=== PATIENT | female | born 1995 | race African-American/Black ===

== ENCOUNTER 2024-04-02 06:36 | Outpatient (OUT) | payer OTHER, SELFPAY | END 2024-04-02 06:37 | disposition home or self-care (01) | LOC: FBCO 06:36 | PROVIDERS: Visit Provider Obstetrics & Gynecology | DX: O24.414 Gestational diabetes mellitus in pregnancy, insulin controlled (principal) ==

== ENCOUNTER 2024-04-09 06:06 | Outpatient (OUT) | payer OTHER, SELFPAY ==
--- NOTE | 2024-04-09 10:03 | US_ITS ---
[address] [address] Patient Name: MONICA FERGUSON MRN: [id number] date: 1995 Sex: F [place] [facility] [place] [facility] [place]/Order Number: [id number] Exam Date: 04/09/2024 10:10 Report Date: 04/10/2024 05:34 At the request of: TOYA SMITH Procedure: US OB growth EXAMINATION: US OB growth HISTORY: INSULIN CONTROLLED GESTATIONAL DIABETES MELLITUS O24.414 COMPARISON: No relevant comparison available. FINDINGS: Heart Rate: 132.74 bpm Amniotic Fluid Volume: 11.7 cm; normal range. Number: 1 Position: CEPHALIC Placenta: Posterior BIOMETRY: BPD: 8.22 cm; 33 weeks 0 days; 37.40 % HC: 29.81 cm; 33 weeks 0 days; 10.90 % AC: 29.24 cm; 33 weeks 2 days; 50.10 % FL: 6.70 cm; 34 weeks 3 days; 70.50 % EFW: 2219.13 g; 49.40 % FL/AC: 22.91 FL/BPD: 81.47 HC/AC: 1.02 GESTATIONAL AGE: Age by EDC: 33 weeks 2 days ANNA by EDC: 2024-05-26 Age by US: 33 weeks 3 days ANNA by US: 2024-05-25 US/US OB growth IMPRESSION: 1. Single live intrauterine with growth detailed above. Electronically authenticated by: HA SOUTH Date: 04/10/2024 05:34
--- NOTE | 2024-04-09 10:03 | US_ITS ---
[address] [address] Patient Name: MONICA FERGUSON MRN: [facility]:[id number] date: 1995 Sex: F Assigned Patient Location: [facility] Current Patient Location: Accession/Order Number: [id number] Exam Date: 04/09/2024 10:10 Report Date: 04/10/2024 05:24 At the request of: TOYA SMITH Procedure: US OB BPP w non-stress EXAMINATION: US OB BPP w non-stress HISTORY:INSULIN CONTROLLED GESTATIONAL DIABETES MELLITUS O24.414 COMPARISON: No relevant comparison available. TECHNIQUE: Ultrasound biophysical profile was performed in the radiology department. BREATHING MOVEMENTS: 2 GROSS BODY MOVEMENTS: 2 TONE: 2 QUALITATIVE AMNIOTIC FLUID VOLUME: 2 PRESENTATION: CEPHALIC HEART RATE: 132.74 bpm AMNIOTIC FLUID VOLUME: 11.67 cm GESTATIONAL AGE: 33 weeks 2 days US/US OB BPP w non-stress IMPRESSION: Total biophysical profile score: 8 Electronically authenticated by: HA SOUTH Date: 04/10/2024 05:24
[2024-04-09 11:09] VITALS: BP 131/73; PULSE 85
== END 2024-04-09 11:31 | disposition home or self-care (01) ==
LOC: FBCO 06:06 → FBC 10:10
PROVIDERS: Visit Provider Physician Assistant
DX: O24.414 Gestational diabetes mellitus in pregnancy, insulin controlled (principal); Z3A.33 33 weeks gestation of pregnancy
CPT/HCPCS: 76816; 76818

== ENCOUNTER 2024-04-12 06:21 | Outpatient (OUT) | payer OTHER, SELFPAY ==
--- OUTSIDE RECORDS SUMMARY | 2024-04-12 06:23 | XMS_ITS | CCD ---
Author Organization [facility] Care Team Providers Care Museum Preparator Name Role Phone LAURA, DR TRAE Delaney Primary Care Unavailable NADERER, DR TRAE Delaney Admitting Unavailable NADERER, DR TRAE Delaney Attending Unavailable NADERER, DR TRAE Delaney Consulting Unavailable NADERER, DR TRAE Delaney Primary Care Unavailable KARASIK, DR OLMOS Attending Unavailable KARASIK, DR OLMOS Consulting Unavailable KARASIK, DR OLMOS Admitting Unavailable NADERER, DR TRAE Delaney Primary Care Unavailable DAVENPORT, DR JOSE Torres Consulting Unavailable JASMINE, DR FELIX Attending Unavailable JASMINE, DR FELIX Admitting Unavailable JASMINE, DR FELIX Consulting Unavailable CHANTAL, YASMINE Quinteros Attending Unavailable NADERER, TRAE Referring Unavailable NADERER, TRAE Primary Care Unavailable CHANTAL, YASMINE Quinteros Attending Unavailable NADERER, TRAE Referring Unavailable NADERER, TRAE Primary Care Unavailable NADERER, TRAE Primary Care Unavailable CHANTAL, YASMINE Quinteros Attending Unavailable CHANTAL, YASMINE M Referring Unavailable NADERER, TRAE Primary Care Unavailable NADERER, TRAE Primary Care Unavailable CHANTAL, YASMINE M Referring Unavailable NADERER, TRAE Primary Care Unavailable CHANTAL, YASMINE M Referring Unavailable NADERER, TRAE Primary Care Unavailable Naderer , Trae Primary Care Provider Joanna Allan MD Primary Care Provider [phone] YASMINE ZAVALA Referring Unavailable NADERER, TRAE Primary Care Unavailable ADELA VALENTINE Attending Unavailable ISIDRO FERRARO Referring Unavailable NADERER, TRAE Primary Care Unavailable JASMINE, ISIDRO R Referring Unavailable NADERER, TRAE Primary Care Unavailable KATHIE SELLERS Attending Unavailable YASMINE ZAVALA Referring Unavailable NADERER, TRAE Primary Care Unavailable ISIDRO FERRARO Referring Unavailable NADERER, TRAE Primary Care Unavailable ISIDRO FERRARO R Referring Unavailable TRAE SANCHEZ Primary Care Unavailable ISIDRO FERRARO Attending Unavailable MARYANN SMITH Attending Unavailable ISIDRO FERRARO Attending Unavailable ISIDRO FERRARO Attending Unavailable MARYANN SMITH Attending Unavailable ISIDRO FERRARO Attending Unavailable Allergies Allergy Classification Reported Allergen(s) Allergy Type Date of Onset Reaction(s) Facility (18 sources) Amoxicillin; Translations: [AMOXICILLIN] Drug Allergy 07-15-2021 Rash [facility] Medications Current Medications Medication Drug Class(es) Dates Sig (Normalized) Sig (Original) Blood Glucose Monitoring Suppl (True Metrix Meter) w/Device kit (5 sources) Start: 10-21-2023 Blood Glucose Monitoring Suppl (True Metrix Meter) w/Device kit USE TO CHECK FASTING BLOOD SUGAR IN THE MORNING AND ONE HOUR AFTER FIRST BITE OF EACH MEAL 10/21/2023 Active blood-glucose meter misc (4 sources) Start: 10-21-2023 blood-glucose meter misc Indications: Diet controlled gestational diabetes mellitus (GDM) in first trimester Use to check fasting blood sugar in the morning and one hour after first bite of each meal. Order supplies per insurance preference. 1 each 10/21/2023 Active diphenhydrAMINE hydrochloride 25 mg oral capsule (4 sources) Histamine-1 Receptor Antagonist Start: 10-06-2023 take 1 capsule by mouth every six hours as needed diphenhydrAMINE (BENADRYL) 25 mg capsule Take 1 capsule (25 mg total) by mouth every 6 (six) hours as needed for itching for up to 10 doses. 10 capsule 10/06/2023 Active doxylamine succinate 25 mg oral tablet (9 sources) Start: 10-04-2023 doxylamine (Unisom) 25 MG tablet Take 25 mg by mouth as needed at bedtime 10/04/2023 Active famotidine 20 mg oral tablet (9 sources) Histamine-2 Receptor Antagonist Start: 10-06-2023 take 1 tablet by mouth in the morning famotidine (Pepcid) 20 MG tablet Take 20 mg by mouth in the morning and 20 mg in the evening. 10/06/2023 Active 3 ml insulin glargine 100 unt/ml pen injector (15 sources) Insulin Analog Start: 01-17-2024 inject 10 [IU] by subcutaneous injection at bedtime Lantus SoloStar 100 UNIT/ML pen Inject 10 Units under the skin at bedtime 01/17/2024 Active Start: 01-17-2024 insulin glargi ne (LANTUS SOLOSTAR U-100 INSULIN) 100 unit/mL (3 mL) insulin pen Indications: Insulin controlled gestational diabetes mellitus (GDM) in third trimester , Severe obesity due to excess calories affecting , [place] ([facility] , 21 weeks gestation of Inject 10U every evening subcutaneously, prime 2U 15 mL 11 01/17/2024 Active metroNIDAZOLE 0.0075 mg/mg vaginal gel (2 sources) Nitroimidazole Antimicrobial Start: 03-21-2024 End: 03-26-2024 metroNIDAZOLE (Metrogel) 0.75 % vaginal gel Indications: BV (bacterial vaginosis) Insert into the vagina Daily for 5 days 70 g 03/21/2024 03/26/2024 Active pyridoxine hydrochloride 25 mg oral tablet (4 sources) Start: 10-04-2023 pyridoxine, vi tamin B6, (B-6) 25 mg tablet Indications: Nausea/vomiting in Take 1 tablet (25 mg total) by mouth in the morning and 1 tablet (25 mg total) at noon and 1 tablet (25 mg total) in the evening and 1 tablet (25 mg total) before bedtime. 120 tablet 1 10/04/2023 Active Completed/Discontinued Medications Medication Drug Class(es) Dates Sig (Normalized) Sig (Original) azithromycin 250 mg oral tablet (2 sources) Macrolide Antimicrobial Start: 01-06-2024 End: 02-23-2024 azithromycin (Zithromax Z-Jasen) 250 MG tablet Indications: Upper respiratory tract infection, unspecified type As directed 6 tablet 01/06/2024 02/23/2024 Discontinued Problems Active Problems Problem Classification Problem Date Documented Da te Episodic/Chronic Cardiac dysrhythmias (4 sources) Palpitations; Translations: [Palpitations] 04-03-2024 Episodic Conditions associated with dizziness or vertigo (4 sources) Lightheadedness; Translations: [Dizziness and giddiness] 04-03-2024 Episodic Deficiency and other anemia (1 source) Carrier of alpha thalassemia; Translations: [Thalassemia minor] 02-16-2024 Chronic Deficiency and other anemia (1 source) Thalassemia minor; Translations: [Thalassemia minor] Onset: 01-17-2024 Chronic Inflammatory diseases of female pelvic organs (2 sources) Bacterial vaginosis; Translations: [Acute vaginitis] 03-21-2024 Episodic Menstrual disorders (2 sources) Irregular menstruation, unspecified; Translations: [Excessive and frequent menstruation with irregular cycle] Onset: 06-25-2020 Chronic Nutritional deficiencies (1 source) Vitamin D deficiency, unspecified; Translations: [VITAMIN D DEFICIENCY UNSPECIFIED] Onset: 06-25-2020 Chronic Other complications of (8 sources) Maternal obesity complicating , childbirth and the puerperium, antepartum; Translations: [Obesity complicating , unspecified trimester] Onset: 10-04-2023 10-04-2023 Chronic Other complications of (1 source) Obesity complicating , unspecified trimester; Translations: [Obesity complicating , unspecified trimester] Onset: 10-04-2023 Chronic Other complications of (1 source) Supervision of high risk , unspecified, unspecified trimester; Translations: [Supervision of high risk , unspecified, unspecified trimester] Onset: 01-17-2024 Episodic Other complications of (1 source) Supervision of with other poor reproductive or obstetric history, unspecified trimester; Translations: [Supervision of with other poor reproductive or obstetric history, unspecified trimester] Onset: 01-17-2024 Episodic Other nutritional; endocrine; and metabolic disorders (1 source) Morbid (severe) obesity due to excess calories; Translations: [Morbid (severe) obesity due to excess calories] Onset: 10-04-2023 Chronic Other nutritional; endocrine; and metabolic disorders (4 sources) Abnormal weight gain; Translations: [ABNORMAL WEIGHT GAIN] Onset: 11-20-2020 Episodic Other and delivery including normal (11 sources) Encounter for test, result positive; Translations: [Encounter for supervision of normal , unspecified, first trimester] Onset: 10-04-2023 03-07-2024 Episodic Other screening for suspected conditions (not mental disorders or infectious disease) (7 sources) Encounter for screening for malignant neoplasm of cervix; Translations: [Encounter for other specified screening] Onset: 11-05-2020 Episodic Other skin disorders (1 source) Hirsutism; Translations: [HIRSUTISM] Onset: 12-01-2020 Episodic Other skin disorders (1 source) Rash and other nonspecific skin eruption; Translations: [Rash and other nonspecific skin eruption] Onset: 10-06-2023 Episodic Residual codes; unclassified (1 source) Carrier of alpha thalassemia 02-16-2024 Episodic Residual codes; unclassified (2 sources) Gestation period, 28 weeks; Translations: [28 weeks gestation of ] 03-07-2024 Episodic Residual codes; unclassified (1 source) 21 weeks gestation of ; Translations: [21 weeks gestation of ] Onset: 01-17-2024 Episodic Residual codes; unclassified (2 sources) Gestation period, 30 weeks; Translations: [30 weeks gestation of ] 03-21-2024 Episodic Residual codes; unclassified (2 sources) Gestation period, 26 weeks; Translations: [26 weeks gestation of ] 02-23-2024 Episodic Residual codes; unclassified (2 sources) Gestation period, 32 weeks; Translations: [32 weeks gestation of ] 04-03-2024 Episodic Unclassified (1 source) Initial Visit Onset: 10-28-2023 Unclassified (2 sources) Rash Onset: 10-06-2023 Unclassified (11 sources) OB Reminders Onset: 12-22-2023 12-22-2023 Unclassified (1 source) ELEVATED SUGARS Onset: 01-17-2024 Viral infection (1 source) Enteroviral vesicular stomatitis with exanthem; Translations: [Enteroviral vesicular stomatitis with exanthem] Onset: 10-06-2023 Episodic Past or Other Problems Problem Classification Problem Date Documented Date Episodic/Chronic Diabetes or abnormal glucose tolerance complicating ; childbirth; or the puerperium (20 sources) Gestational diabetes mellitus; Translations: [Gestational diabetes mellitus in , unspecified control] Onset: 10-04-2023 10-27-2023 Episodic Disorders of teeth and jaw (2 sources) Other specified disorders of teeth and supporting structures; Translations: [Toothache] Onset: 06-26-2023 Episodic Immunizations and screening for infectious disease (3 sources) Encounter for screening for infections with a predominantly sexual mode of transmission; Translations: [Encounter for screening for infections with a predominantly sexual mode of transmission] Onset: 10-28-2023 Episodic Mood disorders (4 sources) Mood disorders Onset: 10-27-2023 10-27-2023 Other complications of (4 sources) H/O: blood transfusion; Translations: [Supervision of with other poor reproductive or obstetric history, unspecified trimester] Onset: 10-04-2023 10-04-2023 Episodic Other complications of (4 sources) History of delivery of macrosomal ; Translations: [Supervision of with other poor reproductive or obstetric history, unspecified trimester] Onset: 10-04-2023 10-04-2023 Episodic Other complications of (4 sources) Vomiting of , unspecified; Translations: [Unspecified vomiting of , unspecified as to episode of care or not applicable] Onset: 10-04-2023 10-04-2023 Episodic Other complications of (4 sources) Bacterial vaginosis in ; Translations: [Infection of other part of genital tract in , unspecified trimester] Onset: 11-01-2023 11-01-2023 Episodic Other female genital disorders (1 source) Other specified noninflammatory disorders of vagina; Translations: [Other specified noninflammatory disorders of vagina] Onset: 10-28-2023 Episodic Results Test Name Value Interpretation Reference Range Facility Urinalysis macro (dipstick) panel (U)on 04-03-2024 Bilirubin, UA Negative Negative - 4(70) +++ mg/dL [facility] Blood, UA Negative Negative - 50 Janes/mcL [facility] Clarity, UA Clear [facility] Color, UA Yellow [facility] Glucose, UA Negative Negative - 2000(110) ++++ mg/dL [facility] Interpretation and review of laboratory results Abnormal [facility] Ketones, UA Positive Negative - 160(16) ++++ mg/dL [facility] Comment on above: 40 Leukocytes, UA Positive Negative - 500+++ Too/mcL [facility] Comment on above: small Nitrite, UA Negative Negative - Positive [facility] pH, UA 7 5 - 9 [facility] Protein, UA Trace Negative - 1999(20) ++++ mg/dL [facility] Spec Grav, UA 1.025 1 - 1.03 [facility] Urobilinogen, UA 0.2 0.2 - 12 mg/dL [facility] Urinalysis macro (dipstick) panel (U)on 03-21-2024 Bilirubin, UA Negative Negative - 4(70) +++ mg/dL [facility] Blood, UA Negative Negative - 50 Janes/mcL [facility] Clarity, UA Clear [facility] Color, UA Yellow [facility] Glucose, UA Negative Negative - 1999(110) ++++ mg/dL [facility] Interpretation and review of laboratory results Abnormal [facility] Ketones, UA Negative Negative - 160(16) ++++ mg/dL [facility] Leukocytes, UA Trace Negative - 500+++ Too/mcL [facility] Nitrite, UA Negative Negative - Positive [facility] pH, UA 6 5 - 9 [facility] Protein, UA Negative Negative - 1999(20) ++++ mg/dL [facility] Spec Grav, UA 1.03 1 - 1.03 [facility] Urobilinogen, UA 0.2 0.2 - 12 mg/dL [facility] Urinalysis macro (dipstick) panel (U)on 03-07-2024 Bilirubin, UA Positive Negative - 4(70) +++ mg/dL [facility] Comment on above: small Blood, UA Positive Negative - 50 Janes/mcL [facility] Comment on above: trace-intact Clarity, UA Clear [facility] Color, UA Yellow [facility] Glucose, UA Negative Negative - 1999(110) ++++ mg/dL [facility] Interpretation and review of laboratory results Abnormal [facility] Ketones, UA Positive Negative - 160(16) ++++ mg/dL [facility] Comment on above: trace Leukocytes, UA Positive Negative - 500+++ Too/mcL [facility] Comment on above: small Nitrite, UA Negative Negative - Positive [facility] pH, UA 5.5 5 - 9 [facility] Protein, UA Negative Negative - 1999(20) ++++ mg/dL [facility] Spec Grav, UA 1.03 1 - 1.03 [facility] Urobilinogen, UA 0.2 0.2 - 12 mg/dL [facility] Urinalysis macro (dipstick) panel (U)on 02-23-2024 Bilirubin, UA Negative Negative - 4(70) +++ mg/dL [facility] Blood, UA Positive Negative - 50 Janes/mcL [facility] Comment on above: trace-intact Clarity, UA Clear [facility] Color, UA Yellow [facility] Glucose, UA Negative Negative - 1999(110) ++++ mg/dL [facility] Interpretation and review of laboratory results Abnormal [facility] Ketones, UA Negative Negative - 160(16) ++++ mg/dL [facility] Leukocytes, UA Positive Negative - 500+++ Too/mcL [facility] Comment on above: small Nitrite, UA Negative Negative - Positive [facility] pH, UA 6 5 - 9 [facility] Protein, UA Negative Negative - 1999(20) ++++ mg/dL [facility] Spec Grav, UA 1.03 1 - 1.03 [facility] Urobilinogen, UA 0.2 0.2 - 12 mg/dL [facility] CHLAMYDIA/GC PCR, FLon 10-27 CHLAMYDIA/GC PCR, FL SPECIMEN SOURCE ThinPrep CHLAMYDIA DNA(PCR) Negative (qualifier value) Chlamydia trachomatis not detected by nucleic acid amplification. This does not exclude the possibility of infection because results are dependent on adequate specimen collection. GONORRHOEAE DNA(PCR) Negative (qualifier value) Neisseria gonorrhoeae not detected by nucleic acid amplification. This does not exclude the possibility of infection because results are dependent on adequate specimen collection. Normal [facility] Comment on above: Performed By: #### D MCCLOUD #### [facility] ([id number]) [address] [place] [address] [address] [place] [address] Cytology Cervical or vaginal smear or scraping studyon 10-28-2023 [facility] VAGINITIS PANEL PCRon 2023 VAGINITIS PANEL PCR BACT. VAGINOSIS DNA Detected (qualifier value) Qualitative results are reported based on detection and quantitation of targeted organism markers which include: Lactobacillus spp. (L. crispatus and L. jensenii), Gardnerella vaginalis, Atopobium vaginae, Bacterial Vaginosis Associated Bacteria-2 (BVAB-2) and Megasphaera-1 RICARDA SPECIES DNA Not detected (qualifier value) Ricarda species not detected include: C. albicans, C. tropicalis, C. parapsilosis or C. dubliniensis RICARDA KRUSEI DNA Not detected (qualifier value) No Ricarda krusei detected RICARDA GLABRATA DNA Not detected (qualifier value) No Ricarda glabrata detected TRICHOMONAS VAG DNA Not detected (qualifier value) No Trichomonas vaginalis detected NOTE BD MAX Vaginal Panel has not been evaluated for patients under 18 years old. Results for these patients should be reviewed and assessed in accordance with clinical presentation to determine patient diagnosis. Normal [facility] Comment on above: Performed By: #### V PPCR #### [facility] ([id number]) [address], [address] [place] [address] ACUTE HEPATITIS PANELon 10-01 ANTI HCV W/PCR REFLX Non-Reactive Normal NRCT Pr [facility] Comment on above: Result Comment: If recent infection suspected, recommend repeat testing (>2 months). Btkalw-st-qpebsz ratio is <0.80. Performed By: #### 1 504-0, 67881-0, CBC, AHP, 76482-7, 94796-5, 51168-6, 48773-3, 6864-3 #### [facility] ([id number]) [address], [address] [place] [address] HEPATITIS A IGM Non-Reactive Normal NRCT [facility] Comment on above: Performed By: #### 1 504-0, 14419-7, CBC, AHP, 84592-9, 94852- 5, 80462-1, 41754-0, 6864-3 #### [facility] ([id number]) [address], [address] [place] [address] HEPATITIS B CORE IGM Negative Normal NEG [facility] Comment on above: Performed By: #### 1 504-0, 43667-5, CBC, AHP, 95533-8, 59133- 5, 34813-8, 63793-7, 6864-3 #### [facility] ([id number]) [address], [address] [place] [address] HEPATITIS B SURF AG Negative Normal NEG [facility] Comment on above: Performed By: #### 1 504-0, 69500-8, CBC, AHP, 16793-8, 47441- 5, 98098-1, 26349-8, 6864-3 #### [facility] ([id number]) [address], [address] [place] [address] COMPLETE BLOOD COUNTon 10-19 Erythrocyte distribution width (RBC) [Ratio] 15.0 % Normal 11.5-15.0 [facility] Comment on above: Performed By: #### 1 504-0, 48562-0, CBC, AHP, 90214-3, 61636- 5, 25544-0, 64593-3, 6864-3 #### [facility] ([id number]) [address], [address] [place] [address] Hematocrit (Bld) [Volume fraction] 38.0 % Normal 35-47 [facility] Comment on above: Performed By: #### 1 504-0, 56448-2, CBC, AHP, 57389-6, 13778- 5, 32293-9, 63479-2, 6864-3 #### [facility] ([id number]) [address], [address] [place] [address] Hemoglobin (Bld) [Mass/Vol] 12.5 g/dL Normal 11.7-15.5 [facility] Comment on above: Performed By: #### 1 504-0, 92779-0, CBC, AHP, 23978-9, 90655- 5, 47536-5, 59424-7, 6864-3 #### [facility] ([id number]) [address], [address] [place] [address] MCH (RBC) [Entitic mass] 27.4 pg Normal 27-34 [facility] Comment on above: Performed By: #### 1 504-0, 90702-8, CBC, AHP, 82008-0, 57548- 5, 01599-1, 65510-5, 6864-3 #### [facility] ([id number]) [address], [address] [place] [address] MCHC (RBC) [Mass/Vol] 32.9 g/dL Normal 32-36 [facility] Comment on above: Performed By: #### 1 504-0, 98403-0, CBC, AHP, 41675-7, 72150- 5, 07975-9, 75947-6, 6864-3 #### [facility] ([id number]) [address], [address] [place] [address] MCV (RBC) [Entitic vol] 83 fL Normal 80-100 [facility] Comment on above: Performed By: #### 1 504-0, 18267-2, CBC, AHP, 64841-5, 78814- 5, 93324-4, 42294-7, 6864-3 #### [facility] ([id number]) [address], [address] [place] [address] Platelet mean volume (Bld) [Entitic vol] 8.6 fL Normal 7-12 [facility] Comment on above: Performed By: #### 1 504-0, 00566-2, CBC, AHP, 31379-2, 26971- 5, 27165-4, 36911-0, 6864-3 #### [facility] ([id number]) [address], [address] [place] [address] Platelets (Bld) [#/Vol] 282 10*3/uL Normal 150-450 [facility] Comment on above: Performed By: #### 1 504-0, 66205-1, CBC, AHP, 15810-5, 61551- 5, 38875-4, 34085-0, 6864-3 #### [facility] ([id number]) [address], [address] [place] [address] RBC COUNT 4.55 X10E12/L Normal 3.80-5.20 [facility] Comment on above: Performed By: #### 1 504-0, 04269-2, CBC, AHP, 58128-6, 17514- 5, 90493-8, 83813-0, 6864-3 #### [facility] ([id number]) [address], [address] [place] [address] WBC (Bld) [#/Vol] 7.3 10*3/uL Normal 4.0-11.0 [facility] Comment on above: Performed By: #### 1 504-0, 46917-6, CBC, AHP, 75409-9, 36700- 5, 97630-4, 81809-2, 6864-3 #### [facility] ([id number]) [address], [address] [place] [address] DRUG SCREEN, URINEon 024 AMPHETAMINE/METHAMP Negative Normal NEG [facility] Comment on above: Result Comment: AMPH /METH screening cut off = 1000 ng/mL Performed By: #### D MCCLOUD #### [facility] ([id number]) [address], [address] [place] [address] BARBITURATES Negative Normal NEG [facility] Comment on above: Result Comment: Dayana iturates screening cut off value = 200 ng/mL Performed By: #### D MCCLOUD #### [facility] ([id number]) [address], [address] [place] [address] BENZODIAZEPINES Negative Normal NEG [facility] Comment on above: Result Comment: Ki odiazepines screening cut off value = 200 ng/mL Performed By: #### D MCCLOUD #### [facility] ([id number]) [address], [address] [place] [address] CANNABINOIDS Negative Normal NEG [facility] Comment on above: Result Comment: Gaurang abinoids/THC screening cut off value = 50 ng/mL Performed By: #### D MCCLOUD #### [facility] ([id number]) [address], [address] [place] [address] COCAINE METABOLITE Negative Normal NEG [facility] Comment on above: Result Comment: Coca ine screening cut off value = 300 ng/mL Performed By: #### D MCCLOUD #### [facility] ([id number]) [address], [address] [place] [address] ECSTASY Negative Normal NEG [facility] Comment on above: Result Comment: Ecst asy screening cut off value = 500 ng/mL This report is intended for use in clinical monitoring or management of patients. Performed By: #### D MCCLOUD #### [facility] ([id number]) [address], [address] [place] [address] METHADONE Negative Normal NEG [facility] Comment on above: Result Comment: Meth adone screening cut off value = 300 ng/mL. Performed By: #### D MCCLOUD #### [facility] ([id number]) [address] [place] [address] OPIATES Negative Normal NEG [facility] Comment on above: Result Comment: Opia nasrin screening cut off value = 300 ng/mL NOTE: This test is used for the detection of codeine, hydrocodone (>1000 ng/mL), morphine and hydromorphone (>900 ng/mL) in urine. Performed By: #### D MCCLOUD #### [facility] ([id number]) [address] [place] [address] OXYCODONE Negative Normal NEG [facility] Comment on above: Result Comment: Oxyc odone screening cut off value = 300 ng/mL NOTE: This test is used for the detection of oxycodone and oxymorphone in urine. Performed By: #### D MCCLOUD #### [facility] ([id number]) [address] [place] [address] PHENCYCLIDINE Negative Normal NEG [facility] Comment on above: Result Comment: Phen cyclidine screening cut off value = 25 ng/mL Performed By: #### D MCCLOUD #### [facility] ([id number]) [address] [place] [address] Glucose 1 Hr post 50 g gluco se PO [Mass/Vol]on 10-20-2023 GLU 1H POST 50G LOAD 207 mg/dL High 65-[address] [facility] Comment on above: Performed By: #### 1 504-0, 19340-2, CBC, AHP, 59762-0, 32389- 5, 31585-2, 52418-1, 6864-3 #### [facility] ([id number]) [address], [address] [place] [address] HCG.beta subunit IA 3rd IS Q non 10-20-2023 [place] [address] m[IU]/mL Normal P [facility] Comment on above: Result Comment: NEW REFERENCE RANGE WEEKS (SINCE LMP) MIU/mL 3 WEEKS 5 - 50 4 WEEKS 5 - 426 5 WEEKS 18 - 7,340 6 WEEKS 1,080 - 56,500 7-8 WEEKS 7,650 - 229,000 9-12 WEEKS 25,700 - 288,000 13-16 WEEKS 13,300 - 254,000 17-24 WEEKS 4,060 - 165,400 25-40 WEEKS 3,640 - 117,000 MALES AND NON- FEMALES - <5 MIU/mL This test has been FDA approved for use in only. Elevated levels are not necessarily diagnostic for trophoblastic or nontrophoblastic neoplasms. Performed By: #### 1 504-0, 46556-5, CBC, AHP, 88210-4, 60017-8, 15467-2, 08205-8, 6864-3 #### [facility] ([id number]) [address], [address] [place] [address] HIV 1+2 Ab+HIV1 p24 Ag IA Ql on 10-20-2023 HIV 1 and 2 Ab/Ag Screen Non-Reactive Normal NRCT [facility] Comment on above: Result Comment: This information has been disclosed to you from confidential records protected from disclosure by state law. You shall make no further disclosure of this information without the specific, written and informed release of the individual to whom it pertains, or as otherwise permitted by state law. A general authorization for the release of medical or other information is not sufficient for the purpose of the release of HIV test results or diagnoses. Performed By: #### 1 504-0, 41951-0, CBC, AHP, 45277-7, 44016-2, 96658-0, 60720-1, 6864-3 #### [facility] ([id number]) [address] [place] [address], [address] [address] Hemoglobin S Solubility test Ql (Bld)on 10-20-2023 SICKLE SOLUBILITY Negative Normal NEG [facility] Comment on above: Performed By: #### D MCCLOUD #### [facility] ([id number]) [address] [place] [address], [address] [place] [address] Rubella virus Ab Ql (S)on RUBELLA IMMUNE IgG 4.3 AI Normal [facility] Comment on above: Result Comment: Interpretation-------- <0.8 NEGATIVE-considered Not Immune 0.8-0.9 EQUIVOCAL-consider retesting with new specimen >0.9 POSITIVE-considered Immune Performed By: #### 1 504-0, 38059-2, CBC, AHP, 88140-0, 46847-9, 69877-7, 75582-0, 6864-3 #### [facility] ([id number]) [address] [place] [address], [facility] [address] [place] [address] T. pallidum IgG+IgM IA Ql (S )on 10-20-2023 Syphilis Total <0.2 Normal 0.0-0.8 [facility] Comment on above: Result Comment: NON REACTIVE No serologic evidence of infection to Treponema pallidum (syphilis). Repeat testing may be considered in patients with suspected acute or primary syphilis in 2 to 4 weeks. Performed By: #### 1 504-0, 44791-8, CBC, AHP, 34517-3, 14909-8, 45519-5, 83305-5, 6864-3 #### [facility] ([id number]) [address] [place] [address] URINALYSISon 10-20-2023 Bilirubin Ql (U) Negative Normal NEG [facility] Comment on above: Performed By: #### U A #### [facility] ([id number]) [address] [place] [address], [address] [place] [address] BLOOD/HGB Small Abnormal NEG [facility] Comment on above: Performed By: #### U A #### [facility] ([id number]) [address] [place] [address] Color (U) YELLOW Normal YELLOW [facility] Comment on above: Performed By: #### U A #### [facility] ([id number]) [facility], [address] [place] [address] Glucose Ql (U) Negative Normal NEG [facility] Comment on above: Performed By: #### U A #### [facility] ([id number]) [address] [place] [address] Ketones Ql (U) Negative Normal NEG [facility] Comment on above: Performed By: #### U A #### [facility] ([id number]) [address] [place] [address] Leukocyte esterase Test strip Ql (U) MODERATE Abnormal NEG [facility] Comment on above: Performed By: #### U A #### [facility] ([id number]) [address] [place] [address], [address] [place] [address] MUCOUS PRESENT Abnormal NONE [facility] Comment on above: Performed By: #### U A #### [facility] ([id number]) [address] [place] [address], [address] [place] [address] Nitrite Ql (U) Negative Normal NEG [facility] Comment on above: Performed By: #### U A #### [facility] ([id number]) [address] [place] [address], [address] [place] [address] pH (U) 6.0 [pH] Normal 5.0-8.5 [facility] Comment on above: Performed By: #### U A #### [facility] ([id number]) [address] [place] [address] [address] [place] [address] Protein Ql (U) Trace Abnormal NEG [facility] Comment on above: Performed By: #### U A #### [facility] ([id number]) [address] [place] [address], [address] [place] [address] R.B.CELLS 5 /hpf Normal 0-5 [facility] Comment on above: Performed By: #### U A #### [facility] ([id number]) [address] [place] [address] [address] [place] [address] Specific gravity (U) [Rel density] 1.024 Normal 1.003-1.035 [facility] Comment on above: Performed By: #### U A #### [facility] ([id number]) [address] [place] [address] [address] [place] [address] SQUAMOUS EPITHELIUM 14 /hpf High 0-5 [facility] Comment on above: Performed By: #### U A #### [facility] ([id number]) [address] [place] [address] [address] [place] [address] TURBIDITY HAZY Abnormal CLEAR [facility] Comment on above: Performed By: #### U A #### [facility] ([id number]) [address] [place] [address] Urobilinogen (U) [Mass/Vol] mg/dL Normal <1.1 [facility] Comment on above: Performed By: #### U A #### [facility] ([id number]) [address] [place] [address] W.B.CELLS 4 /hpf Normal 0-5 [facility] Comment on above: Performed By: #### U A #### [facility] ([id number]) [address] [place] [address] URINE CULTUREon 10-20-2023 Bacteria identified Cx Nom (U) CULTURE RESULTS <10,000 ORGANISMS/ML NORMAL URO GENITAL DYLAN Normal [facility] Comment on above: Performed By: #### D MCCLOUD #### [facility] ([id number]) [address] [place] [address] US PREG LESS THAN 14 WKS WIT H TRANSVAGINALon 10-20-2023 US PREG LESS THAN 14 WKS WITH TRANSVAGINAL US PREG LESS THAN 14 WKS WITH TRANSVAGINAL CLINICAL HISTORY: Dates and viability Comparison: None FINDINGS: * Single live IUP at 8 weeks 4 days. [place]-rump length 2.0 cm. Yolk sac visualized. Heart rate 159 beats minute. * The gestational sac is normal in morphology. Gestational sac fluid volume is normal for this very early gestational age. Placental morphology and location cannot be determined based on this early gestational age. * Maternal ovaries unremarkable. No adnexal mass or free fluid. IMPRESSION: * Single live IUP at 8 weeks 4 days. Finalized by Soto Oviedo MD on 10/20/2023 1:43 PM Normal [facility] VZV IgG IA Ql (S)on 10-20-19 24 VARICELLA IgG 4.0 AI High <0.9 [facility] Comment on above: Result Comment: Interpretation-------- <0.9 Negative 0.9 - 1.0 Equivocal >1.0 Positive Performed By: #### D MCCLOUD #### [facility] ([id number]) [address] [place] [address], [address] [place] [address] 17-[place] PROGESTERONE, LC/MSon 11-23-2020 17-[place] Progesterone LCMS 46 ng/dL Normal [facility] Comment on above: Result Comment: Adul t Female Follicular 15 - 70 Luteal 35 - 290 Performed By: #### Brian QIU, FT4 #### [facility] [address] [place] [address] Yu Watts DHEA-SULFATEon 11-21-2020 DHEA-Sulfate 275.0 ug/dL Normal 110.0-431.7 [facility] Comment on above: Performed By: #### Brian QIU, FT4 #### [facility] [address] [place], [place] [address] Yu Watts FSHon 11-21-2020 FSH 7.9 mIU/mL Normal [facility] Comment on above: Result Comment: Adul t Female: Follicular phase 3.5 - 12.5 Ovulation phase 4.7 - 21.5 Luteal phase 1.7 - 7.7 Postmenopausal 25.8 - 134.8 Performed By: #### L [facility] #### [facility] [address] [place] [address] Yu Watts LUTEINIZING HORMONE (LH)on 0 11-21-2020 LH 11.3 mIU/mL Normal [facility] Comment on above: Result Comment: Adul t Female: Follicular phase 2.4 - 12.6 Ovulation phase 14.0 - 95.6 Luteal phase 1.0 - 11.4 Postmenopausal 7.7 - 58.5 Performed By: #### Brian ITJODI, FT4 #### [facility] [address] [place], [place] [address] Yu Watts PROLACTINon 11-21-2020 Prolactin 8.5 ng/mL Normal 4.8-23.3 [facility] Comment on above: Performed By: #### Brian QIU, FT4 #### [facility] [address] [place] [address] Yu Watts TESTOSTERONE, TOTALon 2020 Testosterone [Mass/Vol] 23 ng/dL Normal 13-71 [facility] Comment on above: Performed By: #### T ESTTOT #### [facility] [address] [place], [place] [address] Yu Watts TSHon 11-20-2020 TSH 1.061 uIU/mL Normal 0.470-4.680 [facility] Comment on above: Performed By: #### T SH #### [facility] [address] [place], [place] [address] Yu Watts TSH RANGE SEE BELOW Normal [facility] Comment on above: Result Comment: <0.3 4 UIU/ml HYPERTHYROID 0.34-5.60 UIU/ml EUTHYROID >5.60 UIU/ml HYPOTHYROID Performed By: #### T SH #### [facility] [address] [place], [place] [address] Yu Watts US PELVIS AND TRANSVAGon US PELVIS AND TRANSVAG EXAMINATION: US PELVIS AND TRANSVAG HISTORY: Abnormal weight gain COMPARISON: 03/23/2017 FINDINGS: Transabdominal and transvaginal images The uterus measures 8.9 x 4.3 x 6.3 cm. Anteverted. Endometrium measures up to 7.2 mm. 2 separate endometrial horns The right ovary is normal in size, contour and echotexture measuring 4.3 x 1.9 x 1.6 cm. Normal resistive index of 0.5. The left ovary is normal in size, contour and echotexture measuring 3.8 x 2.0 x 2.0 cm. 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 . Normal [facility] Comment on above: Performed By: #### 4 [id number] #### [facility] [address] [place], [place] [address] Yu Watts Age Gdln ACOG Testing 21-29 Normal [facility] Comment on above: Performed By: #### 4 [id number] #### [facility] [address] [place] [address] Yu Watts DIAGNOSIS: Comment Normal [facility] Comment on above: Result Comment: NEGA TIVE FOR INTRAEPITHELIAL LESION OR MALIGNANCY. Performed By: #### 4 [id number] #### [facility] [address] [place] [address] Yu Watts Methodology: Comment Normal [facility] Comment on above: Result Comment: This liquid based ThinPrep(R) pap test was screened with the use of an image guided system. Performed By: #### 4 [id number] #### [facility] [address] [place] [address] Yu Watts Note: Comment Normal [facility] Comment on above: Result Comment: The Pap smear is a screening test designed to aid in the detection of premalignant and malignant conditions of the uterine cervix. It is not a diagnostic procedure and should not be used as the sole means of detecting cervical cancer. Both false-positive and false-negative reports do occur. . Performed By: #### 4 [id number] #### [facility] [address] [place] [address] Yu Watts Performed by: Comment Normal [facility] Comment on above: Result Comment: Travon Martinez, Valet (ASCP) Performed By: #### 4 [id number] #### [facility] [address] [place] [address] Yu Watts Reflex Criteria: Comment Normal [facility] Comment on above: Result Comment: The HPV DNA reflex criteria were not met with this specimen result therefore, no HPV testing was performed. . Performed By: #### 4 [id number] #### [facility] [address] [place] [address] Yu Watts Specimen adequacy: Comment Normal [facility] Comment on above: Result Comment: Sati sfactory for evaluation. Endocervical and/or squamous metaplastic cells (endocervical component) are present. Performed By: #### 4 [id number] #### [facility] [address] [place] [address] Yu Watts DHEA-SULFATEon 05-24-2020 DHEA-Sulfate 258.0 ug/dL Normal 110.0-431.7 [facility] Comment on above: Performed By: #### V ITJODI, FT4 #### [facility] [address] [place], [place] [address] Yu Watts INSULINon 05-24-2020 Insulin 21.4 uIU/mL Normal 2.6-24.9 [facility] Comment on above: Performed By: #### I NSULIN #### [facility] [address] [place], [place] [address] Yu Watts CBC AUTO DIFFon 05-22-2020 BASO # 0.0 103/ul Normal 0.0-0.1 [facility] Comment on above: Performed By: #### V ITJODI, FT4 #### [facility] [address] [place], [place] [address] Yu Watts Basophils/100 WBC (Bld) 0.4 % Normal 0.2-2.0 [facility] Comment on above: Performed By: #### Brian ITJODI, FT4 #### [facility] [address] [place], [place] [address] Yu Watts EO # 0.0 103/ul Normal 0.0-0.7 [facility] Comment on above: Performed By: #### V ITJODI, FT4 #### [facility] [address] [place], [place] [address] Yu Watts Eosinophils/100 WBC (Bld) 0.7 % Critically low 0.9-7.0 [facility] Comment on above: Performed By: #### V ITJODI, FT4 #### [facility] [address] [place], [place] [address] Yu Watts Erythrocyte distribution width (RBC) [Ratio] 13.9 % Normal 11.0-15.0 [facility] Comment on above: Performed By: #### V ITJODI, FT4 #### [facility] [address] [place], [place] [address] Yu Watts Hematocrit (Bld) [Volume fraction] 39.0 % Normal 36.0-48.0 [facility] Comment on above: Performed By: #### V UYEN, FT4 #### [facility] [address] [place], [place] [address] Yu Stefanie Hemoglobin (Bld) [Mass/Vol] 12.6 g/dL Normal 12.0-16.0 [facility] Comment on above: Performed By: #### Brian QIU, FT4 #### [facility] [address] [place] [address] Yu Stefanie IG # 0.01 10e3/ul Normal 0.00-0.03 [facility] Comment on above: Performed By: #### Brian QIU, FT4 #### [facility] [address] [place] [address] Yu Stefanie IG % 0.2 % Normal 0.0-0.5 [facility] Comment on above: Performed By: #### Brian QIU, FT4 #### [facility] [address] [place] [address] Yu Stefanie LYMPH # 1.4 103/ul Normal 1.2-3.8 [facility] Comment on above: Performed By: #### Brian QIU, FT4 #### [facility] [address] [place] [address] Yu Watts Lymphocytes/100 WBC (Bld) 25.3 % Normal 20.5-60.0 [facility] Comment on above: Performed By: #### Brian QIU, FT4 #### [facility] [address] [place] [address] Yu Watts MANUAL DIFF REQ NO Normal [facility] Comment on above: Performed By: #### Brian ITJODI, FT4 #### [facility] [address] [place], [place] [address] Yuteri Watts MCH (RBC) [Entitic mass] 27.2 pg Normal 26.7-34.0 [facility] Comment on above: Performed By: #### Brian ITJODI, FT4 #### [facility] [address] [place], [place] [address] Yu Watts MCHC (RBC) [Mass/Vol] 32.3 g/dL Normal 29.9-35.2 [facility] Comment on above: Performed By: #### Brian QIU, FT4 #### [facility] [address] [place], [place] [address] Yu Watts MCV (RBC) [Entitic vol] 84.1 fL Normal 81.0-99.0 [facility] Comment on above: Performed By: #### Brian QIU, FT4 #### [facility] [address] [place] [address] Yu Watts MONO # 0.4 103/ul Normal 0.3-0.8 [facility] Comment on above: Performed By: #### Brian QIU, FT4 #### [facility] [address] [place] [address] Yu Watts Monocytes/100 WBC (Bld) 7.1 % Normal 1.7-12.0 [facility] Comment on above: Performed By: #### Brian QIU, FT4 #### [facility] [address] [place] [address] Yu Watts NEUT # 3.6 103/ul Normal 1.4-6.5 [facility] Comment on above: Performed By: #### Brian QIU, FT4 #### [facility] [address] [place] [address] Yu Watts Neutrophils/100 WBC (Bld) 66.3 % Normal 43.0-75.0 [facility] Comment on above: Performed By: #### Brian QIU, FT4 #### [facility] [address] [place] [address] Yu Watts Platelet mean volume (Bld) [Entitic vol] 10.9 fL Normal 9.5-13.5 [facility] Comment on above: Performed By: #### Brian QIU, FT4 #### [facility] [address] [place], [place] [address] Yu Baptisteen PLT 243 103/ul Normal 150-450 [facility] Comment on above: Performed By: #### Brian QIU, FT4 #### [facility] [address] [id number] Yu Watts RBC 4.64 106/ul Normal 4.20-5.40 [facility] Comment on above: Performed By: #### V UYEN, FT4 #### [facility] [address] [place], [place] [address] Yu Watts WBC 5.4 103/ul Normal 4.0-11.0 [facility] Comment on above: Performed By: #### V ITJODI, FT4 #### [facility] [address] [place], [place] [address] Yuteri Watts FREE T3on 05-22-2020 FREE T3 3.22 pg/mlL Normal 2.77-5.27 [facility] Comment on above: Performed By: #### V UYEN, FT4 #### [facility] [address] [place], [place] [address] Yuteri Watts FREE T4on 05-22-2020 Free T4 [Mass/Vol] 1.10 ng/dL Normal 0.78-2.19 [facility] Comment on above: Performed By: #### V UYEN, FT4 #### [facility] [address] [place] [address] Yu Watts GLYCOHEMOGLOBIN A1Con 2020 Glucose [Mass/Vol] 120 mg/dL Normal [facility] Comment on above: Performed By: #### V UYEN, FT4 #### [facility] [address] [place], [place] [address] Yu Watts HbA1c (Bld) [Mass fraction] 5.8 % Normal <=6.0 [facility] Comment on above: Performed By: #### V ITJODI, FT4 #### [facility] [address] [place] [address] Yu Watts LIPID PROFILEon 05-22-2020 CHOL-HDL RATIO NORM SEE BELOW Normal [facility] Comment on above: Result Comment: 3.3 - 4.4 LOW RISK 4.4 - 7.1 AVERAGE RISK 7.1 - 11.0 MODERATE RISK >11.0 HIGH RISK Performed By: #### L IPID, FT3, BMP, TSH, LIVER #### [facility] [address] [place], [place] [address] Yu Stefanie Cholesterol [Mass/Vol] 199 mg/dL Normal <=200 [facility] Comment on above: Performed By: #### L IPID, FT3, BMP, TSH, LIVER #### [facility] [address] [place], [place] [address] Yu Stefanie Cholesterol in HDL [Mass/Vol] 39 mg/dL Normal [facility] Comment on above: Performed By: #### L IPID, FT3, BMP, TSH, LIVER #### [facility] [address] [place], [place] [address] Yu Stefanie Cholesterol in LDL [Mass/Vol] 131.8 mg/dL Normal [facility] Comment on above: Performed By: #### L IPID, FT3, BMP, TSH, LIVER #### [facility] [address] [place], [place] [address] Yu Stefanie Cholesterol.total/Ch olesterol in HDL [Mass ratio] 5.1 {ratio} Normal [facility] Comment on above: Performed By: #### L IPID, FT3, BMP, TSH, LIVER #### [facility] [address] [id number] Yu Stefanie HDL NORMAL > or = 60 mg/dl - LO W CARDIOVASCULAR RISK <40 mg/dl - HIGH CARDIOVASCULAR RISK Normal [facility] Comment on above: Performed By: #### L IPID, FT3, BMP, TSH, LIVER #### [facility] [address] [id number] Yu Stefanie LDL CALC NORMAL SEE BELOW Normal [facility] Comment on above: Result Comment: <100 mg/dl OPTIMAL 100 - 129 mg/dl NEAR OR ABOVE OPTIMAL 130 - 159 mg/dl BORDERLINE HIGH 160 - 189 mg/dl HIGH >190 mg/dl VERY HIGH Performed By: #### L IPID, FT3, BMP, TSH, LIVER #### [facility] [address] [id number] Yu Stefanie Triglyceride [Mass/Vol] 141 mg/dL Normal <=150 [facility] Comment on above: Performed By: #### L IPID, FT3, BMP, TSH, LIVER #### [facility] [address], [place] [address] Yu Stefanie VLDL CALC 28.2 mg/dL Normal [facility] Comment on above: Performed By: #### L IPID, FT3, BMP, TSH, LIVER #### [facility] [address] [place] [address] Yuteri Baptisteen LIVER PROFILEon 05-22-2020 Albumin [Mass/Vol] 4.0 g/dL Normal 3.5-5.0 [facility] Comment on above: Performed By: #### V ITAD, FT4 #### [facility] [address] [place], [place] [id number] Yu Stefanie Albumin/Globulin [Mass ratio] 1.0 {ratio} Normal [facility] Comment on above: Performed By: #### V ITAD, FT4 #### [facility] [address] [place], [place] [phone] Yu Stefanie ALP [Catalytic activity/Vol] 44 U/L Normal 38-126 [facility] Comment on above: Performed By: #### V ITAD, FT4 #### [facility] [address] [place], [place] [phone] Yu Stefanie ALT [Catalytic activity/Vol] 93 U/L Critically high 9-52 [facility] Comment on above: Performed By: #### V ITAD, FT4 #### [facility] [address] [place], [place] [phone] Yu Stefanie AST [Catalytic activity/Vol] 46 U/L Critically high 14-36 [facility] Comment on above: Performed By: #### V ITAD, FT4 #### [facility] [address] [place] [address] Yu Stefanie BILI, CONJUGATED 0.1 mg/dL Normal 0.0-0.3 [facility] Comment on above: Performed By: #### V ITAD, FT4 #### [facility] [address] [place] [address] Yu Stefanie Bilirubin [Mass/Vol] 0.4 mg/dL Normal 0.2-1.3 [facility] Comment on above: Performed By: #### V ITAD, FT4 #### [facility] [address] [place], [place] [phone] Yu Stefanie Globulin (S) [Mass/Vol] 4.2 g/dL Normal [facility] Comment on above: Performed By: #### V ITAD, FT4 #### [facility] [address] [place], [place] [address] Yu Stefanie Protein [Mass/Vol] 8.2 g/dL Normal 6.1-8.2 [facility] Comment on above: Performed By: #### V ITAD, FT4 #### [facility] [address] [place], [place] [address] Yu Stefanie PROF CHEM 8 (BAS METB)on Anion gap [Moles/Vol] 12.9 mmol/L Normal [facility] Comment on above: Performed By: #### L IPID, FT3, BMP, TSH, LIVER #### [facility] [address] [place], [place] [address] Yu Stefanie Calcium [Mass/Vol] 9.4 mg/dL Normal 8.4-10.2 [facility] Comment on above: Performed By: #### L IPID, FT3, BMP, TSH, LIVER #### [facility] [address] [place], [place] [address] Yu Stefanie Chloride [Moles/Vol] 106 mmol/L Normal 98-107 [facility] Comment on above: Performed By: #### L IPID, FT3, BMP, TSH, LIVER #### [facility] [address] [place], [place] [address] Yu Stefanie CO2 [Moles/Vol] 25.7 mmol/L Normal 22.0-30.0 [facility] Comment on above: Performed By: #### L IPID, FT3, BMP, TSH, LIVER #### [facility] [address] [place] [address] Yu Stefanie Creatinine [Mass/Vol] 0.78 mg/dL Normal 0.52-1.04 [facility] Comment on above: Performed By: #### L IPID, FT3, BMP, TSH, LIVER #### [facility] [address] [address] Yu Stefanie EGFR-AF MONTENEGRIN >60 Normal >=60 [facility] Comment on above: Performed By: #### L IPID, FT3, BMP, TSH, LIVER #### [facility] [address] [address] Yu Stefanie EGFR-NON AF MONTENEGRIN >60 Normal >=60 [facility] Comment on above: Performed By: #### L IPID, FT3, BMP, TSH, LIVER #### [facility] [address] [address] Yu Stefanie Glucose [Mass/Vol] 95 mg/dL Normal 74-106 [facility] Comment on above: Performed By: #### L IPID, FT3, BMP, TSH, LIVER #### [facility] [address] [place] [address] Yu Stefanie Potassium [Moles/Vol] 3.6 mmol/L Normal 3.4-5.0 [facility] Comment on above: Performed By: #### L IPID, FT3, BMP, TSH, LIVER #### [facility] [address] [place] [address] Yu Stefanie Sodium [Moles/Vol] 141 mmol/L Normal 137-145 [facility] Comment on above: Performed By: #### L IPID, FT3, BMP, TSH, LIVER #### [facility] [address] [place] [address] Yu Stefanie Urea nitrogen [Mass/Vol] 10.0 mg/dL Normal 7.0-17.0 [facility] Comment on above: Performed By: #### L IPID, FT3, BMP, TSH, LIVER #### [facility] [address] [place] [address] Yu Stefanie Urea nitrogen/Creatinine [Mass ratio] 12.8 mg/mg Normal [facility] Comment on above: Performed By: #### L IPID, FT3, BMP, TSH, LIVER #### [facility] [address] [place] [address] Yu Watts TSHon 05-22-2020 TSH 1.324 uIU/mL Normal 0.470-4.680 [facility] Comment on above: Performed By: #### L IPID, FT3, BMP, TSH, LIVER #### [facility] [address] [place] [address] Yu Stefanie TSH RANGE SEE BELOW Normal [facility] Comment on above: Result Comment: <0.3 4 UIU/ml HYPERTHYROID 0.34-5.60 UIU/ml EUTHYROID >5.60 UIU/ml HYPOTHYROID Performed By: #### L IPID, FT3, BMP, TSH, LIVER #### [facility] [address] [place], [place] [address] Yu Watts VITAMIN D 25 OHon 05-22-2020 VIT D 25-OH 18.0 ng/mL Normal [facility] Comment on above: Performed By: #### V ITAD, FT4 #### [facility] [address] [place] [address] Yuteri Watts VIT D RANGES SEE BELOW Normal [facility] Comment on above: Result Comment: <20 ng/mL Vit D deficient 20 - <30 ng/mL Vit D insufficient 30 - 100 ng/mL Vit D sufficient >100 ng/mL Potential Toxicity Performed By: #### V ITAD, FT4 #### [facility] [address] [place] [address] Yu Watts Vital Signs Date Time Vital Sign Value Performing Clinician Stepheni lity 04-03-2024 10:58-0500 Body weight 109.23 kg Isidro Jasmine DO Work Phone: [facility] 04-03-2024 10:58-0500 Diastolic blood pressure 80 mm[Hg] Isidro Jasmine DO Work Phone: [facility] 04-03-2024 10:58-0500 Systolic blood pressure 120 mm[Hg] Isidro Jasmine DO Work Phone: [facility] 03-21-2024 13:54-0500 Body weight 109.32 kg Maryann AMIN Work Phone: [facility] 03-21-2024 13:54-0500 Diastolic blood pressure 74 mm[Hg] Maryann AMIN Work Phone: [facility] 03-21-2024 13:54-0500 Systolic blood pressure 118 mm[Hg] Maryann AMIN Work Phone: [facility] 03-07-2024 11:00-0500 Body weight 108.32 kg Isidro Jasmine DO Work Phone: [facility] 03-07-2024 11:00-0500 Diastolic blood pressure 70 mm[Hg] Isidro Jasmine DO Work Phone: [facility] 03-07-2024 11:00-0500 Systolic blood pressure 120 mm[Hg] Isidro Jasmine DO Work Phone: [facility] 02-23-2024 10:16-0400 Body weight 108.77 kg Isidro Jasmine DO Work Phone: [facility] 02-23-2024 10:16-0400 Diastolic blood pressure 76 mm[Hg] Isidro Jasmine DO Work Phone: [facility] 02-23-2024 10:16-0400 Systolic blood pressure 130 mm[Hg] Isidro Jasmine DO Work Phone: [facility] Healthcare Encounters Encounter Date Encounter Type Care Provider Facility Start: 04-03-2024 End: 04-03-2024 Bamboo flowsheet Isidro Jasmine DO Work Phone: [facility] Start: 04-03-2024 End: 04-03-2024 Bamboo flowsheet Isidro Jasmine DO Work Phone: [facility] Start: 04-03-2024 End: 04-03-2024 ambulatory ISIDRO JASMINE Not Available Start: 04-03-2024 End: 04-03-2024 Office outpatient visit 15 minutes Isidro Jasmine DO Work Phone: [facility] Comment on above: 32 weeks gestation o f ; Third trimester ; Episodic lightheadedness; Heart palpitations Start: 03-21-2024 End: 03-21-2024 Bamboo flowsheet Maryann AMIN Work Phone: [facility] Start: 03-21-2024 End: 03-21-2024 Bamboo flowsheet Maryann AMIN Work Phone: [facility] Start: 03-21-2024 End: 03-21-2024 Office outpatient visit 15 minutes Maryann AMIN Work Phone: [facility] Comment on above: Third trimester preg harini; 30 weeks gestation of ; Insulin controlled gestational diabetes mellitus (GDM) in third trimester; BV (bacterial vaginosis) Start: 03-21-2024 End: 03-21-2024 ambulatory MARYANN SMITH Not Available Start: 03-14-2024 End: 03-14-2024 ambulatory ISIDRO R [facility] Start: 03-07-2024 End: 03-07-2024 Bamboo flowsheet Isidor Jasmine DO Work Phone: [facility] Start: 03-07-2024 End: 03-07-2024 Bamboo flowsheet Isidro Jasmine DO Work Phone: [facility] Start: 03-07-2024 End: 03-07-2024 Office outpatient visit 15 minutes Isidro Jasmine DO Work Phone: [facility] Comment on above: 28 weeks gestation o f ; Third trimester Start: 03-07-2024 End: 03-07-2024 ambulatory ISIDRO JASMINE Not Available Start: 02-23-2024 End: 02-23-2024 Office outpatient visit 15 minutes Isidro Jasmine DO Work Phone: [facility] Comment on above: 26 weeks gestation o f ; Second trimester Start: 02-23-2024 End: 02-23-2024 ambulatory ISIDRO JASMINE Not Available Start: 02-16-2024 End: 02-16-2024 Orders Only Lottie Pool RN [facility] Comment on above: Insulin controlled g estational diabetes mellitus (GDM) in third trimester (Primary Dx); Severe obesity due to excess calories affecting , antepartum ([facility]); Alpha thalassemia silent carrier Start: 02-15-2024 End: 02-15-2024 Telephone encounter Kathie Sellers MD Work Phone: [facility] Start: 02-14-2024 End: 02-14-2024 ambulatory [facility] Start: 02-02-2024 End: 02-02-2024 Telephone encounter Mojgan Zeng RN [facility] Start: 01-25-2024 End: 01-25-2024 ambulatory MARYANN SMITH Not Available Start: 01-17-2024 End: 01-17-2024 ambulatory [facility] Start: 12-22-2023 End: 12-22-2023 ambulatory [facility] Not Available Start: 12-12-2023 End: 12-12-2023 ambulatory ADELA SERGE [facility] Start: 10-28-2023 End: 10-28-2023 ambulatory [facility] Start: 10-28-2023 End: 10-28-2023 ambulatory [facility] Start: 10-28-2023 Encounter for gynecological examination (general) (routine) without abnormal findings [facility] Start: 10-28-2023 End: 10-28-2023 ambulatory [facility] Start: 10-28-2023 Encounter for gynecological examination (general) (routine) without abnormal findings [facility] Start: 10-20-2023 End: 10-20-2023 ambulatory [facility] Start: 10-06-2023 End: 10-06-2023 Emergency department patient visit [facility] Start: 10-04-2023 End: 10-04-2023 ambulatory [facility] Start: 06-26-2023 End: 06-26-2023 Emergency department patient visit TRAE SANCHEZ [facility] Start: 11-20-2020 End: 11-21-[address] TRAE SANCHEZ Facility:[facility] Start: 11-05-2020 End: 11-05-[address] TRAE SANCHEZ Facility:[facility] Start: 06-25-2020 Encounter for genera l adult medical examination without abnormal findings DR TRAE SANCHEZ [facility] Start: 05-22-2020 End: 05-23-[address] TRAE SANCHEZ Facility:[facility] Start: 05-22-2020 End: 05-23-2020 Encounter for general adult medical examination without abnormal findings DR TRAE SANCHEZ Facility:[facility] Procedures Date Procedure Procedure Detail Performing Clinician Start: 04-03-2024 Urnls dip stick/tabl et rgnt non-auto w/o micrscp Isidro Jasmine DO Work Phone: Start: 03-21-2024 Urnls dip stick/tabl et rgnt non-auto w/o micrscp Maryann AMIN Work Phone: Start: 03-07-2024 Urnls dip stick/tabl et rgnt non-auto w/o micrscp Isidro Jasmine DO Work Phone: Start: 02-23-2024 Urnls dip stick/tabl et rgnt non-auto w/o micrscp Isidro Jasmine DO Work Phone: Start: 10-28-2023 Microscopic observat ion [Identifier] in Cervix by Cyto stain Mojgan Zeng RN Start: 10-28-2023 Cytp cerv/vag auto t hin layer prep mnl screen Maryann AMIN Work Phone: Start: 10-27-2023 Adult depression scr eening assessment Mojgan Zeng RN Plan of Treatment Date Care Activity Detail Author Start: 10-27-2026 Screening for malign ant neoplasm of cervix Pap Smear [facility] Start: 02-15-2025 End: 02-15-2025 US MFM with or without consult US MFM with or without consult Imaging Routine Insulin controlled gestational diabetes mellitus (GDM) in third trimester Severe obesity due to excess calories affecting , antepartum ([facility]) Alpha thalassemia silent carrier Expected: 02/15/2025 (Approximate), Expires: 02/15/2025 [employer] Work Phone: Comment on above: Expected: 02/15/2025 (Approximate), Expires: 02/15/2025 Start: 01-16-2025 Adult BMI Screening Adult BMI Screen ing [facility] Start: 01-16-2025 Tobacco Screening Tobacco Screening [facility] Start: 10-26-2024 Depression Screening Depression Scre ening [facility] Start: 04-18-2024 End: 04-18-2024 Patient encounter procedure 04/18/2024 9:50 AM EST Routine [facility] [address] [id number] Maryann Smith PA [address] [place], [place] [id number] [facility] Start: 04-03-2024 End: 04-03-2025 12 lead ECG ECG 12 lead unit performed ECG Routine Episodic lightheadedness Heart palpitations Expected: 04/03/2024 (Approximate), Expires: 04/03/2025 [facility] Healthcare Comment on above: Expected: 04/03/2024 (Approximate), Expires: 04/03/2025 Start: 04-03-2024 End: 04-03-2026 Echocardiogram 2D complete Echocardiogram 2D complete Echocardiography Routine Episodic lightheadedness Heart palpitations Expected: 04/03/2024 (Approximate), Expires: 04/03/2026 [facility] Healthcare Comment on above: Expected: 04/03/2024 (Approximate), Expires: 04/03/2026 Start: 04-03-2024 End: 04-03-2024 Patient encounter procedure 04/03/2024 10:30 AM EST Routine [facility] [address] [id number] Isidro Ferraro DO [address] [place], [place] [id number] [facility] Start: 03-21-2024 End: 03-21-2025 US biophysical profile w non stress test US biophysical profile w non stress test Imaging Routine Insulin controlled gestational diabetes mellitus (GDM) in third trimester Expected: 03/21/2024 (Approximate), Expires: 03/21/2025 [facility] Comment on above: Expected: 03/21/2024 (Approximate), Expires: 03/21/2025 Start: 03-21-2024 End: 03-21-2025 US for US OB SCAN FOR GROWTH Imaging Routine Insulin controlled gestational diabetes mellitus (GDM) in third trimester Expected: 03/21/2024 (Approximate), Expires: 03/21/2025 [facility] Work Phone: Comment on above: Expected: 03/21/2024 (Approximate), Expires: 03/21/2025 Start: 03-21-2024 End: 03-21-2024 Patient encounter procedure [facility] Comment on above: Arrived Start: 03-14-2024 End: 03-14-2024 Patient encounter procedure 03/14/2024 3:00 PM EST Appointment [facility] [address] [place] [phone] [facility] Start: 03-07-2024 End: 03-07-2024 Patient encounter procedure 03/07/2024 11:10 AM EST Routine [facility] [address] [place] [id number] Isidro Ferraro DO [address] [place] [address] Arrived [facility] Comment on above: Arrived Start: 02-15-2024 End: 02-15-2024 Telemedicine consultation with patient 02/15/2024 9:45 AM EDT Telemedicine [facility] [address] [place] [phone] Kathie Sellers MD [address] [place] [address] [facility] Start: 02-14-2024 End: 02-14-2024 Patient encounter procedure 02/14/2024 2:00 PM EDT Appointment [facility] [address] [place] [address] [facility] Start: 01-01-2024 Influenza vaccination P [facility] Start: 01-23-2020 DTaP,Tdap and Td Vaccines (7 - Td or Tdap) DTaP,Tdap and Td Vaccines (7 - Td or Tdap) [facility] Start: 10-10-2015 Adult BMI Follow Up Plan Adult BMI F ollow Up Plan [facility] CBC W Auto Different ial panel - Blood CBC and differential Lab Routine 32 weeks gestation of Third trimester Ordered: 04/03/2024 [facility] Healthcare Work Phone: Comment on above: Ordered: 04/03/2024 Payers Date Payer Category Payer Medicaid [facility] [employer] MED[employer] HMO [id number] 2022-Present [phone] [address] [place] [address] [id number] 2022 Medicaid [facility]MO [facility] [id number] 2019 Private Health Insurance [facility] MEDICA[facility] [id number] 2019 Medicaid [id number] 1997 Unknown [id number] 2.16.840.1.844227.3.579.2. 593 1997 Unknown [id number] 2.16840.1.102364.3.579.2. 593 1997 Unknown [id number] 2.16.840.1.160915.3.579.2. 593 1997 Unknown [id number] 2.16.840.1.415458.3.579.2. 128 1997 Unknown [id number] 2.16.840.1.248087.3.579.2. 1285 1997 Unknown [id number] 2.16.840.1.319092.3.579.2. 1285 1997 Unknown [id number] 2.16.840.1.076032.3.579.2. 128 1997 Unknown [id number] 2.16.840.1.114708.3.579.2. 1285 1997 Unknown [id number] 2.16.840.1.727495.3.579.2. 1285 1997 Unknown [id number] 2.16.840.1.717343.3.579.2. 128 1997 Unknown [id number] 2.16.840.1.549608.3.579.2. 1286 1997 Unknown [id number] 2.16.840.1.602596.3.579.2. 1285 1997 Unknown [id number] 2.16.840.1.051619.3.579.2. 6 1997 Unknown [id number] 2.16.840.1.067044.3.579.2. 1285 1997 Unknown [id number] 2.16.840.1.026162.3.579.2. 6 1997 Unknown [id number] 2.16.840.1.677071.3.579.2. 1285 1997 Unknown [id number] 2.16.840.1.580242.3.579.2. 9 1997 Unknown [id number] 2.16.840.1.677039.3.579.2. 1258 1997 Unknown [id number] 2.16.840.1.125319.3.579.2. 9 1997 Unknown [id number] 2.16.840.1.786990.3.579.2. 1258 1997 Unknown [id number] 2.16.840.1.479245.3.579.2. 9 1997 Unknown [id number] 2.16.840.1.175689.3.579.2. 9 1959 Unknown [id number] Social History Date Type Detail Facility Start: 06-26-[address] [facility] Never smoked tobacco [facility] Start: 06-26-2023 Tobacco use and exposure Smokeless tobacco non-user [facility] Start: 01-17-2024 Alcoholic beverage intake Ex-drinker (finding) [facility] Start: 06-12-2020 End: 01-17-2024 History of Social function [facility] Start: 06-12-2020 End: 01-17-2024 Tobacco use panel [facility] How hard is it for y ou to pay for the very basics like food, housing, medical care, and heating Not hard at all [facility] Start: 11-12-2021 Alcohol Comment rarely [facility] Start: 09-03-2023 [facility] Start: 1997 Sex assigned at Not on file P [facility] Start: 12-05-2014 Sex Female (finding) [facility] Medical Equipment Procedure Code Equipment Code Equipment Origin al Text Equipment Identifier Dates [id number] Start: 10-21-2023 Use to check fas ting blood sugar in the morning and one hour after first bite of each meal. Order supplies per insurance preference. [id number] Start: 10-21-2023 Test blood sugar 4 times a day [id number] Start: 12-13-2023 Use daily for insulin [id number] Start: 01-17-2024 Test blood sugar 4 times a day [id number] Start: 12-13-2023 Goals Date Patient Goal Desired Activity /State Personal health goal Clinical Notes 02-02-2024 to 04-03-2024 Stefanie Levy LPN - 04/03/2024 10:30 AM BRENNAN Omer - 03/21/2024 1:30 PM [place] Levy LPN - 03/07/2024 11:10 AM Kaleb Catalan LPN - 02/23/2024 10:10 AM EDT Note Date & Type Note Facility 04-03-2024 History of Presen t illness Narrative Reason for Appointment: Patient ID: Stephie Alaniz is a 28 y.o. female who presents for Routine Visit Patient presents today for Return OB appointment. MEDICATIONS Current Outpatient Medications Medication Instructions B-D UF III MINI PEN NEEDLES 31G X 5 MM misc USE DAILY FOR INSULIN Blood Glucose Monitoring Suppl (True Metrix Meter) w/Device kit USE TO CHECK FASTING BLOOD SUGAR IN THE MORNING AND ONE HOUR AFTER FIRST BITE OF EACH MEAL doxylamine (UNISOM) 25 mg, Nightly PRN famotidine (PEPCID) 20 mg, 2 times daily Lantus SoloStar 10 Units, Nightly True Metrix Blood Glucose Test test strip TEST BLOOD SUGAR FOUR TIMES DAILY TRUEplus Lancets 33G misc USE DIRECTED FOUR TIMES DAILY ALLERGIES Allergies Allergen Reactions Amoxicillin Rash PROBLEMS Active Ambulatory Problems Diagnosis Date Noted History of gestational diabetes 12/22/2023 Resolved Ambulatory Problems Diagnosis Date Noted No Resolved Ambulatory Problems Past Medical History: Diagnosis Date GDM (gestational diabetes mellitus) HISTORY PAST MEDICAL HISTORY SOCIAL HISTORY Past Medical History: Diagnosis Date GDM (gestational diabetes mellitus) Social History Tobacco Use Smoking status: Not on file Smokeless tobacco: Not on file Substance Use Topics Alcohol use: Not on file Drug use: Not on file FAMILY HISTORY No family history on file. SURGICAL HISTORY History reviewed. No pertinent surgical history. REVIEW OF SYSTEMS Review of Systems: Review of Systems OBJECTIVE Objective: OBGyn Exam Vitals: There is no height or weight on file to calculate BMI. BP: 120/80 Patient's last menstrual period was 08/20/2023. ASSESSMENT & PLAN ICD-10-CM 1. 32 weeks gestation of Z3A.32 POCT urinalysis dipstick manually resulted CBC and differential 2. Third trimester Z34.93 POCT urinalysis dipstick manually resulted CBC and differential Return OB: Patient presents today for a routine obstetrics appointment. Patient is currently 32w3d . Patient states she is doing well but has complaints of being tired due to current . Patient has verbalizes frequent movement. labor precautions was discussed/given and patient was instructed to perform kick counts three times a day. Pt has intermittent lightheadedness, heart palpitations and hard to catch her breath. Pt given EKG, and echo to have obtained. Pt advised to start NST/BPP and growth ultrasounds. Pt states she has them scheduled. Orders Placed This Encounter Procedures CBC and differential POCT urinalysis dipstick manually resulted ECG 12 lead unit performed Echocardiogram 2D complete Follow Up: Patient is to return to office in 2 week for routine OB appointment. Documented by Stefanie Levy LPN on behalf of: Isidro Ferraro DO documented in this encounter [facility] 03-21-2024 History of Presen t illness Narrative Reason for Appointment: Patient ID: Stephie Alaniz is a 28 y.o. female who presents for Routine Visit Patient presents today for Return OB appointment. MEDICATIONS Current Outpatient Medications Medication Instructions B-D UF III MINI PEN NEEDLES 31G X 5 MM misc USE DAILY FOR INSULIN Blood Glucose Monitoring Suppl (True Metrix Meter) w/Device kit USE TO CHECK FASTING BLOOD SUGAR IN THE MORNING AND ONE HOUR AFTER FIRST BITE OF EACH MEAL doxylamine (UNISOM) 25 mg, Nightly PRN famotidine (PEPCID) 20 mg, 2 times daily Lantus SoloStar 10 Units, Nightly True Metrix Blood Glucose Test test strip TEST BLOOD SUGAR FOUR TIMES DAILY TRUEplus Lancets 33G misc USE DIRECTED FOUR TIMES DAILY ALLERGIES Allergies Allergen Reactions Amoxicillin Rash PROBLEMS Active Ambulatory Problems Diagnosis Date Noted History of gestational diabetes 12/22/2023 Resolved Ambulatory Problems Diagnosis Date Noted No Resolved Ambulatory Problems Past Medical History: Diagnosis Date GDM (gestational diabetes mellitus) HISTORY PAST MEDICAL HISTORY SOCIAL HISTORY Past Medical History: Diagnosis Date GDM (gestational diabetes mellitus) Social History Tobacco Use Smoking status: Not on file Smokeless tobacco: Not on file Substance Use Topics Alcohol use: Not on file Drug use: Not on file FAMILY HISTORY No family history on file. SURGICAL HISTORY History reviewed. No pertinent surgical history. REVIEW OF SYSTEMS Review of Systems: Review of Systems Constitutional: Negative. HENT: Negative. Eyes: Negative. Respiratory: Negative. Cardiovascular: Negative. Gastrointestinal: Negative. Genitourinary: Negative. Musculoskeletal: Negative. Skin: Negative. Neurological: Negative. All other systems reviewed and are negative. Hematological: Negative. Endocrine: Negative. Allergic/Immunologic: Negative. OBJECTIVE Objective: OBGyn Exam Vitals: There is no height or weight on file to calculate BMI. BP: 118/74 Patient's last menstrual period was 08/20/2023. ASSESSMENT & PLAN ICD-10-CM 1. Third trimester Z34.93 POCT urinalysis dipstick manually resulted 2. 30 weeks gestation of Z3A.30 3. Insulin controlled gestational diabetes mellitus (GDM) in third trimester O24.414 US OB SCAN FOR GROWTH US biophysical profile w non stress test Return OB: Patient presents today for a routine obstetrics appointment. Patient is currently 30w4d . Patient states she is doing well but has complaints of being tired due to current . Patient complaining of having some vaginal itching and would like rx sent to pharmacy. Pt does not want to be examined today. Patient has verbalizes frequent movement. labor precautions was discussed/given and patient was instructed to perform kick counts three times a day. Orders Placed This Encounter Procedures US OB SCAN FOR GROWTH US biophysical profile w non stress test POCT urinalysis dipstick manually resulted Follow Up: Patient is to return to office in 2 week for routine OB appointment. Documented by Adrianne Webb MA on behalf of: BRENNAN Vora documented in this encounter [facility] 03-07-2024 History of Presen t illness Narrative Reason for Appointment: Patient ID: Stephie Alaniz is a 28 y.o. female who presents for Routine Visit Patient presents today for Return OB appointment. MEDICATIONS Current Outpatient Medications Medication Instructions Lantus SoloStar 10 Units, Nightly ALLERGIES Allergies Allergen Reactions Amoxicillin Rash PROBLEMS Active Ambulatory Problems Diagnosis Date Noted History of gestational diabetes 12/22/2023 Resolved Ambulatory Problems Diagnosis Date Noted No Resolved Ambulatory Problems Past Medical History: Diagnosis Date GDM (gestational diabetes mellitus) HISTORY PAST MEDICAL HISTORY SOCIAL HISTORY Past Medical History: Diagnosis Date GDM (gestational diabetes mellitus) Social History Tobacco Use Smoking status: Not on file Smokeless tobacco: Not on file Substance Use Topics Alcohol use: Not on file Drug use: Not on file FAMILY HISTORY No family history on file. SURGICAL HISTORY History reviewed. No pertinent surgical history. REVIEW OF SYSTEMS Review of Systems: Review of Systems Constitutional: Negative. HENT: Negative. Eyes: Negative. Respiratory: Negative. Cardiovascular: Negative. Gastrointestinal: Negative. Genitourinary: Negative. Musculoskeletal: Negative. Skin: Negative. Neurological: Negative. All other systems reviewed and are negative. Hematological: Negative. Endocrine: Negative. Allergic/Immunologic: Negative. OBJECTIVE Objective: Physical Exam Constitutional: Appearance: Normal appearance. She is well-developed. Cardiovascular: Rate and Rhythm: Normal rate and regular rhythm. Pulmonary: Effort: Pulmonary effort is normal. Breath sounds: Normal breath sounds. Abdominal: General: Bowel sounds are normal. There is no distension. Palpations: Abdomen is soft. Tenderness: There is no abdominal tenderness. There is no guarding or rebound. Musculoskeletal: General: No swelling. Normal range of motion. Right lower leg: No edema. Left lower leg: No edema. Neurological: Mental Status: She is alert and oriented to person, place, and time. Skin: General: Skin is warm and dry. Psychiatric: Mood and Affect: Mood normal. Behavior: Behavior normal. Vitals and nursing note reviewed. Exam conducted with a cloth checker present. Vitals: There is no height or weight on file to calculate BMI. BP: 120/70 Patient's last menstrual period was 08/20/2023. ASSESSMENT & PLAN ICD-10-CM 1. 28 weeks gestation of Z3A.28 POCT urinalysis dipstick manually resulted 2. Third trimester Z34.93 POCT urinalysis dipstick manually resulted Return OB: Patient presents today for a routine obstetrics appointment. Patient is currently 28w4d . Patient states she is doing well but has complaints of being tired due to current . Patient has verbalizes frequent movement. labor precautions was discussed/given and patient was instructed to perform kick counts three times a day. Orders Placed This Encounter Procedures POCT urinalysis dipstick manually resulted Follow Up: Patient is to return to office in 2 week for routine OB appointment. Documented by Stefanie Levy LPN on behalf of: Isidro Ferraro DO documented in this encounter [facility] 02-23-2024 History of Presen t illness Narrative Reason for Appointment: Patient ID: Stephie Alaniz is a 28 y.o. female who presents for Routine Visit Patient presents today for Return OB appointment. MEDICATIONS Current Outpatient Medications Medication Instructions Lantus SoloStar 10 Units, Nightly ALLERGIES Allergies Allergen Reactions Amoxicillin Rash PROBLEMS Active Ambulatory Problems Diagnosis Date Noted History of gestational diabetes 12/22/2023 Resolved Ambulatory Problems Diagnosis Date Noted No Resolved Ambulatory Problems Past Medical History: Diagnosis Date GDM (gestational diabetes mellitus) HISTORY PAST MEDICAL HISTORY SOCIAL HISTORY Past Medical History: Diagnosis Date GDM (gestational diabetes mellitus) Social History Tobacco Use Smoking status: Not on file Smokeless tobacco: Not on file Substance Use Topics Alcohol use: Not on file Drug use: Not on file FAMILY HISTORY No family history on file. SURGICAL HISTORY History reviewed. No pertinent surgical history. REVIEW OF SYSTEMS Review of Systems: Review of Systems Musculoskeletal: Positive for back pain. All other systems reviewed and are negative. OBJECTIVE Objective: Physical Exam Constitutional: Appearance: Normal appearance. She is well-developed. Cardiovascular: Rate and Rhythm: Normal rate and regular rhythm. Pulmonary: Effort: Pulmonary effort is normal. Breath sounds: Normal breath sounds. Abdominal: General: Bowel sounds are normal. There is no distension. Palpations: Abdomen is soft. Tenderness: There is no abdominal tenderness. There is no guarding or rebound. Musculoskeletal: General: No swelling. Normal range of motion. Right lower leg: No edema. Left lower leg: No edema. Neurological: Mental Status: She is alert and oriented to person, place, and time. Skin: General: Skin is warm and dry. Psychiatric: Mood and Affect: Mood normal. Behavior: Behavior normal. Vitals and nursing note reviewed. Exam conducted with a cloth checker present. Vitals: There is no height or weight on file to calculate BMI. BP: 130/76 Patient's last menstrual period was 08/20/2023. ASSESSMENT & PLAN ICD-10-CM 1. 26 weeks gestation of Z3A.26 POCT urinalysis dipstick manually resulted 2. Second trimester Z34.92 POCT urinalysis dipstick manually resulted Patient presents today for a routine obstetrics appointment. Patient is currently 26w5d with a Estimated Date of Delivery: 05/26/24. Patient is having follow up US scheduled at [facility]. Patient to start growth scans after next scan with [facility] every 4 weeks. Patient to start NST/BPP at 32 weeks gestation. Discussed GDM and delivering Discussed delivering on 05/11/2024. Patient complaints of sciatic pain and instructed on how to do stretches to help with sciatic pain. Patient to return to clinic in 2 weeks for routine OB appointment. Documented by Dolly Catalan LPN on behalf of: Isidro Ferraro DO documented in this encounter [facility] 02-15-2024 Miscellaneous Notes Formattin g of this note might be different from the original. Ostomy Nurse elizabeth for pt w/ appt info on for 03/14 at 3:00 and requested a return call if she could not make that work. documented in this encounter [facility] 02-15-2024 Telephone encount er Note Ostomy Nurse elizabeth for pt w/ appt info on for 03/14 at 3:00 and requested a return call if she could not make that work. [facility] 02-15-2024 Miscellaneous Notes Formattin g of this note might be different from the original. Ostomy Nurse left VM. Patient scheduled for a MyChart Visit @ 9:45 am. Ostomy Nurse asked patient to get loss control manager if available. Ostomy Nurse left call back number [phone] #[phone] if patient needs to reschedule. documented in this encounter [facility] 02-15-2024 Telephone encount er Note Ostomy Nurse left VM. Patient scheduled for a MyChart Visit @ 9:45 am. Ostomy Nurse asked patient to get loss control manager if available. Ostomy Nurse left call back number [phone] #[phone] if patient needs to reschedule. [facility] 02-02-2024 Miscellaneous Notes Formattin g of this note might be different from the original. Called patient, no answer, left message to please send blood glucose logs to the diabetes email. documented in this encounter [facility] 02-02-2024 Telephone encount er Note Called patient, no answer, left message to please send blood glucose logs to the diabetes email. [facility] Evaluation note Diagnosis Insulin controlled gestational diabetes mellitus (GDM) in third trimester Severe obesity due to excess calories affecting , antepartum ([facility]) [facility] Insulin controlled gestational diabetes mellitus (GDM) in third trimester Severe obesity due to excess calories affecting , antepartum (CMS-HCC) [facility] Insulin controlled gestational diabetes mellitus (GDM) in third trimester- Primary Severe obesity due to excess calories affecting , antepartum (CMS-HCC) Alpha thalassemia silent carrier [facility] Diagnosis 28 weeks gestation of Third trimester state, incidental [facility] Diagnosis Third trimester state, incidental 30 weeks gestation of Insulin controlled gestational diabetes mellitus (GDM) in third trimester BV (bacterial vaginosis) Unspecified vaginitis and vulvovaginitis [facility] Diagnosis 26 weeks gestation of Second trimester state, incidental [facility] Diagnosis 32 weeks gestation of Third trimester state, incidental Episodic lightheadedness Heart palpitations Palpitations documented in this [facility]ructionsNot on filedocumented in this encounter[facility] System[facility]ructionsNot on filedocumented in this encounter[facility] SystemInstructionsNot on filedocumented in this [facility] Summary Purpose Family History No Family History Records FoundNo Family History Records FoundNo Family History Records FoundNo Family History Records FoundNo Family History Records Found Advance Directives No Advanced Directives Records FoundNo Advanced Directives Records FoundNo Advanced Directives Records FoundNo Advanced Directives Records FoundNo Advanced Directives Records Found Additional Source Comments INFORMATION SOURCE (unrecogn ized section and content) DATE CREATED AUTHOR 12/02/2020 [facility] DATE CREATED AUTHOR AUTHOR'S ORGANIZ ATION 10/30/2023 [facility] DATE CREATED AUTHOR AUTHOR'S ORGANIZ ATION 11/02/2023 [facility] DATE CREATED AUTHOR AUTHOR'S ORGANIZ ATION 03/16/2024 [facility] DATE CREATED AUTHOR AUTHOR'S ORGANIZ ATION 04/05/2024 [facility] EPIC Care Teams (unrecognized sec tion and content) 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 Specialty Start Date End Date Trae Sanchez MD PCP - General Family Medicine 04/28/20 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 Specialty Start Date End Date Trae Sanchez MD PCP - General Family Medicine 04/28/20 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 Specialty Start Date End Date Trae Sanchez MD PCP - General Family Medicine 04/28/20 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 Specialty Start Date End Date Jaonna Allan MD [address] [facility] [place] [address] PCP - General Family Medicine 09/07/22 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 Specialty Start Date End Date Joanna Allan MD [address] [facility] [place] [address] PCP - General Family Medicine 09/07/22 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 Specialty Start Date End Date Joanna Allan MD [address] [facility] [place] [address] PCP - General Family Medicine 09/07/22 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 This clinical summary was aggregated from multiple sources. Caution should be exercised in using it in the provision of clinical care. This summary normalizes information from multiple sources, and as a consequence, information in this document may materially change the coding, format and clinical context of patient data. In addition, data may be omitted in some cases. CLINICAL DECISIONS SHOULD BE BASED ON THE PRIMARY CLINICAL RECORDS. [employer] [facility] provides no warranty or guarantee of the accuracy or completeness of information in this document.
[2024-04-12 10:18] VITALS: BP 130/83; PULSE 77
== END 2024-04-12 10:44 | disposition home or self-care (01) ==
LOC: FBCO 06:21 → FBC 10:11
PROVIDERS: Visit Provider Obstetrics & Gynecology
DX: O99.283 Endocrine, nutritional and metabolic diseases complicating pregnancy, third trimester (principal)
CPT/HCPCS: 59025

== ENCOUNTER 2024-04-16 06:12 | Outpatient (OUT) | payer OTHER, SELFPAY ==
--- NOTE | 2024-04-16 | US_ITS ---
[address] [address] Patient Name: MONICA FERGUSON MRN: [facility]:[id number] date: 1995 Sex: F Assigned Patient Location: [facility] Current Patient Location: [facility] Accession/Order Number: [id number] Exam Date: 04/16/2024 11:28 Report Date: 04/16/2024 13:19 At the request of: TOYA SMITH Procedure: US OB BPP w non-stress EXAMINATION: US OB BPP w non-stress HISTORY: INSULIN CONTROLLED GESTATIONAL DIABETES O24.414 COMPARISON: No relevant comparison available. TECHNIQUE: Ultrasound biophysical profile was performed in the radiology department. non-reactive stress testing was performed by nursing staff in the birthing center. FINDINGS: BREATHING MOVEMENTS: 2 GROSS BODY MOVEMENTS: 2 TONE: 2 QUALITATIVE AMNIOTIC FLUID VOLUME: 2 PRESENTATION: CEPHALIC HEART RATE: 133.66 bpm AMNIOTIC FLUID VOLUME: 15.3 cm GESTATIONAL AGE: 34w2d US/US OB BPP w non-stress IMPRESSION: Total biophysical profile score: 8 Electronically authenticated by: JOSE DUARTE Date: 04/16/2024 13:19
--- OUTSIDE RECORDS SUMMARY | 2024-04-16 06:15 | XMS_ITS | CCD ---
Author Organization [facility] Care Team Providers Care Lactation Coordinator Name Role Phone LAURA, DR TRAE Delaney Primary Care Unavailable NADERER, DR TRAE Delaney Admitting Unavailable NADERER, DR TRAE Delaney Attending Unavailable NADERER, DR TRAE Delaney Consulting Unavailable NADERER, DR TRAE Delaney Primary Care Unavailable KARASIK, DR OLMOS Attending Unavailable KARASIK, DR OLMOS Consulting Unavailable KARASIK, DR OLMOS Admitting Unavailable NADERER, DR TRAE Delaney Primary Care Unavailable LAKEWOOD, DR JOSE Torres Consulting Unavailable JASMINE, DR [...] Provider Joanna Allan MD Primary Care Provider YASMINE ZAVALA Referring Unavailable NADERER, TRAE Primary [...] Unavailable TRAE SANCHEZ Primary Care Unavailable ISIDRO EFRRARO Attending Unavailable MARYANN SMITH Attending Unavailable ISIDRO FERRARO Attending Unavailable ISIDRO FERRARO Attending Unavailable MARYANN SMITH Attending Unavailable ISIDRO FERRARO Attending Unavailable Allergies Allergy Classification Reported Allergen(s) Allergy Type Date of Onset Reaction(s) Facility (19 sources) Amoxicillin; Translations: [AMOXICILLIN] Drug Allergy 07-15-2021 [...] EACH MEAL 10/21/2023 Active blood-glucose meter misc (5 sources) Start: 10-21-2023 blood-glucose meter misc Indications: Diet controlled gestational diabetes mellitus (GDM) in first trimester Use to check fasting blood sugar in the morning and one hour after first bite of each meal. Order supplies per insurance preference. 1 each 10/21/2023 Active diphenhydrAMINE hydrochloride 25 mg oral capsule (5 sources) Histamine-1 Receptor Antagonist Start: 10-06-2023 take 1 capsule by mouth every six hours as needed diphenhydrAMINE (BENADRYL) 25 mg capsule Take 1 capsule (25 mg total) by mouth every 6 (six) hours as needed for itching for up to 10 doses. 10 capsule 10/06/2023 Active doxylamine succinate 25 mg oral tablet (10 sources) Start: 10-04-2023 take 1 tablet by mouth once daily as needed for nausea doxylamine (UNISOM) 25 mg tablet Indications: Nausea/vomiting in Take 1 tablet (25 mg total) by mouth nightly as needed for sleep or nausea. 30 tablet 1 10/04/2023 Active famotidine 20 mg oral tablet (10 sources) Histamine-2 Receptor Antagonist Start: 10-06-2023 take 1 tablet by mouth in the morning, then take 1 tablet by mouth at bedtime famotidine (PEPCID) 20 mg tablet Take 1 tablet (20 mg total) by mouth in the morning and 1 tablet (20 mg total) before bedtime. 20 tablet 10/06/2023 Active 3 ml insulin glargine 100 unt/ml pen injector (16 sources) Insulin Analog Start: 01-17-2024 insulin glargine (LANTUS SOLOSTAR U-100 INSULIN) 100 unit/mL (3 mL) insulin pen Indications: Insulin controlled gestational diabetes mellitus (GDM) in third trimester , Severe obesity due to excess calories affecting , antepartum ([facility] [place] , 21 weeks gestation of Inject 10U every evening subcutaneously, prime 2U 15 mL 11 01/17/2024 Active Start: 01-17-2024 inject 10 [IU] by mccloud bcutaneous injection at bedtime Lantus SoloStar 100 UNIT/ML pen Inject 10 Units under the skin at bedtime 01/17/2024 Active metroNIDAZOLE 0.0075 mg/mg vaginal gel (2 sources) Nitroimidazole Antimicrobial Start: 03-21-2024 End: 03-26-2024 metroNIDAZOLE (Metrogel) 0.75 % vaginal gel Indications: BV (bacterial vaginosis) Insert into the vagina Daily for 5 days 70 g 03/21/2024 03/26/2024 Active pyridoxine hydrochloride 25 mg oral tablet (5 sources) Start: 10-04-2023 pyridoxine, vi tamin B6, [...] minor; Translations: [Thalassemia minor] Onset: 01-17-2024 Chronic Diabetes or abnormal glucose tolerance complicating ; childbirth; or the puerperium (20 sources) Gestational diabetes mellitus; Translations: [Gestational diabetes mellitus in , unspecified control] Onset: 10-04-2023 10-27-2023 Episodic Inflammatory diseases of female pelvic organs (2 sources) Bacterial vaginosis; Translations: [Acute vaginitis] 03-21-2024 Episodic Menstrual disorders (2 sources) Irregular menstruation, unspecified; Translations: [Excessive and frequent menstruation with irregular cycle] Onset: 06-25-2020 Chronic Nutritional deficiencies (1 source) Vitamin D deficiency, unspecified; Translations: [VITAMIN D DEFICIENCY UNSPECIFIED] Onset: 06-25-2020 Chronic Other complications of (10 sources) Maternal obesity complicating , childbirth and [...] Problem Classification Problem Date Documented Date Episodic/Chronic Disorders of teeth and jaw (2 sources) Other specified disorders of teeth and supporting structures; Translations: [Toothache] Onset: 06-26-2023 Episodic Immunizations and screening for infectious disease (3 sources) Encounter for screening for infections with a predominantly sexual mode of transmission; Translations: [Encounter for screening for infections with a predominantly sexual mode of transmission] Onset: 10-28-2023 Episodic Mood disorders (5 sources) Mood disorders Onset: 10-27-2023 10-27-2023 Other complications of (5 sources) H/O: blood transfusion; Translations: [Supervision of with other poor reproductive or obstetric history, unspecified trimester] Onset: 10-04-2023 10-04-2023 Episodic Other complications of (5 sources) History of delivery of macrosomal ; Translations: [Supervision of with other poor reproductive or obstetric history, unspecified trimester] Onset: 10-04-2023 10-04-2023 Episodic Other complications of (5 sources) Vomiting of , unspecified; Translations: [Unspecified vomiting of , unspecified as to episode of care or not applicable] Onset: 10-04-2023 10-04-2023 Episodic Other complications of (5 sources) Bacterial vaginosis in ; Translations: [Infection [...] UA Negative Negative - 4(70) +++ mg/dL [facility] Blood, UA Negative Negative - 50 Janes/mcL [facility] Clarity, UA Clear [facility] Color, UA Yellow [facility] Glucose, UA Negative Negative - 1999(110) ++++ mg/dL [facility] Interpretation and review of laboratory results Abnormal [facility] Ketones, UA Positive Negative - 160(16) ++++ mg/dL [facility] Comment on above: 40 Leukocytes, UA Positive Negative - 500+++ Too/mcL [facility] Comment on above: small Nitrite, UA Negative Negative - Positive [facility] pH, UA 7 5 - 9 [facility] Protein, UA Trace Negative - 1999(20) ++++ mg/dL [facility] Spec Grav, UA 1.025 1 - 1.03 [facility] Urobilinogen, UA 0.2 0.2 - 12 mg/dL [facility] Urinalysis macro (dipstick) panel (U)on 03-21-2024 Bilirubin, UA Negative Negative - 4(70) +++ mg/dL [facility] Blood, UA Negative Negative - 50 Janes/mcL [facility] Clarity, UA Clear [facility] Color, UA Yellow [facility] Glucose, UA Negative Negative - 1999(110) ++++ mg/dL [facility] Interpretation and review of laboratory results Abnormal [facility] Ketones, UA Negative Negative - 160(16) ++++ mg/dL [facility] Leukocytes, UA Trace Negative - 500+++ Too/mcL [facility] Nitrite, UA Negative Negative - Positive [facility] pH, UA 6 5 - 9 [facility] Protein, UA Negative Negative - 1999(20) ++++ mg/dL [facility] Spec Grav, UA 1.03 1 - 1.03 [facility] Urobilinogen, UA 0.2 0.2 - 12 mg/dL [facility] Urinalysis macro (dipstick) panel (U)on 03-07-2024 Bilirubin, UA Positive Negative - 4(70) +++ mg/dL [facility] Comment on above: small Blood, UA Positive Negative - 50 Janes/mcL [facility] Comment on above: trace-intact Clarity, UA Clear [facility] Color, UA Yellow [facility] Glucose, UA Negative Negative - 1999(110) ++++ mg/dL [facility] Interpretation and review of laboratory results Abnormal [facility] Ketones, UA Positive Negative - 160(16) ++++ mg/dL [facility] Comment on above: trace Leukocytes, UA Positive Negative - 500+++ Too/mcL [facility] Comment on above: small Nitrite, UA Negative Negative - Positive [facility] pH, UA 5.5 5 - 9 [facility] Protein, UA Negative Negative - 1999(20) ++++ mg/dL [facility] Spec Grav, UA 1.03 1 - 1.03 [facility] Urobilinogen, UA 0.2 0.2 - 12 mg/dL [facility] Urinalysis macro (dipstick) panel (U)on 02-23-2024 Bilirubin, UA Negative Negative - 4(70) +++ mg/dL [facility] Blood, UA Positive Negative - 50 Janes/mcL [facility] Comment on above: trace-intact Clarity, UA Clear [facility] Color, UA Yellow [facility] Glucose, UA Negative Negative - 1999(110) ++++ mg/dL [facility] Interpretation and review of laboratory results Abnormal [facility] Ketones, UA Negative Negative - 160(16) ++++ mg/dL [facility] Leukocytes, UA Positive Negative - 500+++ Too/mcL [facility] Comment on above: small Nitrite, UA Negative Negative - Positive [facility] pH, UA 6 5 - 9 [facility] Protein, UA Negative Negative - 1999(20) ++++ mg/dL [facility] Spec Grav, UA 1.03 1 - 1.03 [facility] Urobilinogen, UA 0.2 0.2 - 12 mg/dL [facility] CHLAMYDIA/GC PCR, FLon 10-27 CHLAMYDIA/GC PCR, FL [...] are dependent on adequate specimen collection. Normal [facility] Comment on above: Performed By: #### D MCCLOUD #### [facility] ([id number]) [address] [address], [address] [place] [address] Cytology Cervical or vaginal smear or scraping studyon 10-28-2023 [facility] VAGINITIS PANEL PCRon 2023 VAGINITIS PANEL PCR [...] clinical presentation to determine patient diagnosis. Normal [facility] Comment on above: Performed By: #### V PPCR #### [facility] ([id number]) [address], [address] [place] [address] ACUTE HEPATITIS PANELon 10-01 ANTI HCV W/PCR REFLX Non-Reactive Normal NRCT [facility] Comment on above: Result Comment: If recent infection suspected, recommend repeat testing (>2 months). Vsglqh-ca-cfpuaf ratio is <0.80. Performed By: #### 1 504-0, 50187-1, CBC, AHP, 25984-9, 26973-1, 59085-2, 95000-3, 6864-3 #### [facility] ([id number]) [address], [address] [place] [address] HEPATITIS A IGM Non-Reactive Normal NRCT [facility] Comment on above: Performed By: #### 1 504-0, 39111-8, CBC, AHP, 33199-3, 50384- 5, 26517-4, 72668-6, 6864-3 #### [facility] ([id number]) [address], [address] [place] [address] HEPATITIS B CORE IGM Negative Normal NEG [facility] Comment on above: Performed By: #### 1 504-0, 29012-3, CBC, AHP, 36708-7, 13451- 5, 35629-5, 12129-2, 6864-3 #### [facility] ([id number]) [address], [address] [place] [address] HEPATITIS B SURF AG Negative Normal NEG [facility] Comment on above: Performed By: #### 1 504-0, 08876-5, CBC, AHP, 00119-7, 99101- 5, 44353-5, 21605-5, 6864-3 #### [facility] ([id number]) [address], [address] [place] [address] COMPLETE BLOOD COUNTon 10-19 Erythrocyte distribution width (RBC) [Ratio] 15.0 % Normal 11.5-15.0 [facility] Comment on above: Performed By: #### 1 504-0, 68193-9, CBC, AHP, 94246-9, 93867- 5, 49458-6, 48711-5, 6864-3 #### [facility] ([id number]) [address], [address] [place] [address] Hematocrit (Bld) [Volume fraction] 38.0 % Normal 35-47 [facility] Comment on above: Performed By: #### 1 504-0, 22111-8, CBC, AHP, 56837-0, 04475- 5, 94583-8, 48241-6, 6864-3 #### [facility] ([id number]) [address], [address] [place] [address] Hemoglobin (Bld) [Mass/Vol] 12.5 g/dL Normal 11.7-15.5 [facility] Comment on above: Performed By: #### 1 504-0, 14801-2, CBC, AHP, 82326-1, 37684- 5, 73872-6, 05387-2, 6864-3 #### [facility] ([id number]) [address], [address] [place] [address] MCH (RBC) [Entitic mass] 27.4 pg Normal 27-34 [facility] Comment on above: Performed By: #### 1 504-0, 65511-0, CBC, AHP, 10337-7, 75034- 5, 06482-4, 05490-7, 6864-3 #### [facility] ([id number]) [address], [address] [place] [address] MCHC (RBC) [Mass/Vol] 32.9 g/dL Normal 32-36 [facility] Comment on above: Performed By: #### 1 504-0, 83491-7, CBC, AHP, 94177-8, 67251- 5, 64770-2, 94838-6, 6864-3 #### [facility] ([id number]) [address], [address] [place] [address] MCV (RBC) [Entitic vol] 83 fL Normal 80-100 [facility] Comment on above: Performed By: #### 1 504-0, 91385-5, CBC, AHP, 89534-0, 41640- 5, 14350-1, 93129-9, 6864-3 #### [facility] ([id number]) [address], [address] [place] [address] Platelet mean volume (Bld) [Entitic vol] 8.6 fL Normal 7-12 [facility] Comment on above: Performed By: #### 1 504-0, 00718-6, CBC, AHP, 35254-6, 01169- 5, 40169-0, 48286-9, 6864-3 #### [facility] ([id number]) [address], [address] [place] [address] Platelets (Bld) [#/Vol] 282 10*3/uL Normal 150-450 [facility] Comment on above: Performed By: #### 1 504-0, 43063-0, CBC, AHP, 75959-2, 98631- 5, 91976-7, 50195-1, 6864-3 #### [facility] ([id number]) [address], [address] [place] [address] RBC COUNT 4.55 X10E12/L Normal 3.80-5.20 [facility] Comment on above: Performed By: #### 1 504-0, 28852-1, CBC, AHP, 58390-7, 95333- 5, 51414-7, 83756-8, 6864-3 #### [facility] ([id number]) [address], [address] [place] [address] WBC (Bld) [#/Vol] 7.3 10*3/uL Normal 4.0-11.0 [facility] Comment on above: Performed By: #### 1 504-0, 48684-1, CBC, AHP, 96586-7, 62015- 5, 46786-5, 06453-7, 6864-3 #### [facility] ([id number]) [address], [address] [place] [address] DRUG SCREEN, URINEon 024 AMPHETAMINE/METHAMP Negative Normal NEG [facility] Comment on above: Result Comment: AMPH /METH screening cut off = 1000 ng/mL Performed By: #### D MCCLOUD #### [facility] ([id number]) [address], [address] [place] [address] BARBITURATES Negative Normal NEG [facility] Comment on above: Result Comment: Dayana iturates screening cut off value = 200 ng/mL Performed By: #### D MCCLOUD #### [facility] ([id number]) [address], [address] [place] [address] BENZODIAZEPINES Negative Normal NEG [facility] Comment on above: Result Comment: Ki odiazepines screening cut off value = 200 ng/mL Performed By: #### D MCCLOUD #### [facility] ([id number]) [address], [address] [place] [address] CANNABINOIDS Negative Normal NEG [facility] Comment on above: Result Comment: Gaurang abinoids/THC screening cut off value = 50 ng/mL Performed By: #### D MCCLOUD #### [facility] ([id number]) [address], [address] [place] [address] COCAINE METABOLITE Negative Normal NEG [facility] Comment on above: Result Comment: Coca ine screening cut off value = 300 ng/mL Performed By: #### D MCCLOUD #### [facility] ([id number]) [address] [facility], [address] [place] [address] ECSTASY Negative Normal NEG [facility] Comment on above: Result Comment: Ecst asy screening cut off value = 500 ng/mL This report is intended for use in clinical monitoring or management of patients. Performed By: #### D MCCLOUD #### [facility] ([id number]) [address], [address] [place] [address] METHADONE Negative Normal [facility] Comment on above: Result Comment: Meth adone screening cut off value = 300 ng/mL. Performed By: #### D MCCLOUD #### [facility] ([id number]) [address], [address] [place] [address] OPIATES Negative Normal NEG [facility] Comment on above: Result Comment: Opia nasrin screening cut off value = 300 ng/mL NOTE: This test is used for the detection of codeine, hydrocodone (>1000 ng/mL), morphine and hydromorphone (>900 ng/mL) in urine. Performed By: #### D MCCLOUD #### [facility] ([id number]) [address], [address] [place] [address] OXYCODONE Negative Normal NEG [facility] Comment on above: Result Comment: Oxyc odone screening cut off value = 300 ng/mL NOTE: This test is used for the detection of oxycodone and oxymorphone in urine. Performed By: #### D MCCLOUD #### [facility] ([id number]) [address], [address] [place] [address] PHENCYCLIDINE Negative Normal NEG [facility] Comment on above: Result Comment: Phen cyclidine screening cut off value = 25 ng/mL Performed By: #### D MCCLOUD #### [facility] ([id number]) [address] [facility] [facility], [address] [place] [address] Glucose 1 Hr post 50 g gluco se PO [Mass/Vol]on 10-20-2023 GLU 1H POST 50G LOAD 207 mg/dL High 65-139 [facility] Comment on above: Performed By: #### 1 504-0, 91380-8, CBC, AHP, 11307-8, 53653- 5, 23354-5, 31426-4, 6864-3 #### [facility] ([id number]) [address] [place] [address] HCG.beta subunit IA 3rd IS Q non 10-20-2023 [place] [address] m[IU]/mL Normal P [facility] Comment on above: Result Comment: NEW REFERENCE [...] nontrophoblastic neoplasms. Performed By: #### 1 504-0, 69979-2, CBC, AHP, 90961-2, 25756-0, 45116-4, 33511-2, 6864-3 #### [facility] ([id number]) [address] [place] [address] HIV 1+2 Ab+HIV1 p24 Ag IA Ql on 10-20-2023 HIV 1 and 2 Ab/Ag Screen Non-Reactive Normal NRCT [facility] Comment on above: Result Comment: This information [...] or diagnoses. Performed By: #### 1 504-0, 05992-5, CBC, AHP, 87471-2, 91320-9, 81966-0, 98102-5, 6864-3 #### [facility] ([id number]) [address] [place] [address], [address] [address] Hemoglobin S Solubility test Ql (Bld)on 10-20-2023 SICKLE SOLUBILITY Negative Normal NEG [facility] Comment on above: Performed By: #### D MCCLOUD #### [facility] ([id number]) [address] [place] [address], [address] [address] Rubella virus Ab Ql (S)on RUBELLA IMMUNE IgG 4.3 AI Normal [facility] Comment on above: Result Comment: Interpretation-------- <0.8 NEGATIVE-considered Not Immune 0.8-0.9 EQUIVOCAL-consider retesting with new specimen >0.9 POSITIVE-considered Immune Performed By: #### 1 504-0, 58523-7, CBC, AHP, 37707-6, 20598-2, 45285-7, 30440-0, 6864-3 #### [facility] ([id number]) [address] [address] T. pallidum IgG+IgM IA Ql (S )on 10-20-2023 Syphilis Total <0.2 Normal 0.0-0.8 [facility] Comment on above: Result Comment: NON REACTIVE No serologic evidence of infection to Treponema pallidum (syphilis). Repeat testing may be considered in patients with suspected acute or primary syphilis in 2 to 4 weeks. Performed By: #### 1 504-0, 60559-8, CBC, AHP, 36203-2, 01209-5, 81044-8, 69793-3, 6864-3 #### [facility] ([id number]) [address] [place] [address] URINALYSISon 10-20-2023 Bilirubin Ql (U) Negative Normal NEG [facility] Comment on above: Performed By: #### U A #### [facility] ([id number]) [address] [place] [address] BLOOD/HGB Small Abnormal NEG [facility] Comment on above: Performed By: #### U A #### [facility] ([id number]) [address] [place] [address] Color (U) YELLOW Normal YELLOW [facility] Comment on above: Performed By: #### U A #### [facility] ([id number]) [address] [place] [address] Glucose Ql (U) Negative Normal NEG [facility] Comment on above: Performed By: #### U A #### [facility] ([id number]) [address] [place] [address] Ketones Ql (U) Negative Normal NEG [facility] Comment on above: Performed By: #### U A #### [facility] ([id number]) [address] [place] [address] Leukocyte esterase Test strip Ql (U) MODERATE Abnormal NEG [facility] Comment on above: Performed By: #### U A #### [facility] ([id number]) [address] [place] [address], [address] [place] [address] MUCOUS PRESENT Abnormal NONE [facility] Comment on above: Performed By: #### U A #### [facility] ([id number]) [address] [place] [address], [facility] [address] [place] [address] Nitrite Ql (U) Negative Normal NEG [facility] Comment on above: Performed By: #### U A #### [facility] ([id number]) [address] [place] [address] [address] [place] [address] pH (U) 6.0 [pH] Normal 5.0-8.5 [facility] Comment on above: Performed By: #### U A #### [facility] ([id number]) [address] [place] [address], [address] [place] [address] Protein Ql (U) Trace Abnormal NEG [facility] Comment on above: Performed By: #### U A #### [facility] ([id number]) [address] [place] [address] R.B.CELLS 5 /hpf Normal 0-5 [facility] Comment on above: Performed By: #### U A #### [facility] ([id number]) [address] [place] [address] [address] [place] [address] Specific gravity (U) [Rel density] 1.024 Normal 1.003-1.035 [facility] Comment on above: Performed By: #### U A #### [facility] ([id number]) [address] [place] [address] [address] [place] [address] SQUAMOUS EPITHELIUM 14 /hpf High 0-5 [facility] Comment on above: Performed By: #### U A #### [facility] ([id number]) [address], [address] [place] [address] TURBIDITY HAZY Abnormal CLEAR [facility] Comment on above: Performed By: #### U A #### [facility] ([id number]) [address], [address] [place] [address] Urobilinogen (U) [Mass/Vol] mg/dL Normal <1.1 [facility] Comment on above: Performed By: #### U A #### [facility] ([id number]) [address], [address] [place] [address] W.B.CELLS 4 /hpf Normal 0-5 [facility] Comment on above: Performed By: #### U A #### [facility] ([id number]) [address], [facility] [address] [place] [address] URINE CULTUREon 10-20-2023 Bacteria identified Cx Nom (U) CULTURE RESULTS <10,000 ORGANISMS/ML NORMAL URO GENITAL DYLAN Normal [facility] Comment on above: Performed By: #### D MCCLOUD #### [facility] ([id number]) [address], [facility] [address] [place] [address] US PREG LESS THAN 14 WKS WIT H TRANSVAGINALon 10-20-2023 US PREG LESS THAN 14 WKS WITH TRANSVAGINAL US PREG LESS THAN 14 WKS WITH TRANSVAGINAL CLINICAL HISTORY: Dates and viability Comparison: None FINDINGS: * Single live IUP at 8 weeks 4 days. Tenkiller-rump length 2.0 cm. Yolk sac visualized. Heart [...] Oviedo MD on 10/20/2023 1:43 PM Normal [facility] VZV IgG IA Ql (S)on 10-20-19 24 VARICELLA IgG 4.0 AI High <0.9 [facility] Comment on above: Result Comment: Interpretation-------- <0.9 Negative 0.9 - 1.0 Equivocal >1.0 Positive Performed By: #### D MCCLOUD #### [facility] ([id number]) [address] [place] [address], [address] [place] [address] 17-[place] PROGESTERONE, LC/MSon 11-23-2020 17-[place] Progesterone LCMS 46 ng/dL Normal [facility] Comment on above: Result Comment: Adul t Female Follicular 15 - 70 Luteal 35 - 290 Performed By: #### Brian QIU, FT4 #### [facility] [address] [place] [address] Yu Watts DHEA-SULFATEon 11-21-2020 DHEA-Sulfate 275.0 ug/dL Normal 110.0-431.7 [facility] Comment on above: Performed By: #### Brian QIU, FT4 #### [facility] [address] [place], [place] [id number] Yu Watts FSHon 11-21-2020 FSH 7.9 mIU/mL Normal [facility] Comment on above: Result Comment: Adul t Female: Follicular phase 3.5 - 12.5 Ovulation phase 4.7 - 21.5 Luteal phase 1.7 - 7.7 Postmenopausal 25.8 - 134.8 Performed By: #### [facility] #### [facility] [address] [place] [address] Yu Watts LUTEINIZING HORMONE (LH)on 0 11-21-2020 LH 11.3 mIU/mL Normal [facility] Comment on above: Result Comment: Adul t Female: Follicular phase 2.4 - 12.6 Ovulation phase 14.0 - 95.6 Luteal phase 1.0 - 11.4 Postmenopausal 7.7 - 58.5 Performed By: #### Brian QIU, FT4 #### [facility] [address] [place] [address] Yu Watts PROLACTINon 11-21-2020 Prolactin 8.5 ng/mL Normal 4.8-23.3 [facility] Comment on above: Performed By: #### V ITAD, FT4 #### [facility] [address] [place] [address] Yu Watts TESTOSTERONE, TOTALon 2020 Testosterone [Mass/Vol] 23 ng/dL Normal 13-71 [facility] Comment on above: Performed By: #### T ESTTOT #### [facility] [address] [place] [address] Yu Watts TSHon 11-20-2020 TSH 1.061 uIU/mL Normal 0.470-4.680 [facility] Comment on above: Performed By: #### T SH #### [facility] [address] [place] [address] Yu Watts TSH RANGE SEE BELOW Normal [facility] Comment on above: Result Comment: <0.3 4 UIU/ml HYPERTHYROID 0.34-5.60 UIU/ml EUTHYROID >5.60 UIU/ml HYPOTHYROID Performed By: #### T SH #### [facility] [address] [place], [place] [id number] Yu Watts US PELVIS AND TRANSVAGon US [...] JOSE DUARTE Date: 2020-11-20 11:38 Normal [facility] PAP ACOG PANEL 2: 23 to 31on 11-07-2020 . . Normal [facility] Comment on above: Performed By: #### [id number] #### [facility] [address] [place] [address] Yu Watts Age Gdln ACOG Testing 21-29 [facility] Comment on above: Performed By: #### [id number] #### [facility] [address] [place] [address] Yu Watts DIAGNOSIS: Comment Normal [facility] Comment on above: Result Comment: NEGA TIVE FOR INTRAEPITHELIAL LESION OR MALIGNANCY. Performed By: #### [id number] #### [facility] [address] [place] [address] Yu Watts Methodology: Comment [facility] Comment on above: Result Comment: This liquid based ThinPrep(R) pap test was screened with the use of an image guided system. Performed By: #### 4 [id number] #### [facility] [address] [place] [address] Yu Watts Note: Comment [facility] Comment on above: Result Comment: The Pap smear is a screening test designed to aid in the detection of premalignant and malignant conditions of the uterine cervix. It is not a diagnostic procedure and should not be used as the sole means of detecting cervical cancer. Both false-positive and false-negative reports do occur. . Performed By: #### [id number] #### [facility] [address] [place] [address] Yu Watts Performed by: Comment Normal [facility] Comment on above: Result Comment: Travon Martinez, Machine Oiler (ASCP) Performed By: #### [id number] #### [facility] [address] [place] [address] Yu Watts Reflex Criteria: Comment [facility] Comment on above: Result Comment: The HPV DNA reflex criteria were not met with this specimen result therefore, no HPV testing was performed. . Performed By: #### [id number] #### [facility] [address] [place] [address] Yu Watts Specimen adequacy: Comment Normal [facility] Comment on above: Result Comment: Sati sfactory for evaluation. Endocervical and/or squamous metaplastic cells (endocervical component) are present. Performed By: #### 4 [id number] #### [facility] [address] [place], [place] [id number] Yu Watts DHEA-SULFATEon 05-24-2020 DHEA-Sulfate 258.0 ug/dL Normal 110.0-431.7 [facility] Comment on above: Performed By: #### V ITJODI, FT4 #### [facility] [address] [place], [place] [id number] Yu Watts INSULINon 05-24-2020 Insulin 21.4 uIU/mL Normal 2.6-24.9 [facility] Comment on above: Performed By: #### I NSULIN #### [facility] [address] [place] [address] Yu Watts CBC AUTO DIFFon 05-22-2020 BASO # 0.0 103/ul Normal 0.0-0.1 [facility] Comment on above: Performed By: #### V ITJODI, FT4 #### [facility] [address] [place], [place] [id number] Yu Watts Basophils/100 WBC (Bld) 0.4 % Normal 0.2-2.0 [facility] Comment on above: Performed By: #### V UYEN, FT4 #### [facility] [address] [place], [place] [id number] Yuteri Watts EO # 0.0 103/ul Normal 0.0-0.7 [facility] Comment on above: Performed By: #### V ITJODI, FT4 #### [facility] [address] [place], [place] [id number] Yu Watts Eosinophils/100 WBC (Bld) 0.7 % Critically low 0.9-7.0 [facility] Comment on above: Performed By: #### V ITJODI, FT4 #### [facility] [address] [place], [place] [id number] Yu Stefanie Erythrocyte distribution width (RBC) [Ratio] 13.9 % Normal 11.0-15.0 [facility] Comment on above: Performed By: #### V ITJODI, FT4 #### [facility] [address] [place] [address] Yuteri Watts Hematocrit (Bld) [Volume fraction] 39.0 % Normal 36.0-48.0 [facility] Comment on above: Performed By: #### V ITJODI, FT4 #### [facility] [address] [place], [place] [id number] Yuteri Watts Hemoglobin (Bld) [Mass/Vol] 12.6 g/dL Normal 12.0-16.0 [facility] Comment on above: Performed By: #### V ITJODI, FT4 #### [facility] [address] [place] [address] Yuteri Watts IG # 0.01 10e3/ul Normal 0.00-0.03 [facility] Comment on above: Performed By: #### Brian QIU, FT4 #### [facility] [address] [place] [address] Yuteri Baptisteen IG % 0.2 % Normal 0.0-0.5 [facility] Comment on above: Performed By: #### V UYEN, FT4 #### [facility] [address] [place] [address] Yuteri Watts LYMPH # 1.4 103/ul Normal 1.2-3.8 [facility] Comment on above: Performed By: #### V ITJODI, FT4 #### [facility] [address] [place] [address] Yu Watts Lymphocytes/100 WBC (Bld) 25.3 % Normal 20.5-60.0 [facility] Comment on above: Performed By: #### V ITJODI, FT4 #### [facility] [address] [place], [place] [phone] Yu Watts MANUAL DIFF REQ NO Normal [facility] Comment on above: Performed By: #### V ITJODI, FT4 #### [facility] [address] [place], [place] [phone] Yuteri Watts MCH (RBC) [Entitic mass] 27.2 pg Normal 26.7-34.0 [facility] Comment on above: Performed By: #### Brian QIU, FT4 #### [facility] [address] [place], [place] [phone] Yu Watts MCHC (RBC) [Mass/Vol] 32.3 g/dL Normal 29.9-35.2 [facility] Comment on above: Performed By: #### Brian QIU, FT4 #### [facility] [address] [place], [place] [phone] Yu Watts MCV (RBC) [Entitic vol] 84.1 fL Normal 81.0-99.0 [facility] Comment on above: Performed By: #### Brian QIU, FT4 #### [facility] [address] [place] [address] Yu Watts MONO # 0.4 103/ul Normal 0.3-0.8 [facility] Comment on above: Performed By: #### Brian QIU, FT4 #### [facility] [address] [place] [address] Yu Watts Monocytes/100 WBC (Bld) 7.1 % Normal 1.7-12.0 [facility] Comment on above: Performed By: #### Brian QIU, FT4 #### [facility] [address] [place] [address] Yu Watts NEUT # 3.6 103/ul Normal 1.4-6.5 [facility] Comment on above: Performed By: #### Brian QIU, FT4 #### [facility] [address] [place] [address] Yu Watts Neutrophils/100 WBC (Bld) 66.3 % Normal 43.0-75.0 [facility] Comment on above: Performed By: #### Brian QIU, FT4 #### [facility] [address] [place], [place] [phone] Yu Watts Platelet mean volume (Bld) [Entitic vol] 10.9 fL Normal 9.5-13.5 [facility] Comment on above: Performed By: #### Brian QIU, FT4 #### [facility] [address] [place], [place] [address] Yu Stefanie PLT 243 103/ul Normal 150-450 [facility] Comment on above: Performed By: #### Brian QIU, FT4 #### [facility] [address] [place], [place] [address] Yu Stefanie RBC 4.64 106/ul Normal 4.20-5.40 [facility] Comment on above: Performed By: #### Brian QIU, FT4 #### [facility] [address] [place], [place] [address] Yu Stefanie WBC 5.4 103/ul Normal 4.0-11.0 [facility] Comment on above: Performed By: #### Brian QIU, FT4 #### [facility] [address] [place] [address] Yu Stefanie FREE T3on 05-22-2020 FREE T3 3.22 pg/mlL Normal 2.77-5.27 [facility] Comment on above: Performed By: #### Brian QIU, FT4 #### [facility] [address] [place] [address] Yu Stefanie FREE T4on 05-22-2020 Free T4 [Mass/Vol] 1.10 ng/dL Normal 0.78-2.19 [facility] Comment on above: Performed By: #### Brian QIU, FT4 #### [facility] [address] [place] [address] Yu Stefanie GLYCOHEMOGLOBIN A1Con 2020 Glucose [Mass/Vol] 120 mg/dL Normal [facility] Comment on above: Performed By: #### Brian QIU, FT4 #### [facility] [address] [place] [address] Yu Stefanie HbA1c (Bld) [Mass fraction] 5.8 % Normal <=6.0 [facility] Comment on above: Performed By: #### Brian QIU, FT4 #### [facility] [address] [place] [address] Yu Stefanie LIPID PROFILEon 05-22-2020 CHOL-HDL RATIO NORM SEE BELOW Normal [facility] Comment on above: Result Comment: 3.3 - 4.4 LOW RISK 4.4 - 7.1 AVERAGE RISK 7.1 - 11.0 MODERATE RISK >11.0 HIGH RISK Performed By: #### L IPID, FT3, BMP, TSH, LIVER #### [facility] [address] [place], [place] [address] Yu Stefanie Cholesterol [Mass/Vol] 199 mg/dL Normal <=200 [facility] Comment on above: Performed By: #### L IPID, FT3, BMP, TSH, LIVER #### [facility] [address] [place] [phone] Yu Stefanie Cholesterol in HDL [Mass/Vol] 39 mg/dL Normal [facility] Comment on above: Performed By: #### L IPID, FT3, BMP, TSH, LIVER #### [facility] [address] [place] [phone] Yu Stefanie Cholesterol in LDL [Mass/Vol] 131.8 mg/dL Normal [facility] Comment on above: Performed By: #### L IPID, FT3, BMP, TSH, LIVER #### [facility] [address] [place], [place] [address] Yu Stefanie Cholesterol.total/Ch olesterol in HDL [Mass ratio] 5.1 {ratio} Normal [facility] Comment on above: Performed By: #### L IPID, FT3, BMP, TSH, LIVER #### [facility] [address] [place] [id number] Yu Stefanie HDL NORMAL > or = 60 mg/dl - LO W CARDIOVASCULAR RISK <40 mg/dl - HIGH CARDIOVASCULAR RISK Normal [facility] Comment on above: Performed By: #### L IPID, FT3, BMP, TSH, LIVER #### [facility] [address] [place] [phone] Yu Stefanie LDL CALC NORMAL SEE BELOW Normal [facility] Comment on above: Result Comment: <100 mg/dl OPTIMAL 100 - 129 mg/dl NEAR OR ABOVE OPTIMAL 130 - 159 mg/dl BORDERLINE HIGH 160 - 189 mg/dl HIGH >190 mg/dl VERY HIGH Performed By: #### L IPID, FT3, BMP, TSH, LIVER #### [facility] [address] [place], [place] [address] Yu Stefanie Triglyceride [Mass/Vol] 141 mg/dL Normal <=150 [facility] Comment on above: Performed By: #### L IPID, FT3, BMP, TSH, LIVER #### [facility] [address] [place], [place] [address] Yu Stefanie VLDL CALC 28.2 mg/dL Normal [facility] Comment on above: Performed By: #### L IPID, FT3, BMP, TSH, LIVER #### [facility] [address] [place] [address] Yuteri Baptisteen LIVER PROFILEon 05-22-2020 Albumin [Mass/Vol] 4.0 g/dL Normal 3.5-5.0 [facility] Comment on above: Performed By: #### V ITAD, FT4 #### [facility] [address] [place] [address] Yuteri Watts Albumin/Globulin [Mass ratio] 1.0 {ratio} Normal [facility] Comment on above: Performed By: #### V ITAD, FT4 #### [facility] [address] [place] [address] Yu Stefanie ALP [Catalytic activity/Vol] 44 U/L Normal 38-126 [facility] Comment on above: Performed By: #### V ITAD, FT4 #### [facility] [address] [place] [address] Yu Watts ALT [Catalytic activity/Vol] 93 U/L Critically high 9-52 [facility] Comment on above: Performed By: #### V ITAD, FT4 #### [facility] [address] [place] [address] Yu Stefanie AST [Catalytic activity/Vol] 46 U/L Critically high 14-36 [facility] Comment on above: Performed By: #### V ITAD, FT4 #### [facility] [address] [place] [address] Yu Stefanie BILI, CONJUGATED 0.1 mg/dL Normal 0.0-0.3 [facility] Comment on above: Performed By: #### V ITAD, FT4 #### [facility] [address] [place], [place] [phone] Yu Stefanie Bilirubin [Mass/Vol] 0.4 mg/dL Normal 0.2-1.3 [facility] Comment on above: Performed By: #### V ITAD, FT4 #### [facility] [address] [place], [place] [phone] Yu Stefanie Globulin (S) [Mass/Vol] 4.2 g/dL Normal [facility] Comment on above: Performed By: #### V ITAD, FT4 #### [facility] [address] [place], [place] [phone] Yu Stefanie Protein [Mass/Vol] 8.2 g/dL Normal 6.1-8.2 [facility] Comment on above: Performed By: #### V ITAD, FT4 #### [facility] [address] [place], [place] [phone] Yu Stefanie PROF CHEM 8 (BAS METB)on Anion gap [Moles/Vol] 12.9 mmol/L Normal [facility] Comment on above: Performed By: #### L IPID, FT3, BMP, TSH, LIVER #### [facility] [address] [place] [address] Yu Stefanie Calcium [Mass/Vol] 9.4 mg/dL Normal 8.4-10.2 [facility] Comment on above: Performed By: #### L IPID, FT3, BMP, TSH, LIVER #### [facility] [address] [place] [address] Yu Stefanie Chloride [Moles/Vol] 106 mmol/L Normal 98-107 [facility] Comment on above: Performed By: #### L IPID, FT3, BMP, TSH, LIVER #### [facility] [address] [place], [place] [phone] Yu Stefanie CO2 [Moles/Vol] 25.7 mmol/L Normal 22.0-30.0 [facility] Comment on above: Performed By: #### L IPID, FT3, BMP, TSH, LIVER #### [facility] [address] [place] [address] Yu Stefanie Creatinine [Mass/Vol] 0.78 mg/dL Normal 0.52-1.04 [facility] Comment on above: Performed By: #### L IPID, FT3, BMP, TSH, LIVER #### [facility] [address] [place] [address] Yu Stefanie EGFR-AF ICELANDIC >60 Normal >=60 [facility] Comment on above: Performed By: #### L IPID, FT3, BMP, TSH, LIVER #### [facility] [address] [place] [address] Yu Stefanie EGFR-NON AF ICELANDIC >60 Normal >=60 [facility] Comment on above: Performed By: #### L IPID, FT3, BMP, TSH, LIVER #### [facility] [address] [place] [address] Yu Stefanie Glucose [Mass/Vol] 95 mg/dL Normal 74-106 [facility] Comment on above: Performed By: #### L IPID, FT3, BMP, TSH, LIVER #### [facility] [address] [place] [address] Yu Stefanie Potassium [Moles/Vol] 3.6 mmol/L Normal 3.4-5.0 [facility] Comment on above: Performed By: #### L IPID, FT3, BMP, TSH, LIVER #### [facility] [address] [place] [address] Yu Stefanie Sodium [Moles/Vol] 141 mmol/L Normal 137-145 [facility] Comment on above: Performed By: #### L IPID, FT3, BMP, TSH, LIVER #### [facility] [address] [place] [address] Yu Stefanie Urea nitrogen [Mass/Vol] 10.0 mg/dL Normal 7.0-17.0 [facility] Comment on above: Performed By: #### L IPID, FT3, BMP, TSH, LIVER #### [facility] [address] [place] [address] Yu Watts Urea nitrogen/Creatinine [Mass ratio] 12.8 mg/mg Normal [facility] Comment on above: Performed By: #### L IPID, FT3, BMP, TSH, LIVER #### [facility] [address] [place] [phone] Yu Watts TSHon 05-22-2020 TSH 1.324 uIU/mL Normal 0.470-4.680 [facility] Comment on above: Performed By: #### L IPID, FT3, BMP, TSH, LIVER #### [facility] [address] [place] [phone] Yu Watts TSH RANGE SEE BELOW Normal [facility] Comment on above: Result Comment: <0.3 4 UIU/ml HYPERTHYROID 0.34-5.60 UIU/ml EUTHYROID >5.60 UIU/ml HYPOTHYROID Performed By: #### L IPID, FT3, BMP, TSH, LIVER #### [facility] [address] [place], [place] [id number] Yu Watts VITAMIN D 25 OHon 05-22-2020 VIT D 25-OH 18.0 ng/mL Normal [facility] Comment on above: Performed By: #### V UYEN, FT4 #### [facility] [address] [place], [place] [phone] Yu Watts VIT D RANGES SEE BELOW Normal [facility] Comment on above: Result Comment: <20 ng/mL Vit D deficient 20 - <30 ng/mL Vit D insufficient 30 - 100 ng/mL Vit D sufficient >100 ng/mL Potential Toxicity Performed By: #### V ITAD, FT4 #### [facility] [address] [place] [address] Yu Watts Vital Signs Date Time Vital Sign Value Performing Clinician Rani juan 04-03-2024 10:58-0500 Body weight 109.23 kg [employer] Work Phone: [facility] 04-03-2024 10:58-0500 Diastolic blood pressure 80 mm[Hg] Isidro Jasmine DO Work Phone: [facility] 04-03-2024 10:58-0500 Systolic blood pressure 120 mm[Hg] Isidro Jasmine DO Work Phone: [facility] 03-21-2024 13:54-0500 Body weight 109.32 kg Maryann AMIN Work Phone: [facility] 03-21-2024 13:54-0500 Diastolic blood pressure 74 mm[Hg] Maryann AMIN Work Phone: [facility] 03-21-2024 13:54-0500 Systolic blood pressure 118 mm[Hg] Maryann AMIN Work Phone: [facility] 03-07-2024 11:00-0500 Body weight 108.32 kg Isidro Jasmine DO Work Phone: [facility] 03-07-2024 11:00-0500 Diastolic blood pressure 70 mm[Hg] Isidro Jasmine DO Work Phone: [facility] 03-07-2024 11:00-0500 Systolic blood pressure 120 mm[Hg] Isidro Jasmine DO Work Phone: [facility] 02-23-2024 10:16-0400 Body weight 108.77 kg Isidro Jasmine DO Work Phone: [facility] 02-23-2024 10:16-0400 Diastolic blood pressure 76 mm[Hg] Isidro Jasmine DO Work Phone: [facility] 02-23-2024 10:16-0400 Systolic blood pressure 130 mm[Hg] Isidro Jasmine DO Work Phone: [facility] Healthcare Encounters Encounter Date Encounter Type Care Provider Facility Start: 04-13-2024 End: 04-13-2024 Telephone encounter Bing Mccann CMA [facility] Start: 04-03-2024 End: 04-03-2024 Bamboo flowsheet Isidro Jasmine DO Work Phone: [facility] Start: 04-03-2024 End: 04-03-2024 Bamboo flowsheet Isidro Jasmine DO Work Phone: [facility] Start: 04-03-2024 End: 04-03-2024 ambulatory ISIDRO JASMINE Not Available Start: 04-03-2024 End: 04-03-2024 Office outpatient visit 15 minutes Isidro Jasmine DO Work Phone: [facility] Comment on above: 32 weeks gestation o f ; Third trimester ; Episodic lightheadedness; Heart palpitations Start: 03-21-2024 End: 03-21-2024 Bamboo flowsheet Maryann AMIN Work Phone: [facility] Start: 03-21-2024 End: 03-21-2024 Bamboo flowsheet Maryann AMIN Work Phone: [facility] Start: 03-21-2024 End: 03-21-2024 Office outpatient visit 15 minutes Maryann AMIN Work Phone: [facility] Comment on above: Third trimester preg harini; 30 weeks gestation of ; Insulin controlled gestational diabetes mellitus (GDM) in third trimester; BV (bacterial vaginosis) Start: 03-21-2024 End: 03-21-2024 ambulatory MARYANN SMITH Not Available Start: 03-14-2024 End: 03-14-2024 ambulatory ISIDRO R JASMINE [facility] Start: 03-07-2024 End: 03-07-2024 Bamboo flowsheet Isidro Jasmine DO Work Phone: [facility] Start: 03-07-2024 End: 03-07-2024 Bamboo flowsheet Isidro Jasmine DO Work Phone: [facility] Start: 03-07-2024 End: 03-07-2024 Office outpatient visit 15 minutes Isidro Jasmine DO Work Phone: [facility] Comment on above: 28 weeks gestation o f ; Third trimester Start: 03-07-2024 End: 03-07-2024 ambulatory ISIDRO JASMINE Not Available Start: 02-23-2024 End: 02-23-2024 Office outpatient visit 15 minutes Isidro Jasmine DO Work Phone: [facility] Comment on above: 26 weeks gestation o f ; Second trimester Start: 02-23-2024 End: 02-23-2024 ambulatory ISIDRO JASMINE Not Available Start: 02-16-2024 End: 02-16-2024 Orders Only Lottie Pool RN [facility] Comment on above: Insulin controlled g estational diabetes mellitus (GDM) in third trimester (Primary Dx); Severe obesity due to excess calories affecting , antepartum ([facility]); Alpha thalassemia silent carrier Start: 02-15-2024 End: 02-15-2024 Telephone encounter Kathie Sellers MD Work Phone: [facility] Start: 02-14-2024 End: 02-14-2024 ambulatory [facility] Start: 02-02-2024 End: 02-02-2024 Telephone encounter Mojgan Zeng RN [facility] Start: 01-25-2024 End: 01-25-2024 ambulatory MARYANN SMITH Not Available Start: 01-17-2024 End: 01-17-2024 ambulatory [facility] Start: 12-22-2023 End: 12-22-2023 ambulatory ISIDRO MONTESINOSO Not Available Start: 12-12-2023 End: 12-12-2023 ambulatory ADELA SERGE [facility] Start: 10-28-2023 End: 10-28-2023 ambulatory [facility] Start: 10-28-2023 End: 10-28-2023 ambulatory [facility] Start: 10-28-2023 Encounter for gynecological examination (general) (routine) without abnormal findings [facility] Start: 10-28-2023 End: 10-28-2023 ambulatory [facility] Start: 10-28-2023 Encounter for gynecological examination (general) (routine) without abnormal findings TRAE SANCHEZ [facility] Start: 10-20-2023 End: 10-20-2023 ambulatory YASMINE M [facility] Start: 10-06-2023 End: 10-06-2023 Emergency department patient visit TRAE SANCHEZ [facility] Start: 10-04-2023 End: 10-04-[address] [facility] Start: 06-26-2023 End: 06-26-2023 Emergency department patient visit TRAE SANCHEZ [facility] Start: 11-20-2020 End: 11-21-[address] TRAE SANCHEZ Facility:[facility] Start: 11-05-2020 End: 11-05-[address] TRAE SANCHEZ Facility:[facility] Start: 06-25-2020 Encounter for genera l adult medical examination without abnormal findings DR TRAE SANCHEZ [facility] Start: 05-22-2020 End: 05-23-[address] TRAE [...] malign [facility] Start: 02-15-2025 End: 02-15-2025 US MFM with or without consult US MFM with or without consult Imaging Routine Insulin controlled gestational diabetes mellitus (GDM) in third trimester Severe obesity due to excess calories affecting , antepartum ([facility]) Alpha thalassemia silent carrier Expected: 02/15/2025 (Approximate), Expires: 02/15/2025 [employer] Work Phone: Comment on above: Expected: 02/15/2025 (Approximate), Expires: 02/15/2025 Start: 01-16-2025 Adult BMI Screening Adult BMI Screen ing [facility] Start: 01-16-2025 Tobacco Screening Tobacco Screening [facility] Start: 10-26-2024 Depression Screening Depression Scre ening [facility] Start: 04-18-2024 End: 04-18-2024 Patient encounter procedure 04/18/2024 9:50 AM EST Routine [facility] [address] [place] [address] Maryann Smith PA [address] [place] [address] [facility] Start: 04-03-2024 End: 04-03-2025 12 lead ECG ECG 12 lead unit performed ECG Routine Episodic lightheadedness Heart palpitations Expected: 04/03/2024 (Approximate), Expires: 04/03/2025 [facility] Comment on above: Expected: 04/03/2024 (Approximate), Expires: 04/03/2025 Start: 04-03-2024 End: 04-03-2026 Echocardiogram 2D complete Echocardiogram 2D complete Echocardiography Routine Episodic lightheadedness Heart palpitations Expected: 04/03/2024 (Approximate), Expires: 04/03/2026 [facility] Comment on above: Expected: 04/03/2024 (Approximate), Expires: 04/03/2026 Start: 04-03-2024 End: 04-03-2024 Patient encounter procedure 04/03/2024 10:30 AM EST Routine [facility] [address] [place] [id number] Isidro Ferraro, DO [address] [place] [address] [facility] Start: 03-21-2024 End: 03-21-2025 US biophysical profile w non stress test US biophysical profile w non stress test Imaging Routine Insulin controlled gestational diabetes mellitus (GDM) in third trimester Expected: 03/21/2024 (Approximate), Expires: 03/21/2025 [facility] Comment on above: Expected: 03/21/2024 (Approximate), Expires: 03/21/2025 Start: 03-21-2024 End: 03-21-2025 US for US OB SCAN FOR GROWTH Imaging Routine Insulin controlled gestational diabetes mellitus (GDM) in third trimester Expected: 03/21/2024 (Approximate), Expires: 03/21/2025 [facility] Work Phone: Comment on above: Expected: 03/21/2024 (Approximate), Expires: 03/21/2025 Start: 03-21-2024 End: 03-21-2024 Patient encounter procedure [facility] Comment on above: Arrived Start: 03-14-2024 End: 03-14-2024 Patient encounter procedure 03/14/2024 3:00 PM EST Appointment [facility] Imaging [address] [place] [address] [facility] Start: 03-07-2024 End: 03-07-2024 Patient encounter procedure 03/07/2024 11:10 AM EST Routine [facility] [address] [address] Isidro Ferraro, DO [address] [place] [address] Ar[address] [facility] Comment on above: Arrived Start: 02-15-2024 End: 02-15-2024 Telemedicine consultation with patient 02/15/2024 9:45 AM EDT Telemedicine Maternal- Medicine at [facility] [address] [place] [phone] Kathie Sellers MD [address] [place], [place] [id number] [facility] at [facility] Start: 02-14-2024 End: 02-14-2024 Patient encounter procedure 02/14/2024 2:00 PM EDT Appointment [facility] US Imaging [address] [place] [phone] [facility] US Imaging Start: 01-01-2024 Influenza vaccination P [facility] Start: 01-23-2020 DTaP,Tdap and Td Vaccines (7 - Td or Tdap) DTaP,Tdap and Td Vaccines (7 - Td or Tdap) [facility] Start: 10-10-2015 Adult BMI Follow Up Plan Adult BMI F ollow Up Plan [facility] CBC W Auto Different ial panel - Blood CBC and differential Lab Routine 32 weeks gestation of Third trimester Ordered: 04/03/2024 [facility] Work Phone: Comment on above: Ordered: 04/03/2024 Payers Date Payer Category Payer Medicaid [employer] [facility] O [id number] 2022-Present [phone] [address] [place] [address] [id number] 2022 Medicaid HMO [employer] [id number] 2019 Private Health Insurance [facility] MEDICAID [id number] 2019 Medicaid [id number] 1997 Unknown [id number] 2.16840.1.374196.3.579.2. 593 1997 Unknown [id number] 2.16840.1.436848.3.579.2. 593 1997 Unknown [id number] 2.16840.1.841249.3.579.2. 593 1997 Unknown [id number] 2.16840.1.300535.3.579.2. 1286 1997 Unknown [id number] 2.16840.1.133275.3.579.2. 128 1997 Unknown [id number] 2.16840.1.159934.3.579.2. 128 1997 Unknown [id number] 2.16840.1.937820.3.579.2. 1286 1997 Unknown [id number] 2.16840.1.985896.3.579.2. 1286 1997 Unknown [id number] 2.16.840.1.731262.3.579.2. 1285 1997 Unknown [id number] 2.16.840.1.112369.3.579.2. 1285 1997 Unknown [id number] 2.16.840.1.780324.3.579.2. 1285 1997 Unknown [id number] 2.16.840.1.456875.3.579.2. 1285 1997 Unknown [id number] 2.16.840.1.766556.3.579.2. 1285 1997 Unknown [id number] 2.16.840.1.032817.3.579.2. 1285 1997 Unknown [id number] 2.16840.1.041204.3.579.2. 1285 1997 Unknown [id number] 2.16840.1.188486.3.579.2. 1285 1997 Unknown [id number] 2.16840.1.685614.3.579.2. 1258 1997 Unknown [id number] 2.16.840.1.824162.3.579.2. 1258 1997 Unknown [id number] 2.16840.1.560411.3.579.2. 1258 1997 Unknown [id number] 2.16840.1.149592.3.579.2. 1258 1997 Unknown [id number] 2.16840.1.134883.3.579.2. 1258 1997 Unknown [id number] 2.16840.1.538989.3.579.2. 1259 1959 Unknown [id number] Social History Date Type Detail Facility Start: 06-26-2023 Tobacco smoking stat [facility] Never smoked tobacco [facility] Start: 06-26-2023 Tobacco use and exposure Smokeless tobacco non-user [facility] Start: 01-17-2024 Alcoholic beverage intake Ex-drinker (finding) [facility] Start: 06-12-2020 End: 01-17-2024 History of Social function [facility] Start: 06-12-2020 End: 01-17-2024 Tobacco use panel [facility] How hard is it for y ou to pay for the very basics like food, housing, medical care, and heating Not hard at all [facility] Start: 11-12-2021 Alcohol Comment rarely [facility] Start: 09-03-2023 [facility] Start: 1995 Sex assigned at Not on file [facility] Start: 12-05-2014 Sex Female (finding) [facility] Tobacco smoking stat [facility] Tobacco smoking consumption unknown [facility] Medical Equipment Procedure Code Equipment Code Equipment Origin al Text Equipment Identifier Dates [id number] Start: 10-21-2023 Use to check fas ting blood sugar in the morning and one hour after first bite of each meal. Order supplies per insurance preference. [id number] Start: 10-21-2023 Test blood sugar 4 times a day [id number] Start: 12-13-2023 Use daily for insulin [id number] Start: 01-17-2024 Test blood sugar 4 times a day [id number] Start: 12-13-2023 Goals Date Patient Goal Desired Activity /State Personal health goal Clinical Notes 02-02-2024 to 04-13-2024 Telephone Encounter - Bing Mccann CMA - 04/13/2024 10:21 AM ESTTelephone Encounter - Bing Mccann CMA - 04/13/2024 10:21 AM Boston Levy LPN - 04/03/2024 10:30 AM EST Note Date & Type Note Facility 04-13-2024 Miscellaneous Notes Formattin g of this note might be different from the original. Called patient in regard to not receiving blood sugar logs in two or more weeks. No answer. Asked patient to send most recent logs to the office email. Call back number left and patient encouraged to reach out if she has any questions or concerns. [facility]-13-[facility]24 Telephone encount er Note Called patient in regard to not receiving blood sugar logs in two or more weeks. No answer. Asked patient to send most recent logs to the office email. Call back number left and patient encouraged to reach out if she has any questions or concerns. [facility] 04-03-2024 History of Presen t illness Narrative [...] Isidro Ferraro DO documented in this encounter [facility] 03-21-2024 History of Presen t illness Narrative [...] of: BRENNAN Vora documented in this encounter [facility] 03-07-2024 History of Presen t illness Narrative [...] nursing note reviewed. Exam conducted with a hydrometer calibrator present. Vitals: There is no height or [...] Isidro Ferraro DO documented in this encounter [facility] 02-23-2024 History of Presen t illness Narrative [...] nursing note reviewed. Exam conducted with a hydrometer calibrator present. Vitals: There is no height or [...] is having follow up US scheduled at [facility]. Patient to start growth scans after next scan with [facility] every 4 weeks. Patient to start [...] Isidro Ferraro DO documented in this encounter [facility] 02-15-2024 Miscellaneous Notes Formattin g of this note might be different from the original. Aquacultural Worker Supervisor elizabeth for pt w/ appt info on for 03/14 at 3:00 and requested a return call if she could not make that work. documented in this encounter [facility] 02-15-2024 Telephone encount er Note Aquacultural Worker Supervisor elizabeth for pt w/ appt info on for 03/14 at 3:00 and requested a return call if she could not make that work. [facility] 02-15-2024 Miscellaneous Notes Formattin g of this note might be different from the original. Aquacultural Worker Supervisor laila VM. Patient scheduled for a MyChart Visit @ 9:45 am. Aquacultural Worker Supervisor asked patient to get precision lens centerer and edger if available. Aquacultural Worker Supervisor left call back number [phone] #[phone] if patient needs to reschedule. documented in this encounter [facility] 02-15-2024 Telephone encount er Note Aquacultural Worker Supervisor left VM. Patient scheduled for a MyChart Visit @ 9:45 am. Aquacultural Worker Supervisor asked patient to get precision lens centerer and edger if available. Aquacultural Worker Supervisor left call back number [phone] #[phone] if patient needs to reschedule. [facility] 02-02-2024 Miscellaneous Notes Formattin g of this note might be different from the original. Called patient, no answer, left message to please send blood glucose logs to the diabetes email. documented in this encounter [facility] 02-02-2024 Telephone encount er Note Called patient, no answer, left message to please send blood glucose logs to the diabetes email. [facility] Evaluation note Diagnosis Insulin controlled gestational diabetes mellitus (GDM) in third trimester Severe obesity due to excess calories affecting , antepartum ([facility]) [facility] Diagnosis Insulin controlled gestational diabetes mellitus (GDM) in third trimester Severe obesity due to excess calories affecting , antepartum ([facility]) [facility] Insulin controlled gestational diabetes mellitus (GDM) in third trimester- Primary Severe obesity due to excess calories affecting , antepartum ([facility]) Alpha thalassemia silent carrier [facility] Diagnosis 28 weeks gestation of [...] encounter [facility]ructionsNot on filedocumented in this encounterProMedica Health SystemInstructionsNot on filedocumented in this encounterProMedine Health SystemInstructionsNot on filedocumented in this encounterProSelect [facility] Summary Purpose Family History No Family [...] and content) DATE CREATED AUTHOR 12/02/2020 [facility] DATE CREATED AUTHOR AUTHOR'S ORGANIZ ATION 10/30/2023 [facility] DATE CREATED AUTHOR AUTHOR'S ORGANIZ ATION 11/02/2023 [facility] DATE CREATED AUTHOR AUTHOR'S ORGANIZ ATION 03/16/2024 [facility] DATE CREATED AUTHOR AUTHOR'S ORGANIZ ATION 04/05/2024 [facility] [employer] Care Teams (unrecognized sec tion and content) Lactation Coordinator Relationship Specialty Start Date End Date Trae Sanchez MD PCP - General Family Medicine 04/28/20 Lactation Coordinator Relationship Specialty Start Date End Date Trae Sanchez MD PCP - General Family Medicine 04/28/20 Lactation Coordinator Relationship Specialty Start Date End Date Trae Sanchez MD PCP - General Family Medicine 04/28/20 Lactation Coordinator Relationship Specialty Start Date End Date Joanna Allan MD [address] [place] [address] PCP - General Family Medicine 09/07/22 Lactation Coordinator Relationship Specialty Start Date End Date Joanna Allan MD [address] [place] [address] PCP - General Family Medicine 09/07/22 Lactation Coordinator Relationship Specialty Start Date End Date Joanna Allan MD [address] [place] [address] PCP - General Family Medicine 09/07/22 Lactation Coordinator Relationship Specialty Start Date End Date Joanna Allan MD [address] [place] [address] PCP - General Family Medicine 09/07/22 Lactation Coordinator Relationship Specialty Start Date End Date Joanna Allan MD [address] [place] [place], [place] [id number] PCP - General Family Medicine 09/07/22 Reason [...] BE BASED ON THE PRIMARY CLINICAL RECORDS. [employer] provides no warranty or guarantee of the accuracy or completeness of information in this document.
[2024-04-16 11:01] VITALS: BP 125/77; PULSE 78
== END 2024-04-16 12:03 | disposition home or self-care (01) ==
LOC: FBCO 06:12 → FBC 10:54
PROVIDERS: Visit Provider Obstetrics & Gynecology
DX: O24.414 Gestational diabetes mellitus in pregnancy, insulin controlled (principal); Z3A.34 34 weeks gestation of pregnancy
CPT/HCPCS: 76818

== ENCOUNTER 2024-04-19 06:18 | Outpatient (OUT) | payer OTHER, SELFPAY ==
--- OUTSIDE RECORDS SUMMARY | 2024-04-19 06:21 | XMS_ITS | CCD ---
Author Organization [facility] Care Team Providers Care Spinneret Person Name Role Phone LAURA, DR TRAE Delaney Primary Care Unavailable NADERER, DR TRAE Delaney Admitting Unavailable NADERER, DR TRAE Delaney Attending Unavailable NADERER, DR TRAE Delaney Consulting Unavailable NADERER, DR TRAE Delaney Primary Care Unavailable KARASIK, DR OLMOS Attending Unavailable KARASIK, DR OLMOS Consulting Unavailable KARASIK, DR OLMOS Admitting Unavailable NADERER, DR TRAE Delaney Primary Care Unavailable WARMINSTER, DR JOSE Torres Consulting Unavailable JASMINE, DR [...] Provider Joanna Allan MD Primary Care Provider [phone] YASMINE ZAVALA Referring Unavailable NADERER, TRAE Primary [...] due to excess calories affecting , [place] , 21 weeks gestation of Inject 10U [...] UA Negative Negative - 4(70) +++ mg/dL [facility] Blood, UA Negative Negative - 50 Janes/mcL [facility] Clarity, UA Clear [facility] Color, UA Yellow [facility] Glucose, UA Negative Negative - 1999(110) ++++ mg/dL [facility] Interpretation and review of laboratory results Abnormal [facility] Ketones, UA Positive Negative - 160(16) ++++ mg/dL [facility] Comment on above: 40 Leukocytes, UA Positive Negative - 500+++ Too/mcL [facility] Comment on above: small Nitrite, UA Negative Negative - Positive [facility] pH, UA 7 5 - 9 [facility] Protein, UA Trace Negative - 1999(20) ++++ mg/dL [facility] Spec Grav, UA 1.025 1 - 1.03 [facility] Urobilinogen, UA 0.2 0.2 - 12 mg/dL [facility] Urinalysis macro (dipstick) panel (U)on 03-21-2024 Bilirubin, UA Negative Negative - 4(70) +++ mg/dL [facility] Blood, UA Negative Negative - 50 Janes/mcL [facility] Clarity, UA Clear [facility] Color, UA Yellow [facility] Glucose, UA Negative Negative - 1999(110) ++++ mg/dL [facility] Interpretation and review of laboratory results Abnormal [facility] Ketones, UA Negative Negative - 160(16) ++++ mg/dL [facility] Leukocytes, UA Trace Negative - 500+++ Too/mcL [facility] Nitrite, UA Negative Negative - Positive [facility] pH, UA 6 5 - 9 [facility] Protein, UA Negative Negative - 1999(20) ++++ mg/dL [facility] Spec Grav, UA 1.03 1 - 1.03 [facility] Urobilinogen, UA 0.2 0.2 - 12 mg/dL [facility] Urinalysis macro (dipstick) panel (U)on 03-07-2024 Bilirubin, UA Positive Negative - 4(70) +++ mg/dL [facility] Comment on above: small Blood, UA Positive Negative - 50 Janes/mcL [facility] Comment on above: trace-intact Clarity, UA Clear [facility] Color, UA Yellow [facility] Glucose, UA Negative Negative - 1999(110) ++++ mg/dL [facility] Interpretation and review of laboratory results Abnormal [facility] Ketones, UA Positive Negative - 160(16) ++++ mg/dL [facility] Comment on above: trace Leukocytes, UA Positive Negative - 500+++ Too/mcL [facility] Comment on above: small Nitrite, UA Negative Negative - Positive [facility] pH, UA 5.5 5 - 9 [facility] Protein, UA Negative Negative - 1999(20) ++++ mg/dL [facility] Spec Grav, UA 1.03 1 - 1.03 [facility] Urobilinogen, UA 0.2 0.2 - 12 mg/dL [facility] Urinalysis macro (dipstick) panel (U)on 02-23-2024 Bilirubin, UA Negative Negative - 4(70) +++ mg/dL [facility] Blood, UA Positive Negative - 50 Janes/mcL [facility] Comment on above: trace-intact Clarity, UA Clear [facility] Color, UA Yellow [facility] Glucose, UA Negative Negative - 1999(110) ++++ mg/dL [facility] Interpretation and review of laboratory results Abnormal [facility] Ketones, UA Negative Negative - 160(16) ++++ mg/dL [facility] Leukocytes, UA Positive Negative - 500+++ Too/mcL [facility] Comment on above: small Nitrite, UA Negative Negative - Positive [facility] pH, UA 6 5 - 9 [facility] Protein, UA Negative Negative - 1999(20) ++++ mg/dL [facility] Spec Grav, UA 1.03 1 - 1.03 [facility] Urobilinogen, UA 0.2 0.2 - 12 mg/dL [facility] CHLAMYDIA/GC PCR, FLon 10-27 CHLAMYDIA/GC PCR, [...] are dependent on adequate specimen collection. Normal [facility] Comment on above: Performed By: #### D MCCLOUD #### [facility] ([id number]) [address], [address] [place] [address] Cytology Cervical or vaginal smear or scraping studyon 10-28-2023 [facility] VAGINITIS PANEL PCRon 2023 VAGINITIS [...] clinical presentation to determine patient diagnosis. Normal [facility] Comment on above: Performed By: #### V PPCR #### [facility] ([id number]) [address], [address] [place] [address] ACUTE HEPATITIS PANELon 10-01 ANTI HCV W/PCR REFLX Non-Reactive Normal NRCT [facility] Comment on above: Result Comment: If recent infection suspected, recommend repeat testing (>2 months). Yabydn-sr-roruex ratio is <0.80. Performed By: #### 1 504-0, 54848-8, CBC, AHP, 30686-6, 95778-7, 70757-8, 87586-5, 6864-3 #### [facility] ([id number]) [address], [address] [place] [address] HEPATITIS A IGM Non-Reactive Normal NRCT [facility] Comment on above: Performed By: #### 1 504-0, 24803-6, CBC, AHP, 88746-5, 40571- 5, 44618-5, 87750-7, 6864-3 #### [facility] ([id number]) [address], [address] [place] [address] HEPATITIS B CORE IGM Negative Normal NEG [facility] Comment on above: Performed By: #### 1 504-0, 26799-3, CBC, AHP, 23358-8, 05572- 5, 89550-6, 71056-5, 6864-3 #### [facility] ([id number]) [address], [address] [place] [address] HEPATITIS B SURF AG Negative Normal NEG [facility] Comment on above: Performed By: #### 1 504-0, 94200-3, CBC, AHP, 77594-1, 02038- 5, 76736-1, 58509-3, 6864-3 #### [facility] ([id number]) [address], [address] [place] [address] COMPLETE BLOOD COUNTon 10-19 Erythrocyte distribution width (RBC) [Ratio] 15.0 % Normal 11.5-15.0 [facility] Comment on above: Performed By: #### 1 504-0, 21841-0, CBC, AHP, 39437-9, 03401- 5, 53237-2, 11322-7, 6864-3 #### [facility] ([id number]) [address], [address] [place] [address] Hematocrit (Bld) [Volume fraction] 38.0 % Normal 35-47 [facility] Comment on above: Performed By: #### 1 504-0, 12628-8, CBC, AHP, 54259-5, 85337- 5, 93399-3, 38494-3, 6864-3 #### [facility] ([id number]) [address], [address] [place] [address] Hemoglobin (Bld) [Mass/Vol] 12.5 g/dL Normal 11.7-15.5 [facility] Comment on above: Performed By: #### 1 504-0, 39420-7, CBC, AHP, 86968-3, 94327- 5, 18261-2, 11049-7, 6864-3 #### [facility] ([id number]) [address], [address] [place] [address] MCH (RBC) [Entitic mass] 27.4 pg Normal 27-34 [facility] Comment on above: Performed By: #### 1 504-0, 42441-6, CBC, AHP, 46485-9, 22829- 5, 26086-3, 34086-4, 6864-3 #### [facility] ([id number]) [address], [address] [place] [address] MCHC (RBC) [Mass/Vol] 32.9 g/dL Normal 32-36 [facility] Comment on above: Performed By: #### 1 504-0, 56863-5, CBC, AHP, 60335-1, 62806- 5, 07155-1, 54461-1, 6864-3 #### [facility] ([id number]) [address], [address] [place] [address] MCV (RBC) [Entitic vol] 83 fL Normal 80-100 [facility] Comment on above: Performed By: #### 1 504-0, 55121-2, CBC, AHP, 28696-0, 64639- 5, 13359-0, 09821-5, 6864-3 #### [facility] ([id number]) [address], [address] [place] [address] Platelet mean volume (Bld) [Entitic vol] 8.6 fL Normal 7-12 [facility] Comment on above: Performed By: #### 1 504-0, 02069-4, CBC, AHP, 30560-6, 21700- 5, 72849-4, 91494-0, 6864-3 #### [facility] ([id number]) [address], [address] [place] [address] Platelets (Bld) [#/Vol] 282 10*3/uL Normal 150-450 [facility] Comment on above: Performed By: #### 1 504-0, 70883-0, CBC, AHP, 61121-7, 32081- 5, 18935-1, 74672-1, 6864-3 #### [facility] ([id number]) [address], [address] [place] [address] RBC COUNT 4.55 X10E12/L Normal 3.80-5.20 [facility] Comment on above: Performed By: #### 1 504-0, 16182-7, CBC, AHP, 03509-9, 04659- 5, 71176-6, 54150-3, 6864-3 #### [facility] ([id number]) [address], [address] [place] [address] WBC (Bld) [#/Vol] 7.3 10*3/uL Normal 4.0-11.0 [facility] Comment on above: Performed By: #### 1 504-0, 34983-6, CBC, AHP, 32537-6, 49894- 5, 61859-8, 04377-0, 6864-3 #### [facility] ([id number]) [address], [address] [place] [address] DRUG SCREEN, URINEon 024 AMPHETAMINE/METHAMP Negative Normal NEG [facility] Comment on above: Result Comment: AMPH /METH screening cut off = 1000 ng/mL Performed By: #### D MCCLOUD #### [facility] ([id number]) [address], [address] [place] [address] BARBITURATES Negative Normal NEG [facility] Comment on above: Result Comment: Dayana iturates screening cut off value = 200 ng/mL Performed By: #### D MCCLOUD #### [facility] ([id number]) [address], [address] [place] [address] BENZODIAZEPINES Negative Normal NEG [facility] Comment on above: Result Comment: Ki odiazepines screening cut off value = 200 ng/mL Performed By: #### D MCCLOUD #### [facility] ([id number]) [address], [address] [place] [address] CANNABINOIDS Negative Normal NEG [facility] Comment on above: Result Comment: Gaurang abinoids/THC screening cut off value = 50 ng/mL Performed By: #### D MCCLOUD #### [facility] ([id number]) [address], [address] [place] [address] COCAINE METABOLITE Negative Normal NEG [facility] Comment on above: Result Comment: Coca ine screening cut off value = 300 ng/mL Performed By: #### D MCCLOUD #### [facility] ([id number]) [address], [address] [place] [address] ECSTASY Negative Normal NEG [facility] Comment on above: Result Comment: Ecst asy screening cut off value = 500 ng/mL This report is intended for use in clinical monitoring or management of patients. Performed By: #### D MCCLOUD #### [facility] ([id number]) [address], [address] [place] [address] METHADONE Negative Normal [facility] Comment on above: Result Comment: Meth adone screening cut off value = 300 ng/mL. Performed By: #### D MCCLOUD #### [facility] ([id number]) [address], [address] [place] [address] OPIATES Negative Normal NEG [facility] Comment on above: Result Comment: Opia nasrin screening cut off value = 300 ng/mL NOTE: This test is used for the detection of codeine, hydrocodone (>1000 ng/mL), morphine and hydromorphone (>900 ng/mL) in urine. Performed By: #### D MCCLOUD #### [facility] ([id number]) [address], [address] [place] [address] OXYCODONE Negative Normal NEG [facility] Comment on above: Result Comment: Oxyc odone screening cut off value = 300 ng/mL NOTE: This test is used for the detection of oxycodone and oxymorphone in urine. Performed By: #### D MCCLOUD #### [facility] ([id number]) [address], [address] [place] [address] PHENCYCLIDINE Negative Normal NEG [facility] Comment on above: Result Comment: Phen cyclidine screening cut off value = 25 ng/mL Performed By: #### D MCCLOUD #### [facility] ([id number]) [address], [address] [place] [address] Glucose 1 Hr post 50 g gluco se PO [Mass/Vol]on 10-20-2023 GLU 1H POST 50G LOAD 207 mg/dL High 65-139 [facility] Comment on above: Performed By: #### 1 504-0, 65246-2, CBC, AHP, 59633-9, 75019- 5, 43574-9, 62363-6, 6864-3 #### [facility] ([id number]) [address], [address] [place] [address] HCG.beta subunit IA 3rd IS Q non 10-20-2023 [place] [address] m[IU]/mL Normal P [facility] Comment on above: Result Comment: NEW REFERENCE [...] nontrophoblastic neoplasms. Performed By: #### 1 504-0, 45229-4, CBC, AHP, 20150-3, 15155-6, 50372-8, 69410-6, 6864-3 #### [facility] ([id number]) [address] [place] [address] HIV 1+2 Ab+HIV1 p24 Ag IA Ql on 10-20-2023 HIV 1 and 2 Ab/Ag Screen Non-Reactive Normal NRCT [facility] Comment on above: Result Comment: This [...] or diagnoses. Performed By: #### 1 504-0, 83108-7, CBC, AHP, 85921-4, 71110-3, 70191-2, 84005-8, 6864-3 #### [facility] ([id number]) [address] [place] [address], [address] [address] Hemoglobin S Solubility test Ql (Bld)on 10-20-2023 SICKLE SOLUBILITY Negative Normal NEG [facility] Comment on above: Performed By: #### D MCCLOUD #### [facility] ([id number]) [address] [place] [address], [address] [address] Rubella virus Ab Ql (S)on RUBELLA IMMUNE IgG 4.3 AI Normal [facility] Comment on above: Result Comment: Interpretation-------- <0.8 NEGATIVE-considered Not Immune 0.8-0.9 EQUIVOCAL-consider retesting with new specimen >0.9 POSITIVE-considered Immune Performed By: #### 1 504-0, 26414-6, CBC, AHP, 54773-1, 61404-3, 78623-9, 65172-7, 6864-3 #### [facility] ([id number]) [address] [address] T. pallidum IgG+IgM IA Ql (S )on 10-20-2023 Syphilis Total <0.2 Normal 0.0-0.8 [facility] Comment on above: Result Comment: NON REACTIVE No serologic evidence of infection to Treponema pallidum (syphilis). Repeat testing may be considered in patients with suspected acute or primary syphilis in 2 to 4 weeks. Performed By: #### 1 504-0, 27391-6, CBC, AHP, 08760-3, 77450-2, 33363-7, 31452-0, 6864-3 #### [facility] ([id number]) [address] [place] [address] URINALYSISon 10-20-2023 Bilirubin Ql (U) Negative Normal NEG [facility] Comment on above: Performed By: #### U A #### [facility] ([id number]) [address] [place] [address] BLOOD/HGB Small Abnormal NEG [facility] Comment on above: Performed By: #### U A #### [facility] ([id number]) [address] [place] [address] Color (U) YELLOW Normal YELLOW [facility] Comment on above: Performed By: #### U A #### [facility] ([id number]) [address] [place] [address] Glucose Ql (U) Negative Normal NEG [facility] Comment on above: Performed By: #### U A #### [facility] ([id number]) [address] [place] [address] Ketones Ql (U) Negative Normal NEG [facility] Comment on above: Performed By: #### U A #### [facility] ([id number]) [address] [place] [address] Leukocyte esterase Test strip Ql (U) MODERATE Abnormal NEG [facility] Comment on above: Performed By: #### U A #### [facility] ([id number]) [address] [place] [address], [address] [place] [address] MUCOUS PRESENT Abnormal NONE [facility] Comment on above: Performed By: #### U A #### [facility] ([id number]) [address] [place] [address], [facility] [address] [place] [address] Nitrite Ql (U) Negative Normal NEG [facility] Comment on above: Performed By: #### U A #### [facility] ([id number]) [address] [place] [address] [address] [place] [address] pH (U) 6.0 [pH] Normal 5.0-8.5 [facility] Comment on above: Performed By: #### U A #### [facility] ([id number]) [address] [place] [address], [address] [place] [address] Protein Ql (U) Trace Abnormal NEG [facility] Comment on above: Performed By: #### U A #### [facility] ([id number]) [address] [place] [address] R.B.CELLS 5 /hpf Normal 0-5 [facility] Comment on above: Performed By: #### U A #### [facility] ([id number]) [address] [place] [address] [address] [place] [address] Specific gravity (U) [Rel density] 1.024 Normal 1.003-1.035 [facility] Comment on above: Performed By: #### U A #### [facility] ([id number]) [address] [place] [address] [address] [place] [address] SQUAMOUS EPITHELIUM 14 /hpf High 0-5 [facility] Comment on above: Performed By: #### U A #### [facility] ([id number]) [address], [address] [place] [address] TURBIDITY HAZY Abnormal CLEAR [facility] Comment on above: Performed By: #### U A #### [facility] ([id number]) [address], [address] [place] [address] Urobilinogen (U) [Mass/Vol] mg/dL Normal <1.1 [facility] Comment on above: Performed By: #### U A #### [facility] ([id number]) [address], [address] [place] [address] W.B.CELLS 4 /hpf Normal 0-5 [facility] Comment on above: Performed By: #### U A #### [facility] ([id number]) [address], [facility] [address] [place] [address] URINE CULTUREon 10-20-2023 Bacteria identified Cx Nom (U) CULTURE RESULTS <10,000 ORGANISMS/ML NORMAL URO GENITAL DYLAN Normal [facility] Comment on above: Performed By: #### D MCCLOUD #### [facility] ([id number]) [address], [facility] [address] [place] [address] US PREG LESS THAN 14 WKS WIT H TRANSVAGINALon 10-20-2023 US PREG LESS THAN 14 WKS WITH TRANSVAGINAL US PREG LESS THAN 14 WKS WITH TRANSVAGINAL CLINICAL HISTORY: Dates and viability Comparison: None FINDINGS: * Single live IUP at 8 weeks 4 days. [place]-rump length 2.0 cm. Yolk sac visualized. Heart [...] Oviedo MD on 10/20/2023 1:43 PM Normal [facility] VZV IgG IA Ql (S)on 10-20-19 24 VARICELLA IgG 4.0 AI High <0.9 [facility] Comment on above: Result Comment: Interpretation-------- <0.9 Negative 0.9 - 1.0 Equivocal >1.0 Positive Performed By: #### D MCCLOUD #### [facility] ([id number]) [address] [place] [address], [address] [place] [address] 17-[place] PROGESTERONE, LC/MSon 11-23-2020 17-[place] Progesterone LCMS 46 ng/dL Normal [facility] Comment on above: Result Comment: Adul t Female Follicular 15 - 70 Luteal 35 - 290 Performed By: #### Brian QIU, FT4 #### [facility] [address] [place] [address] Yu Watts DHEA-SULFATEon 11-21-2020 DHEA-Sulfate 275.0 ug/dL Normal 110.0-431.7 [facility] Comment on above: Performed By: #### Brian QIU, FT4 #### [facility] [address] [place], [place] [address] Yu Watts FSHon 11-21-2020 FSH 7.9 mIU/mL Normal [facility] Comment on above: Result Comment: Adul t Female: Follicular phase 3.5 - 12.5 Ovulation phase 4.7 - 21.5 Luteal phase 1.7 - 7.7 Postmenopausal 25.8 - 134.8 Performed By: #### [facility] #### [facility] [address] [place] [address] Yu Watts LUTEINIZING HORMONE (LH)on 0 11-21-2020 LH 11.3 mIU/mL Normal [facility] Comment on above: Result Comment: Adul t Female: Follicular phase 2.4 - 12.6 Ovulation phase 14.0 - 95.6 Luteal phase 1.0 - 11.4 Postmenopausal 7.7 - 58.5 Performed By: #### Brian QIU, FT4 #### [facility] [address] [place] [address] Yu Watts PROLACTINon 11-21-2020 Prolactin 8.5 ng/mL Normal 4.8-23.3 [facility] Comment on above: Performed By: #### V ITAD, FT4 #### [facility] [address] [place] [address] Yu Watts TESTOSTERONE, TOTALon 2020 Testosterone [Mass/Vol] 23 ng/dL Normal 13-71 [facility] Comment on above: Performed By: #### T ESTTOT #### [facility] [address] [place] [address] Yu Watts TSHon 11-20-2020 TSH 1.061 uIU/mL Normal 0.470-4.680 [facility] Comment on above: Performed By: #### T SH #### [facility] [address] [place] [address] Yu Watts TSH RANGE SEE BELOW Normal [facility] Comment on above: Result Comment: <0.3 4 UIU/ml HYPERTHYROID 0.34-5.60 UIU/ml EUTHYROID >5.60 UIU/ml HYPOTHYROID Performed By: #### T SH #### [facility] [address] [place], [place] [address] Yu Watts US PELVIS AND TRANSVAGon US [...] JOSE DUARTE Date: 2020-11-20 11:38 Normal [facility] PAP ACOG PANEL 2: 21 to 29on 11-07-2020 . . Normal [facility] Comment on above: Performed By: #### 4 [id number] #### [facility] [address] [place] [address] Yu Watts Age Gdln ACOG Testing 21-29 [facility] Comment on above: Performed By: #### 4 [id number] #### [facility] [address] [place] [address] Yu Watts DIAGNOSIS: Comment Normal [facility] Comment on above: Result Comment: NEGA TIVE FOR INTRAEPITHELIAL LESION OR MALIGNANCY. Performed By: #### 4 [id number] #### [facility] [address] [place] [address] Yu Watts Methodology: Comment [facility] Comment on above: Result Comment: This liquid based ThinPrep(R) pap test was screened with the use of an image guided system. Performed By: #### 4 [id number] #### [facility] [address] [place] [address] Yu Watts Note: Comment [facility] Comment on above: Result Comment: The Pap smear is a screening test designed to aid in the detection of premalignant and malignant conditions of the uterine cervix. It is not a diagnostic procedure and should not be used as the sole means of detecting cervical cancer. Both false-positive and false-negative reports do occur. . Performed By: #### 4 [id number] #### [facility] [address] [place] [address] Yu Watts Performed by: Comment Normal [facility] Comment on above: Result Comment: Travon Martinez, Hospital Education Coordinator (ASCP) Performed By: #### 4 [id number] #### [facility] [address] [place] [address] Yu Watts Reflex Criteria: Comment [facility] Comment on above: Result Comment: The HPV DNA reflex criteria were not met with this specimen result therefore, no HPV testing was performed. . Performed By: #### [id number] #### [facility] [address] [place] [address] Yu Watts Specimen adequacy: Comment Normal [facility] Comment on above: Result Comment: Sati sfactory for evaluation. Endocervical and/or squamous metaplastic cells (endocervical component) are present. Performed By: #### [id number] #### [facility] [address] [place], [place] [id number] Yu Watts DHEA-SULFATEon 05-24-2020 DHEA-Sulfate 258.0 ug/dL Normal 110.0-431.7 [facility] Comment on above: Performed By: #### V ITJODI, FT4 #### [facility] [address] [place], [place] [id number] Yu Watts INSULINon 05-24-2020 Insulin 21.4 uIU/mL Normal 2.6-24.9 [facility] Comment on above: Performed By: #### I NSULIN #### [facility] [address] [place] [address] Yu Watts CBC AUTO DIFFon 05-22-2020 BASO # 0.0 103/ul Normal 0.0-0.1 [facility] Comment on above: Performed By: #### V ITJODI, FT4 #### [facility] [address] [place], [place] [address] Yu Watts Basophils/100 WBC (Bld) 0.4 % Normal 0.2-2.0 [facility] Comment on above: Performed By: #### V UYEN, FT4 #### [facility] [address] [place], [place] [address] Yuteri Watts EO # 0.0 103/ul Normal 0.0-0.7 [facility] Comment on above: Performed By: #### V ITJODI, FT4 #### [facility] [address] [place], [place] [address] Yu Watts Eosinophils/100 WBC (Bld) 0.7 % Critically low 0.9-7.0 [facility] Comment on above: Performed By: #### V ITJODI, FT4 #### [facility] [address] [place], [place] [address] Yu Stefanie Erythrocyte distribution width (RBC) [Ratio] 13.9 % Normal 11.0-15.0 [facility] Comment on above: Performed By: #### V ITJODI, FT4 #### [facility] [address] [place] [address] Yuteri Watts Hematocrit (Bld) [Volume fraction] 39.0 % Normal 36.0-48.0 [facility] Comment on above: Performed By: #### V ITJODI, FT4 #### [facility] [address] [place], [place] [address] Yuteri Watts Hemoglobin (Bld) [Mass/Vol] 12.6 g/dL Normal 12.0-16.0 [facility] Comment on above: Performed By: #### V ITJODI, FT4 #### [facility] [address] [place] [address] Yuteri Watts IG # 0.01 10e3/ul Normal 0.00-0.03 [facility] Comment on above: Performed By: #### Brian QIU, FT4 #### [facility] [address] [place] [address] Yuteri Baptisteen IG % 0.2 % Normal 0.0-0.5 [facility] Comment on above: Performed By: #### V UYEN, FT4 #### [facility] [address] [place] [address] Yuteri Watts LYMPH # 1.4 103/ul Normal 1.2-3.8 [facility] Comment on above: Performed By: #### V ITJODI, FT4 #### [facility] [address] [place] [address] Yu Watts Lymphocytes/100 WBC (Bld) 25.3 % Normal 20.5-60.0 [facility] Comment on above: Performed By: #### V ITJODI, FT4 #### [facility] [address] [place], [place] [address] Yu Watts MANUAL DIFF REQ NO Normal [facility] Comment on above: Performed By: #### V ITJODI, FT4 #### [facility] [address] [place], [place] [address] Yuteri Watts MCH (RBC) [Entitic mass] 27.2 pg Normal 26.7-34.0 [facility] Comment on above: Performed By: #### Brian QUI, FT4 #### [facility] [address] [place], [place] [address] Yu aWtts MCHC (RBC) [Mass/Vol] 32.3 g/dL Normal 29.9-35.2 [facility] Comment on above: Performed By: #### Brian QIU, FT4 #### [facility] [address] [place], [place] [address] Yu Watts MCV (RBC) [Entitic vol] 84.1 fL Normal 81.0-99.0 [facility] Comment on above: Performed By: #### Brian QIU, FT4 #### [facility] [address] [place] [address] Yu Watts MONO # 0.4 103/ul Normal 0.3-0.8 [facility] Comment on above: Performed By: #### Brian QIU, FT4 #### [facility] [address] [place] [address] Yu Watts Monocytes/100 WBC (Bld) 7.1 % Normal 1.7-12.0 [facility] Comment on above: Performed By: #### Brian QIU, FT4 #### [facility] [address] [place] [address] Yu Watts NEUT # 3.6 103/ul Normal 1.4-6.5 [facility] Comment on above: Performed By: #### Brian QIU, FT4 #### [facility] [address] [place] [address] Yu Watts Neutrophils/100 WBC (Bld) 66.3 % Normal 43.0-75.0 [facility] Comment on above: Performed By: #### Brian QIU, FT4 #### [facility] [address] [place], [place] [address] Yu Watts Platelet mean volume (Bld) [Entitic vol] 10.9 fL Normal 9.5-13.5 [facility] Comment on above: Performed By: #### Brian QIU, FT4 #### [facility] [address] [place], [place] [address] Yu Stefanie PLT 243 103/ul Normal 150-450 [facility] Comment on above: Performed By: #### Brian QIU, FT4 #### [facility] [address] [place], [place] [address] Yu Stefanie RBC 4.64 106/ul Normal 4.20-5.40 [facility] Comment on above: Performed By: #### Brian QIU, FT4 #### [facility] [address] [place], [place] [address] Yu Stefanie WBC 5.4 103/ul Normal 4.0-11.0 [facility] Comment on above: Performed By: #### Brian QIU, FT4 #### [facility] [address] [place] [address] Yu Stefanie FREE T3on 05-22-2020 FREE T3 3.22 pg/mlL Normal 2.77-5.27 [facility] Comment on above: Performed By: #### Brian QIU, FT4 #### [facility] [address] [place] [address] Yu Stefanie FREE T4on 05-22-2020 Free T4 [Mass/Vol] 1.10 ng/dL Normal 0.78-2.19 [facility] Comment on above: Performed By: #### Brian QIU, FT4 #### [facility] [address] [place] [address] Yu Stefanie GLYCOHEMOGLOBIN A1Con 2020 Glucose [Mass/Vol] 120 mg/dL Normal [facility] Comment on above: Performed By: #### Brian QIU, FT4 #### [facility] [address] [place] [address] Yu Stefanie HbA1c (Bld) [Mass fraction] 5.8 % Normal <=6.0 [facility] Comment on above: Performed By: #### Brian QIU, FT4 #### [facility] [address] [place] [address] Yu Stefanie LIPID PROFILEon 05-22-2020 CHOL-HDL RATIO NORM SEE BELOW Normal [facility] Comment on above: Result Comment: 3.3 - 4.4 LOW RISK 4.4 - 7.1 AVERAGE RISK 7.1 - 11.0 MODERATE RISK >11.0 HIGH RISK Performed By: #### L IPID, FT3, BMP, TSH, LIVER #### [facility] [address] [place], [place] [address] Yu Stefanie Cholesterol [Mass/Vol] 199 mg/dL Normal <=200 [facility] Comment on above: Performed By: #### L IPID, FT3, BMP, TSH, LIVER #### [facility] [address] [place] [phone] Yu Stefanie Cholesterol in HDL [Mass/Vol] 39 mg/dL Normal [facility] Comment on above: Performed By: #### L IPID, FT3, BMP, TSH, LIVER #### [facility] [address] [phone] Yu Stefanie Cholesterol in LDL [Mass/Vol] 131.8 mg/dL Normal [facility] Comment on above: Performed By: #### L IPID, FT3, BMP, TSH, LIVER #### [facility] [address] [place], [place] [address] Yu Stefanie Cholesterol.total/Ch olesterol in HDL [Mass ratio] 5.1 {ratio} Normal [facility] Comment on above: Performed By: #### L IPID, FT3, BMP, TSH, LIVER #### [facility] [address] [phone] Yu Stefanie HDL NORMAL > or = 60 mg/dl - LO W CARDIOVASCULAR RISK <40 mg/dl - HIGH CARDIOVASCULAR RISK Normal [facility] Comment on above: Performed By: #### L IPID, FT3, BMP, TSH, LIVER #### [facility] [address] [phone] Yu Stefanie LDL CALC NORMAL SEE BELOW Normal [facility] Comment on above: Result Comment: <100 mg/dl OPTIMAL 100 - 129 mg/dl NEAR OR ABOVE OPTIMAL 130 - 159 mg/dl BORDERLINE HIGH 160 - 189 mg/dl HIGH >190 mg/dl VERY HIGH Performed By: #### L IPID, FT3, BMP, TSH, LIVER #### [facility] [address] [place], [place] [address] Yu Stefanie Triglyceride [Mass/Vol] 141 mg/dL Normal <=150 [facility] Comment on above: Performed By: #### L IPID, FT3, BMP, TSH, LIVER #### [facility] [address] [place], [place] [address] Yu Stefanie VLDL CALC 28.2 mg/dL Normal [facility] Comment on above: Performed By: #### L IPID, FT3, BMP, TSH, LIVER #### [facility] [address] [place] [address] Yuteri Baptisteen LIVER PROFILEon 05-22-2020 Albumin [Mass/Vol] 4.0 g/dL Normal 3.5-5.0 [facility] Comment on above: Performed By: #### V ITAD, FT4 #### [facility] [address] [place] [address] Yuteri Watts Albumin/Globulin [Mass ratio] 1.0 {ratio} Normal [facility] Comment on above: Performed By: #### V ITAD, FT4 #### [facility] [address] [place] [address] Yu Stefanie ALP [Catalytic activity/Vol] 44 U/L Normal 38-126 [facility] Comment on above: Performed By: #### V ITAD, FT4 #### [facility] [address] [place] [address] Yu Watts ALT [Catalytic activity/Vol] 93 U/L Critically high 9-52 [facility] Comment on above: Performed By: #### V ITAD, FT4 #### [facility] [address] [place] [address] Yu Stefanie AST [Catalytic activity/Vol] 46 U/L Critically high 14-36 [facility] Comment on above: Performed By: #### V ITAD, FT4 #### [facility] [address] [place] [address] Yu Stefanie BILI, CONJUGATED 0.1 mg/dL Normal 0.0-0.3 [facility] Comment on above: Performed By: #### V ITAD, FT4 #### [facility] [address] [place], [place] [address] Yu Stefanie Bilirubin [Mass/Vol] 0.4 mg/dL Normal 0.2-1.3 [facility] Comment on above: Performed By: #### V ITAD, FT4 #### [facility] [address] [place], [place] [address] Yu Stefanie Globulin (S) [Mass/Vol] 4.2 g/dL Normal [facility] Comment on above: Performed By: #### V ITAD, FT4 #### [facility] [address] [place], [place] [address] Yu Stefanie Protein [Mass/Vol] 8.2 g/dL Normal 6.1-8.2 [facility] Comment on above: Performed By: #### V ITAD, FT4 #### [facility] [address] [place], [place] [address] Yu Stefanie PROF CHEM 8 (BAS METB)on Anion gap [Moles/Vol] 12.9 mmol/L Normal [facility] Comment on above: Performed By: #### L IPID, FT3, BMP, TSH, LIVER #### [facility] [address] [place] [address] Yu Stefanie Calcium [Mass/Vol] 9.4 mg/dL Normal 8.4-10.2 [facility] Comment on above: Performed By: #### L IPID, FT3, BMP, TSH, LIVER #### [facility] [address] [place] [address] Yu Stefanie Chloride [Moles/Vol] 106 mmol/L Normal 98-107 [facility] Comment on above: Performed By: #### L IPID, FT3, BMP, TSH, LIVER #### [facility] [address] [place], [place] [address] Yu Stefanie CO2 [Moles/Vol] 25.7 mmol/L Normal 22.0-30.0 [facility] Comment on above: Performed By: #### L IPID, FT3, BMP, TSH, LIVER #### [facility] [address] [place] [address] Yu Stefanie Creatinine [Mass/Vol] 0.78 mg/dL Normal 0.52-1.04 [facility] Comment on above: Performed By: #### L IPID, FT3, BMP, TSH, LIVER #### [facility] [address] [place] [address] Yu Stefanie EGFR-AF SALVADOREAN >60 Normal >=60 [facility] Comment on above: Performed By: #### L IPID, FT3, BMP, TSH, LIVER #### [facility] [address] [place] [address] Yu Stefanie EGFR-NON AF SALVADOREAN >60 Normal >=60 [facility] Comment on above: Performed By: #### L IPID, FT3, BMP, TSH, LIVER #### [facility] [address] [place] [address] Yu Stefanie Glucose [Mass/Vol] 95 mg/dL Normal 74-106 [facility] Comment on above: Performed By: #### L IPID, FT3, BMP, TSH, LIVER #### [facility] [address] [place] [address] Yu Stefanie Potassium [Moles/Vol] 3.6 mmol/L Normal 3.4-5.0 [facility] Comment on above: Performed By: #### L IPID, FT3, BMP, TSH, LIVER #### [facility] [address] [place] [address] Yu Stefanie Sodium [Moles/Vol] 141 mmol/L Normal 137-145 [facility] Comment on above: Performed By: #### L IPID, FT3, BMP, TSH, LIVER #### [facility] [address] [place] [address] Yu Stefanie Urea nitrogen [Mass/Vol] 10.0 mg/dL Normal 7.0-17.0 [facility] Comment on above: Performed By: #### L IPID, FT3, BMP, TSH, LIVER #### [facility] [address] [place] [address] Yu Watts Urea nitrogen/Creatinine [Mass ratio] 12.8 mg/mg Normal [facility] Comment on above: Performed By: #### L IPID, FT3, BMP, TSH, LIVER #### [facility] [address] [phone] Yu Watts TSHon 05-22-2020 TSH 1.324 uIU/mL Normal 0.470-4.680 [facility] Comment on above: Performed By: #### L IPID, FT3, BMP, TSH, LIVER #### [facility] [address] [phone] Yu Watts TSH RANGE SEE BELOW Normal [facility] Comment on above: Result Comment: <0.3 4 UIU/ml HYPERTHYROID 0.34-5.60 UIU/ml EUTHYROID >5.60 UIU/ml HYPOTHYROID Performed By: #### L IPID, FT3, BMP, TSH, LIVER #### [facility] [address] [place], [place] [address] Yu Watts VITAMIN D 25 OHon 05-22-2020 VIT D 25-OH 18.0 ng/mL Normal [facility] Comment on above: Performed By: #### V UYEN, FT4 #### [facility] [address] [place], [place] [phone] Yu Watts VIT D RANGES SEE BELOW Normal [facility] Comment on above: Result Comment: <20 ng/mL Vit D deficient 20 - <30 ng/mL Vit D insufficient 30 - 100 ng/mL Vit D sufficient >100 ng/mL Potential Toxicity Performed By: #### V ITAD, FT4 #### [facility] [address] [place] [address] Yu Watts Vital Signs Date Time Vital Sign Value Performing Clinician Rani juan 04-03-2024 10:58-0500 Body weight 109.23 kg [employer] Work Phone: [facility] 04-03-2024 10:58-0500 Diastolic blood pressure 80 mm[Hg] Isidro Jasmine DO Work Phone: [facility] 04-03-2024 10:58-0500 Systolic blood pressure 120 mm[Hg] Isidro Jasmine DO Work Phone: [facility] 03-21-2024 13:54-0500 Body weight 109.32 kg Maryann AMIN Work Phone: [facility] 03-21-2024 13:54-0500 Diastolic blood pressure 74 mm[Hg] Maryann AMIN Work Phone: [facility] 03-21-2024 13:54-0500 Systolic blood pressure 118 mm[Hg] Maryann AMIN Work Phone: [facility] 03-07-2024 11:00-0500 Body weight 108.32 kg Isidro Jasmine DO Work Phone: [facility] 03-07-2024 11:00-0500 Diastolic blood pressure 70 mm[Hg] Isidro Jasmine DO Work Phone: [facility] 03-07-2024 11:00-0500 Systolic blood pressure 120 mm[Hg] Isidro Jasmine DO Work Phone: [facility] 02-23-2024 10:16-0400 Body weight 108.77 kg Isidro Jasmine DO Work Phone: [facility] 02-23-2024 10:16-0400 Diastolic blood pressure 76 mm[Hg] Isidro Jasmine DO Work Phone: [facility] 02-23-2024 10:16-0400 Systolic blood pressure 130 mm[Hg] Isidro Jasmine DO Work Phone: [facility] Healthcare Encounters Encounter Date Encounter Type Care Provider Facility Start: 04-13-2024 End: 04-13-2024 Telephone encounter Bing Mccann CMA [facility] Start: 04-03-2024 End: 04-03-2024 Bamboo flowsheet Isidro Jasmine DO Work Phone: [facility] Start: 04-03-2024 End: 04-03-2024 Bamboo [...] 03-21-2024 Bamboo flowsheet Maryann AMIN Work Phone: [facility] Start: 03-21-2024 End: 03-21-2024 Office outpatient visit 15 minutes Maryann AMIN Work Phone: [facility] Comment on above: Third trimester preg harini; 30 weeks gestation of ; Insulin controlled gestational diabetes mellitus (GDM) in third trimester; BV (bacterial vaginosis) Start: 03-21-2024 End: 03-21-2024 ambulatory MARYANN SMITH Not Available Start: 03-14-2024 End: 03-14-2024 ambulatory ISIDRO R JASMINE [facility] Start: 03-07-2024 End: 03-07-2024 Bamboo flowsheet [...] Only Lottie Pool RN [facility] Comment on above: Insulin controlled g estational diabetes mellitus (GDM) in third trimester (Primary Dx); Severe obesity due to excess calories affecting , antepartum ([facility]); Alpha thalassemia silent carrier Start: 02-15-2024 End: 02-15-2024 Telephone encounter Kathie Sellers MD Work Phone: [facility] Start: 02-14-2024 End: 02-14-2024 ambulatory [facility] Start: 02-02-2024 End: 02-02-2024 Telephone encounter Mojgan Zeng RN [facility] Start: 01-25-2024 End: 01-25-2024 ambulatory MARYANN SMITH Not Available Start: 01-17-2024 End: 01-17-2024 ambulatory [facility] Start: 12-22-2023 End: 12-22-2023 ambulatory ISIDRO MONTESINOSO Not Available Start: 12-12-2023 End: 12-12-2023 ambulatory ADELA SERGE [facility] Start: 10-28-2023 End: 10-28-2023 ambulatory [facility] Start: 10-28-2023 End: 10-28-2023 ambulatory [facility] Start: 10-28-2023 Encounter for gynecological examination (general) (routine) without abnormal findings [facility] Start: 10-28-2023 End: 10-28-2023 ambulatory [facility] Start: 10-28-2023 Encounter for gynecological examination (general) (routine) without abnormal findings TRAE SANCHEZ [facility] Start: 10-20-2023 End: 10-20-2023 ambulatory YASMINE M [facility] Start: 10-06-2023 End: 10-06-2023 Emergency department patient visit TRAE SANCHEZ [facility] Start: 10-04-2023 End: 10-04-2023 ambulatory YASMINE Quinteros [facility] Start: 06-26-2023 End: 06-26-2023 Emergency department patient visit TRAE SANCHEZ [facility] Start: 11-20-2020 End: 11-21-[address] TRAE SANCHEZ Facility:[facility] Start: 11-05-2020 End: 11-05-[address] TRAE SANCHEZ Facility:[facility] Start: 06-25-2020 Encounter for genera l adult medical examination without abnormal findings DR TRAE SANCHEZ [facility] Start: 05-22-2020 End: 05-23-[address] TRAE [...] malign [facility]ix [facility] Start: 02-15-2025 End: 02-15-2025 US MFM with or without consult US MFM with or without consult Imaging Routine Insulin controlled gestational diabetes mellitus (GDM) in third trimester Severe obesity due to excess calories affecting , antepartum ([facility]) Alpha thalassemia silent carrier Expected: 02/15/2025 (Approximate), Expires: 02/15/2025 [employer] Work Phone: Comment on above: Expected: 02/15/2025 (Approximate), Expires: 02/15/2025 Start: 01-16-2025 Adult BMI Screening Adult BMI Screen ing [facility] Start: 01-16-2025 Tobacco Screening Tobacco Screening [facility] Start: 10-26-2024 Depression Screening Depression Scre ening [facility] Start: 04-18-2024 End: 04-18-2024 Patient encounter procedure 04/18/2024 9:50 AM EST Routine [facility] [address] [place] [phone] Maryann Smith PA [address] [place] [address] [facility] Start: 04-03-2024 End: 04-03-2025 [...] AM EST Routine [facility] [address] [place] [phone] Isidro Ferraro, DO [address] [place] [address] [facility] Start: 03-21-2024 End: 03-21-2025 US biophysical profile w non stress test US biophysical profile w non stress test Imaging Routine Insulin controlled gestational diabetes mellitus (GDM) in third trimester Expected: 03/21/2024 (Approximate), Expires: 03/21/2025 [facility] Comment on above: Expected: 03/21/2024 (Approximate), Expires: 03/21/2025 Start: 03-21-2024 End: 03-21-2025 US for US OB SCAN FOR GROWTH Imaging Routine Insulin controlled gestational diabetes mellitus (GDM) in third trimester Expected: 03/21/2024 (Approximate), Expires: 03/21/2025 [facility] Work Phone: Comment on above: Expected: 03/21/2024 (Approximate), Expires: 03/21/2025 Start: 03-21-2024 End: 03-21-2024 Patient encounter procedure [facility] Comment on above: Arrived Start: 03-14-2024 End: 03-14-2024 Patient encounter procedure 03/14/2024 3:00 PM EST Appointment [facility] [address] [place] [address] [facility] Start: 03-07-2024 End: 03-07-2024 Patient encounter procedure 03/07/2024 11:10 AM EST Routine [facility] [address] [place] [phone] Isidro Ferraro, DO [address] [place] [address] Arrived [facility] Comment on above: Arrived Start: 02-15-2024 End: 02-15-2024 Telemedicine consultation with patient 02/15/2024 9:45 AM EDT Telemedicine [facility] [address] [place] [phone] Kathie Sellers MD [address] [facility] 1[address] Floor [place], [place] [id number] [facility] Start: 02-14-2024 End: 02-14-2024 Patient encounter procedure 02/14/2024 2:00 PM EDT Appointment [facility] [address] [place] [phone] [facility] Start: 01-01-2024 Influenza vaccination P [facility] Start: 01-23-2020 DTaP,Tdap and Td Vaccines (7 - Td or Tdap) DTaP,Tdap and Td Vaccines (7 - Td or Tdap) [facility] Start: 10-10-2015 Adult BMI Follow Up Plan Adult BMI F ollow Up Plan [facility] CBC W Auto Different ial panel - Blood CBC and differential Lab Routine 32 weeks gestation of Third trimester Ordered: 04/03/2024 [facility] Healthcare Work Phone: Comment on above: Ordered: 04/03/2024 Payers Date Payer Category Payer Medicaid [employer] [facility] [facility] O [id number] 2022-Present [phone] [address] [place] [address] [id number] 2022 Medicaid HMO [employer] [id number] 2019 Private Health Insurance [facility] MEDICAID [id number] 2019 Medicaid [id number] 1997 Unknown [id number] 2.16840.1.914703.3.579.2. 593 1997 Unknown [id number] 2.16840.1.120893.3.579.2. 593 1997 Unknown [id number] 2.16840.1.317117.3.579.2. 593 1997 Unknown [id number] 2.16840.1.749532.3.579.2. 1286 1997 Unknown [id number] 2.16840.1.171093.3.579.2. 128 1997 Unknown [id number] 2.16840.1.063713.3.579.2. 128 1997 Unknown [id number] 2.16840.1.785244.3.579.2. 1286 1997 Unknown [id number] 2.16840.1.025236.3.579.2. 1286 1997 Unknown [id number] 2.16.840.1.873907.3.579.2. 1285 1997 Unknown [id number] 2.16.840.1.212186.3.579.2. 1285 1997 Unknown [id number] 2.16.840.1.385592.3.579.2. 1285 1997 Unknown [id number] 2.16.840.1.078458.3.579.2. 1285 1997 Unknown [id number] 2.16.840.1.314197.3.579.2. 1285 1997 Unknown [id number] 2.16.840.1.437643.3.579.2. 1285 1997 Unknown [id number] 2.16840.1.264525.3.579.2. 1285 1997 Unknown [id number] 2.16840.1.251005.3.579.2. 1285 1997 Unknown [id number] 2.16840.1.368369.3.579.2. 1258 1997 Unknown [id number] 2.16.840.1.929251.3.579.2. 1258 1997 Unknown [id number] 2.16840.1.139543.3.579.2. 1258 1997 Unknown [id number] 2.16840.1.984003.3.579.2. 1258 1997 Unknown [id number] 2.16840.1.617754.3.579.2. 1258 1997 Unknown [id number] 2.16840.1.806321.3.579.2. 1259 1959 Unknown [id number] Social History Date Type Detail Facility Start: 06-26-2023 Tobacco smoking stat [facility] Never smoked tobacco [facility] Start: 06-26-2023 Tobacco use and exposure Smokeless tobacco non-user [facility] Start: 01-17-2024 Alcoholic beverage intake Ex-drinker (finding) [facility] Start: 06-12-2020 End: 01-17-2024 History of Social function [facility] Start: 06-12-2020 End: 01-17-2024 Tobacco use panel [facility] How hard is it for y ou to pay for the very basics like food, housing, medical care, and heating Not hard at all [facility] Start: 11-12-2021 Alcohol Comment rarely [facility] Start: 09-03-2023 [facility] Start: 1995 Sex assigned at Not on file P [facility] Start: 12-05-2014 Sex Female (finding) [facility] Tobacco smoking stat [facility] Tobacco smoking consumption unknown [facility] Medical Equipment Procedure Code Equipment Code Equipment Origin al Text Equipment Identifier Dates [id number] Start: 10-21-2023 Use to check fas ting blood sugar in the morning and one hour after first bite of each meal. Order supplies per insurance preference. [id number] Start: 10-21-2023 Test blood sugar 4 times a day [id number] Start: 12-13-2023 Use daily for insulin [id number] Start: 01-17-2024 Test blood sugar 4 times a day [id number] Start: 12-13-2023 Goals Date Patient Goal Desired [...] questions or concerns. [facility] Telephone encount er Note Called patient in regard to not receiving blood sugar logs in two or more weeks. No answer. Asked patient to send most recent logs to the office email. Call back number left and patient encouraged to reach out if she has any questions or concerns. [facility] History of Presen t illness [...] Stefanie Levy LPN on behalf of: Isidro Ferraor DO documented in this encounter [facility] 03-21-2024 History of Presen t [...] of: BRENNAN Vora documented in this encounter [facility] 03-07-2024 History of Presen t [...] nursing note reviewed. Exam conducted with a design transferrer present. Vitals: There is no height or [...] Isidro Ferraro DO documented in this encounter [facility] 02-23-2024 History of Presen t [...] nursing note reviewed. Exam conducted with a design transferrer present. Vitals: There is no height or [...] is having follow up US scheduled at [facility]. Patient to start growth scans after next scan with [facility] every 4 weeks. Patient to start NST/BPP at 32 weeks gestation. Discussed GDM and delivering Discussed delivering on 05/11/2024. Patient complaints of sciatic pain and instructed on how to do stretches to help with sciatic pain. Patient to return to clinic in 2 weeks for routine OB appointment. Documented by Dolly Catalan LPN on behalf of: Isidro Ferraro DO documented in this encounter [facility] 02-15-2024 Miscellaneous Notes Formattin g of this note might be different from the original. [employer] Tender elizabeth for pt w/ appt info on for 03/14 at 3:00 and requested a return call if she could not make that work. documented in this encounter [facility] 02-15-2024 Telephone encount er Note [employer] Tender elizabeth for pt w/ appt info on for 03/14 at 3:00 and requested a return call if she could not make that work. [facility] 02-15-2024 Miscellaneous Notes Formattin g of this note might be different from the original. [employer] Tender laila VM. Patient scheduled for a MyChart Visit @ 9:45 am. [employer] Tender asked patient to get asset protection associate if available. [employer] Tender left call back number [phone] #[phone] if patient needs to reschedule. documented in this encounter [facility] 02-15-2024 Telephone encount er Note [employer] Tender left VM. Patient scheduled for a MyChart Visit @ 9:45 am. [employer] Tender asked patient to get asset protection associate if available. [employer] Tender left call back number [phone] #3 if patient needs to reschedule. [facility] 02-02-2024 Miscellaneous Notes Formattin g of this note might be different from the original. Called patient, no answer, left message to please send blood glucose logs to the diabetes email. documented in this encounter [facility] 02-02-2024 Telephone encount er Note Called patient, no answer, left message to please send blood glucose logs to the diabetes email. [facility] Evaluation note Diagnosis Insulin controlled gestational diabetes mellitus (GDM) in third trimester Severe obesity due to excess calories affecting , antepartum ([facility]) [facility] Diagnosis Insulin controlled gestational diabetes mellitus (GDM) in third trimester Severe obesity due to excess calories affecting , antepartum ([facility]) [facility] Insulin controlled gestational diabetes mellitus (GDM) in third trimester- Primary Severe obesity due to excess calories affecting , antepartum ([facility]) Alpha thalassemia silent carrier [facility] Diagnosis 28 weeks gestation [...] [facility] on filedocumented in this encounterPro[facility]ructionsNot on filedocumented in this [facility] Summary Purpose Family History [...] DATE CREATED AUTHOR AUTHOR'S ORGANIZ ATION 11/02/2023 [facility] DATE CREATED AUTHOR AUTHOR'S ORGANIZ ATION 03/16/2024 [facility] DATE CREATED AUTHOR AUTHOR'S ORGANIZ ATION 04/05/[address] [facility] [employer] Care Teams (unrecognized sec tion and content) Spinneret Person Relationship Specialty Start Date End Date Trae Sanchez MD PCP - General Family Medicine 04/28/20 [employer] Person Relationship Specialty Start Date End Date Trae Sanchez MD PCP - General Family Medicine 04/28/20 [employer]ne[employer] Person Relationship Specialty Start Date End Date Trae Sanchez MD PCP - General Family Medicine 04/28/20 [employer] Person Relationship Specialty Start Date End Date Joanna Allan MD [address] [facility] [place] [address] PCP - General Family Medicine 09/07/22 Spinneret Person Relationship Specialty Start Date End Date Joanna Allan MD [address] [place] [address] PCP - General Family Medicine 09/07/22 Spinneret Person Relationship Specialty Start Date End Date Joanna Allan MD [address] [place] [address] PCP - General Family Medicine 09/07/22 Spinneret Person Relationship Specialty Start Date End Date Joanna Allan MD [address] [place] [address] PCP - General Family Medicine 09/07/22 Spinneret Person Relationship Specialty Start Date End Date Joanna Allan MD [address] [place], [place] [id number] PCP - General Family Medicine 09/07/22 Reason [...] BE BASED ON THE PRIMARY CLINICAL RECORDS. [employer] provides no warranty or guarantee of the accuracy or completeness of information in this document.
[2024-04-19 10:02] VITALS: BP 140/86; PULSE 86
== END 2024-04-19 10:25 | disposition home or self-care (01) ==
LOC: FBCO 06:19 → FBC 09:53
PROVIDERS: Visit Provider Obstetrics & Gynecology
DX: O99.283 Endocrine, nutritional and metabolic diseases complicating pregnancy, third trimester (principal)
CPT/HCPCS: 59025

== ENCOUNTER 2024-04-30 00:06 | Outpatient (OUT) | payer OTHER, SELFPAY ==
--- OUTSIDE RECORDS SUMMARY | 2024-04-23 06:01 | XMS_ITS | CCD ---
Author Organization [facility] Care Team Providers Care Hand Tile Maker Name Role Phone LAURA, DR TRAE Delaney Primary Care Unavailable NADERER, DR TRAE Delaney Admitting Unavailable NADERER, DR TRAE Delaney Attending Unavailable NADERER, DR TRAE Delaney Consulting Unavailable NADERER, DR TRAE Delaney Primary Care Unavailable KARASIK, DR OLMOS Attending Unavailable KARASIK, DR OLMOS Consulting Unavailable KARASIK, DR OLMOS Admitting Unavailable NADERER, DR TRAE Delaney Primary Care Unavailable CAVE JUNCTION, DR JOSE Torres Consulting Unavailable JASMINE, DR [...] Unavailable Naderer , Trae Primary Care Provider [phone] Joanna Allan MD Primary Care Provider YASMINE [...] SMITH Attending Unavailable ISIDRO FERRARO Attending Unavailable MARYANN SMITH Attending Unavailable Allergies Allergy Classification Reported Allergen(s) Allergy Type Date of Onset Reaction(s) Facility (20 sources) Amoxicillin; Translations: [AMOXICILLIN] Drug Allergy 07-15-2021 Rash [facility] Medications Current Medications Medication Drug Class(es) Dates Sig (Normalized) Sig (Original) Blood Glucose Monitoring Suppl (True Metrix Meter) w/Device kit (8 sources) Start: 10-21-2023 Blood Glucose Monitoring Suppl [...] Active doxylamine succinate 25 mg oral tablet (13 sources) Start: 10-04-2023 doxylamine (Unisom) 25 MG tablet Take 25 mg by mouth as needed at bedtime 10/04/2023 Active famotidine 20 mg oral tablet (13 sources) Histamine-2 Receptor Antagonist Start: 10-06-2023 take 1 tablet by mouth in the morning famotidine (Pepcid) 20 MG tablet Take 20 mg by mouth in the morning and 20 mg in the evening. 10/06/2023 Active 3 ml insulin glargine 100 unt/ml pen injector (19 sources) Insulin Analog Start: 01-17-2024 inject 10 [...] to excess calories affecting , antepartum ([facility]) , 21 weeks gestation of Inject 10U every evening subcutaneously, prime 2U 15 mL 01/17/2024 Active metroNIDAZOLE 0.0075 mg/mg vaginal gel [...] Sig (Original) azithromycin 250 mg oral tablet (5 sources) Macrolide Antimicrobial Start: 01-06-2024 End: 02-23-2024 [...] 11-20-2020 Episodic Other and delivery including normal (17 sources) Encounter for test, result positive; Translations: [Encounter for supervision of normal , unspecified, first trimester] Onset: 10-04-2023 03-07-2024 Episodic Other screening for suspected conditions (not mental disorders or infectious disease) (9 sources) Encounter for screening for malignant neoplasm [...] [32 weeks gestation of ] 04-03-2024 Episodic Residual codes; unclassified (2 sources) Gestation period, 34 weeks; Translations: [34 weeks gestation of ] 04-18-2024 Episodic Unclassified (1 source) Initial Visit Onset: 10-28-2023 Unclassified (2 sources) Rash Onset: 10-06-2023 Unclassified (17 sources) OB Reminders Onset: 12-22-2023 12-22-2023 Unclassified [...] Range Facility Urinalysis macro (dipstick) panel (U)on 04-18-2024 Bilirubin, UA Negative Negative - 4(70) +++ mg/dL [facility] Blood, UA Negative Negative - 50 Janes/mcL [facility] Clarity, UA Cloudy [facility] Color, UA Misty [facility] Glucose, UA Positive Negative - 1999(110) ++++ mg/dL [facility] Comment on above: 250 Interpretation and review of laboratory results Abnormal [facility] Ketones, UA Negative Negative - 160(16) ++++ mg/dL [facility] Leukocytes, UA Moderate Negative - 500+++ Too/mcL [facility] Nitrite, UA Negative Negative - Positive [facility] pH, UA 6.5 5 - 9 [facility] Protein, UA Trace Negative - 1999(20) ++++ mg/dL [facility] Spec Grav, UA 1.02 1 - 1.03 [facility] Urobilinogen, UA 0.2 0.2 - 12 mg/dL [facility] Urinalysis macro (dipstick) panel (U)on 04-03-2024 Bilirubin, UA Negative Negative - 4(70) +++ mg/dL [facility] Blood, UA Negative Negative - 50 Janes/mcL [facility] Clarity, UA Clear [facility] Color, UA Yellow [facility] Glucose, UA Negative Negative - 1999(110) ++++ mg/dL [facility] Interpretation and review of laboratory results Abnormal [facility] Ketones, UA Positive Negative - 160(16) ++++ mg/dL [facility] Comment on above: 40 Leukocytes, UA Positive Negative - 500+++ Too/mcL [facility] Comment on above: small Nitrite, UA Negative Negative - Positive [facility] pH, UA 7 5 - 9 [facility] Protein, UA Trace Negative - 1999(20) ++++ mg/dL [facility] Spec Grav, UA 1.025 1 - 1.03 [facility] Urobilinogen, UA 0.2 0.2 - 12 mg/dL [facility] Urinalysis macro (dipstick) panel (U)on 03-21-2024 Bilirubin, UA Negative Negative - 4(70) +++ mg/dL [facility] Blood, UA Negative Negative - 50 Janes/mcL [facility] Clarity, UA Clear [facility] Color, UA Yellow [facility] Glucose, UA Negative Negative - 1999(110) ++++ mg/dL [facility] Interpretation and review of laboratory results Abnormal [facility] Ketones, UA Negative Negative - 160(16) ++++ mg/dL [facility] Leukocytes, UA Trace Negative - 500+++ Too/mcL [facility] Nitrite, UA Negative Negative - Positive [facility] pH, UA 6 5 - 9 [facility] Protein, UA Negative Negative - 1999(20) ++++ mg/dL [facility] Spec Grav, UA 1.03 1 - 1.03 [facility] Urobilinogen, UA 0.2 0.2 - 12 mg/dL [facility] Urinalysis macro (dipstick) panel (U)on 03-07-2024 Bilirubin, UA Positive Negative - 4(70) +++ mg/dL [facility] Comment on above: small Blood, UA Positive Negative - 50 Janes/mcL [facility] Comment on above: trace-intact Clarity, UA Clear [facility] Color, UA Yellow [facility] Glucose, UA Negative Negative - 1999(110) ++++ mg/dL [facility] Interpretation and review of laboratory results Abnormal [facility] Ketones, UA Positive Negative - 160(16) ++++ mg/dL [facility] Comment on above: trace Leukocytes, UA Positive Negative - 500+++ Too/mcL [facility] Comment on above: small Nitrite, UA Negative Negative - Positive [facility] pH, UA 5.5 5 - 9 [facility] Protein, UA Negative Negative - 1999(20) ++++ mg/dL [facility] Spec Grav, UA 1.03 1 - 1.03 [facility] Urobilinogen, UA 0.2 0.2 - 12 mg/dL [facility] Urinalysis macro (dipstick) panel (U)on 02-23-2024 Bilirubin, UA Negative Negative - 4(70) +++ mg/dL [facility] Blood, UA Positive Negative - 50 Janes/mcL [facility] Comment on above: trace-intact Clarity, UA Clear [facility] Color, UA Yellow [facility] Glucose, UA Negative Negative - 1999(110) ++++ mg/dL [facility] Interpretation and review of laboratory results Abnormal [facility] Ketones, UA Negative Negative - 160(16) ++++ mg/dL [facility] Leukocytes, UA Positive Negative - 500+++ Too/mcL [facility] Comment on above: small Nitrite, UA Negative Negative - Positive [facility] pH, UA 6 5 - 9 [facility] Protein, UA Negative Negative - 1999(20) ++++ mg/dL [facility] Spec Grav, UA 1.03 1 - 1.03 [facility] Urobilinogen, UA 0.2 0.2 - 12 mg/dL [facility] Urinalysis macro (dipstick) panel (U)on 01-25-2024 Bilirubin, UA Negative Negative - 4(70) +++ mg/dL [facility] Blood, UA Positive Negative - 50 Janes/mcL [facility] Comment on above: trace Clarity, UA Clear [facility] Color, UA Yellow [facility] Glucose, UA Negative Negative - 1999(110) ++++ mg/dL [facility] Interpretation and review of laboratory results Abnormal [facility] Ketones, UA Positive Negative - 160(16) ++++ mg/dL [facility] Comment on above: trace Leukocytes, UA Positive Negative - 500+++ Too/mcL [facility] Comment on above: small Nitrite, UA Negative Negative - Positive [facility] pH, UA 6.0 5 - 9 [facility] Protein, UA Negative Negative - 2000(20) ++++ mg/dL [facility] Spec Grav, UA 1.030 1 - 1.03 [facility] Urobilinogen, UA 0.2 0.2 - 12 mg/dL [facility] Urinalysis macro (dipstick) panel (U)on 12-22-2023 Bilirubin, UA Negative Negative - 4(70) +++ mg/dL [facility] Blood, UA Positive Negative - 50 Janes/mcL [facility] Comment on above: small Clarity, UA Clear [facility] Color, UA Yellow [facility] Glucose, UA Negative Negative - 1999(110) ++++ mg/dL [facility] Interpretation and review of laboratory results Abnormal [facility] Ketones, UA Negative Negative - 160(16) ++++ mg/dL [facility] Leukocytes, UA Positive Negative - 500+++ Too/mcL [facility] Comment on above: small Nitrite, UA Negative Negative - Positive [facility] pH, UA 5.5 5 - 9 [facility] Protein, UA Negative Negative - 2000(20) ++++ mg/dL [facility] Spec Grav, UA 1.030 1 - 1.03 [facility] Urobilinogen, UA 0.2 0.2 - 12 mg/dL [facility] CHLAMYDIA/GC PCR, FLon 10-27 CHLAMYDIA/GC PCR, FL [...] are dependent on adequate specimen collection. Normal [facility] Comment on above: Performed By: #### D MCCLOUD #### [facility] ([id number]) [address] [place] [address], [address] [place] [address] Cytology Cervical or vaginal smear or scraping studyon 10-28-2023 [facility] VAGINITIS PANEL PCRon 2023 VAGINITIS PANEL [...] clinical presentation to determine patient diagnosis. Normal [facility] Comment on above: Performed By: #### V PPCR #### [facility] ([id number]) [address] [place] [address], [place] [id number] ACUTE HEPATITIS PANELon 10-01 ANTI HCV W/PCR REFLX Non-Reactive Normal NRCT [facility] Comment on above: Result Comment: If recent infection suspected, recommend repeat testing (>2 months). Nlyzmx-rz-nwapfd ratio is <0.80. Performed By: #### 1 504-0, 07755-4, CBC, AHP, 86121-0, 76784-7, 35181-2, 60435-1, 6864-3 #### [facility] ([id number]) [address] [place] [address], [address] [place] [address] HEPATITIS A IGM Non-Reactive Normal NRCT [facility] Comment on above: Performed By: #### 1 504-0, 87866-3, CBC, AHP, 07387-1, 33302- 5, 60725-9, 35271-1, 6864-3 #### [facility] ([id number]) [address], [address] [place] [address] HEPATITIS B CORE IGM Negative Normal NEG [facility] Comment on above: Performed By: #### 1 504-0, 30734-8, CBC, AHP, 88373-2, 20924- 5, 40778-6, 35620-1, 6864-3 #### [facility] ([id number]) [address], [address] [place] [address] HEPATITIS B SURF AG Negative Normal NEG [facility] Comment on above: Performed By: #### 1 504-0, 89204-9, CBC, AHP, 44522-9, 30137- 5, 85029-0, 54809-8, 6864-3 #### [facility] ([id number]) [address], [address] [address] COMPLETE BLOOD COUNTon 10-19 Erythrocyte distribution width (RBC) [Ratio] 15.0 % Normal 11.5-15.0 [facility] Comment on above: Performed By: #### 1 504-0, 43235-7, CBC, AHP, 28666-8, 35151- 5, 21842-0, 41133-6, 6864-3 #### [facility] ([id number]) [address] [address] Hematocrit (Bld) [Volume fraction] 38.0 % Normal 35-47 [facility] Comment on above: Performed By: #### 1 504-0, 69413-2, CBC, AHP, 85447-1, 81136- 5, 37433-4, 28453-3, 6864-3 #### [facility] ([id number]) [address], [address] [address] Hemoglobin (Bld) [Mass/Vol] 12.5 g/dL Normal 11.7-15.5 [facility] Comment on above: Performed By: #### 1 504-0, 39905-8, CBC, AHP, 78989-4, 96867- 5, 14691-7, 51879-9, 6864-3 #### [facility] ([id number]) [address], [address] [place] [address] MCH (RBC) [Entitic mass] 27.4 pg Normal 27-34 [facility] Comment on above: Performed By: #### 1 504-0, 66277-1, CBC, AHP, 64649-1, 78513- 5, 86794-1, 20715-4, 6864-3 #### [facility] ([id number]) [address], [address] [place] [address] MCHC (RBC) [Mass/Vol] 32.9 g/dL Normal 32-36 [facility] Comment on above: Performed By: #### 1 504-0, 19404-2, CBC, AHP, 78419-1, 99328- 5, 24483-4, 71887-5, 6864-3 #### [facility] ([id number]) [address], [address] [place] [address] MCV (RBC) [Entitic vol] 83 fL Normal 80-100 [facility] Comment on above: Performed By: #### 1 504-0, 29367-9, CBC, AHP, 46655-3, 58862- 5, 10437-4, 87612-7, 6864-3 #### [facility] ([id number]) [address], [address] [place] [address] Platelet mean volume (Bld) [Entitic vol] 8.6 fL Normal 7-12 [facility] Comment on above: Performed By: #### 1 504-0, 88840-9, CBC, AHP, 01408-4, 18383- 5, 95596-0, 36159-8, 6864-3 #### [facility] ([id number]) [address], [address] [place] [address] Platelets (Bld) [#/Vol] 282 10*3/uL Normal 150-450 [facility] Comment on above: Performed By: #### 1 504-0, 51652-4, CBC, AHP, 47464-2, 77456- 5, 19636-8, 43922-2, 6864-3 #### [facility] ([id number]) [address], [address] [place] [address] RBC COUNT 4.55 X10E12/L Normal 3.80-5.20 [facility] Comment on above: Performed By: #### 1 504-0, 74850-9, CBC, AHP, 78201-5, 60321- 5, 94197-2, 06387-0, 6864-3 #### [facility] ([id number]) [address] [facility], [address] [place] [address] WBC (Bld) [#/Vol] 7.3 10*3/uL Normal 4.0-11.0 [facility] Comment on above: Performed By: #### 1 504-0, 19456-6, CBC, AHP, 98414-7, 71196- 5, 17878-7, 78440-3, 6864-3 #### [facility] ([id number]) [address], [address] [place] [address] DRUG SCREEN, URINEon 024 AMPHETAMINE/METHAMP Negative Normal NEG [facility] Comment on above: Result Comment: AMPH /METH screening cut off = 1000 ng/mL Performed By: #### D MCCLOUD #### [facility] ([id number]) [address], [address] [place] [address] BARBITURATES Negative Normal NEG [facility] Comment on above: Result Comment: Dayana iturates screening cut off value = 200 ng/mL Performed By: #### D MCCLOUD #### [facility] ([id number]) [address], [address] [place] [address] BENZODIAZEPINES Negative Normal NEG [facility] Comment on above: Result Comment: Ki odiazepines screening cut off value = 200 ng/mL Performed By: #### D MCCLOUD #### [facility] ([id number]) [address], [address] [place] [address] CANNABINOIDS Negative Normal NEG [facility] Comment on above: Result Comment: Gaurang abinoids/THC screening cut off value = 50 ng/mL Performed By: #### D MCCLOUD #### [facility] ([id number]) [address], [address] [place] [address] COCAINE METABOLITE Negative Normal [facility] Comment on above: Result Comment: Coca ine screening cut off value = 300 ng/mL Performed By: #### D MCCLOUD #### [facility] ([id number]) [address], [address] [place] [address] ECSTASY Negative Normal [facility] Comment on above: Result Comment: Ecst asy screening cut off value = 500 ng/mL This report is intended for use in clinical monitoring or management of patients. Performed By: #### D MCCLOUD #### [facility] ([id number]) [address], [address] [place] [address] METHADONE Negative Normal NEG [facility] Comment on above: Result Comment: Meth adone screening cut off value = 300 ng/mL. Performed By: #### D MCCLOUD #### [facility] ([id number]) [address], [address] [place] [address] OPIATES Negative Normal NEG [facility] Comment on above: Result Comment: Opia nasrin screening cut off value = 300 ng/mL NOTE: This test is used for the detection of codeine, hydrocodone (>1000 ng/mL), morphine and hydromorphone (>900 ng/mL) in urine. Performed By: #### D MCCLOUD #### [facility] ([id number]) [address], [address] [place] [address] OXYCODONE Negative Normal NEG [facility] Comment on above: Result Comment: Oxyc odone screening cut off value = 300 ng/mL NOTE: This test is used for the detection of oxycodone and oxymorphone in urine. Performed By: #### D MCCLOUD #### [facility] ([id number]) [address], [address] [place] [address] PHENCYCLIDINE Negative Normal NEG [facility] Comment on above: Result Comment: Phen cyclidine screening cut off value = 25 ng/mL Performed By: #### D MCCLOUD #### [facility] ([id number]) [address], [address] [place] [address] Glucose 1 Hr post 50 g gluco se PO [Mass/Vol]on 10-20-2023 GLU 1H POST 50G LOAD 207 mg/dL High 65-139 [facility] Comment on above: Performed By: #### 1 504-0, 83348-8, CBC, AHP, 11204-0, 77840- 5, 53310-0, 98083-0, 6864-3 #### [facility] ([id number]) [address], [address] [place] [address] HCG.beta subunit IA 3rd IS Q non 10-20-2023 [place] [address] m[IU]/mL Normal [facility] Comment on above: Result Comment: NEW REFERENCE [...] nontrophoblastic neoplasms. Performed By: #### 1 504-0, 88671-2, CBC, AHP, 41474-7, 62519-0, 51355-8, 67129-5, 6864-3 #### [facility] ([id number]) [address] [facility] [place] [address] HIV 1+2 Ab+HIV1 p24 Ag IA Ql on 10-20-2023 HIV 1 and 2 Ab/Ag Screen Non-Reactive Normal NRCT [facility] Comment on above: Result Comment: This [...] or diagnoses. Performed By: #### 1 504-0, 54046-6, CBC, AHP, 91288-2, 88812-9, 89637-9, 56509-7, 6864-3 #### [facility] ([id number]) [address] [facility], [address] [place] [address] Hemoglobin S Solubility test Ql (Bld)on 10-20-2023 SICKLE SOLUBILITY Negative Normal NEG [facility] Comment on above: Performed By: #### D MCCLOUD #### [facility] ([id number]) [address] [facility], [address] [place] [address] Rubella virus Ab Ql (S)on RUBELLA IMMUNE IgG 4.3 AI Normal [facility] Comment on above: Result Comment: Interpretation-------- <0.8 NEGATIVE-considered Not Immune 0.8-0.9 EQUIVOCAL-consider retesting with new specimen >0.9 POSITIVE-considered Immune Performed By: #### 1 504-0, 57259-1, CBC, AHP, 88365-1, 61146-4, 66301-5, 02348-2, 6864-3 #### [facility] ([id number]) [address], [address] [place] [address] T. pallidum IgG+IgM IA Ql (S )on 10-20-2023 Syphilis Total <0.2 Normal 0.0-0.8 [facility] Comment on above: Result Comment: NON REACTIVE No serologic evidence of infection to Treponema pallidum (syphilis). Repeat testing may be considered in patients with suspected acute or primary syphilis in 2 to 4 weeks. Performed By: #### 1 504-0, 18358-0, CBC, AHP, 64245-5, 97715-1, 37918-8, 75558-8, 6864-3 #### [facility] ([id number]) [address], [address] [place] [address] URINALYSISon 10-20-2023 Bilirubin Ql (U) Negative Normal NEG [facility] Comment on above: Performed By: #### U A #### [facility] ([id number]) [address], [address] [place] [address] BLOOD/HGB Small Abnormal NEG [facility] Comment on above: Performed By: #### U A #### [facility] ([id number]) [address], [address] [place] [address] Color (U) YELLOW Normal YELLOW [facility] Comment on above: Performed By: #### U A #### [facility] ([id number]) [address], [address] [place] [address] Glucose Ql (U) Negative Normal NEG [facility] Comment on above: Performed By: #### U A #### [facility] ([id number]) [address], [address] [place] [address] Ketones Ql (U) Negative Normal NEG [facility] Comment on above: Performed By: #### U A #### [facility] ([id number]) [address], [address] [place] [address] Leukocyte esterase Test strip Ql (U) MODERATE Abnormal NEG [facility] Comment on above: Performed By: #### U A #### [facility] ([id number]) [address], [address] [place] [address] MUCOUS PRESENT Abnormal NONE [facility] Comment on above: Performed By: #### U A #### [facility] ([id number]) [address], [address] [place] [address] Nitrite Ql (U) Negative Normal NEG [facility] Comment on above: Performed By: #### U A #### [facility] ([id number]) [address], [address] [place] [address] pH (U) 6.0 [pH] Normal 5.0-8.5 [facility] Comment on above: Performed By: #### U A #### [facility] ([id number]) [address], [address] [place] [address] Protein Ql (U) Trace Abnormal NEG [facility] Comment on above: Performed By: #### U A #### [facility] ([id number]) [address], [address] [place] [address] R.B.CELLS 5 /hpf Normal 0-5 [facility] Comment on above: Performed By: #### U A #### [facility] ([id number]) [address] [address] [place] [address] Specific gravity (U) [Rel density] 1.024 Normal 1.003-1.035 [facility] Comment on above: Performed By: #### U A #### [facility] ([id number]) [address] [facility] [address] [place] [address] SQUAMOUS EPITHELIUM 14 /hpf High 0-5 [facility] Comment on above: Performed By: #### U A #### [facility] ([id number]) [address] [address] TURBIDITY HAZY Abnormal CLEAR [facility] Comment on above: Performed By: #### U A #### [facility] ([id number]) [address] [address] Urobilinogen (U) [Mass/Vol] mg/dL Normal <1.1 [facility] Comment on above: Performed By: #### U A #### [facility] ([id number]) [address] [address] W.B.CELLS 4 /hpf Normal 0-5 [facility] Comment on above: Performed By: #### U A #### [facility] ([id number]) [address] [address] URINE CULTUREon 10-20-2023 Bacteria identified Cx Nom (U) CULTURE RESULTS <10,000 ORGANISMS/ML NORMAL URO GENITAL DYLAN Normal [facility] Comment on above: Performed By: #### D MCCLOUD #### [facility] ([id number]) [address] [place] [address] US PREG LESS THAN 14 WKS WIT H TRANSVAGINALon 10-20-2023 US PREG LESS THAN 14 WKS WITH TRANSVAGINAL US PREG LESS THAN 14 WKS WITH TRANSVAGINAL CLINICAL HISTORY: Dates and viability Comparison: None FINDINGS: * Single live IUP at 8 weeks 4 days. Vivian-rump length 2.0 cm. Yolk sac visualized. Heart [...] Oviedo MD on 10/20/2023 1:43 PM Normal [facility] VZV IgG IA Ql (S)on 10-20-19 VARICELLA IgG 4.0 AI High <0.9 [facility] Comment on above: Result Comment: Interpretation-------- <0.9 Negative 0.9 - 1.0 Equivocal >1.0 Positive Performed By: #### D MCCLOUD #### [facility] ([id number]) [address] [place] [address], [address] [place] [address] 17-[place] PROGESTERONE, LC/MSon 11-23-2020 17-[place] Progesterone LCMS 46 ng/dL Normal [facility] Comment on above: Result Comment: Adul t Female Follicular 15 - 70 Luteal 35 - 290 Performed By: #### Brian QIU FT4 #### [facility] [address] [id number] Yu Watts DHEA-SULFATEon 11-21-2020 DHEA-Sulfate 275.0 ug/dL Normal 110.0-431.7 [facility] Comment on above: Performed By: #### Brian QIU FT4 #### [facility] [address] [id number] Yu Watts FSHon 11-21-2020 FSH 7.9 mIU/mL Normal [facility] Comment on above: Result Comment: Adul t Female: Follicular phase 3.5 - 12.5 Ovulation phase 4.7 - 21.5 Luteal phase 1.7 - 7.7 Postmenopausal 25.8 - 134.8 Performed By: #### L BCFS #### [facility] [address] [place], [place] [id number] Yu Watts LUTEINIZING HORMONE (LH)on 0 11-21-2020 LH 11.3 mIU/mL Normal [facility] Comment on above: Result Comment: Adul t Female: Follicular phase 2.4 - 12.6 Ovulation phase 14.0 - 95.6 Luteal phase 1.0 - 11.4 Postmenopausal 7.7 - 58.5 Performed By: #### V ITAD, FT4 #### [facility] [address] [place], [place] [address] Yu Watts PROLACTINon 11-21-2020 Prolactin 8.5 ng/mL Normal 4.8-23.3 [facility] Comment on above: Performed By: #### V ITAD, FT4 #### [facility] [address] [place], [place] [address] Yu Watts TESTOSTERONE, TOTALon 2020 Testosterone [Mass/Vol] 23 ng/dL Normal 13-71 [facility] Comment on above: Performed By: #### T ESTTOT #### [facility] [address] [place], [place] [address] Yu Watts TSHon 11-20-2020 TSH 1.061 uIU/mL Normal 0.470-4.680 [facility] Comment on above: Performed By: #### T SH #### [facility] [address] [place], [place] [address] Yu Watts TSH RANGE SEE BELOW Normal [facility] Comment on above: Result Comment: <0.3 4 UIU/ml HYPERTHYROID 0.34-5.60 UIU/ml EUTHYROID >5.60 UIU/ml HYPOTHYROID Performed By: #### T SH #### [facility] [address] [place], [place] [address] Yu Stefanie US PELVIS AND TRANSVAGon US PELVIS AND [...] by: JOSE DUARTE Date: 2020-11-20 11:38 Normal [facility] PAP ACOG PANEL 2: 23 to 29on 11-07-2020 . . Normal [facility] Comment on above: Performed By: #### [id number] #### [facility] [address] [place] [address] Yu Watts Age Gdln ACOG Testing 21-29 Normal [facility] Comment on above: Performed By: #### [id number] #### [facility] [address] [place] [address] Yu Watts DIAGNOSIS: Comment Normal [facility] Comment on above: Result Comment: NEGA TIVE FOR INTRAEPITHELIAL LESION OR MALIGNANCY. Performed By: #### [id number] #### [facility] [address] [place] [address] Yu Watts Methodology: Comment Normal [facility] Comment on above: Result Comment: This liquid based ThinPrep(R) pap test was screened with the use of an image guided system. Performed By: #### [id number] #### [facility] [address] [place] [address] Yu Watts Note: Comment Normal [facility] Comment on above: Result Comment: The Pap smear is a screening test designed to aid in the detection of premalignant and malignant conditions of the uterine cervix. It is not a diagnostic procedure and should not be used as the sole means of detecting cervical cancer. Both false-positive and false-negative reports do occur. . Performed By: #### [id number] #### [facility] [address] [place] [address] Yu Watts Performed by: Comment Normal [facility] Comment on above: Result Comment: Travon Martinez, Cloth Shrinking Supervisor (ASCP) Performed By: #### [id number] #### [facility] [address] [place] [address] Yu Watts Reflex Criteria: Comment Normal [facility] Comment on above: Result Comment: The HPV DNA reflex criteria were not met with this specimen result therefore, no HPV testing was performed. . Performed By: #### [id number] #### [facility] [address] [place] [address] Yu Watts Specimen adequacy: Comment Normal [facility] [place] Comment on above: Result Comment: Sati sfactory for evaluation. Endocervical and/or squamous metaplastic cells (endocervical component) are present. Performed By: #### [id number] #### [facility] [address] [place] [address] Yu Watts DHEA-SULFATEon 05-24-2020 DHEA-Sulfate 258.0 ug/dL Normal 110.0-431.7 [facility] Comment on above: Performed By: #### V ITAD, FT4 #### [facility] [address] [place] [address] Yu Watts INSULINon 05-24-2020 Insulin 21.4 uIU/mL Normal 2.6-24.9 [facility] Comment on above: Performed By: #### I NSULIN #### [facility] [address] [place] [address] Yu Stefanie CBC AUTO DIFFon 05-22-2020 BASO # 0.0 103/ul Normal 0.0-0.1 [facility] Comment on above: Performed By: #### V ITAD, FT4 #### [facility] [address] [place], [place] [address] Yuteri Watts Basophils/100 WBC (Bld) 0.4 % Normal 0.2-2.0 [facility] Comment on above: Performed By: #### V ITAD, FT4 #### [facility] [address] [place], [place] [address] Yu Stefanie EO # 0.0 103/ul Normal 0.0-0.7 [facility] Comment on above: Performed By: #### Brian QIU, FT4 #### [facility] [address] [place], [place] [address] Yu Stefanie Eosinophils/100 WBC (Bld) 0.7 % Critically low 0.9-7.0 [facility] Comment on above: Performed By: #### Brian QIU, FT4 #### [facility] [address] [place] [address] Yu Stefanie Erythrocyte distribution width (RBC) [Ratio] 13.9 % Normal 11.0-15.0 [facility] Comment on above: Performed By: #### Brian QIU, FT4 #### [facility] [address] [place] [address] Yu Stefanie Hematocrit (Bld) [Volume fraction] 39.0 % Normal 36.0-48.0 [facility] Comment on above: Performed By: #### Brian QIU, FT4 #### [facility] [address] [place] [address] Yu Stefanie Hemoglobin (Bld) [Mass/Vol] 12.6 g/dL Normal 12.0-16.0 [facility] Comment on above: Performed By: #### Brian QIU, FT4 #### [facility] [address] [place] [address] Yu Stefanie IG # 0.01 10e3/ul Normal 0.00-0.03 [facility] Comment on above: Performed By: #### Brian QIU, FT4 #### [facility] [address] [place] [address] Yu Stefanie IG % 0.2 % Normal 0.0-0.5 [facility] Comment on above: Performed By: #### Brian QIU, FT4 #### [facility] [address] [place] [address] Yu Stefanie LYMPH # 1.4 103/ul Normal 1.2-3.8 [facility] Comment on above: Performed By: #### Brian QIU, FT4 #### [facility] [address] [place], [place] [address] Yu Stefanie Lymphocytes/100 WBC (Bld) 25.3 % Normal 20.5-60.0 [facility] Comment on above: Performed By: #### V UYEN, FT4 #### [facility] [address] [place], [place] [address] Yu Stefanie MANUAL DIFF REQ NO Normal [facility] Comment on above: Performed By: #### V ITJODI, FT4 #### [facility] [address] [place], [place] [address] Yu Stefanie MCH (RBC) [Entitic mass] 27.2 pg Normal 26.7-34.0 [facility] Comment on above: Performed By: #### Brian QIU, FT4 #### [facility] [address] [place] [address] Yu Stefanie MCHC (RBC) [Mass/Vol] 32.3 g/dL Normal 29.9-35.2 [facility] Comment on above: Performed By: #### Brian QIU, FT4 #### [facility] [address] [place], [place] [address] Yu Stefanie MCV (RBC) [Entitic vol] 84.1 fL Normal 81.0-99.0 [facility] Comment on above: Performed By: #### Brian QIU, FT4 #### [facility] [address] [place], [place] [address] Yu Stefanie MONO # 0.4 103/ul Normal 0.3-0.8 [facility] Comment on above: Performed By: #### V ITJODI, FT4 #### [facility] [address] [place], [place] [address] Yu Stefanie Monocytes/100 WBC (Bld) 7.1 % Normal 1.7-12.0 [facility] Comment on above: Performed By: #### V ITJODI, FT4 #### [facility] [address] [place], [place] [address] Yu Stefanie NEUT # 3.6 103/ul Normal 1.4-6.5 [facility] Comment on above: Performed By: #### V ITAD, FT4 #### [facility] [address] [place], [place] [address] Yu Stefanie Neutrophils/100 WBC (Bld) 66.3 % Normal 43.0-75.0 [facility] Comment on above: Performed By: #### V ITJODI, FT4 #### [facility] [address] [place] [address] Yuteri Watts Platelet mean volume (Bld) [Entitic vol] 10.9 fL Normal 9.5-13.5 [facility] Comment on above: Performed By: #### V ITJODI, FT4 #### [facility] [address] [place] [address] Yu Stefanie PLT 243 103/ul Normal 150-450 [facility] Comment on above: Performed By: #### V ITJODI, FT4 #### [facility] [address] [place] [address] Yu Stefanie RBC 4.64 106/ul Normal 4.20-5.40 [facility] Comment on above: Performed By: #### V ITJODI, FT4 #### [facility] [address] [place] [address] Yu Stefanie WBC 5.4 103/ul Normal 4.0-11.0 [facility] Comment on above: Performed By: #### V ITJODI, FT4 #### [facility] [address] [place] [address] Yu Stefanie FREE T3on 05-22-2020 FREE T3 3.22 pg/mlL Normal 2.77-5.27 [facility] Comment on above: Performed By: #### V ITAD, FT4 #### [facility] [address] [place] [address] Yu Stefanie FREE T4on 05-22-2020 Free T4 [Mass/Vol] 1.10 ng/dL Normal 0.78-2.19 [facility] [place] Comment on above: Performed By: #### V ITAD, FT4 #### [facility] [address] [place] [address] Yuteir Watts GLYCOHEMOGLOBIN A1Con 2020 Glucose [Mass/Vol] 120 mg/dL Normal [facility] [place] Comment on above: Performed By: #### V ITJODI, FT4 #### [facility] [address] [place] [id number] Yu Watts HbA1c (Bld) [Mass fraction] 5.8 % Normal <=6.0 [facility] Comment on above: Performed By: #### V ITJODI, FT4 #### [facility] [address] [place] [id number] Yu Watts LIPID PROFILEon 05-22-2020 CHOL-HDL RATIO NORM SEE BELOW Normal [facility] Comment on above: Result Comment: 3.3 - 4.4 LOW RISK 4.4 - 7.1 AVERAGE RISK 7.1 - 11.0 MODERATE RISK >11.0 HIGH RISK Performed By: #### L IPID, FT3, BMP, TSH, LIVER #### [facility] [address] [place] [address] Yu Stefanie Cholesterol [Mass/Vol] 199 mg/dL Normal <=200 [facility] Comment on above: Performed By: #### L IPID, FT3, BMP, TSH, LIVER #### [facility] [address] [place] [address] Yu Watts Cholesterol in HDL [Mass/Vol] 39 mg/dL Normal [facility] Comment on above: Performed By: #### L IPID, FT3, BMP, TSH, LIVER #### [facility] [address] [place] [id number] Yu Stefanie Cholesterol in LDL [Mass/Vol] 131.8 mg/dL Normal [facility] Comment on above: Performed By: #### L IPID, FT3, BMP, TSH, LIVER #### [facility] [address] [place] [address] Yu Stefanie Cholesterol.total/Ch olesterol in HDL [Mass ratio] 5.1 {ratio} Normal [facility] Comment on above: Performed By: #### L IPID, FT3, BMP, TSH, LIVER #### [facility] [address] [place], [place] [address] Yu Stefanie HDL NORMAL > or = 60 mg/dl - LO W CARDIOVASCULAR RISK <40 mg/dl - HIGH CARDIOVASCULAR RISK Normal [facility] Comment on above: Performed By: #### L IPID, FT3, BMP, TSH, LIVER #### [facility] [address] [id number] Yu Stefanie LDL CALC NORMAL SEE BELOW Normal [facility] Comment on above: Result Comment: <100 mg/dl OPTIMAL 100 - 129 mg/dl NEAR OR ABOVE OPTIMAL 130 - 159 mg/dl BORDERLINE HIGH 160 - 189 mg/dl HIGH >190 mg/dl VERY HIGH Performed By: #### L IPID, FT3, BMP, TSH, LIVER #### [facility] [address] [place] [address] Yu Stefanie Triglyceride [Mass/Vol] 141 mg/dL Normal <=150 [facility] Comment on above: Performed By: #### L IPID, FT3, BMP, TSH, LIVER #### [facility] [address] [place] [address] Yu Stefanie VLDL CALC 28.2 mg/dL Normal [facility] Comment on above: Performed By: #### L IPID, FT3, BMP, TSH, LIVER #### [facility] [address] [place] [address] Yu Watts LIVER PROFILEon 05-22-2020 Albumin [Mass/Vol] 4.0 g/dL Normal 3.5-5.0 [facility] [place] Comment on above: Performed By: #### Brian QIU FT4 #### [facility] [address] [place] [address] Yuteri Watts Albumin/Globulin [Mass ratio] 1.0 {ratio} Normal [facility] Comment on above: Performed By: #### Brian QIU FT4 #### [facility] [address] [place] [address] Yu Stefanie ALP [Catalytic activity/Vol] 44 U/L Normal 38-126 [facility] Comment on above: Performed By: #### Brian QIU FT4 #### [facility] [address] [place] [address] Yu Stefanie ALT [Catalytic activity/Vol] 93 U/L Critically high 9-52 [facility] Comment on above: Performed By: #### Brian QIU, FT4 #### [facility] [address] [id number] Yu Stefanie AST [Catalytic activity/Vol] 46 U/L Critically high 14-36 [facility] Comment on above: Performed By: #### Brian QIU, FT4 #### [facility] [address] [place], [place] [address] Yu Stefanie BILI, CONJUGATED 0.1 mg/dL Normal 0.0-0.3 [facility] Comment on above: Performed By: #### Brian QIU, FT4 #### [facility] [address] [place] [address] Yu Stefanie Bilirubin [Mass/Vol] 0.4 mg/dL Normal 0.2-1.3 [facility] Comment on above: Performed By: #### Brian QIU, FT4 #### [facility] [address] [place] [address] Yu Stefanie Globulin (S) [Mass/Vol] 4.2 g/dL Normal [facility] Comment on above: Performed By: #### Brian QIU, FT4 #### [facility] [address] [place] [address] Yu Stefanie Protein [Mass/Vol] 8.2 g/dL Normal 6.1-8.2 [facility] Comment on above: Performed By: #### V UYEN, FT4 #### [facility] [address] [place], [place] [address] Yuteri Baptisteen PROF CHEM 8 (BAS METB)on Anion gap [Moles/Vol] 12.9 mmol/L Normal [facility] Comment on above: Performed By: #### L IPID, FT3, BMP, TSH, LIVER #### [facility] [address] [place], [place] [address] Yu Stefanie Calcium [Mass/Vol] 9.4 mg/dL Normal 8.4-10.2 [facility] Comment on above: Performed By: #### L IPID, FT3, BMP, TSH, LIVER #### [facility] [address] [place] [address] Yu Stefanie Chloride [Moles/Vol] 106 mmol/L Normal 98-107 [facility] Comment on above: Performed By: #### L IPID, FT3, BMP, TSH, LIVER #### [facility] [address] [place] [address] Yu Stefanie CO2 [Moles/Vol] 25.7 mmol/L Normal 22.0-30.0 [facility] Comment on above: Performed By: #### L IPID, FT3, BMP, TSH, LIVER #### [facility] [address] [place] [address] Yu Stefanie Creatinine [Mass/Vol] 0.78 mg/dL Normal 0.52-1.04 [facility] Comment on above: Performed By: #### L IPID, FT3, BMP, TSH, LIVER #### [facility] [address] [place] [address] Yu Stefanie EGFR-AF BURKINAN >60 Normal >=60 [facility] Comment on above: Performed By: #### L IPID, FT3, BMP, TSH, LIVER #### [facility] [address] [place] [address] Yu Stefanie EGFR-NON AF BURKINAN >60 Normal >=60 [facility] Comment on above: Performed By: #### L IPID, FT3, BMP, TSH, LIVER #### [facility] [address] [place] [address] Yu Stefanie Glucose [Mass/Vol] 95 mg/dL Normal 74-106 [facility] Comment on above: Performed By: #### L IPID, FT3, BMP, TSH, LIVER #### [facility] [address] [place] [address] Yu Stefanie Potassium [Moles/Vol] 3.6 mmol/L Normal 3.4-5.0 [facility] Comment on above: Performed By: #### L IPID, FT3, BMP, TSH, LIVER #### [facility] [address] [id number] Yu Stefanie Sodium [Moles/Vol] 141 mmol/L Normal 137-145 [facility] Comment on above: Performed By: #### L IPID, FT3, BMP, TSH, LIVER #### [facility] [address] [place] [address] Yu Stefanie Urea nitrogen [Mass/Vol] 10.0 mg/dL Normal 7.0-17.0 [facility] Comment on above: Performed By: #### L IPID, FT3, BMP, TSH, LIVER #### [facility] [address] [place], [place] [address] Yu Stefanie Urea nitrogen/Creatinine [Mass ratio] 12.8 mg/mg Normal [facility] Comment on above: Performed By: #### L IPID, FT3, BMP, TSH, LIVER #### [facility] [address] [place] [address] Yu Stefanie TSHon 05-22-2020 TSH 1.324 uIU/mL Normal 0.470-4.680 [facility] Comment on above: Performed By: #### L IPID, FT3, BMP, TSH, LIVER #### [facility] [address] [place] [address] Yu Stefanie TSH RANGE SEE BELOW Normal [facility] Comment on above: Result Comment: <0.3 4 UIU/ml HYPERTHYROID 0.34-5.60 UIU/ml EUTHYROID >5.60 UIU/ml HYPOTHYROID Performed By: #### L IPID, FT3, BMP, TSH, LIVER #### [facility] [address] [place] [address] Yu Stefanie VITAMIN D 25 OHon 05-22-2020 VIT D 25-OH 18.0 ng/mL Normal [facility] Comment on above: Performed By: #### V ITAD, FT4 #### [facility] [address] [place] [address] Yu Stefanie VIT D RANGES SEE BELOW Normal [facility] Comment on above: Result Comment: <20 ng/mL Vit D deficient 20 - <30 ng/mL Vit D insufficient 30 - 100 ng/mL Vit D sufficient >100 ng/mL Potential Toxicity Performed By: #### V UYEN, FT4 #### [facility] [address] [place] [address] Yu Watts Vital Signs Date Time Vital Sign Value Performing Clinician Rani juan 04-18-2024 10:20-0500 Body weight 111.58 kg Maryann AMIN Work Phone: [facility] 04-18-2024 10:20-0500 Diastolic blood pressure 78 mm[Hg] Maryann AMIN Work Phone: [facility] 04-18-2024 10:20-0500 Systolic blood pressure 124 mm[Hg] Maryann AMIN Work Phone: [facility] 04-03-2024 10:58-0500 Body weight 109.23 kg Isidro Jasmine DO Work Phone: [facility] 04-03-2024 10:58-0500 Diastolic blood pressure 80 mm[Hg] Isidro Jasmine DO Work Phone: [facility] 04-03-2024 10:58-0500 Systolic blood pressure 120 mm[Hg] Isidro Jasmine DO Work Phone: [facility] 03-21-2024 13:54-0500 Body weight 109.32 kg Maryann AMIN Work Phone: [facility] 03-21-2024 13:54-0500 Diastolic blood pressure 74 mm[Hg] Maryann Smith PA Work Phone: [facility] 03-21-2024 13:54-0500 Systolic blood pressure 118 mm[Hg] Maryann AMIN Work Phone: [facility] 03-07-2024 11:00-0500 Body weight 108.32 kg Isidro Jasmine DO Work Phone: [facility] 03-07-2024 11:00-0500 Diastolic blood pressure 70 mm[Hg] Isidro Jasmine DO Work Phone: [facility] 03-07-2024 11:00-0500 Systolic blood pressure 120 mm[Hg] Isidro Jasmine DO Work Phone: [facility] 02-23-2024 10:16-0400 Body weight 108.77 kg Isidro Jasmine DO Work Phone: [facility] 02-23-2024 10:16-0400 Diastolic blood pressure 76 mm[Hg] Isidro Jasmine DO Work Phone: [facility] 02-23-2024 10:16-0400 Systolic blood pressure 130 mm[Hg] Isidro Jasmine DO Work Phone: [facility] 01-25-2024 10:36-0400 Body weight 108.86 kg Maryann AMIN Work Phone: [facility] 01-25-2024 10:36-0400 Diastolic blood pressure 72 mm[Hg] Maryann AMIN Work Phone: [facility] 01-25-2024 10:36-0400 Systolic blood pressure 124 mm[Hg] Maryann AMIN Work Phone: [facility] 12-22-2023 09:10-0400 Body weight 108.41 kg Isidro Jasmine DO Work Phone: [facility] 12-22-2023 09:10-0400 Diastolic blood pressure 80 mm[Hg] Isidro Jasmine DO Work Phone: [facility] 12-22-2023 09:10-0400 Systolic blood pressure 120 mm[Hg] Isidro Jasmine DO Work Phone: [facility] Healthcare Encounters Encounter Date Encounter Type Care Provider Facility Start: 04-18-2024 End: 04-18-2024 Bamboo flowsheet Maryann AMIN Work Phone: [facility] Start: 04-18-2024 End: 04-18-2024 Bamboo flowsheet Maryann AMIN Work Phone: [facility] Start: 04-18-2024 End: 04-18-2024 ambulatory MARYANN SMITH Not Available Start: 04-18-2024 End: 04-18-2024 Office outpatient visit 15 minutes Maryann AMIN Work Phone: [facility] Comment on above: Third trimester preg harini; 34 weeks gestation of Start: 04-13-2024 End: 04-13-2024 Telephone encounter Bing Mccann [facility] Start: 04-03-2024 End: 04-03-2024 Bamboo flowsheet Isidro Jasmine DO Work Phone: [facility] Start: 04-03-2024 End: 04-03-2024 Bamboo [...] [facility] Start: 03-21-2024 End: 03-21-2024 Office outpatient visit 15 minutes Maryann AMIN Work Phone: [facility] Comment on above: Third trimester preg harini; 30 weeks gestation of ; Insulin controlled gestational diabetes mellitus (GDM) in third trimester; BV (bacterial vaginosis) Start: 03-21-2024 End: 03-21-2024 ambulatory MARYANN SMITH Not Available Start: 03-14-2024 End: 03-14-2024 ambulatory ISIDRO R [facility] Start: 03-07-2024 End: 03-07-2024 Bamboo flowsheet [...] JASMINE Not Available Start: 02-23-2024 End: 02-23-2024 Bamboo flowsheet Isidro Jasmine DO Work Phone: [facility] Start: 02-23-2024 End: 02-23-2024 Bamboo flowsheet Isidro Jasmine DO Work Phone: [facility] Start: 02-23-2024 End: 02-23-2024 Office outpatient visit 15 minutes Isidro Jasmine DO Work Phone: [facility] Comment on above: 26 weeks gestation o f ; Second trimester Start: 02-23-2024 End: 02-23-2024 ambulatory ISIDRO JASMINE Not Available Start: 02-16-2024 End: 02-16-2024 Orders Only Lottie Pool RN [facility] Comment on above: Insulin controlled g estational diabetes mellitus (GDM) in third trimester (Primary Dx); Severe obesity due to excess calories affecting , antepartum ([facility]); Alpha thalassemia silent carrier Start: 02-15-2024 End: 02-15-2024 Telephone encounter Kathie Sellers MD Work Phone: [facility] Start: 02-14-2024 End: 02-14-2024 ambulatory [facility]IDRO R [facility] Start: 02-02-2024 End: 02-02-2024 Telephone encounter Mojgan Zeng RN [facility] Start: 01-25-2024 End: 01-25-2024 Office outpatient visit 15 minutes Maryann Smith PA Work Phone: [facility] Comment on above: Second trimester pre gnancy Start: 01-25-2024 End: 01-25-2024 ambulatory MARYANN SMITH Not Available Start: 01-17-2024 End: 01-17-2024 ambulatory ISIDRO R [facility] Start: 12-22-2023 End: 12-22-2023 Bamboo flowsheet Isidro Jasmine DO Work Phone: [facility] Start: 12-22-2023 End: 12-22-2023 Bamboo flowsheet Isidro Jasmine DO Work Phone: [facility] Start: 12-22-2023 End: 12-22-2023 Office outpatient visit 15 minutes Isidro Jasmine DO Work Phone: [facility] Comment on above: GA: 17w5d Start: 12-22-2023 End: 12-22-2023 ambulatory ISIDRO JASMINE Not Available Start: 12-12-2023 End: 12-12-2023 ambulatory [facility] Start: 10-28-2023 End: 10-28-2023 ambulatory [facility] Start: 10-28-2023 End: 10-28-2023 ambulatory [facility] Start: 10-28-2023 Encounter for gynecological examination (general) (routine) without abnormal findings [facility] Start: 10-28-2023 End: 10-28-2023 ambulatory [facility] Start: 10-28-2023 Encounter for gynecological examination (general) (routine) without abnormal findings [facility] Start: 10-20-2023 End: 10-20-2023 ambulatory [facility] Start: 10-06-2023 End: 10-06-2023 Emergency department patient visit [facility] Start: 10-04-2023 End: 10-04-2023 ambulatory YASMINE M [facility] Start: 06-26-2023 End: 06-26-2023 Emergency department patient visit TRAE SANCHEZ [facility] Start: 11-20-2020 End: 11-21-[address] TRAE SANCHEZ Facility:[facility]1 Start: 11-05-2020 End: 11-05-[address] TRAE SANCHEZ Facility:[facility] Start: 06-25-2020 Encounter for genera l adult medical examination without abnormal findings DR TRAE SANCHEZ [facility] Start: 05-22-2020 End: 05-23-[address] TRAE SANCHEZ Facility:[facility] Start: 05-22-2020 End: 05-23-2020 Encounter for general adult medical examination without abnormal findings DR TRAE SANCHEZ Facility:[facility]1 Procedures Date Procedure Procedure Detail Performing Clinician Start: 04-18-2024 Urnls dip stick/tabl et rgnt non-auto w/o micrscp Maryann AMIN Work Phone: Start: 04-03-2024 Urnls dip stick/tabl et rgnt non-auto w/o micrscp Isidro Jasmine DO Work Phone: Start: 03-21-2024 Urnls dip stick/tabl et rgnt non-auto w/o micrscp Maryann AMIN Work Phone: Start: 03-07-2024 Urnls dip stick/tabl et rgnt non-auto w/o micrscp Isidro Jasmine DO Work Phone: Start: 02-23-2024 Urnls dip stick/tabl et rgnt non-auto w/o micrscp Isidro Jasmine DO Work Phone: Start: 01-25-2024 Urnls dip stick/tabl et rgnt non-auto w/o micrscp Maryann AMIN Work Phone: Start: 12-22-2023 Urnls dip stick/tabl et rgnt non-auto w/o [...] malign ant neoplasm of cervix Pap Smear [facility] [employer] [facility] Start: 02-15-2025 End: 02-15-2025 US MFM with or without consult US MFM with or without consult Imaging Routine Insulin controlled gestational diabetes mellitus (GDM) in third trimester Severe obesity due to excess calories affecting , antepartum ([facility]) Alpha thalassemia silent carrier Expected: 02/15/2025 (Approximate), Ex[facility]: [facility] Comment on above: Expected: 02/15/2025 (Approximate), Expires: 02/15/2025 Start: 01-16-2025 Adult BMI Screening Adult BMI Screen ing [facility] Start: 01-16-2025 Tobacco Screening Tobacco Screening [facility] Start: 10-26-2024 Depression Screening Depression Scre ening [facility] Start: 05-08-2024 End: 05-08-2024 Patient encounter procedure 05/08/2024 10:00 AM EST Routine [facility] [address] [place] [address] Isidro Ferraro DO [address] [place] [address] [facility] Start: 04-18-2024 End: 04-18-2024 Patient encounter procedure 04/18/2024 9:50 AM EST Routine [facility] [address] [place] [address] Maryann Smith PA [address] [place], [place] [id number] [facility] Start: 04-03-2024 End: 04-03-2025 [...] AM EST Routine [facility] [address] [place] [address] Isidro Ferraro DO [address] [place] [address] [facility] Start: 03-21-2024 End: 03-21-2025 US biophysical profile w non stress test US biophysical profile w non stress test Imaging Routine Insulin controlled gestational diabetes mellitus (GDM) in third trimester Expected: 03/21/2024 (Approximate), Expires: 03/21/2025 [facility] Comment on above: Expected: 03/21/2024 (Approximate), Expires: 03/21/2025 Start: 03-21-2024 End: 03-21-2025 US for US OB SCAN FOR GROWTH Imaging Routine Insulin controlled gestational diabetes mellitus (GDM) in third trimester Expected: 03/21/2024 (Approximate), Expires: 03/21/2025 [facility] Work Phone: Comment on above: Expected: 03/21/2024 (Approximate), Expires: 03/21/2025 Start: 03-21-2024 End: 03-21-2024 Patient encounter procedure [facility] Comment on above: Arrived Start: 03-14-2024 End: 03-14-2024 Patient encounter procedure 03/14/2024 3:00 PM EST Appointment [facility] US Imaging [address] [place] [address] [facility] Imaging Start: 03-07-2024 End: 03-07-2024 Patient encounter procedure 03/07/2024 11:10 AM EST Routine [facility] [address] [place] [phone] Isidro Ferraro DO [address] [place] [address] Arrived [facility] Comment on above: Arrived Start: 02-23-2024 End: 02-23-2024 Patient encounter procedure [facility] Comment on above: Arrived Start: 02-15-2024 End: 02-15-2024 Telemedicine consultation with patient 02/15/2024 9:45 AM EDT Telemedicine [facility] [address] [place] [address] Kathie Sellers MD [address] [address] [facility] Start: 02-14-2024 End: 02-14-2024 Patient encounter procedure 02/14/2024 2:00 PM EDT Appointment [facility] US Imaging [address] [place] [address] [facility] Imaging Start: 01-25-2024 End: 01-25-2024 Patient encounter procedure 01/25/2024 10:30 AM EDT Routine [facility] [address] [place] [id number] Maryann Smith PA [address] [place] [address] [facility] Start: 01-01-2024 Influenza vaccination [employer] [facility] Start: 12-22-2023 End: 12-22-2023 ambulatory 12/22/2023 8:50 AM EDT Initial [facility] [address] [place] [id number] Isidro Ferraro, DO [address] [place] [address] Arrived [facility] Comment on above: Arrived Start: 01-23-2020 DTaP,Tdap and Td Vaccines (7 - Td or Tdap) DTaP,Tdap and Td Vaccines (7 - Td or Tdap) [facility] Start: 10-10-2015 Adult BMI Follow Up Plan Adult BMI F ollow Up Plan [facility] CBC W Auto Different ial panel - Blood CBC and differential Lab Routine 32 weeks gestation of Third trimester Ordered: 04/03/2024 [facility] Work Phone: Comment on above: Ordered: 04/03/2024 Payers Date Payer Category Payer Medicaid [facility] [id number] 2019 Medicaid [id number] 2019 Private Health Insurance [facility] MED[facility] [id number] 2019 Medicaid [id number] 1997 Unknown [id number] 2.16840.1.849580.3.579.2. 593 1997 Unknown [id number] 2.16840.1.412222.3.579.2. 59 1997 Unknown [id number] 2.16840.1.356581.3.579.2. 593 1997 Unknown [id number] 2.840.1.159840.3.579.2. 1285 1997 Unknown [id number] 2.16840.1.428166.3.579.2. 1285 1997 Unknown [id number] 2.16840.1.107064.3.579.2. 1285 1997 Unknown [id number] 2.840.1.910660.3.579.2. 1285 1997 Unknown [id number] 2.840.1.722077.3.579.2. 1285 1997 Unknown [id number] 2.16840.1.736155.3.579.2. 1285 1997 Unknown [id number] 2.16840.1.045537.3.579.2. 1285 1997 Unknown [id number] 2.16840.1.405541.3.579.2. 1285 1997 Unknown [id number] 2.16840.1.448438.3.579.2. 1285 1997 Unknown [id number] 2.16.840.1.854101.3.579.2. 1286 1997 Unknown [id number] 2.16.840.1.683214.3.579.2. 1285 1997 Unknown [id number] 2.16.840.1.338463.3.579.2. 1285 1997 Unknown [id number] 2.16.840.1.560979.3.579.2. 1285 1997 Unknown [id number] 2.16.840.1.409137.3.579.2. 1258 1997 Unknown [id number] 2.16.840.1.015324.3.579.2. 1258 1997 Unknown [id number] 2.16.840.1.384136.3.579.2. 1258 1997 Unknown [id number] 2.16.840.1.526146.3.579.2. 1258 1997 Unknown [id number] 2.16.840.1.342226.3.579.2. 1258 1997 Unknown [id number] 2.16.840.1.168315.3.579.2. 1258 1997 Unknown [id number] 2.16.840.1.075364.3.579.2. 1259 1959 Unknown [id number] Social History Date Type Detail Facility Start: 06-26-2023 Tobacco smoking stat [facility] Never smoked tobacco [facility] Start: 06-26-2023 Tobacco use and exposure Smokeless tobacco non-user [facility] Start: 01-17-2024 Alcoholic beverage intake Ex-drinker (finding) [facility] Start: 06-12-2020 End: 01-17-2024 History of Social function [facility] Start: 06-12-2020 End: 01-17-2024 Tobacco use panel [facility] How hard is it for y ou to pay for the very basics like food, housing, medical care, and heating Not hard at all [facility] Start: 11-12-2021 Alcohol Comment rarely [facility] Start: 09-03-2023 [facility] Start: 1997 Sex assigned at Not on file [facility] Start: 12-05-2014 Sex Female (finding) [facility] Tobacco smoking stat us NHIS Tobacco smoking consumption unknown [facility] Medical Equipment Procedure Code Equipment Code Equipment Origin al Text Equipment Identifier Dates [id number] Start: 10-21-2023 Use to check fas ting blood sugar in the morning and one hour after first bite of each meal. Order supplies per insurance preference. [id number] Start: 10-21-2023 Test blood sugar 4 times a day [id number] Start: 12-13-2023 Use daily for insulin [id number] Start: 01-17-2024 Test blood sugar 4 times a day [id number] Start: 12-13-2023 Goals Date Patient Goal Desired Activity /State Personal health goal Clinical Notes 12-22-2023 to 04-18-2024 BRENNAN Vora - 04/18/2024 9:50 AM ESTTelephone Encounter - Bing Mccann CMA - 04/13/2024 10:21 AM ESTTelephone Encounter - Bing Mccann [facility] - 04/13/2024 10:21 AM EST Note Date & Type Note Facility 04-18-2024 History of Presen t illness Narrative Reason [...] No family history on file. SURGICAL HISTORY No past surgical history on file. REVIEW OF SYSTEMS Review of Systems: Review of Systems All other systems reviewed and are negative. OBJECTIVE Objective: Physical Exam Constitutional: Appearance: Normal appearance. She is normal weight. HENT: Head: Normocephalic. Cardiovascular: Rate and Rhythm: Normal rate. Pulses: Normal pulses. Pulmonary: Effort: Pulmonary effort is normal. Breath sounds: Normal breath sounds. Abdominal: Palpations: Abdomen is soft. Musculoskeletal: General: Normal range of motion. Neurological: General: No focal deficit present. Mental Status: She is alert and oriented to person, place, and time. Psychiatric: Mood and Affect: Mood normal. Behavior: Behavior normal. Thought Content: Thought content normal. Judgment: Judgment normal. Vitals and nursing note reviewed. Vitals: There is no height or weight on file to calculate BMI. BP: Patient's last menstrual period was 08/20/2023. ASSESSMENT & PLAN ICD-10-CM 1. Third trimester Z34.93 POCT urinalysis dipstick manually resulted 2. 34 weeks gestation of Z3A.34 Return OB: Patient presents today for a routine obstetrics appointment. Patient is currently 34w4d . Patient states she is doing well [...] of: BRENNAN Vora documented in this encounter [facility] 04-13-2024 Miscellaneous Notes Formattin g of this note might be different from the original. Called patient in regard to not receiving blood sugar logs in two or more weeks. No answer. Asked patient to send most recent logs to the office email. Call back number left and patient encouraged to reach out if she has any questions or concerns. documented in this encounter [employer] 04-13-2024 Telephone encount er Note Called patient in regard to not receiving blood sugar logs in two or more weeks. No answer. Asked patient to send most recent logs to the office email. Call back number left and patient encouraged to reach out if she has any questions or concerns. [facility] History of Presen t illness Narrative [...] Isidro Ferraro DO documented in this encounter [facility] 03-21-2024 History of Presen t illness [...] of: BRENNAN Vora documented in this encounter [facility] 03-07-2024 History of Presen t illness [...] nursing note reviewed. Exam conducted with a laundry or dry cleaners counter clerk present. Vitals: There is no height or [...] Isidro Ferraro DO documented in this encounter [facility] 02-23-2024 History of Presen t illness [...] nursing note reviewed. Exam conducted with a laundry or dry cleaners counter clerk present. Vitals: There is no height or [...] follow up US scheduled at [facility]. Patient to start growth scans after next scan with [facility] every 4 weeks. Patient to start [...] Isidro Ferraro DO documented in this encounter [facility] 02-15-2024 Miscellaneous Notes Formattin g of this note might be different from the original. Skimmer elizabeth for pt w/ appt info on for 03/14 at 3:00 and requested a return call if she could not make that work. documented in this encounter [facility] 02-15-2024 Telephone encount er Note Skimmer elizabeth for pt w/ appt info on for 03/14 at 3:00 and requested a return call if she could not make that work. [facility] 02-15-2024 Miscellaneous Notes Formattin g of this note might be different from the original. Skimmer laila ECHEVERRIA. Patient scheduled for a MyChart Visit @ 9:45 am. Skimmer asked patient to get data center solutions architect if available. Skimmer left call back number [phone] #[phone] if patient needs to reschedule. documented in this encounter [facility] 02-15-2024 Telephone encount er Note Skimmer left VM. Patient scheduled for a MyChart Visit @ 9:45 am. Skimmer asked patient to get data center solutions architect if available. Skimmer left call back number [phone] #[phone] if patient needs to reschedule. [facility] 02-02-2024 Miscellaneous Notes Formattin g of this note might be different from the original. Called patient, no answer, left message to please send blood glucose logs to the diabetes email. documented in this encounter [facility] 02-02-2024 Telephone encount er Note Called patient, no answer, left message to please send blood glucose logs to the diabetes email. [facility] 01-25-2024 History of Presen t illness Narrative Reason for Appointment: Patient ID: Stephie Alaniz is a 28 y.o. female who presents for Routine Visit Patient presents today for Return OB appointment. MEDICATIONS Current Outpatient Medications Medication Instructions azithromycin (Zithromax Z-Jasen) 250 MG tablet As directed ALLERGIES Allergies Allergen Reactions Amoxicillin Rash PROBLEMS [...] No family history on file. SURGICAL HISTORY No past surgical history on file. REVIEW OF SYSTEMS Review of Systems: Review of Systems Constitutional: Negative. HENT: Negative. Eyes: Negative. Respiratory: Negative. Cardiovascular: Negative. Gastrointestinal: Negative. Genitourinary: Negative. Musculoskeletal: Negative. Skin: Negative. Neurological: Negative. All other systems reviewed and are negative. Hematological: Negative. Endocrine: Negative. Allergic/Immunologic: Negative. OBJECTIVE Objective: Physical Exam Constitutional: Appearance: Normal appearance. She is normal weight. HENT: Head: Normocephalic. Cardiovascular: Rate and Rhythm: Normal rate. Pulses: Normal pulses. Pulmonary: Effort: Pulmonary effort is normal. Breath sounds: Normal breath sounds. Abdominal: Palpations: Abdomen is soft. Musculoskeletal: General: Normal range of motion. Neurological: General: No focal deficit present. Mental Status: She is alert and oriented to person, place, and time. Psychiatric: Mood and Affect: Mood normal. Behavior: Behavior normal. Thought Content: Thought content normal. Judgment: Judgment normal. Vitals and nursing note reviewed. Vitals: There is no height or weight on file to calculate BMI. BP: 124/72 Patient's last menstrual period was 08/20/2023. ASSESSMENT & PLAN ICD-10-CM 1. Second trimester Z34.92 POCT urinalysis dipstick manually resulted Return OB: Patient presents today for a routine obstetrics appointment. Patient is currently 22w4d . Patient states she is doing well but has complaints of being tired due to current . Patient has verbalizes frequent movement. Patient following with MFM, states morning fasting sugars have improved to 70s-80s post starting insulin. Pt having repeat anatomy due to poor visualization of heart Pt otherwise feeling well Orders Placed This Encounter Procedures POCT urinalysis dipstick manually resulted Follow Up: Patient is to return to office in 4week for routine OB appointment. Documented by BRENNAN Vora on behalf of: BRENNAN Vora documented in this encounter [facility] 12-22-2023 History of Presen t illness Narrative Reason for Appointment: Patient ID: Stephie Alaniz is a 28 y.o. female who presents for Routine Visit Patient presents today for Return OB appointment. and Consult appointment. MEDICATIONS No current outpatient medications ALLERGIES Allergies Allergen Reactions Amoxicillin Rash PROBLEMS Active Ambulatory Problems Diagnosis Date Noted No Active Ambulatory Problems Resolved Ambulatory Problems Diagnosis Date Noted No [...] SYSTEMS Review of Systems: Review of Systems All other systems reviewed and are negative. [...] nursing note reviewed. Exam conducted with a laundry or dry cleaners counter clerk present. Vitals: There is no height or weight on file to calculate BMI. BP: 120/80 Patient's last menstrual period was 08/20/2023. ASSESSMENT & PLAN ICD-10-CM 1. Second trimester Z34.92 POCT urinalysis dipstick manually resulted CANCELED: Hemoglobin A1c 2. Screening, , for anatomic survey Z36.89 US OB ANATOMY SINGLE W US OB CERVICAL LENGTH Patient presents today for transfer appointment for OB care. Discussed patient history and need for 2 units of blood after delivery, elevated sugars and currently seeing [facility] for Diabetic Education. Patient has not been diagnosed with Gestational Diabetes at this time. Patient to have NST/BPP and growth scan for routine schedule at the towards the end of . Patient to have M Referral for Level II ultrasound and consult with specialist. 05/21/2024 for IOL at 39 weeks unless needed changed. Advised patient to take Aspirin 81mg daily. Discussed repeat PAP 12 weeks after delivery. Patient to return to clinic in 4 weeks for routine OB appointment. Documented by Dolly Catalan LPN on behalf of: Isidro Ferraro DO documented in this encounter [facility] Evaluation note Diagnosis Insulin controlled gestational diabetes mellitus (GDM) in third trimester Severe obesity due to excess calories affecting , antepartum (CMS-HCC) [facility] Diagnosis Insulin controlled gestational diabetes mellitus (GDM) in third trimester Severe obesity due to excess calories affecting , antepartum (CMS-HCC) [facility] Diagnosis Insulin controlled gestational diabetes mellitus (GDM) in third trimester- Primary Severe obesity due to excess calories affecting , antepartum (CMS-HCC) Alpha thalassemia silent carrier [facility]* Diagnosis 28 weeks gestation [...] palpitations Palpitations documented in [facility]* Diagnosis Second trimester state, incidental Screening, , for anatomic survey Encounter for anatomic survey History of gestational diabetes Personal history of other genital system and obstetric disorders documented in [facility]* Diagnosis Third trimester state, incidental 34 weeks gestation of documented in this encounter [facility]* Diagnosis Second trimester state, incidental documented in this encounter [facility] HealthcareInstructionsNot on filedocumented in this encounter[facility] System[facility]ructionsNot on filedocumented in this encounterProMedica [facility] SystemInstructionsNot on filedocumented in this encounterProMedica [facility] Summary Purpose Family History No [...] and content) DATE CREATED AUTHOR 12/02/2020 [facility] DATE CREATED AUTHOR AUTHOR'S ORGANIZ ATION 10/30/2023 [facility] DATE CREATED AUTHOR AUTHOR'S ORGANIZ ATION 11/02/2023 [facility] DATE CREATED AUTHOR AUTHOR'S ORGANIZ ATION [facility] DATE CREATED AUTHOR AUTHOR'S ORGANIZ ATION 04/21/2024 [facility] Specialists [employer] Care Teams (unrecognized sec tion and content) Hand Tile Maker Relationship Specialty Start Date End Date Trae Sanchez MD PCP - General Family Medicine 04/28/20 Hand Tile Maker Relationship Specialty Start Date End Date Trae Sanchez MD PCP - General Family Medicine 04/28/20 Hand Tile Maker Relationship Specialty Start Date End Date Trae Sanchez MD PCP - General Family Medicine 04/28/20 Hand Tile Maker Relationship Specialty Start Date End Date Joanna Allan MD [address] [place] [place], [place] [id number] PCP - General Family Medicine 09/07/22 Hand Tile Maker Relationship Specialty Start Date End Date Joanna Allan MD [address] [place] [address] PCP - General Family Medicine 09/07/22 Hand Tile Maker Relationship Specialty Start Date End Date Joanna Allan MD [address] [place] [address] PCP - General Family Medicine 09/07/22 Hand Tile Maker Relationship Specialty Start Date End Date Joanna Allan MD [address] [place] [address] PCP - General Family Medicine 09/07/22 Hand Tile Maker Relationship Specialty Start Date End Date Joanna Allan MD [address] [place] [address] PCP - General Family Medicine 09/07/22 Hand Tile Maker Relationship Specialty Start Date End Date Joanna Allan MD [address] [place] [address] PCP - General [facility] Medicine 09/07/22 Hand Tile Maker Relationship Specialty Start Date End Date Joanna Allan MD [address] [facility] [place] [address] PCP - General Family Medicine 09/07/22 Hand Tile Maker Relationship Specialty Start Date End Date Joanna Allan MD [address] [place] [address] PCP - General Family Medicine 09/07/22 Reason [...] BE BASED ON THE PRIMARY CLINICAL RECORDS. [facility] [employer] [facility] provides no warranty or guarantee of the accuracy or completeness of information in this document.
--- OUTSIDE RECORDS SUMMARY | 2024-04-26 03:00 | XMS_ITS | CCD ---
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 Name Role Phone LAURA, DR TRAE Delaney Primary Care Unavailable NADERER, DR TRAE Delaney Admitting Unavailable NADERER, DR TRAE Delaney Attending Unavailable NADERER, DR TRAE Delaney Consulting Unavailable NADERER, DR TRAE Delaney Primary Care Unavailable KARASIK, DR OLMOS Attending Unavailable KARASIK, DR OLMOS Consulting Unavailable KARASIK, DR OLMOS Admitting Unavailable NADERER, DR TRAE Delaney Primary Care Unavailable PIT[place], DR JOSE Torres Consulting Unavailable JASMINE, DR FELIX Attending Unavailable JASMINE, DR FELIX Admitting Unavailable JASMINE, DR FELIX Consulting Unavailable CHANTAL, YASMINE Quinteros Attending Unavailable NADERER, TRAE Referring Unavailable NADERER, RTAE Primary Care Unavailable CHANTAL, YASMINE Quinteros Attending [...] Unavailable Naderer , Trae Primary Care Provider [phone] Joanna Allan MD Primary Care Provider YASMINE [...] to excess calories affecting , antepartum ([facility]) , 21 weeks gestation of Inject 10U [...] UA Negative Negative - 4(70) +++ mg/dL [facility] Blood, UA Negative Negative - 50 Janes/mcL [facility] Clarity, UA Cloudy [facility] Color, UA Misty [facility] Glucose, UA Positive Negative - 1999(110) ++++ mg/dL [facility] Comment on above: 250 Interpretation and review of laboratory results Abnormal [facility] Ketones, UA Negative Negative - 160(16) ++++ mg/dL [facility] Leukocytes, UA Moderate Negative - 500+++ Too/mcL [facility] Nitrite, UA Negative Negative - Positive [facility] pH, UA 6.5 5 - 9 [facility] Protein, UA Trace Negative - 1999(20) ++++ mg/dL [facility] Spec Grav, UA 1.02 1 - 1.03 [facility] Urobilinogen, UA 0.2 0.2 - 12 mg/dL [facility] Urinalysis macro (dipstick) panel (U)on 04-03-2024 Bilirubin, UA Negative Negative - 4(70) +++ mg/dL [facility] Blood, UA Negative Negative - 50 Janes/mcL [facility] Clarity, UA Clear [facility] Color, UA Yellow [facility] Glucose, UA Negative Negative - 1999(110) ++++ mg/dL [facility] Interpretation and review of laboratory results Abnormal [facility] Ketones, UA Positive Negative - 160(16) ++++ mg/dL [facility] Comment on above: 40 Leukocytes, UA Positive Negative - 500+++ Too/mcL [facility] Comment on above: small Nitrite, UA Negative Negative - Positive [facility] pH, UA 7 5 - 9 [facility] Protein, UA Trace Negative - 1999(20) ++++ mg/dL [facility] Spec Grav, UA 1.025 1 - 1.03 [facility] Urobilinogen, UA 0.2 0.2 - 12 mg/dL [facility] Urinalysis macro (dipstick) panel (U)on 03-21-2024 Bilirubin, UA Negative Negative - 4(70) +++ mg/dL [facility] Blood, UA Negative Negative - 50 Janes/mcL [facility] Clarity, UA Clear [facility] Color, UA Yellow [facility] Glucose, UA Negative Negative - 1999(110) ++++ mg/dL [facility] Interpretation and review of laboratory results Abnormal [facility] Ketones, UA Negative Negative - 160(16) ++++ mg/dL [facility] Leukocytes, UA Trace Negative - 500+++ Too/mcL [facility] Nitrite, UA Negative Negative - Positive [facility] pH, UA 6 5 - 9 [facility] Protein, UA Negative Negative - 1999(20) ++++ mg/dL [facility] Spec Grav, UA 1.03 1 - 1.03 [facility] Urobilinogen, UA 0.2 0.2 - 12 mg/dL [facility] Urinalysis macro (dipstick) panel (U)on 03-07-2024 Bilirubin, UA Positive Negative - 4(70) +++ mg/dL [facility] Comment on above: small Blood, UA Positive Negative - 50 Janes/mcL [facility] Comment on above: trace-intact Clarity, UA Clear [facility] Color, UA Yellow [facility] Glucose, UA Negative Negative - 1999(110) ++++ mg/dL [facility] Interpretation and review of laboratory results Abnormal [facility] Ketones, UA Positive Negative - 160(16) ++++ mg/dL [facility] Comment on above: trace Leukocytes, UA Positive Negative - 500+++ Too/mcL [facility] Comment on above: small Nitrite, UA Negative Negative - Positive [facility] pH, UA 5.5 5 - 9 [facility] Protein, UA Negative Negative - 1999(20) ++++ mg/dL [facility] Spec Grav, UA 1.03 1 - 1.03 [facility] Urobilinogen, UA 0.2 0.2 - 12 mg/dL [facility] Urinalysis macro (dipstick) panel (U)on 02-23-2024 Bilirubin, UA Negative Negative - 4(70) +++ mg/dL [facility] Blood, UA Positive Negative - 50 Janes/mcL [facility] Comment on above: trace-intact Clarity, UA Clear [facility] Color, UA Yellow [facility] Glucose, UA Negative Negative - 1999(110) ++++ mg/dL [facility] Interpretation and review of laboratory results Abnormal [facility] Ketones, UA Negative Negative - 160(16) ++++ mg/dL [facility] Leukocytes, UA Positive Negative - 500+++ Too/mcL [facility] Comment on above: small Nitrite, UA Negative Negative - Positive [facility] pH, UA 6 5 - 9 [facility] Protein, UA Negative Negative - 1999(20) ++++ mg/dL [facility] Spec Grav, UA 1.03 1 - 1.03 [facility] Urobilinogen, UA 0.2 0.2 - 12 mg/dL [facility] Urinalysis macro (dipstick) panel (U)on 01-25-2024 Bilirubin, UA Negative Negative - 4(70) +++ mg/dL [facility] Blood, UA Positive Negative - 50 Janes/mcL [facility] Comment on above: trace Clarity, UA Clear [facility] Color, UA Yellow [facility] Glucose, UA Negative Negative - 1999(110) ++++ mg/dL [facility] Interpretation and review of laboratory results Abnormal [facility] Ketones, UA Positive Negative - 160(16) ++++ mg/dL [facility] Comment on above: trace Leukocytes, UA Positive Negative - 500+++ Too/mcL [facility] Comment on above: small Nitrite, UA Negative Negative - Positive [facility] pH, UA 6.0 5 - 9 [facility] Protein, UA Negative Negative - 2000(20) ++++ mg/dL [facility] Spec Grav, UA 1.030 1 - 1.03 [facility] Urobilinogen, UA 0.2 0.2 - 12 mg/dL [facility] Urinalysis macro (dipstick) panel (U)on 12-22-2023 Bilirubin, UA Negative Negative - 4(70) +++ mg/dL [facility] Blood, UA Positive Negative - 50 Janes/mcL [facility] Comment on above: small Clarity, UA Clear [facility] Color, UA Yellow [facility] Glucose, UA Negative Negative - 1999(110) ++++ mg/dL [facility] Interpretation and review of laboratory results Abnormal [facility] Ketones, UA Negative Negative - 160(16) ++++ mg/dL [facility] Leukocytes, UA Positive Negative - 500+++ Too/mcL [facility] Comment on above: small Nitrite, UA Negative Negative - Positive [facility] pH, UA 5.5 5 - 9 [facility] Protein, UA Negative Negative - 2000(20) ++++ mg/dL [facility] Spec Grav, UA 1.030 1 - 1.03 [facility] Urobilinogen, UA 0.2 0.2 - 12 mg/dL [facility] CHLAMYDIA/GC PCR, FLon 10-27 CHLAMYDIA/GC PCR, FL [...] are dependent on adequate specimen collection. Normal [facility] Comment on above: Performed By: #### D MCCLOUD #### [facility] ([id number]) [address] [place] [address], [address] [place] [address] Cytology Cervical or vaginal smear or scraping studyon 10-28-2023 [facility] VAGINITIS PANEL PCRon 2023 VAGINITIS PANEL PCR [...] clinical presentation to determine patient diagnosis. Normal [facility] Comment on above: Performed By: #### V PPCR #### [facility] ([id number]) [address] [place] [address], [place] [id number] ACUTE HEPATITIS PANELon 10-01 ANTI HCV W/PCR REFLX Non-Reactive Normal NRCT Pr [facility] Comment on above: Result Comment: If recent infection suspected, recommend repeat testing (>2 months). Lfdwio-ya-fmdcyk ratio is <0.80. Performed By: #### 1 504-0, 68446-5, CBC, AHP, 29557-0, 82546-1, 05563-6, 13289-4, 6864-3 #### [facility] ([id number]) [address] [place] [address], [address] [place] [address] HEPATITIS A IGM Non-Reactive Normal NRCT [facility] Comment on above: Performed By: #### 1 504-0, 06429-9, CBC, AHP, 35599-2, 06669- 5, 33565-1, 10787-9, 6864-3 #### [facility] ([id number]) [address], [address] [place] [address] HEPATITIS B CORE IGM Negative Normal NEG [facility] Comment on above: Performed By: #### 1 504-0, 07979-5, CBC, AHP, 87569-4, 49158- 5, 85051-1, 98967-3, 6864-3 #### [facility] ([id number]) [address], [address] [place] [address] HEPATITIS B SURF AG Negative Normal NEG [facility] Comment on above: Performed By: #### 1 504-0, 90579-1, CBC, AHP, 71869-4, 40542- 5, 57270-4, 18584-4, 6864-3 #### [facility] ([id number]) [address], [address] [address] COMPLETE BLOOD COUNTon 10-19 Erythrocyte distribution width (RBC) [Ratio] 15.0 % Normal 11.5-15.[address] [facility] Comment on above: Performed By: #### 1 504-0, 38806-5, CBC, AHP, 78292-9, 69672- 5, 36520-7, 46970-4, 6864-3 #### [facility] ([id number]) [address] [address] Hematocrit (Bld) [Volume fraction] 38.0 % Normal 35-[address] [facility] Comment on above: Performed By: #### 1 504-0, 94675-9, CBC, AHP, 79018-9, 64423- 5, 24837-0, 67867-3, 6864-3 #### [facility] ([id number]) [address], [address] [address] Hemoglobin (Bld) [Mass/Vol] 12.5 g/dL Normal 11.7-15.[address] [facility] Comment on above: Performed By: #### 1 504-0, 47215-1, CBC, AHP, 48247-8, 06019- 5, 45264-8, 65308-1, 6864-3 #### [facility] ([id number]) [address], [address] [place] [address] MCH (RBC) [Entitic mass] 27.4 pg Normal 27-[address] [facility] Comment on above: Performed By: #### 1 504-0, 73172-9, CBC, AHP, 83471-4, 24125- 5, 61637-9, 82812-9, 6864-3 #### [facility] ([id number]) [address], [address] [place] [address] MCHC (RBC) [Mass/Vol] 32.9 g/dL Normal 32-[address] [facility] Comment on above: Performed By: #### 1 504-0, 67231-0, CBC, AHP, 26752-7, 58510- 5, 83120-4, 61911-8, 6864-3 #### [facility] ([id number]) [address], [address] [place] [address] MCV (RBC) [Entitic vol] 83 fL Normal 80-[address] [facility] Comment on above: Performed By: #### 1 504-0, 76467-1, CBC, AHP, 13247-3, 67247- 5, 21811-3, 21450-8, 6864-3 #### [facility] ([id number]) [address], [address] [place] [address] Platelet mean volume (Bld) [Entitic vol] 8.6 fL Normal 7-[address] [facility] Comment on above: Performed By: #### 1 504-0, 96193-4, CBC, AHP, 61937-2, 00739- 5, 93611-8, 71158-8, 6864-3 #### [facility] ([id number]) [address], [address] [place] [address] Platelets (Bld) [#/Vol] 282 10*3/uL Normal 150-[address] [facility] Comment on above: Performed By: #### 1 504-0, 11714-9, CBC, AHP, 64751-6, 57396- 5, 17187-8, 68928-6, 6864-3 #### [facility] ([id number]) [address], [address] [place] [address] RBC COUNT 4.55 X10E12/L Normal 3.80-5.[address] [facility] Comment on above: Performed By: #### 1 504-0, 34842-3, CBC, AHP, 78456-2, 61967- 5, 59457-5, 47731-3, 6864-3 #### [facility] ([id number]) [address] [facility], [address] [place] [address] WBC (Bld) [#/Vol] 7.3 10*3/uL Normal 4.0-11.0 [facility] Comment on above: Performed By: #### 1 504-0, 48094-9, CBC, AHP, 56260-5, 42096- 5, 03370-5, 17216-9, 6864-3 #### [facility] ([id number]) [address], [address] [place] [address] DRUG SCREEN, URINEon 024 AMPHETAMINE/METHAMP Negative Normal NEG [facility] Comment on above: Result Comment: AMPH /METH screening cut off = 1000 ng/mL Performed By: #### D MCCLOUD #### [facility] ([id number]) [address], [address] [place] [address] BARBITURATES Negative Normal NEG [facility] Comment on above: Result Comment: Dayana iturates screening cut off value = 200 ng/mL Performed By: #### D MCCLOUD #### [facility] ([id number]) [address], [address] [place] [address] BENZODIAZEPINES Negative Normal NEG [facility] Comment on above: Result Comment: Ki odiazepines screening cut off value = 200 ng/mL Performed By: #### D MCCLOUD #### [facility] ([id number]) [address], [address] [place] [address] CANNABINOIDS Negative Normal NEG [facility] Comment on above: Result Comment: Gaurang abinoids/THC screening cut off value = 50 ng/mL Performed By: #### D MCCLOUD #### [facility] ([id number]) [address], [address] [place] [address] COCAINE METABOLITE Negative Normal [facility] Comment on above: Result Comment: Coca ine screening cut off value = 300 ng/mL Performed By: #### D MCCLOUD #### [facility] ([id number]) [address], [address] [place] [address] ECSTASY Negative Normal [facility] Comment on above: Result Comment: Ecst asy screening cut off value = 500 ng/mL This report is intended for use in clinical monitoring or management of patients. Performed By: #### D MCCLOUD #### [facility] ([id number]) [address], [address] [place] [address] METHADONE Negative Normal NEG [facility] Comment on above: Result Comment: Meth adone screening cut off value = 300 ng/mL. Performed By: #### D MCCLOUD #### [facility] ([id number]) [address], [address] [place] [address] OPIATES Negative Normal NEG [facility] Comment on above: Result Comment: Opia nasrin screening cut off value = 300 ng/mL NOTE: This test is used for the detection of codeine, hydrocodone (>1000 ng/mL), morphine and hydromorphone (>900 ng/mL) in urine. Performed By: #### D MCCLOUD #### [facility] ([id number]) [address], [address] [place] [address] OXYCODONE Negative Normal NEG [facility] Comment on above: Result Comment: Oxyc odone screening cut off value = 300 ng/mL NOTE: This test is used for the detection of oxycodone and oxymorphone in urine. Performed By: #### D MCCLOUD #### [facility] ([id number]) [address], [address] [place] [address] PHENCYCLIDINE Negative Normal NEG [facility] Comment on above: Result Comment: Phen cyclidine screening cut off value = 25 ng/mL Performed By: #### D MCCLOUD #### [facility] ([id number]) [address], [address] [place] [address] Glucose 1 Hr post 50 g gluco se PO [Mass/Vol]on 10-20-2023 GLU 1H POST 50G LOAD 207 mg/dL High 65-139 [facility] Comment on above: Performed By: #### 1 504-0, 64383-0, CBC, AHP, 28616-8, 50471- 5, 07978-0, 43860-7, 6864-3 #### [facility] ([id number]) [address], [address] [place] [address] HCG.beta subunit IA 3rd IS Q non 10-20-2023 [place] [address] m[IU]/mL Normal [facility] Comment on above: Result Comment: NEW [...] nontrophoblastic neoplasms. Performed By: #### 1 504-0, 55071-2, CBC, AHP, 69322-8, 73939-6, 78607-7, 38534-5, 6864-3 #### [facility] ([id number]) [address] [facility], [address] [place] [address] HIV 1+2 Ab+HIV1 p24 Ag IA Ql on 10-20-2023 HIV 1 and 2 Ab/Ag Screen Non-Reactive Normal NRCT [facility] Comment on above: Result Comment: [...] or diagnoses. Performed By: #### 1 504-0, 24774-9, CBC, AHP, 30188-2, 99767-1, 60166-7, 12860-0, 6864-3 #### [facility] ([id number]) [address] [facility], [address] [place] [address] Hemoglobin S Solubility test Ql (Bld)on 10-20-2023 SICKLE SOLUBILITY Negative Normal NEG [facility] Comment on above: Performed By: #### D MCCLOUD #### [facility] ([id number]) [address] [facility], [address] [place] [address] Rubella virus Ab Ql (S)on RUBELLA IMMUNE IgG 4.3 AI Normal [facility] Comment on above: Result Comment: Interpretation-------- <0.8 NEGATIVE-considered Not Immune 0.8-0.9 EQUIVOCAL-consider retesting with new specimen >0.9 POSITIVE-considered Immune Performed By: #### 1 504-0, 46181-3, CBC, AHP, 61586-9, 08320-9, 25005-7, 98756-1, 6864-3 #### [facility] ([id number]) [address], [address] [place] [address] T. pallidum IgG+IgM IA Ql (S )on 10-20-2023 Syphilis Total <0.2 Normal 0.0-0.[address] [facility] Comment on above: Result Comment: NON REACTIVE No serologic evidence of infection to Treponema pallidum (syphilis). Repeat testing may be considered in patients with suspected acute or primary syphilis in 2 to 4 weeks. Performed By: #### 1 504-0, 69421-4, CBC, AHP, 37756-7, 73501-1, 06787-9, 03740-2, 6864-3 #### [facility] ([id number]) [address], [address] [place] [address] URINALYSISon 10-20-2023 Bilirubin Ql (U) Negative Normal NEG [facility] Comment on above: Performed By: #### U A #### [facility] ([id number]) [address], [address] [place] [address] BLOOD/HGB Small Abnormal NEG [facility] Comment on above: Performed By: #### U A #### [facility] ([id number]) [address], [address] [place] [address] Color (U) YELLOW Normal YELLOW [facility] Comment on above: Performed By: #### U A #### [facility] ([id number]) [address], [address] [place] [address] Glucose Ql (U) Negative Normal NEG [facility] Comment on above: Performed By: #### U A #### [facility] ([id number]) [address], [address] [place] [address] Ketones Ql (U) Negative Normal NEG [facility] Comment on above: Performed By: #### U A #### [facility] ([id number]) [address], [address] [place] [address] Leukocyte esterase Test strip Ql (U) MODERATE Abnormal NEG [facility] Comment on above: Performed By: #### U A #### [facility] ([id number]) [address], [address] [place] [address] MUCOUS PRESENT Abnormal NONE [facility] Comment on above: Performed By: #### U A #### [facility] ([id number]) [address], [address] [place] [address] Nitrite Ql (U) Negative Normal NEG [facility] Comment on above: Performed By: #### U A #### [facility] ([id number]) [address], [address] [place] [address] pH (U) 6.0 [pH] Normal 5.0-8.[address] [facility] Comment on above: Performed By: #### U A #### [facility] ([id number]) [address], [address] [place] [address] Protein Ql (U) Trace Abnormal NEG [facility] Comment on above: Performed By: #### U A #### [facility] ([id number]) [address], [address] [place] [address] R.B.CELLS 5 /hpf Normal 0-[address] [facility] Comment on above: Performed By: #### U A #### [facility] ([id number]) [address] [address] [place] [address] Specific gravity (U) [Rel density] 1.024 Normal 1.003-1.[address] [facility] Comment on above: Performed By: #### U A #### [facility] ([id number]) [address] [facility] [address] [place] [address] SQUAMOUS EPITHELIUM 14 /hpf High 0-5 [facility] Comment on above: Performed By: #### U A #### [facility] ([id number]) [address] [address] TURBIDITY HAZY Abnormal CLEAR [facility] Comment on above: Performed By: #### U A #### [facility] ([id number]) [address] [address] Urobilinogen (U) [Mass/Vol] mg/dL Normal <1.[address] [facility] Comment on above: Performed By: #### U A #### [facility] ([id number]) [address] [address] W.B.CELLS 4 /hpf Normal 0-[address] [facility] Comment on above: Performed By: #### U A #### [facility] ([id number]) [address] [address] URINE CULTUREon 10-20-2023 Bacteria identified Cx Nom (U) CULTURE RESULTS <10,000 ORGANISMS/ML NORMAL URO GENITAL DYLAN Normal [facility] Comment on above: Performed By: #### D MCCLOUD #### [facility] ([id number]) [address] [place] [address] US PREG LESS THAN 14 WKS WIT H TRANSVAGINALon 10-20-2023 US PREG LESS THAN 14 WKS WITH TRANSVAGINAL US PREG LESS THAN 14 WKS WITH TRANSVAGINAL CLINICAL HISTORY: Dates and viability Comparison: None FINDINGS: * Single live IUP at 8 weeks 4 days. [place]-rump length 2.0 cm. Yolk sac visualized. Heart [...] Oviedo MD on 10/20/2023 1:43 PM Normal [facility] VZV IgG IA Ql (S)on 10-20-19 VARICELLA IgG 4.0 AI High <0.[address] [facility] Comment on above: Result Comment: Interpretation-------- <0.9 Negative 0.9 - 1.0 Equivocal >1.0 Positive Performed By: #### D MCCLOUD #### [facility] ([id number]) [address] [place] [address], [address] [place] [address] 17-[place] PROGESTERONE, LC/MSon 11-23-2020 17-[place] Progesterone LCMS 46 ng/dL Normal [facility] Comment on above: Result Comment: Adul t Female Follicular 15 - 70 Luteal 35 - 290 Performed By: #### Brian QIU FT4 #### [facility] [address] [place] [id number] Yu Watts DHEA-SULFATEon 11-21-2020 DHEA-Sulfate 275.0 ug/dL Normal 110.0-431.7 [facility] Comment on above: Performed By: #### Brian QIU FT4 #### [facility] [address] [place] [id number] Yu Watts FSHon 11-21-2020 FSH 7.9 mIU/mL Normal [facility] Comment on above: Result Comment: Adul t Female: Follicular phase 3.5 - 12.5 Ovulation phase 4.7 - 21.5 Luteal phase 1.7 - 7.7 Postmenopausal 25.8 - 134.8 Performed By: #### L BCFS #### [facility] [address] [place], [place] [address] Yu Watts LUTEINIZING HORMONE (LH)on 0 11-21-2020 LH 11.3 mIU/mL Normal [facility] Comment on above: Result Comment: Adul t Female: Follicular phase 2.4 - 12.6 Ovulation phase 14.0 - 95.6 Luteal phase 1.0 - 11.4 Postmenopausal 7.7 - 58.5 Performed By: #### V ITAD, FT4 #### [facility] [address] [place], [place] [id number] Yu Watts PROLACTINon 11-21-2020 Prolactin 8.5 ng/mL Normal 4.8-23.3 [facility] Comment on above: Performed By: #### V ITAD, FT4 #### [facility] [address] [place], [place] [id number] Yu Watts TESTOSTERONE, TOTALon 2020 Testosterone [Mass/Vol] 23 ng/dL Normal 13-71 [facility] Comment on above: Performed By: #### T ESTTOT #### [facility] [address] [place], [place] [id number] Yu Watts TSHon 11-20-2020 TSH 1.061 uIU/mL Normal 0.470-4.680 [facility] Comment on above: Performed By: #### T SH #### [facility] [address] [place], [place] [id number] Yu Watts TSH RANGE SEE BELOW Normal [facility] Comment on above: Result Comment: <0.3 4 UIU/ml HYPERTHYROID 0.34-5.60 UIU/ml EUTHYROID >5.60 UIU/ml HYPOTHYROID Performed By: #### T SH #### [facility] [address] [place], [place] [id number] Yu Stefanie US PELVIS AND TRANSVAGon US [...] by: JOSE DUARTE Date: 2020-11-20 11:38 Normal [facility] PAP ACOG PANEL 2: 21 to 29on 11-07-2020 . . Normal [facility] Comment on above: Performed By: #### [id number] #### [facility] [address] [place] [address] Yu Watts Age Gdln ACOG Testing 21-29 Normal [facility] Comment on above: Performed By: #### [id number] #### [facility] [address] [place] [address] Yu Watts DIAGNOSIS: Comment Normal [facility] Comment on above: Result Comment: NEGA TIVE FOR INTRAEPITHELIAL LESION OR MALIGNANCY. Performed By: #### 4 [id number] #### [facility] [address] [place] [address] Yu Watts Methodology: Comment Normal [facility] Comment on above: Result Comment: This liquid based ThinPrep(R) pap test was screened with the use of an image guided system. Performed By: #### 4 [id number] #### [facility] [address] [place] [address] Yu Watts Note: Comment Normal [facility] Comment on above: Result Comment: The Pap smear is a screening test designed to aid in the detection of premalignant and malignant conditions of the uterine cervix. It is not a diagnostic procedure and should not be used as the sole means of detecting cervical cancer. Both false-positive and false-negative reports do occur. . Performed By: #### 4 [id number] #### [facility] [address] [place] [address] Yu Watts Performed by: Comment Normal [facility] Comment on above: Result Comment: Travon Martinez, Silk Brusher (ASCP) Performed By: #### [id number] #### [facility] [address] [place] [address] Yu Watts Reflex Criteria: Comment Normal [facility] Comment on above: Result Comment: The HPV DNA reflex criteria were not met with this specimen result therefore, no HPV testing was performed. . Performed By: #### 4 [id number] #### [facility] [address] [place] [address] Yu Watts Specimen adequacy: Comment Normal [facility] Comment on above: Result Comment: Sati sfactory for evaluation. Endocervical and/or squamous metaplastic cells (endocervical component) are present. Performed By: #### 4 [id number] #### [facility] [address] [place] [address] Yu Watts DHEA-SULFATEon 05-24-2020 DHEA-Sulfate 258.0 ug/dL Normal 110.0-431.7 [facility] Comment on above: Performed By: #### V ITAD, FT4 #### [facility] [address] [place] [address] Yu Watts INSULINon 05-24-2020 Insulin 21.4 uIU/mL Normal 2.6-24.9 [facility] Comment on above: Performed By: #### I NSULIN #### [facility] [address] [place] [address] Yu Stefanie CBC AUTO DIFFon 05-22-2020 BASO # 0.0 103/ul Normal 0.0-0.1 [facility] Comment on above: Performed By: #### V ITAD, FT4 #### [facility] [address] [place], [place] [phone] Yuteri Watts Basophils/100 WBC (Bld) 0.4 % Normal 0.2-2.0 [facility] Comment on above: Performed By: #### V ITAD, FT4 #### [facility] [address] [place], [place] [address] Yu Stefanie EO # 0.0 103/ul Normal 0.0-0.7 [facility] Comment on above: Performed By: #### Brian QIU, FT4 #### [facility] [address] [place], [place] [address] Yu Stefanie Eosinophils/100 WBC (Bld) 0.7 % Critically low 0.9-7.0 [facility] Comment on above: Performed By: #### Brian QIU, FT4 #### [facility] [address] [place] [address] Yu Stefanie Erythrocyte distribution width (RBC) [Ratio] 13.9 % Normal 11.0-15.0 [facility] Comment on above: Performed By: #### Brian QIU, FT4 #### [facility] [address] [place] [address] Yu Stefanie Hematocrit (Bld) [Volume fraction] 39.0 % Normal 36.0-48.0 [facility] Comment on above: Performed By: #### Brian QIU, FT4 #### [facility] [address] [place] [address] Yu Stefanie Hemoglobin (Bld) [Mass/Vol] 12.6 g/dL Normal 12.0-16.0 [facility] Comment on above: Performed By: #### Brian QIU, FT4 #### [facility] [address] [place] [address] Yu Stefanie IG # 0.01 10e3/ul Normal 0.00-0.03 [facility] Comment on above: Performed By: #### Brian QIU, FT4 #### [facility] [address] [place] [address] Yu Stefanie IG % 0.2 % Normal 0.0-0.5 [facility] Comment on above: Performed By: #### Brian QIU, FT4 #### [facility] [address] [place] [address] Yu Stefanie LYMPH # 1.4 103/ul Normal 1.2-3.8 [facility] Comment on above: Performed By: #### Brian QIU, FT4 #### [facility] [address] [place], [place] [address] Yu Stefanie Lymphocytes/100 WBC (Bld) 25.3 % Normal 20.5-60.0 [facility] Comment on above: Performed By: #### V UYEN, FT4 #### [facility] [address] [place], [place] [address] Yu Stefanie MANUAL DIFF REQ NO Normal [facility] Comment on above: Performed By: #### V ITJODI, FT4 #### [facility] [address] [place], [place] [phone] Yu Stefanie MCH (RBC) [Entitic mass] 27.2 pg Normal 26.7-34.0 [facility] Comment on above: Performed By: #### Brian QIU, FT4 #### [facility] [address] [place] [address] Yu Stefanie MCHC (RBC) [Mass/Vol] 32.3 g/dL Normal 29.9-35.2 [facility] Comment on above: Performed By: #### Brian QIU, FT4 #### [facility] [address] [place], [place] [address] Yu Stefanie MCV (RBC) [Entitic vol] 84.1 fL Normal 81.0-99.0 [facility] Comment on above: Performed By: #### Brian QIU, FT4 #### [facility] [address] [place], [place] [address] Yu Stefanie MONO # 0.4 103/ul Normal 0.3-0.8 [facility] Comment on above: Performed By: #### V ITJODI, FT4 #### [facility] [address] [place], [place] [address] Yu Stefanie Monocytes/100 WBC (Bld) 7.1 % Normal 1.7-12.0 [facility] Comment on above: Performed By: #### V ITJODI, FT4 #### [facility] [address] [place], [place] [address] Yu Stefanie NEUT # 3.6 103/ul Normal 1.4-6.5 [facility] Comment on above: Performed By: #### V ITAD, FT4 #### [facility] [address] [place], [place] [address] Yu Stefanie Neutrophils/100 WBC (Bld) 66.3 % Normal 43.0-75.0 [facility] Comment on above: Performed By: #### V ITJODI, FT4 #### [facility] [address] [place] [address] Yuteri Watts Platelet mean volume (Bld) [Entitic vol] 10.9 fL Normal 9.5-13.5 [facility] Comment on above: Performed By: #### V ITJODI, FT4 #### [facility] [address] [place] [address] Yu Stefanie PLT 243 103/ul Normal 150-450 [facility] Comment on above: Performed By: #### V ITJODI, FT4 #### [facility] [address] [place] [address] Yu Stefanie RBC 4.64 106/ul Normal 4.20-5.40 [facility] Comment on above: Performed By: #### V ITJODI, FT4 #### [facility] [address] [place] [address] Yu Stefanie WBC 5.4 103/ul Normal 4.0-11.0 [facility] Comment on above: Performed By: #### V ITJODI, FT4 #### [facility] [address] [place] [address] Yu Stefanie FREE T3on 05-22-2020 FREE T3 3.22 pg/mlL Normal 2.77-5.27 [facility] Comment on above: Performed By: #### V ITAD, FT4 #### [facility] [address] [place] [address] Yu Stefanie FREE T4on 05-22-2020 Free T4 [Mass/Vol] 1.10 ng/dL Normal 0.78-2.19 [facility] Comment on above: Performed By: #### V ITAD, FT4 #### [facility] [address] [place] [address] Yuteri Watts GLYCOHEMOGLOBIN A1Con 2020 Glucose [Mass/Vol] 120 mg/dL Normal [facility] Comment on above: Performed By: #### V ITJODI, FT4 #### [facility] [address] [place] [phone] Yu Watts HbA1c (Bld) [Mass fraction] 5.8 % Normal <=6.0 [facility] Comment on above: Performed By: #### V ITJODI, FT4 #### [facility] [address] [place] [phone] Yu Watts LIPID PROFILEon 05-22-2020 CHOL-HDL RATIO NORM SEE BELOW Normal [facility] Comment on above: Result Comment: 3.3 - 4.4 LOW RISK 4.4 - 7.1 AVERAGE RISK 7.1 - 11.0 MODERATE RISK >11.0 HIGH RISK Performed By: #### L IPID, FT3, BMP, TSH, LIVER #### [facility] [address] [place] [address] Yu Stefanie Cholesterol [Mass/Vol] 199 mg/dL Normal <=200 [facility] Comment on above: Performed By: #### L IPID, FT3, BMP, TSH, LIVER #### [facility] [address] [place] [address] Yu Watts Cholesterol in HDL [Mass/Vol] 39 mg/dL Normal [facility] Comment on above: Performed By: #### L IPID, FT3, BMP, TSH, LIVER #### [facility] [address] [place] [phone] Yu Stefanie Cholesterol in LDL [Mass/Vol] 131.8 mg/dL Normal [facility] Comment on above: Performed By: #### L IPID, FT3, BMP, TSH, LIVER #### [facility] [address] [place] [address] Yu Stefanie Cholesterol.total/Ch olesterol in HDL [Mass ratio] 5.1 {ratio} Normal [facility] Comment on above: Performed By: #### L IPID, FT3, BMP, TSH, LIVER #### [facility] [address] [place], [place] [address] Yu Stefanie HDL NORMAL > or = 60 mg/dl - LO W CARDIOVASCULAR RISK <40 mg/dl - HIGH CARDIOVASCULAR RISK Normal [facility] Comment on above: Performed By: #### L IPID, FT3, BMP, TSH, LIVER #### [facility] [address] [place] [phone] Yu Stefanie LDL CALC NORMAL SEE BELOW Normal [facility] Comment on above: Result Comment: <100 mg/dl OPTIMAL 100 - 129 mg/dl NEAR OR ABOVE OPTIMAL 130 - 159 mg/dl BORDERLINE HIGH 160 - 189 mg/dl HIGH >190 mg/dl VERY HIGH Performed By: #### L IPID, FT3, BMP, TSH, LIVER #### [facility] [address] [place] [address] Yu Stefanie Triglyceride [Mass/Vol] 141 mg/dL Normal <=150 [facility] Comment on above: Performed By: #### L IPID, FT3, BMP, TSH, LIVER #### [facility] [address] [place] [address] Yu Stefanie VLDL CALC 28.2 mg/dL Normal [facility] Comment on above: Performed By: #### L IPID, FT3, BMP, TSH, LIVER #### [facility] [address] [place] [address] Yu Watts LIVER PROFILEon 05-22-2020 Albumin [Mass/Vol] 4.0 g/dL Normal 3.5-5.0 [facility] Comment on above: Performed By: #### Brian QIU FT4 #### [facility] [address] [place] [address] Yuteri Watts Albumin/Globulin [Mass ratio] 1.0 {ratio} Normal [facility] Comment on above: Performed By: #### Brian QIU FT4 #### [facility] [address] [place] [address] Yu Stefanie ALP [Catalytic activity/Vol] 44 U/L Normal 38-126 [facility] Comment on above: Performed By: #### Brian QIU FT4 #### [facility] [address] [place] [address] Yu Stefanie ALT [Catalytic activity/Vol] 93 U/L Critically high 9-52 [facility] Comment on above: Performed By: #### Brian QIU, FT4 #### [facility] [address] [place] [phone] Yu Stefanie AST [Catalytic activity/Vol] 46 U/L Critically high 14-36 [facility] Comment on above: Performed By: #### Brian QIU, FT4 #### [facility] [address] [place], [place] [phone] Yu Stefanie BILI, CONJUGATED 0.1 mg/dL Normal 0.0-0.3 [facility] Comment on above: Performed By: #### Brian QIU, FT4 #### [facility] [address] [place] [address] Yu Stefanie Bilirubin [Mass/Vol] 0.4 mg/dL Normal 0.2-1.3 [facility] Comment on above: Performed By: #### Brian QIU, FT4 #### [facility] [address] [place] [address] Yu Stefanie Globulin (S) [Mass/Vol] 4.2 g/dL Normal [facility] Comment on above: Performed By: #### Brian QIU, FT4 #### [facility] [address] [place] [address] Yu Stefanie Protein [Mass/Vol] 8.2 g/dL Normal 6.1-8.2 [facility] Comment on above: Performed By: #### V UYEN, FT4 #### [facility] [address] [place], [place] [phone] Yuteri Baptisteen PROF CHEM 8 (BAS METB)on Anion gap [Moles/Vol] 12.9 mmol/L Normal [facility] Comment on above: Performed By: #### L IPID, FT3, BMP, TSH, LIVER #### [facility] [address] [place], [place] [phone] Yu Stefanie Calcium [Mass/Vol] 9.4 mg/dL Normal 8.4-10.2 [facility] Comment on above: Performed By: #### L IPID, FT3, BMP, TSH, LIVER #### [facility] [address] [place] [address] Yu Stefanie Chloride [Moles/Vol] 106 mmol/L Normal 98-107 [facility] Comment on above: Performed By: #### L IPID, FT3, BMP, TSH, LIVER #### [facility] [address] [place] [address] Yu Stefanie CO2 [Moles/Vol] 25.7 mmol/L Normal 22.0-30.0 [facility] Comment on above: Performed By: #### L IPID, FT3, BMP, TSH, LIVER #### [facility] [address] [place] [address] Yu Stefanie Creatinine [Mass/Vol] 0.78 mg/dL Normal 0.52-1.04 [facility] Comment on above: Performed By: #### L IPID, FT3, BMP, TSH, LIVER #### [facility] [address] [place] [address] Yu Stefanie EGFR-AF BRAZILIAN >60 Normal >=60 [facility] Comment on above: Performed By: #### L IPID, FT3, BMP, TSH, LIVER #### [facility] [address] [place] [address] Yu Stefanie EGFR-NON AF BRAZILIAN >60 Normal >=60 [facility] Comment on above: Performed By: #### L IPID, FT3, BMP, TSH, LIVER #### [facility] [address] [place] [address] Yu Stefanie Glucose [Mass/Vol] 95 mg/dL Normal 74-106 [facility] Comment on above: Performed By: #### L IPID, FT3, BMP, TSH, LIVER #### [facility] [address] [place] [address] Yu Stefanie Potassium [Moles/Vol] 3.6 mmol/L Normal 3.4-5.0 [facility] Comment on above: Performed By: #### L IPID, FT3, BMP, TSH, LIVER #### [facility] [address] [place] [phone] Yu Stefanie Sodium [Moles/Vol] 141 mmol/L Normal 137-145 [facility] Comment on above: Performed By: #### L IPID, FT3, BMP, TSH, LIVER #### [facility] [address] [place] [address] Yu Stefanie Urea nitrogen [Mass/Vol] 10.0 mg/dL Normal 7.0-17.0 [facility] Comment on above: Performed By: #### L IPID, FT3, BMP, TSH, LIVER #### [facility] [address] [place], [place] [phone] Yu Stefanie Urea nitrogen/Creatinine [Mass ratio] 12.8 mg/mg Normal [facility] Comment on above: Performed By: #### L IPID, FT3, BMP, TSH, LIVER #### [facility] [address] [place] [address] Yu Stefanie TSHon 05-22-2020 TSH 1.324 uIU/mL Normal 0.470-4.[address] [facility] Comment on above: Performed By: #### L IPID, FT3, BMP, TSH, LIVER #### [facility] [address] [place] [address] Yu Stefanie TSH RANGE SEE BELOW Normal [facility] Comment on above: Result Comment: <0.3 4 UIU/ml HYPERTHYROID 0.34-5.60 UIU/ml EUTHYROID >5.60 UIU/ml HYPOTHYROID Performed By: #### L IPID, FT3, BMP, TSH, LIVER #### [facility] [address] [place] [address] Yu Stefanie VITAMIN D 25 OHon 05-22-2020 VIT D 25-OH 18.0 ng/mL Normal [facility] Comment on above: Performed By: #### V ITAD, FT4 #### [facility] [address] [place] [address] Yu Stefanie VIT D RANGES SEE BELOW Normal [facility] Comment on above: Result Comment: <20 ng/mL Vit D deficient 20 - <30 ng/mL Vit D insufficient 30 - 100 ng/mL Vit D sufficient >100 ng/mL Potential Toxicity Performed By: #### V UYEN, FT4 #### [facility] [address] [place] [address] Yu Watts Vital Signs Date Time Vital Sign Value Performing Clinician Rani juan 04-18-2024 10:20-0500 Body weight 111.58 kg Maryann AMIN Work Phone: [facility] 04-18-2024 10:20-0500 Diastolic blood pressure 78 mm[Hg] Maryann AMIN Work Phone: [facility] 04-18-2024 10:20-0500 Systolic blood pressure 124 mm[Hg] Maryann AMIN Work Phone: [facility] 04-03-2024 10:58-0500 Body weight 109.23 kg Isidro Jasmine DO Work Phone: [facility] 04-03-2024 10:58-0500 Diastolic blood pressure 80 mm[Hg] Isidro Jasmine DO Work Phone: [facility] 04-03-2024 10:58-0500 Systolic blood pressure 120 mm[Hg] Isidro Jasmine DO Work Phone: [facility] 03-21-2024 13:54-0500 Body weight 109.32 kg Maryann AMIN Work Phone: [facility] 03-21-2024 13:54-0500 Diastolic blood pressure 74 mm[Hg] Maryann Smith PA Work Phone: [facility] 03-21-2024 13:54-0500 Systolic blood pressure 118 mm[Hg] Maryann AMIN Work Phone: [facility] 03-07-2024 11:00-0500 Body weight 108.32 kg Isidro Jasmine DO Work Phone: [facility] 03-07-2024 11:00-0500 Diastolic blood pressure 70 mm[Hg] Isidro Jasmine DO Work Phone: [facility] 03-07-2024 11:00-0500 Systolic blood pressure 120 mm[Hg] Isidro Jasmine DO Work Phone: [facility] 02-23-2024 10:16-0400 Body weight 108.77 kg Isidro Jasmine DO Work Phone: [facility] 02-23-2024 10:16-0400 Diastolic blood pressure 76 mm[Hg] Isidro Jasmine DO Work Phone: [facility] 02-23-2024 10:16-0400 Systolic blood pressure 130 mm[Hg] Isidro Jasmine DO Work Phone: [facility] 01-25-2024 10:36-0400 Body weight 108.86 kg Maryann AMIN Work Phone: [facility] 01-25-2024 10:36-0400 Diastolic blood pressure 72 mm[Hg] Maryann AMIN Work Phone: [facility] 01-25-2024 10:36-0400 Systolic blood pressure 124 mm[Hg] Maryann AMIN Work Phone: [facility] 12-22-2023 09:10-0400 Body weight 108.41 kg Isidro Jasmine DO Work Phone: [facility] 12-22-2023 09:10-0400 Diastolic blood pressure 80 mm[Hg] Isidro Jasmine DO Work Phone: [facility] 12-22-2023 09:10-0400 Systolic blood pressure 120 mm[Hg] Isidro Jasmine DO Work Phone: [facility] Healthcare Encounters Encounter Date Encounter Type Care Provider Facility Start: 04-18-2024 End: 04-18-2024 Bamboo flowsheet Maryann AMIN Work Phone: [facility] Start: 04-18-2024 End: 04-18-2024 Bamboo flowsheet Maryann AMIN Work Phone: [facility] Start: 04-18-2024 End: 04-18-2024 ambulatory MARYANN SMITH Not Available Start: 04-18-2024 End: 04-18-2024 Office outpatient visit 15 minutes Maryann AMIN Work Phone: [facility] Comment on above: Third trimester preg harini; 34 weeks gestation of Start: 04-13-2024 End: 04-13-2024 Telephone encounter Bing Mccann [facility] Start: 04-03-2024 End: 04-03-2024 Bamboo flowsheet [...] Start: 03-14-2024 End: 03-14-2024 ambulatory ISIDRO R [facility] Start: 03-07-2024 End: 03-07-2024 Bamboo flowsheet [...] Only Lottie Pool RN [facility] Comment on above: Insulin controlled g estational diabetes mellitus (GDM) in third trimester (Primary Dx); Severe obesity due to excess calories affecting , antepartum ([facility]); Alpha thalassemia silent carrier Start: 02-15-2024 End: 02-15-2024 Telephone encounter Kathie Sellers MD Work Phone: [facility] Start: 02-14-2024 End: 02-14-2024 ambulatory ISIDRO R [facility] Start: 02-02-2024 End: 02-02-2024 Telephone encounter Mojgan Zeng RN [facility] Start: 01-25-2024 End: 01-25-2024 Office outpatient visit 15 minutes Maryann Smith PA Work Phone: [facility] Comment on above: Second trimester pre gnancy Start: 01-25-2024 End: 01-25-2024 ambulatory MARYANN SMITH Not Available Start: 01-17-2024 End: 01-17-2024 ambulatory ISIDRO R [facility] Start: 12-22-2023 End: 12-22-2023 Bamboo flowsheet [...] Available Start: 12-12-2023 End: 12-12-2023 ambulatory ADELA [facility] Start: 10-28-2023 End: 10-28-2023 ambulatory [facility] Start: 10-28-2023 End: 10-28-2023 ambulatory [facility] Start: 10-28-2023 Encounter for gynecological examination (general) (routine) without abnormal findings [facility] Start: 10-28-2023 End: 10-28-2023 ambulatory [facility] Start: 10-28-2023 Encounter for gynecological examination (general) (routine) without abnormal findings [facility] Start: 10-20-2023 End: 10-20-2023 ambulatory [facility] Start: 10-06-2023 End: 10-06-2023 Emergency department patient visit [facility] Start: 10-04-2023 End: 10-04-2023 ambulatory [facility] Start: 06-26-2023 End: 06-26-2023 Emergency department patient visit TRAE SANCHEZ [facility] Start: 11-20-2020 End: 11-21-[address] TRAE SANCHEZ Facility:H1 Start: 11-05-2020 End: 11-05-[address] TRAE SANCHEZ Facility:[facility]1 Start: 06-25-2020 Encounter for genera l adult medical examination without abnormal findings DR TRAE SANCHEZ [facility] Start: 05-22-2020 End: 05-23-[address] [...] malign ant neoplasm of cervix Pap Smear [facility] Start: 02-15-2025 End: 02-15-2025 US MFM with or without consult US MFM with or without consult Imaging Routine Insulin controlled gestational diabetes mellitus (GDM) in third trimester Severe obesity due to excess calories affecting , antepartum ([facility]) Alpha thalassemia silent carrier Expected: 02/15/2025 (Approximate), Expires: 02/15/2025 [facility]: Comment on above: Expected: 02/15/2025 (Approximate), Expires: 02/15/2025 Start: 01-16-2025 Adult BMI Screening Adult BMI Screen ing [facility] Start: 01-16-2025 Tobacco Screening Tobacco Screening [facility] Start: 10-26-2024 Depression Screening Depression Scre ening [facility] Start: 05-08-2024 End: 05-08-2024 Patient encounter procedure 05/08/2024 10:00 AM EST Routine [facility] [address] [place] [address] Isidro Ferraro DO [address] [place] [address] [facility] Start: 04-18-2024 End: 04-18-2024 Patient encounter procedure 04/18/2024 9:50 AM EST Routine [facility] [address] [place] [address] Maryann Smith PA [address] [place], [place] [id number] [facility] Start: 04-03-2024 End: 04-03-2025 [...] AM EST Routine [facility] [address] [place] [address] Isidro Ferraro DO [address] [place] [address] [facility] Start: 03-21-2024 End: 03-21-2025 US biophysical profile w non stress test US biophysical profile w non stress test Imaging Routine Insulin controlled gestational diabetes mellitus (GDM) in third trimester Expected: 03/21/2024 (Approximate), Expires: 03/21/2025 [facility] Comment on above: Expected: 03/21/2024 (Approximate), Expires: 03/21/2025 Start: 03-21-2024 End: 03-21-2025 US for US OB SCAN FOR GROWTH Imaging Routine Insulin controlled gestational diabetes mellitus (GDM) in third trimester Expected: 03/21/2024 (Approximate), Expires: 03/21/2025 [facility] Work Phone: Comment on above: Expected: 03/21/2024 (Approximate), Expires: 03/21/2025 Start: 03-21-2024 End: 03-21-2024 Patient encounter procedure [facility] Comment on above: Arrived Start: 03-14-2024 End: 03-14-2024 Patient encounter procedure 03/14/2024 3:00 PM EST Appointment [facility] US Imaging [address] [place] [address] [facility] US Imaging Start: 03-07-2024 End: 03-07-2024 Patient encounter procedure 03/07/2024 11:10 AM EST Routine [facility] [address] [facility] [place] [phone] Isidro Ferraro DO [address] [place] [address] Arrived [facility] Comment on above: Arrived Start: 02-23-2024 End: 02-23-2024 Patient encounter procedure [facility] Comment on above: Arrived Start: 02-15-2024 End: 02-15-2024 Telemedicine consultation with patient 02/15/2024 9:45 AM EDT Telemedicine Maternal- Medicine at [facility] [address] [place] [address] Kathie Sellers MD [address] [address] Maternal- Medicine at [facility] Start: 02-14-2024 End: 02-14-2024 Patient encounter procedure 02/14/2024 2:00 PM EDT Appointment [facility] US Imaging [address] [place] [address] [facility] Imaging Start: 01-25-2024 End: 01-25-2024 Patient encounter procedure 01/25/2024 10:30 AM EDT Routine [facility] [address] [facility] [place] [id number] Maryann Smith PA [address] [place] [address] [facility] Start: 01-01-2024 Influenza vaccination [facility] Start: 12-22-2023 End: 12-22-2023 ambulatory 12/22/2023 8:50 AM EDT Initial [facility] [address] [place] [phone] Isidro Ferraro, DO [address] [place] [address] Arrived [facility] Comment on above: Arrived Start: 01-23-2020 DTaP,Tdap and Td Vaccines (7 - Td or Tdap) DTaP,Tdap and Td Vaccines (7 - Td or Tdap) [facility] Start: 10-10-2015 Adult BMI Follow Up Plan Adult BMI F ollow Up Plan [facility] CBC W Auto Different ial panel - Blood CBC and differential Lab Routine 32 weeks gestation of Third trimester Ordered: 04/03/2024 [facility] Work Phone: Comment on above: Ordered: 04/03/2024 Payers Date Payer Category Payer Medicaid [facility] [id number] 2019 Medicaid [id number] 2019 Private Health Insurance [facility] [id number] 2019 Medicaid [id number] 1997 Unknown [id number] 2.16840.1.184161.3.579.2. 593 1997 Unknown [id number] 2.16840.1.836009.3.579.2. 59 1997 Unknown [id number] 2.16840.1.057123.3.579.2. 593 1997 Unknown [id number] 2.840.1.372031.3.579.2. 1285 1997 Unknown [id number] 2.16840.1.287210.3.579.2. 1285 1997 Unknown [id number] 2.16840.1.769277.3.579.2. 1285 1997 Unknown [id number] 2.840.1.294189.3.579.2. 1285 1997 Unknown [id number] 2.840.1.759243.3.579.2. 1285 1997 Unknown [id number] 2.16840.1.139863.3.579.2. 1285 1997 Unknown [id number] 2.16840.1.812157.3.579.2. 1285 1997 Unknown [id number] 2.16840.1.157493.3.579.2. 1285 1997 Unknown [id number] 2.16840.1.513170.3.579.2. 1285 1997 Unknown [id number] 2.16.840.1.733830.3.579.2. 1286 1997 Unknown [id number] 2.16.840.1.682270.3.579.2. 1285 1997 Unknown [id number] 2.16.840.1.713809.3.579.2. 1285 1997 Unknown [id number] 2.16.840.1.632807.3.579.2. 1285 1997 Unknown [id number] 2.16.840.1.417953.3.579.2. 1258 1997 Unknown [id number] 2.16.840.1.862039.3.579.2. 1258 1997 Unknown [id number] 2.16.840.1.857219.3.579.2. 1258 1997 Unknown [id number] 2.16.840.1.807760.3.579.2. 1258 1997 Unknown [id number] 2.16.840.1.782957.3.579.2. 1258 1997 Unknown [id number] 2.16.840.1.073716.3.579.2. 1258 1997 Unknown [id number] 2.16.840.1.689106.3.579.2. 1259 1959 Unknown [id number] Social History Date Type Detail Facility Start: 06-26-2023 Tobacco smoking stat [facility] Never smoked tobacco [facility] Start: 06-26-2023 Tobacco use and exposure Smokeless tobacco non-user [facility] Start: 01-17-2024 Alcoholic beverage intake Ex-drinker (finding) [facility] Start: 06-12-2020 End: 01-17-2024 History of Social function [facility] Start: 06-12-2020 End: 01-17-2024 Tobacco use panel [facility] How hard is it for y ou to pay for the very basics like food, housing, medical care, and heating Not hard at all [facility] Start: 11-12-2021 Alcohol Comment rarely [facility] Start: 09-03-2023 [facility] Start: 1997 Sex assigned at Not on file [facility] Start: 12-05-2014 Sex Female (finding) [facility] Tobacco smoking stat us NHIS Tobacco smoking consumption unknown [facility] Medical Equipment Procedure Code Equipment Code Equipment Origin al Text Equipment Identifier Dates [id number] Start: 10-21-2023 Use to check fas ting blood sugar in the morning and one hour after first bite of each meal. Order supplies per insurance preference. [id number] Start: 10-21-2023 Test blood sugar 4 times a day [id number] Start: 12-13-2023 Use daily for insulin [id number] Start: 01-17-2024 Test blood sugar 4 times a day [id number] Start: 12-13-2023 Goals Date Patient Goal Desired Activity /State Personal health goal Clinical Notes 12-22-2023 to 04-18-2024 BRENNAN Vora - 04/18/2024 9:50 AM ESTTelephone Encounter - Bing Mccann CMA - 04/13/2024 10:21 AM ESTTelephone Encounter - Bing Mccann [facility] - 04/13/2024 10:21 AM EST Note Date [...] of: BRENNAN Vora documented in this encounter [facility] 04-13-2024 Miscellaneous Notes Formattin g of this note might be different from the original. Called patient in regard to not receiving blood sugar logs in two or more weeks. No answer. Asked patient to send most recent logs to the office email. Call back number left and patient encouraged to reach out if she has any questions or concerns. documented in this encounter [facility] 04-13-2024 Telephone encount er Note Called patient in regard to not receiving blood sugar logs in two or more weeks. No answer. Asked patient to send most recent logs to the office email. Call back number left and patient encouraged to reach out if she has any questions or concerns. [facility] 04-03-2024 History of Presen t illness Narrative [...] Isidro Ferraro DO documented in this encounter [facility] 03-21-2024 History of Presen t illness Narrative [...] of: BRENNAN Vora documented in this encounter [facility] 03-07-2024 History of Presen t illness Narrative [...] nursing note reviewed. Exam conducted with a environmental services director present. Vitals: There is no height or [...] Isidro Ferraro DO documented in this encounter [facility] 02-23-2024 History of Presen t illness Narrative [...] nursing note reviewed. Exam conducted with a environmental services director present. Vitals: There is no height or [...] is having follow up US scheduled at [facility]. Patient to start growth scans after next scan with [facility] every 4 weeks. Patient to start [...] Isidro Ferraro DO documented in this encounter [facility] 02-15-2024 Miscellaneous Notes Formattin g of this note might be different from the original. Risk Control Consultant elizabeth for pt w/ appt info on for 03/14 at 3:00 and requested a return call if she could not make that work. documented in this encounter [facility] 02-15-2024 Telephone encount er Note Risk Control Consultant elizabeth for pt w/ appt info on for 03/14 at 3:00 and requested a return call if she could not make that work. [facility] 02-15-2024 Miscellaneous Notes Formattin g of this note might be different from the original. Risk Control Consultant laila ECHEVERRIA. Patient scheduled for a MyChart Visit @ 9:45 am. Risk Control Consultant asked patient to get pallet stone inserter if available. Risk Control Consultant left call back number [phone] #[phone] if patient needs to reschedule. documented in this encounter [facility] 02-15-2024 Telephone encount er Note Risk Control Consultant left VM. Patient scheduled for a MyChart Visit @ 9:45 am. Risk Control Consultant asked patient to get pallet stone inserter if available. Risk Control Consultant left call back number [phone] #[phone] if patient needs to reschedule. [facility] 02-02-2024 Miscellaneous Notes Formattin g of this note might be different from the original. Called patient, no answer, left message to please send blood glucose logs to the diabetes email. documented in this encounter [facility] 02-02-2024 Telephone encount er Note Called patient, no answer, left message to please send blood glucose logs to the diabetes email. [facility] 01-25-2024 History of Presen t illness Narrative [...] of: BRENNAN Vora documented in this encounter [facility] 12-22-2023 History of Presen t illness Narrative [...] nursing note reviewed. Exam conducted with a environmental services director present. Vitals: There is no height or [...] after delivery, elevated sugars and currently seeing [facility] for Diabetic Education. Patient has [...] , antepartum (CMS-HCC) [facility] Diagnosis Insulin controlled gestational diabetes mellitus (GDM) in third trimester Severe obesity due to excess calories affecting , antepartum (CMS-HCC) [facility] Diagnosis Insulin controlled gestational diabetes mellitus (GDM) in third trimester- Primary Severe obesity due to excess calories affecting , antepartum (CMS-HCC) Alpha thalassemia silent carrier [facility] Diagnosis 28 weeks gestation [...] and content) DATE CREATED AUTHOR 12/02/2020 [facility] DATE CREATED AUTHOR AUTHOR'S ORGANIZ ATION 10/30/2023 [facility] DATE CREATED AUTHOR AUTHOR'S ORGANIZ ATION 11/02/2023 [facility] DATE CREATED AUTHOR AUTHOR'S ORGANIZ ATION [facility]/16[facility]20[facility] DATE CREATED AUTHOR AUTHOR'S ORGANIZ ATION 04/21/2024 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 Relationship Specialty Start Date End Date Joanna Allan MD [address] [place], [place] [id number] PCP - General Family Medicine 09/07/22 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 Relationship Specialty Start Date End Date Joanna Allan MD [address] [place] [address] PCP - General Family Medicine 09/07/22 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 Relationship Specialty Start Date End Date Joanna Allan MD [address] [place] [address] PCP - General Family Medicine 09/07/22 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 Relationship Specialty Start Date End Date Joanna Allan MD [address] [place] [address] PCP - General Family Medicine 09/07/22 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 Relationship Specialty Start Date End Date Joanna Allan MD [address] [place] [address] PCP - General Family Medicine 09/07/22 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 Relationship Specialty Start Date End Date Joanna Allan MD [address] [place] [address] PCP - General [facility] Medicine 09/07/22 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 Relationship Specialty Start Date End Date Joanna Allan MD [address] [facility] [place] [address] PCP - General Family Medicine 09/07/22 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 Relationship Specialty Start Date End Date Joanna Allan MD [address] [place] [address] PCP - General Family Medicine 09/07/22 Reason [...] BE BASED ON THE PRIMARY CLINICAL RECORDS. [facility] [employer] [facility]. provides no warranty or guarantee of the accuracy or completeness of information in this document.
--- OUTSIDE RECORDS SUMMARY | 2024-04-30 00:13 | XMS_ITS | CCD ---
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 Name Role Phone LAURA, DR TRAE Delaney Primary Care Unavailable NADERER, DR TRAE Delaney Admitting Unavailable NADERER, DR TRAE Delaney Attending Unavailable NADERER, DR TRAE Delaney Consulting Unavailable NADERER, DR TRAE Delaney Primary Care Unavailable KARASIK, DR OLMOS Attending Unavailable KARASIK, DR OLMOS Consulting Unavailable KARASIK, DR OLMOS Admitting Unavailable NADERER, DR TRAE Delaney Primary Care Unavailable SAFFORD, DR JOSE Torres Consulting Unavailable JASMINE, DR [...] Provider Joanna Allan MD Primary Care Provider [phone] YASMINE ZAVALA Referring Unavailable NADERER, TRAE Primary [...] due to excess calories affecting , ante[place] ([facility] , 21 weeks gestation of Inject 10U [...] UA Negative Negative - 4(70) +++ mg/dL [facility] Blood, UA Negative Negative - 50 Janes/mcL [facility] Clarity, UA Cloudy [facility] Color, UA Misty [facility] Glucose, UA Positive Negative - 1999(110) ++++ mg/dL [facility] Comment on above: 250 Interpretation and review of laboratory results Abnormal [facility] Ketones, UA Negative Negative - 160(16) ++++ mg/dL [facility] Leukocytes, UA Moderate Negative - 500+++ Too/mcL [facility] Nitrite, UA Negative Negative - Positive [facility] pH, UA 6.5 5 - 9 [facility] Protein, UA Trace Negative - 1999(20) ++++ mg/dL [facility] Spec Grav, UA 1.02 1 - 1.03 [facility] Urobilinogen, UA 0.2 0.2 - 12 mg/dL [facility] Urinalysis macro (dipstick) panel (U)on 04-03-2024 Bilirubin, UA Negative Negative - 4(70) +++ mg/dL [facility] Blood, UA Negative Negative - 50 Janes/mcL [facility] Clarity, UA Clear [facility] Color, UA Yellow [facility] Glucose, UA Negative Negative - 1999(110) ++++ mg/dL [facility] Interpretation and review of laboratory results Abnormal [facility] Ketones, UA Positive Negative - 160(16) ++++ mg/dL [facility] Comment on above: 40 Leukocytes, UA Positive Negative - 500+++ Too/mcL [facility] Comment on above: small Nitrite, UA Negative Negative - Positive [facility] pH, UA 7 5 - 9 [facility] Protein, UA Trace Negative - 1999(20) ++++ mg/dL [facility] Spec Grav, UA 1.025 1 - 1.03 [facility] Urobilinogen, UA 0.2 0.2 - 12 mg/dL [facility] Urinalysis macro (dipstick) panel (U)on 03-21-2024 Bilirubin, UA Negative Negative - 4(70) +++ mg/dL [facility] Blood, UA Negative Negative - 50 Janes/mcL [facility] Clarity, UA Clear [facility] Color, UA Yellow [facility] Glucose, UA Negative Negative - 1999(110) ++++ mg/dL [facility] Interpretation and review of laboratory results Abnormal [facility] Ketones, UA Negative Negative - 160(16) ++++ mg/dL [facility] Leukocytes, UA Trace Negative - 500+++ Too/mcL [facility] Nitrite, UA Negative Negative - Positive [facility] pH, UA 6 5 - 9 [facility] Protein, UA Negative Negative - 1999(20) ++++ mg/dL [facility] Spec Grav, UA 1.03 1 - 1.03 [facility] Urobilinogen, UA 0.2 0.2 - 12 mg/dL [facility] Urinalysis macro (dipstick) panel (U)on 03-07-2024 Bilirubin, UA Positive Negative - 4(70) +++ mg/dL [facility] Comment on above: small Blood, UA Positive Negative - 50 Janes/mcL [facility] Comment on above: trace-intact Clarity, UA Clear [facility] Color, UA Yellow [facility] Glucose, UA Negative Negative - 1999(110) ++++ mg/dL [facility] Interpretation and review of laboratory results Abnormal [facility] Ketones, UA Positive Negative - 160(16) ++++ mg/dL [facility] Comment on above: trace Leukocytes, UA Positive Negative - 500+++ Too/mcL [facility] Comment on above: small Nitrite, UA Negative Negative - Positive [facility] pH, UA 5.5 5 - 9 [facility] Protein, UA Negative Negative - 1999(20) ++++ mg/dL [facility] Spec Grav, UA 1.03 1 - 1.03 [facility] Urobilinogen, UA 0.2 0.2 - 12 mg/dL [facility] Urinalysis macro (dipstick) panel (U)on 02-23-2024 Bilirubin, UA Negative Negative - 4(70) +++ mg/dL [facility] Blood, UA Positive Negative - 50 Janes/mcL [facility] Comment on above: trace-intact Clarity, UA Clear [facility] Color, UA Yellow [facility] Glucose, UA Negative Negative - 1999(110) ++++ mg/dL [facility] Interpretation and review of laboratory results Abnormal [facility] Ketones, UA Negative Negative - 160(16) ++++ mg/dL [facility] Leukocytes, UA Positive Negative - 500+++ Too/mcL [facility] Comment on above: small Nitrite, UA Negative Negative - Positive [facility] pH, UA 6 5 - 9 [facility] Protein, UA Negative Negative - 1999(20) ++++ mg/dL [facility] Spec Grav, UA 1.03 1 - 1.03 [facility] Urobilinogen, UA 0.2 0.2 - 12 mg/dL [facility] Urinalysis macro (dipstick) panel (U)on 01-25-2024 Bilirubin, UA Negative Negative - 4(70) +++ mg/dL [facility] Blood, UA Positive Negative - 50 Janes/mcL [facility] Comment on above: trace Clarity, UA Clear [facility] Color, UA Yellow [facility] Glucose, UA Negative Negative - 1999(110) ++++ mg/dL [facility] Interpretation and review of laboratory results Abnormal [facility] Ketones, UA Positive Negative - 160(16) ++++ mg/dL [facility] Comment on above: trace Leukocytes, UA Positive Negative - 500+++ Too/mcL [facility] Comment on above: small Nitrite, UA Negative Negative - Positive [facility] pH, UA 6.0 5 - 9 [facility] Protein, UA Negative Negative - 2000(20) ++++ mg/dL [facility] Spec Grav, UA 1.030 1 - 1.03 [facility] Urobilinogen, UA 0.2 0.2 - 12 mg/dL [facility] Urinalysis macro (dipstick) panel (U)on 12-22-2023 Bilirubin, UA Negative Negative - 4(70) +++ mg/dL [facility] Blood, UA Positive Negative - 50 Janes/mcL [facility] Comment on above: small Clarity, UA Clear [facility] Color, UA Yellow [facility] Glucose, UA Negative Negative - 1999(110) ++++ mg/dL [facility] Interpretation and review of laboratory results Abnormal [facility] Ketones, UA Negative Negative - 160(16) ++++ mg/dL [facility] Leukocytes, UA Positive Negative - 500+++ Too/mcL [facility] Comment on above: small Nitrite, UA Negative Negative - Positive [facility] pH, UA 5.5 5 - 9 [facility] Protein, UA Negative Negative - 2000(20) ++++ mg/dL [facility] Spec Grav, UA 1.030 1 - 1.03 [facility] Urobilinogen, UA 0.2 0.2 - 12 mg/dL [facility] CHLAMYDIA/GC PCR, FLon 10-27 CHLAMYDIA/GC PCR, [...] are dependent on adequate specimen collection. Normal [facility] Comment on above: Performed By: #### D MCCLOUD #### [facility] ([id number]) [address] [place] [address], [address] [place] [address] Cytology Cervical or vaginal smear or scraping studyon 10-28-2023 [facility] VAGINITIS PANEL PCRon 2023 VAGINITIS PANEL [...] clinical presentation to determine patient diagnosis. Normal [facility] Comment on above: Performed By: #### V PPCR #### [facility] ([id number]) [address] [place] [address], [place] [id number] ACUTE HEPATITIS PANELon 10-01 ANTI HCV W/PCR REFLX Non-Reactive Normal NRCT Pr [facility] Comment on above: Result Comment: If recent infection suspected, recommend repeat testing (>2 months). Exstqd-bj-romxsa ratio is <0.80. Performed By: #### 1 504-0, 75987-9, CBC, AHP, 33806-9, 83749-1, 39671-6, 49272-9, 6864-3 #### [facility] ([id number]) [address] [place] [address], [address] [place] [address] HEPATITIS A IGM Non-Reactive Normal NRCT [facility] Comment on above: Performed By: #### 1 504-0, 63885-6, CBC, AHP, 21877-6, 71490- 5, 68754-0, 49700-3, 6864-3 #### [facility] ([id number]) [address], [address] [place] [address] HEPATITIS B CORE IGM Negative Normal NEG [facility] Comment on above: Performed By: #### 1 504-0, 58181-3, CBC, AHP, 57890-1, 72381- 5, 19425-5, 90069-1, 6864-3 #### [facility] ([id number]) [address], [address] [place] [address] HEPATITIS B SURF AG Negative Normal NEG [facility] Comment on above: Performed By: #### 1 504-0, 75713-2, CBC, AHP, 58668-5, 86358- 5, 69013-1, 45128-2, 6864-3 #### [facility] ([id number]) [address], [address] [address] COMPLETE BLOOD COUNTon 10-19 Erythrocyte distribution width (RBC) [Ratio] 15.0 % Normal 11.5-15.0 [facility] Comment on above: Performed By: #### 1 504-0, 67846-3, CBC, AHP, 89877-9, 88551- 5, 24006-2, 25684-9, 6864-3 #### [facility] ([id number]) [address] [address] Hematocrit (Bld) [Volume fraction] 38.0 % Normal 35-47 [facility] Comment on above: Performed By: #### 1 504-0, 95332-0, CBC, AHP, 00293-0, 99081- 5, 22945-3, 38433-1, 6864-3 #### [facility] ([id number]) [address], [address] [address] Hemoglobin (Bld) [Mass/Vol] 12.5 g/dL Normal 11.7-15.5 [facility] Comment on above: Performed By: #### 1 504-0, 78128-9, CBC, AHP, 21122-5, 44107- 5, 00021-4, 73507-6, 6864-3 #### [facility] ([id number]) [address], [address] [place] [address] MCH (RBC) [Entitic mass] 27.4 pg Normal 27-34 [facility] Comment on above: Performed By: #### 1 504-0, 59224-9, CBC, AHP, 59467-8, 11491- 5, 61678-3, 31329-2, 6864-3 #### [facility] ([id number]) [address], [address] [place] [address] MCHC (RBC) [Mass/Vol] 32.9 g/dL Normal 32-36 [facility] Comment on above: Performed By: #### 1 504-0, 68967-5, CBC, AHP, 57748-7, 67696- 5, 46078-2, 06613-3, 6864-3 #### [facility] ([id number]) [address], [address] [place] [address] MCV (RBC) [Entitic vol] 83 fL Normal 80-100 [facility] Comment on above: Performed By: #### 1 504-0, 21617-3, CBC, AHP, 98183-4, 94901- 5, 84278-9, 32757-9, 6864-3 #### [facility] ([id number]) [address], [address] [place] [address] Platelet mean volume (Bld) [Entitic vol] 8.6 fL Normal 7-12 [facility] Comment on above: Performed By: #### 1 504-0, 96708-6, CBC, AHP, 03647-2, 30565- 5, 68183-1, 43372-8, 6864-3 #### [facility] ([id number]) [address], [address] [place] [address] Platelets (Bld) [#/Vol] 282 10*3/uL Normal 150-450 [facility] Comment on above: Performed By: #### 1 504-0, 61603-8, CBC, AHP, 74646-8, 55433- 5, 41198-0, 97634-0, 6864-3 #### [facility] ([id number]) [address], [address] [place] [address] RBC COUNT 4.55 X10E12/L Normal 3.80-5.20 [facility] Comment on above: Performed By: #### 1 504-0, 76853-7, CBC, AHP, 18067-2, 34503- 5, 76985-7, 62126-3, 6864-3 #### [facility] ([id number]) [address] [facility], [address] [place] [address] WBC (Bld) [#/Vol] 7.3 10*3/uL Normal 4.0-11.0 [facility] Comment on above: Performed By: #### 1 504-0, 45841-6, CBC, AHP, 27176-0, 53318- 5, 79136-8, 44698-6, 6864-3 #### [facility] ([id number]) [address], [address] [place] [address] DRUG SCREEN, URINEon 024 AMPHETAMINE/METHAMP Negative Normal NEG [facility] Comment on above: Result Comment: AMPH /METH screening cut off = 1000 ng/mL Performed By: #### D MCCLOUD #### [facility] ([id number]) [address], [address] [place] [address] BARBITURATES Negative Normal NEG [facility] Comment on above: Result Comment: Dayana iturates screening cut off value = 200 ng/mL Performed By: #### D MCCLOUD #### [facility] ([id number]) [address], [address] [place] [address] BENZODIAZEPINES Negative Normal NEG [facility] Comment on above: Result Comment: Ki odiazepines screening cut off value = 200 ng/mL Performed By: #### D MCCLOUD #### [facility] ([id number]) [address], [address] [place] [address] CANNABINOIDS Negative Normal NEG [facility] Comment on above: Result Comment: Gaurang abinoids/THC screening cut off value = 50 ng/mL Performed By: #### D MCCLOUD #### [facility] ([id number]) [address], [address] [place] [address] COCAINE METABOLITE Negative Normal [facility] Comment on above: Result Comment: Coca ine screening cut off value = 300 ng/mL Performed By: #### D MCCLOUD #### [facility] ([id number]) [address], [address] [place] [address] ECSTASY Negative Normal [facility] Comment on above: Result Comment: Ecst asy screening cut off value = 500 ng/mL This report is intended for use in clinical monitoring or management of patients. Performed By: #### D MCCLOUD #### [facility] ([id number]) [address], [address] [place] [address] METHADONE Negative Normal NEG [facility] Comment on above: Result Comment: Meth adone screening cut off value = 300 ng/mL. Performed By: #### D MCCLOUD #### [facility] ([id number]) [address], [address] [place] [address] OPIATES Negative Normal NEG [facility] Comment on above: Result Comment: Opia nasrin screening cut off value = 300 ng/mL NOTE: This test is used for the detection of codeine, hydrocodone (>1000 ng/mL), morphine and hydromorphone (>900 ng/mL) in urine. Performed By: #### D MCCLOUD #### [facility] ([id number]) [address], [address] [place] [address] OXYCODONE Negative Normal NEG [facility] Comment on above: Result Comment: Oxyc odone screening cut off value = 300 ng/mL NOTE: This test is used for the detection of oxycodone and oxymorphone in urine. Performed By: #### D MCCLOUD #### [facility] ([id number]) [address], [address] [place] [address] PHENCYCLIDINE Negative Normal NEG [facility] Comment on above: Result Comment: Phen cyclidine screening cut off value = 25 ng/mL Performed By: #### D MCCLOUD #### [facility] ([id number]) [address], [address] [place] [address] Glucose 1 Hr post 50 g gluco se PO [Mass/Vol]on 10-20-2023 GLU 1H POST 50G LOAD 207 mg/dL High 65-139 [facility] Comment on above: Performed By: #### 1 504-0, 70875-3, CBC, AHP, 01120-4, 65373- 5, 89433-6, 46068-6, 6864-3 #### [facility] ([id number]) [address], [address] [place] [address] HCG.beta subunit IA 3rd IS Q non 10-20-2023 [place] [address] m[IU]/mL Normal P [facility] Comment on above: Result Comment: NEW [...] nontrophoblastic neoplasms. Performed By: #### 1 504-0, 68463-7, CBC, AHP, 37126-7, 39214-6, 03970-1, 01732-4, 6864-3 #### [facility] ([id number]) [address] [facility] [place] [address] HIV 1+2 Ab+HIV1 p24 Ag IA Ql on 10-20-2023 HIV 1 and 2 Ab/Ag Screen Non-Reactive Normal NRCT [facility] Comment on above: Result Comment: [...] or diagnoses. Performed By: #### 1 504-0, 00447-3, CBC, AHP, 56592-3, 61741-5, 96020-7, 41008-8, 6864-3 #### [facility] ([id number]) [address] [facility], [address] [place] [address] Hemoglobin S Solubility test Ql (Bld)on 10-20-2023 SICKLE SOLUBILITY Negative Normal NEG [facility] Comment on above: Performed By: #### D MCCLOUD #### [facility] ([id number]) [address] [facility], [address] [place] [address] Rubella virus Ab Ql (S)on RUBELLA IMMUNE IgG 4.3 AI Normal [facility] Comment on above: Result Comment: Interpretation-------- <0.8 NEGATIVE-considered Not Immune 0.8-0.9 EQUIVOCAL-consider retesting with new specimen >0.9 POSITIVE-considered Immune Performed By: #### 1 504-0, 09094-7, CBC, AHP, 95746-7, 50733-7, 53952-6, 74660-6, 6864-3 #### [facility] ([id number]) [address], [address] [place] [address] T. pallidum IgG+IgM IA Ql (S )on 10-20-2023 Syphilis Total <0.2 Normal 0.0-0.8 [facility] Comment on above: Result Comment: NON REACTIVE No serologic evidence of infection to Treponema pallidum (syphilis). Repeat testing may be considered in patients with suspected acute or primary syphilis in 2 to 4 weeks. Performed By: #### 1 504-0, 64844-8, CBC, AHP, 62308-9, 83584-6, 26692-9, 63438-6, 6864-3 #### [facility] ([id number]) [address], [address] [place] [address] URINALYSISon 10-20-2023 Bilirubin Ql (U) Negative Normal NEG [facility] Comment on above: Performed By: #### U A #### [facility] ([id number]) [address], [address] [place] [address] BLOOD/HGB Small Abnormal NEG [facility] Comment on above: Performed By: #### U A #### [facility] ([id number]) [address], [address] [place] [address] Color (U) YELLOW Normal YELLOW [facility] Comment on above: Performed By: #### U A #### [facility] ([id number]) [address], [address] [place] [address] Glucose Ql (U) Negative Normal NEG [facility] Comment on above: Performed By: #### U A #### [facility] ([id number]) [address], [address] [place] [address] Ketones Ql (U) Negative Normal NEG [facility] Comment on above: Performed By: #### U A #### [facility] ([id number]) [address], [address] [place] [address] Leukocyte esterase Test strip Ql (U) MODERATE Abnormal NEG [facility] Comment on above: Performed By: #### U A #### [facility] ([id number]) [address], [address] [place] [address] MUCOUS PRESENT Abnormal NONE [facility] Comment on above: Performed By: #### U A #### [facility] ([id number]) [address], [address] [place] [address] Nitrite Ql (U) Negative Normal NEG [facility] Comment on above: Performed By: #### U A #### [facility] ([id number]) [address], [address] [place] [address] pH (U) 6.0 [pH] Normal 5.0-8.5 [facility] Comment on above: Performed By: #### U A #### [facility] ([id number]) [address], [address] [place] [address] Protein Ql (U) Trace Abnormal NEG [facility] Comment on above: Performed By: #### U A #### [facility] ([id number]) [address], [address] [place] [address] R.B.CELLS 5 /hpf Normal 0-5 [facility] Comment on above: Performed By: #### U A #### [facility] ([id number]) [address] [address] [place] [address] Specific gravity (U) [Rel density] 1.024 Normal 1.003-1.035 [facility] Comment on above: Performed By: #### U A #### [facility] ([id number]) [address] [facility] [address] [place] [address] SQUAMOUS EPITHELIUM 14 /hpf High 0-5 [facility] Comment on above: Performed By: #### U A #### [facility] ([id number]) [address] [address] TURBIDITY HAZY Abnormal CLEAR [facility] Comment on above: Performed By: #### U A #### [facility] ([id number]) [address] [address] Urobilinogen (U) [Mass/Vol] mg/dL Normal <1.1 [facility] Comment on above: Performed By: #### U A #### [facility] ([id number]) [address] [address] W.B.CELLS 4 /hpf Normal 0-5 [facility] Comment on above: Performed By: #### U A #### [facility] ([id number]) [address] [address] URINE CULTUREon 10-20-2023 Bacteria identified Cx Nom (U) CULTURE RESULTS <10,000 ORGANISMS/ML NORMAL URO GENITAL DYLAN Normal [facility] Comment on above: Performed By: #### D MCCLOUD #### [facility] ([id number]) [address] [place] [address] US PREG LESS THAN 14 WKS WIT H TRANSVAGINALon 10-20-2023 US PREG LESS THAN 14 WKS WITH TRANSVAGINAL US PREG LESS THAN 14 WKS WITH TRANSVAGINAL CLINICAL HISTORY: Dates and viability Comparison: None FINDINGS: * Single live IUP at 8 weeks 4 days. [place]-rump length 2.0 cm. Yolk sac visualized. Heart [...] Oviedo MD on 10/20/2023 1:43 PM Normal [facility] VZV IgG IA Ql (S)on 10-20-19 VARICELLA IgG 4.0 AI High <0.9 [facility] Comment on above: Result Comment: Interpretation-------- <0.9 Negative 0.9 - 1.0 Equivocal >1.0 Positive Performed By: #### D MCCLOUD #### [facility] ([id number]) [address] [place] [address], [address] [place] [address] 17-[place] PROGESTERONE, LC/MSon 11-23-2020 17-[place] Progesterone LCMS 46 ng/dL Normal [facility] Comment on above: Result Comment: Adul t Female Follicular 15 - 70 Luteal 35 - 290 Performed By: #### Brian QIU FT4 #### [facility] [address] [id number] Yu Watts DHEA-SULFATEon 11-21-2020 DHEA-Sulfate 275.0 ug/dL Normal 110.0-431.7 [facility] Comment on above: Performed By: #### Brian QIU FT4 #### [facility] [address] [id number] Yu Watts FSHon 11-21-2020 FSH 7.9 mIU/mL Normal [facility] Comment on above: Result Comment: Adul t Female: Follicular phase 3.5 - 12.5 Ovulation phase 4.7 - 21.5 Luteal phase 1.7 - 7.7 Postmenopausal 25.8 - 134.8 Performed By: #### L BCFS #### [facility] [address] [place], [place] [address] Yu Watts LUTEINIZING HORMONE (LH)on 0 11-21-2020 LH 11.3 mIU/mL Normal [facility] Comment on above: Result Comment: Adul t Female: Follicular phase 2.4 - 12.6 Ovulation phase 14.0 - 95.6 Luteal phase 1.0 - 11.4 Postmenopausal 7.7 - 58.5 Performed By: #### V ITAD, FT4 #### [facility] [address] [place], [place] [address] Yu Watts PROLACTINon 11-21-2020 Prolactin 8.5 ng/mL Normal 4.8-23.3 [facility] Comment on above: Performed By: #### V ITAD, FT4 #### [facility] [address] [place], [place] [address] Yu Watts TESTOSTERONE, TOTALon 2020 Testosterone [Mass/Vol] 23 ng/dL Normal 13-71 [facility] Comment on above: Performed By: #### T ESTTOT #### [facility] [address] [place], [place] [address] Yu Watts TSHon 11-20-2020 TSH 1.061 uIU/mL Normal 0.470-4.680 [facility] Comment on above: Performed By: #### T SH #### [facility] [address] [place], [place] [address] Yu Watts TSH RANGE SEE BELOW Normal [facility] Comment on above: Result Comment: <0.3 4 UIU/ml HYPERTHYROID 0.34-5.60 UIU/ml EUTHYROID >5.60 UIU/ml HYPOTHYROID Performed By: #### T SH #### [facility] [address] [place], [place] [id number] Yu Stefanie US PELVIS AND TRANSVAGon US [...] by: JOSE DUARTE Date: 2020-11-20 11:38 Normal [facility] PAP ACOG PANEL 2: 21 to 29on 11-07-2020 . . Normal [facility] Comment on above: Performed By: #### [id number] #### [facility] [address] [place] [address] Yu Watts Age Gdln ACOG Testing 21-29 Normal [facility] Comment on above: Performed By: #### [id number] #### [facility] [address] [place] [address] Yu Watts DIAGNOSIS: Comment Normal [facility] Comment on above: Result Comment: NEGA TIVE FOR INTRAEPITHELIAL LESION OR MALIGNANCY. Performed By: #### [id number] #### [facility] [address] [place] [address] Yu Watts Methodology: Comment Normal [facility] Comment on above: Result Comment: This liquid based ThinPrep(R) pap test was screened with the use of an image guided system. Performed By: #### [id number] #### [facility] [address] [place] [address] Yu Watts Note: Comment Normal [facility] Comment on above: Result Comment: The Pap smear is a screening test designed to aid in the detection of premalignant and malignant conditions of the uterine cervix. It is not a diagnostic procedure and should not be used as the sole means of detecting cervical cancer. Both false-positive and false-negative reports do occur. . Performed By: #### [id number] #### [facility] [address] [place] [address] Yu Watts Performed by: Comment Normal [facility] Comment on above: Result Comment: Travon Martinez, Laydown Machine Operator (ASCP) Performed By: #### [id number] #### [facility] [address] [place] [address] Yu Watts Reflex Criteria: Comment Normal [facility] Comment on above: Result Comment: The HPV DNA reflex criteria were not met with this specimen result therefore, no HPV testing was performed. . Performed By: #### 4 [id number] #### [facility] [address] [place] [address] Yu Watts Specimen adequacy: Comment Normal [facility] Comment on above: Result Comment: Sati sfactory for evaluation. Endocervical and/or squamous metaplastic cells (endocervical component) are present. Performed By: #### 4 [id number] #### [facility] [address] [place] [address] Yu Watts DHEA-SULFATEon 05-24-2020 DHEA-Sulfate 258.0 ug/dL Normal 110.0-431.7 [facility] Comment on above: Performed By: #### V ITAD, FT4 #### [facility] [address] [place] [address] Yu Watts INSULINon 05-24-2020 Insulin 21.4 uIU/mL Normal 2.6-24.9 [facility] Comment on above: Performed By: #### I NSULIN #### [facility] [address] [place] [address] Yu Stefanie CBC AUTO DIFFon 05-22-2020 BASO # 0.0 103/ul Normal 0.0-0.1 [facility] Comment on above: Performed By: #### V ITAD, FT4 #### [facility] [address] [place], [place] [phone] Yuteri Watts Basophils/100 WBC (Bld) 0.4 % Normal 0.2-2.0 [facility] Comment on above: Performed By: #### V ITAD, FT4 #### [facility] [address] [place], [place] [phone] Yu Stefanie EO # 0.0 103/ul Normal 0.0-0.7 [facility] Comment on above: Performed By: #### Brian QIU, FT4 #### [facility] [address] [place], [place] [phone] Yu Stefanie Eosinophils/100 WBC (Bld) 0.7 % Critically low 0.9-7.0 [facility] Comment on above: Performed By: #### Brian QIU, FT4 #### [facility] [address] [place] [address] Yu Stefanie Erythrocyte distribution width (RBC) [Ratio] 13.9 % Normal 11.0-15.0 [facility] Comment on above: Performed By: #### Brian QIU, FT4 #### [facility] [address] [place] [address] Yu Stefanie Hematocrit (Bld) [Volume fraction] 39.0 % Normal 36.0-48.0 [facility] Comment on above: Performed By: #### Brian QIU, FT4 #### [facility] [address] [place] [address] Yu Stefanie Hemoglobin (Bld) [Mass/Vol] 12.6 g/dL Normal 12.0-16.0 [facility] Comment on above: Performed By: #### Brian QIU, FT4 #### [facility] [address] [place] [address] Yu Stefanie IG # 0.01 10e3/ul Normal 0.00-0.03 [facility] Comment on above: Performed By: #### Brian QIU, FT4 #### [facility] [address] [place] [address] Yu Stefanie IG % 0.2 % Normal 0.0-0.5 [facility] Comment on above: Performed By: #### Brian QIU, FT4 #### [facility] [address] [place] [address] Yu Stefanie LYMPH # 1.4 103/ul Normal 1.2-3.8 [facility] Comment on above: Performed By: #### Brian QIU, FT4 #### [facility] [address] [place], [place] [phone] Yu Stefanie Lymphocytes/100 WBC (Bld) 25.3 % Normal 20.5-60.0 [facility] Comment on above: Performed By: #### V UYEN, FT4 #### [facility] [address] [place], [place] [phone] Yu Stefanie MANUAL DIFF REQ NO Normal [facility] Comment on above: Performed By: #### V ITJODI, FT4 #### [facility] [address] [place], [place] [phone] Yu Stefanie MCH (RBC) [Entitic mass] 27.2 pg Normal 26.7-34.0 [facility] Comment on above: Performed By: #### Brian QIU, FT4 #### [facility] [address] [place] [address] Yu Stefanie MCHC (RBC) [Mass/Vol] 32.3 g/dL Normal 29.9-35.2 [facility] Comment on above: Performed By: #### Brian QIU, FT4 #### [facility] [address] [place], [place] [address] Yu Stefanie MCV (RBC) [Entitic vol] 84.1 fL Normal 81.0-99.0 [facility] Comment on above: Performed By: #### Brian QIU, FT4 #### [facility] [address] [place], [place] [address] Yu Stefanie MONO # 0.4 103/ul Normal 0.3-0.8 [facility] Comment on above: Performed By: #### V ITJODI, FT4 #### [facility] [address] [place], [place] [address] Yu Stefanie Monocytes/100 WBC (Bld) 7.1 % Normal 1.7-12.0 [facility] Comment on above: Performed By: #### V ITJODI, FT4 #### [facility] [address] [place], [place] [address] Yu Stefanie NEUT # 3.6 103/ul Normal 1.4-6.5 [facility] Comment on above: Performed By: #### V ITAD, FT4 #### [facility] [address] [place], [place] [address] Yu Stefanie Neutrophils/100 WBC (Bld) 66.3 % Normal 43.0-75.0 [facility] Comment on above: Performed By: #### V ITJODI, FT4 #### [facility] [address] [place] [address] Yuteri Watts Platelet mean volume (Bld) [Entitic vol] 10.9 fL Normal 9.5-13.5 [facility] Comment on above: Performed By: #### V ITJODI, FT4 #### [facility] [address] [place] [address] Yu Stefanie PLT 243 103/ul Normal 150-450 [facility] Comment on above: Performed By: #### V ITJODI, FT4 #### [facility] [address] [place] [address] Yu Stefanie RBC 4.64 106/ul Normal 4.20-5.40 [facility] Comment on above: Performed By: #### V ITJODI, FT4 #### [facility] [address] [place] [address] Yu Stefanie WBC 5.4 103/ul Normal 4.0-11.0 [facility] Comment on above: Performed By: #### V ITJODI, FT4 #### [facility] [address] [place] [id number] Yu Stefanie FREE T3on 05-22-2020 FREE T3 3.22 pg/mlL Normal 2.77-5.27 [facility] Comment on above: Performed By: #### V ITAD, FT4 #### [facility] [address] [place] [address] Yu Stefanie FREE T4on 05-22-2020 Free T4 [Mass/Vol] 1.10 ng/dL Normal 0.78-2.[address] [facility] Comment on above: Performed By: #### V ITAD, FT4 #### [facility] [address] [place] [address] Yuteri Watts GLYCOHEMOGLOBIN A1Con 2020 Glucose [Mass/Vol] 120 mg/dL Normal [facility] Comment on above: Performed By: #### V ITJODI, FT4 #### [facility] [address] [id number] Yu Watts HbA1c (Bld) [Mass fraction] 5.8 % Normal <=6.0 [facility] Comment on above: Performed By: #### V ITJODI, FT4 #### [facility] [address] [id number] Yu Watts LIPID PROFILEon 05-22-2020 CHOL-HDL RATIO NORM SEE BELOW Normal [facility] Comment on above: Result Comment: 3.3 - 4.4 LOW RISK 4.4 - 7.1 AVERAGE RISK 7.1 - 11.0 MODERATE RISK >11.0 HIGH RISK Performed By: #### L IPID, FT3, BMP, TSH, LIVER #### [facility] [address] [place] [address] Yu Stefanie Cholesterol [Mass/Vol] 199 mg/dL Normal <=200 [facility] Comment on above: Performed By: #### L IPID, FT3, BMP, TSH, LIVER #### [facility] [address] [place] [address] Yu Watts Cholesterol in HDL [Mass/Vol] 39 mg/dL Normal [facility] Comment on above: Performed By: #### L IPID, FT3, BMP, TSH, LIVER #### [facility] [address] [id number] Yu Stefanie Cholesterol in LDL [Mass/Vol] 131.8 mg/dL Normal [facility] Comment on above: Performed By: #### L IPID, FT3, BMP, TSH, LIVER #### [facility] [address] [place] [address] Yu Stefanie Cholesterol.total/Ch olesterol in HDL [Mass ratio] 5.1 {ratio} Normal [facility] Comment on above: Performed By: #### L IPID, FT3, BMP, TSH, LIVER #### [facility] [address] [place], [place] [address] Yu Stefanie HDL NORMAL > or = 60 mg/dl - LO W CARDIOVASCULAR RISK <40 mg/dl - HIGH CARDIOVASCULAR RISK Normal [facility] Comment on above: Performed By: #### L IPID, FT3, BMP, TSH, LIVER #### [facility] [address] [id number] Yu Stefanie LDL CALC NORMAL SEE BELOW Normal [facility] Comment on above: Result Comment: <100 mg/dl OPTIMAL 100 - 129 mg/dl NEAR OR ABOVE OPTIMAL 130 - 159 mg/dl BORDERLINE HIGH 160 - 189 mg/dl HIGH >190 mg/dl VERY HIGH Performed By: #### L IPID, FT3, BMP, TSH, LIVER #### [facility] [address] [address] Yu Stefanie Triglyceride [Mass/Vol] 141 mg/dL Normal <=150 [facility] Comment on above: Performed By: #### L IPID, FT3, BMP, TSH, LIVER #### [facility] [address] [address] Yu Stefanie VLDL CALC 28.2 mg/dL Normal [facility] Comment on above: Performed By: #### L IPID, FT3, BMP, TSH, LIVER #### [facility] [address] [address] Yu Watts LIVER PROFILEon 05-22-2020 Albumin [Mass/Vol] 4.0 g/dL Normal 3.5-5.[address] [facility] Comment on above: Performed By: #### Brian QIU FT4 #### [facility] [address] [place] [address] Yuteri Watts Albumin/Globulin [Mass ratio] 1.0 {ratio} Normal [facility] Comment on above: Performed By: #### Brian QIU FT4 #### [facility] [address] [place] [address] Yu Stefanie ALP [Catalytic activity/Vol] 44 U/L Normal 38-126 [facility] Comment on above: Performed By: #### Brian QIU FT4 #### [facility] [address] [place] [address] Yu Stefanie ALT [Catalytic activity/Vol] 93 U/L Critically high 9-52 [facility] Comment on above: Performed By: #### Brian QIU, FT4 #### [facility] [address] [id number] Yu Stefanie AST [Catalytic activity/Vol] 46 U/L Critically high 14-36 [facility] Comment on above: Performed By: #### Brian QIU, FT4 #### [facility] [address] [place], [place] [phone] Yu Stefanie BILI, CONJUGATED 0.1 mg/dL Normal 0.0-0.3 [facility] Comment on above: Performed By: #### Brian QIU, FT4 #### [facility] [address] [place] [address] Yu Stefanie Bilirubin [Mass/Vol] 0.4 mg/dL Normal 0.2-1.3 [facility] Comment on above: Performed By: #### Brian QIU, FT4 #### [facility] [address] [place] [address] Yu Stefanie Globulin (S) [Mass/Vol] 4.2 g/dL Normal [facility] Comment on above: Performed By: #### Brian QIU, FT4 #### [facility] [address] [place] [address] Yu Stefanie Protein [Mass/Vol] 8.2 g/dL Normal 6.1-8.2 [facility] Comment on above: Performed By: #### V UYEN, FT4 #### [facility] [address] [place], [place] [address] Yuteri Baptisteen PROF CHEM 8 (BAS METB)on Anion gap [Moles/Vol] 12.9 mmol/L Normal [facility] Comment on above: Performed By: #### L IPID, FT3, BMP, TSH, LIVER #### [facility] [address] [place], [place] [address] Yu Stefanie Calcium [Mass/Vol] 9.4 mg/dL Normal 8.4-10.2 [facility] Comment on above: Performed By: #### L IPID, FT3, BMP, TSH, LIVER #### [facility] [address] [address] Yu Stefanie Chloride [Moles/Vol] 106 mmol/L Normal 98-107 [facility] Comment on above: Performed By: #### L IPID, FT3, BMP, TSH, LIVER #### [facility] [address] [place] [address] Yu Stefanie CO2 [Moles/Vol] 25.7 mmol/L Normal 22.0-30.0 [facility] [place] Comment on above: Performed By: #### L IPID, FT3, BMP, TSH, LIVER #### [facility] [address] [place] [address] Yu Stefanie Creatinine [Mass/Vol] 0.78 mg/dL Normal 0.52-1.04 [facility] Comment on above: Performed By: #### L IPID, FT3, BMP, TSH, LIVER #### [facility] [address] [place] [address] Yu Stefanie EGFR-AF BURMESE >60 Normal >=60 [facility] [place] Comment on above: Performed By: #### L IPID, FT3, BMP, TSH, LIVER #### [facility] [address] [place] [address] Yu Stefanie EGFR-NON AF BURMESE >60 Normal >=60 [facility] Comment on above: Performed By: #### L IPID, FT3, BMP, TSH, LIVER #### [facility] [address] [place] [address] Yu Stefanie Glucose [Mass/Vol] 95 mg/dL Normal 74-106 [facility] Comment on above: Performed By: #### L IPID, FT3, BMP, TSH, LIVER #### [facility] [address] [place] [address] Yu Stefanie Potassium [Moles/Vol] 3.6 mmol/L Normal 3.4-5.0 [facility] Comment on above: Performed By: #### L IPID, FT3, BMP, TSH, LIVER #### [facility] [address] [id number] Yu Stefanie Sodium [Moles/Vol] 141 mmol/L Normal 137-145 [facility] Comment on above: Performed By: #### L IPID, FT3, BMP, TSH, LIVER #### [facility] [address] [address] Yu Stefanie Urea nitrogen [Mass/Vol] 10.0 mg/dL Normal 7.0-17.0 [facility] Comment on above: Performed By: #### L IPID, FT3, BMP, TSH, LIVER #### [facility] [address] [place], [place] [phone] Yu Stefanie Urea nitrogen/Creatinine [Mass ratio] 12.8 mg/mg Normal [facility] Comment on above: Performed By: #### L IPID, FT3, BMP, TSH, LIVER #### [facility] [address] [place] [address] Yu Stefanie TSHon 05-22-2020 TSH 1.324 uIU/mL Normal 0.470-4.680 [facility] Comment on above: Performed By: #### L IPID, FT3, BMP, TSH, LIVER #### [facility] [address] [place] [address] Yu Stefanie TSH RANGE SEE BELOW Normal [facility] Comment on above: Result Comment: <0.3 4 UIU/ml HYPERTHYROID 0.34-5.60 UIU/ml EUTHYROID >5.60 UIU/ml HYPOTHYROID Performed By: #### L IPID, FT3, BMP, TSH, LIVER #### [facility] [address] [place] [address] Yu Stefanie VITAMIN D 25 OHon 05-22-2020 VIT D 25-OH 18.0 ng/mL Normal [facility] Comment on above: Performed By: #### V ITAD, FT4 #### [facility] [address] [place] [address] Yu Stefanie VIT D RANGES SEE BELOW Normal [facility] Comment on above: Result Comment: <20 ng/mL Vit D deficient 20 - <30 ng/mL Vit D insufficient 30 - 100 ng/mL Vit D sufficient >100 ng/mL Potential Toxicity Performed By: #### V UYEN, FT4 #### [facility] [address] [place] [address] Yu Watts Vital Signs Date Time Vital Sign Value Performing Clinician Rani juan 04-18-2024 10:20-0500 Body weight 111.58 kg Maryann AMIN Work Phone: [facility] 04-18-2024 10:20-0500 Diastolic blood pressure 78 mm[Hg] Maryann AMIN Work Phone: [facility] 04-18-2024 10:20-0500 Systolic blood pressure 124 mm[Hg] Maryann AMIN Work Phone: [facility] 04-03-2024 10:58-0500 Body weight 109.23 kg Isidro Jasmine DO Work Phone: [facility] 04-03-2024 10:58-0500 Diastolic blood pressure 80 mm[Hg] Isidro Jasmine DO Work Phone: [facility] 04-03-2024 10:58-0500 Systolic blood pressure 120 mm[Hg] Isidro Jasmine DO Work Phone: [facility] 03-21-2024 13:54-0500 Body weight 109.32 kg Maryann AMIN Work Phone: [facility] 03-21-2024 13:54-0500 Diastolic blood pressure 74 mm[Hg] Maryann Smith PA Work Phone: [facility] 03-21-2024 13:54-0500 Systolic blood pressure 118 mm[Hg] Maryann AMIN Work Phone: [facility] 03-07-2024 11:00-0500 Body weight 108.32 kg Isidro Jasmine DO Work Phone: [facility] 03-07-2024 11:00-0500 Diastolic blood pressure 70 mm[Hg] Isidro Jasmine DO Work Phone: [facility] 03-07-2024 11:00-0500 Systolic blood pressure 120 mm[Hg] Isidro Jasmine DO Work Phone: [facility] 02-23-2024 10:16-0400 Body weight 108.77 kg Isidro Jasmine DO Work Phone: [facility] 02-23-2024 10:16-0400 Diastolic blood pressure 76 mm[Hg] Isidro Jasmine DO Work Phone: [facility] 02-23-2024 10:16-0400 Systolic blood pressure 130 mm[Hg] Isidro Jasmine DO Work Phone: [facility] 01-25-2024 10:36-0400 Body weight 108.86 kg Maryann AMIN Work Phone: [facility] 01-25-2024 10:36-0400 Diastolic blood pressure 72 mm[Hg] Maryann AMIN Work Phone: [facility] 01-25-2024 10:36-0400 Systolic blood pressure 124 mm[Hg] Maryann AMIN Work Phone: [facility] 12-22-2023 09:10-0400 Body weight 108.41 kg Isidro Jasmine DO Work Phone: [facility] 12-22-2023 09:10-0400 Diastolic blood pressure 80 mm[Hg] Isidro Jasmine DO Work Phone: [facility] 12-22-2023 09:10-0400 Systolic blood pressure 120 mm[Hg] Isidro Jasmine DO Work Phone: [facility] Healthcare Encounters Encounter Date Encounter Type Care Provider Facility Start: 04-18-2024 End: 04-18-2024 Bamboo flowsheet Maryann AMIN Work Phone: [facility] Start: 04-18-2024 End: 04-18-2024 Bamboo flowsheet Maryann AMIN Work Phone: [facility] Start: 04-18-2024 End: 04-18-2024 ambulatory MARYANN SMITH Not Available Start: 04-18-2024 End: 04-18-2024 Office outpatient visit 15 minutes Maryann AMIN Work Phone: [facility] Comment on above: Third trimester preg harini; 34 weeks gestation of Start: 04-13-2024 End: 04-13-2024 Telephone encounter Bing Mccann [facility] Start: 04-03-2024 End: 04-03-2024 Bamboo flowsheet Isidro Jasmine DO Work Phone: [facility] Start: 04-03-2024 End: 04-03-2024 Bamboo flowsheet Isidro Ajsmine DO Work Phone: [facility] Start: [...] Start: 03-14-2024 End: 03-14-2024 ambulatory ISIDRO R [facility] Start: 03-07-2024 End: 03-07-2024 Bamboo flowsheet Isidro [...] Only Lottie Pool RN [facility] Comment on above: Insulin controlled g estational diabetes mellitus (GDM) in third trimester (Primary Dx); Severe obesity due to excess calories affecting , antepartum ([facility]); Alpha thalassemia silent carrier Start: 02-15-2024 End: 02-15-2024 Telephone encounter Kathie Sellers MD Work Phone: [facility] Start: 02-14-2024 End: 02-14-2024 ambulatory ISIDRO R [facility] Start: 02-02-2024 End: 02-02-2024 Telephone encounter Mojgan Zeng RN [facility] Start: 01-25-2024 End: 01-25-2024 Office outpatient visit 15 minutes Maryann Smith PA Work Phone: [facility] Comment on above: Second trimester pre gnancy Start: 01-25-2024 End: 01-25-2024 ambulatory MARYANN SMITH Not Available Start: 01-17-2024 End: 01-17-2024 ambulatory ISIDRO R [facility] Start: 12-22-2023 End: 12-22-2023 Bamboo flowsheet Isdiro Jasmine DO Work Phone: [facility] Start: 12-22-2023 End: 12-22-2023 Bamboo flowsheet Isidro Jasmine DO Work Phone: [facility] Start: 12-22-2023 End: 12-22-2023 Office outpatient visit 15 minutes Isidro Jasmine DO Work Phone: [facility] Comment on above: GA: [id number] Start: 12-22-2023 End: 12-22-2023 ambulatory ISIDRO JASMINE Not Available Start: 12-12-2023 End: 12-12-2023 ambulatory [facility] Start: 10-28-2023 End: 10-28-2023 ambulatory [facility] Start: 10-28-2023 End: 10-28-2023 ambulatory [facility] Start: 10-28-2023 Encounter for gynecological examination (general) (routine) without abnormal findings [facility] Start: 10-28-2023 End: 10-28-[address] [facility] Start: 10-28-2023 Encounter for gynecological examination (general) (routine) without abnormal findings [facility] Start: 10-20-2023 End: 10-20-[address] [facility] Start: 10-06-2023 End: 10-06-2023 Emergency department patient visit [facility] Start: 10-04-2023 End: 10-04-2023 ambulatory YASMINE M [facility] Start: 06-26-2023 End: 06-26-2023 Emergency department patient visit TRAE SANCHEZ [facility] Start: 11-20-2020 End: 11-21-[address] TRAE SANCHEZ Facility:[facility] Start: 11-05-2020 End: 11-05-[address] TRAE SANCHEZ Facility:[facility] Start: 06-25-2020 Encounter for genera l adult medical examination without abnormal findings DR TRAE SANCHEZ [facility] Start: 05-22-2020 End: 05-23-[address] [...] malign ant neoplasm of cervix Pap Sm[facility] [employer] [facility] Start: 02-15-2025 End: 02-15-2025 US MFM with or without consult US MFM with or without consult Imaging Routine Insulin controlled gestational diabetes mellitus (GDM) in third trimester Severe obesity due to excess calories affecting , antepartum ([facility]) Alpha thalassemia silent carrier Expected: 02/15/2025 (Approximate), Expires[facility] Comment on above: Expected: 02/15/2025 (Approximate), Expires: 02/15/2025 Start: 01-16-2025 Adult BMI Screening Adult BMI Screen ing [facility] Start: 01-16-2025 Tobacco Screening Tobacco Screening [facility] Start: 10-26-2024 Depression Screening Depression Scre ening [facility] Start: 05-08-2024 End: 05-08-2024 Patient encounter procedure 05/08/2024 10:00 AM EST Routine [facility] [address] [place] [address] Isidro Ferraro DO [address] [address] [facility] Start: 04-18-2024 End: 04-18-2024 Patient encounter procedure 04/18/2024 9:50 AM EST Routine [facility] [address] [place] [address] Maryann Smith PA [address] [place], [place] [id number] [facility] Start: 04-03-2024 End: 04-03-2025 [...] AM EST Routine [facility] [address] [place] [id number] sIidro Ferraro DO [address] [address] [facility] Start: 03-21-2024 End: 03-21-2025 US biophysical profile w non stress test US biophysical profile w non stress test Imaging Routine Insulin controlled gestational diabetes mellitus (GDM) in third trimester Expected: 03/21/2024 (Approximate), Expires: 03/21/2025 [facility] Comment on above: Expected: 03/21/2024 (Approximate), Expires: 03/21/2025 Start: 03-21-2024 End: 03-21-2025 US for US OB SCAN FOR GROWTH Imaging Routine Insulin controlled gestational diabetes mellitus (GDM) in third trimester Expected: 03/21/2024 (Approximate), Expires: 03/21/2025 [facility] Work Phone: Comment on above: Expected: 03/21/2024 (Approximate), Expires: 03/21/2025 Start: 03-21-2024 End: 03-21-2024 Patient encounter procedure [facility] Comment on above: Arrived Start: 03-14-2024 End: 03-14-2024 Patient encounter procedure 03/14/2024 3:00 PM EST Appointment [facility] US Imaging [address] [place] [address] [facility] US Imaging Start: 03-07-2024 End: 03-07-2024 Patient encounter procedure 03/07/2024 11:10 AM EST Routine [facility] [address] [place] [phone] Isidro Ferraro DO [address] [place] [address] Arrived [facility] Comment on above: Arrived Start: 02-23-2024 End: 02-23-2024 Patient encounter procedure [facility] Comment on above: Arrived Start: 02-15-2024 End: 02-15-2024 Telemedicine consultation with patient 02/15/2024 9:45 AM EDT Telemedicine Maternal- Medicine at [facility] [address] [place] [address] Kathie Sellers MD [address] [address] [facility] at [facility] Start: 02-14-2024 End: 02-14-2024 Patient encounter procedure 02/14/2024 2:00 PM EDT Appointment [facility] US Imaging [address] [place] [address] [facility] US Imaging Start: 01-25-2024 End: 01-25-2024 Patient encounter procedure 01/25/2024 10:30 AM EDT Routine [facility] [address] [facility] [place] [phone] Maryann Smith PA [address] [place] [address] [facility] Start: 01-01-2024 Influenza vaccination [facility] Start: 12-22-2023 End: 12-22-2023 ambulatory 12/22/2023 8:50 AM EDT Initial [facility] [address] [place] [phone] Isidro Ferraro, DO [address] [place] [address] Arrived [facility] Comment on above: Arrived Start: 01-23-2020 DTaP,Tdap and Td Vaccines (7 - Td or Tdap) DTaP,Tdap and Td Vaccines (7 - Td or Tdap) [facility] Start: 10-10-2015 Adult BMI Follow Up Plan Adult BMI F ollow Up Plan [facility] CBC W Auto Different ial panel - Blood CBC and differential Lab Routine 32 weeks gestation of Third trimester Ordered: 04/03/2024 [facility] Work Phone: Comment on above: Ordered: 04/03/2024 Payers Date Payer Category Payer Medicaid [facility] [id number] 2019 Medicaid [id number] 2019 Private Health Insurance [facility] [id number] 2019 Medicaid [id number] 1997 Unknown [id number] 2.16840.1.443347.3.579.2. 593 1997 Unknown [id number] 2.16840.1.584663.3.579.2. 59 1997 Unknown [id number] 2.16840.1.113802.3.579.2. 593 1997 Unknown [id number] 2.840.1.650990.3.579.2. 1285 1997 Unknown [id number] 2.16840.1.118328.3.579.2. 1285 1997 Unknown [id number] 2.16840.1.122524.3.579.2. 1285 1997 Unknown [id number] 2.840.1.706222.3.579.2. 1285 1997 Unknown [id number] 2.840.1.239050.3.579.2. 1285 1997 Unknown [id number] 2.16840.1.383387.3.579.2. 1285 1997 Unknown [id number] 2.16840.1.261246.3.579.2. 1285 1997 Unknown [id number] 2.16840.1.171919.3.579.2. 1285 1997 Unknown [id number] 2.16840.1.996641.3.579.2. 1285 1997 Unknown [id number] 2.16.840.1.759074.3.579.2. 1286 1997 Unknown [id number] 2.16.840.1.519036.3.579.2. 1285 1997 Unknown [id number] 2.16.840.1.211008.3.579.2. 1285 1997 Unknown [id number] 2.16.840.1.809168.3.579.2. 1285 1997 Unknown [id number] 2.16.840.1.933056.3.579.2. 1258 1997 Unknown [id number] 2.16.840.1.325746.3.579.2. 1258 1997 Unknown [id number] 2.16.840.1.965822.3.579.2. 1258 1997 Unknown [id number] 2.16.840.1.224957.3.579.2. 1258 1997 Unknown [id number] 2.16.840.1.870272.3.579.2. 1258 1997 Unknown [id number] 2.16.840.1.431360.3.579.2. 1258 1997 Unknown [id number] 2.16.840.1.791696.3.579.2. 1259 1959 Unknown [id number] Social History Date Type Detail Facility Start: 06-26-2023 Tobacco smoking stat [facility] Never smoked tobacco [facility] Start: 06-26-2023 Tobacco use and exposure Smokeless tobacco non-user [facility] Start: 01-17-2024 Alcoholic beverage intake Ex-drinker (finding) [facility] Start: 06-12-2020 End: 01-17-2024 History of Social function [facility] Start: 06-12-2020 End: 01-17-2024 Tobacco use panel [facility] How hard is it for y ou to pay for the very basics like food, housing, medical care, and heating Not hard at all [facility] Start: 11-12-2021 Alcohol Comment rarely [facility] Start: 09-03-2023 [facility] Start: 1995 Sex assigned at Not on file [facility] Start: 12-05-2014 Sex Female (finding) [facility] Tobacco smoking stat us NHIS Tobacco smoking consumption unknown [facility] Medical Equipment Procedure Code Equipment Code Equipment Origin al Text Equipment Identifier Dates [id number] Start: 10-21-2023 Use to check fas ting blood sugar in the morning and one hour after first bite of each meal. Order supplies per insurance preference. [id number] Start: 10-21-2023 Test blood sugar 4 times a day [id number] Start: 12-13-2023 Use daily for insulin [id number] Start: 01-17-2024 Test blood sugar 4 times a day [id number] Start: 12-13-2023 Goals Date Patient Goal Desired Activity /State Personal health goal Clinical Notes 12-22-2023 to 04-18-2024 BRENNAN Vora - 04/18/2024 9:50 AM ESTTelephone Encounter - Bnig Mccann CMA - 04/13/2024 10:21 AM ESTTelephone Encounter - Bing Mccann [facility] - 04/13/2024 10:21 AM EST Note Date [...] of: BRENNAN Vora documented in this encounter [facility] 04-13-2024 Miscellaneous Notes Formattin g of this note might be different from the original. Called patient in regard to not receiving blood sugar logs in two or more weeks. No answer. Asked patient to send most recent logs to the office email. Call back number left and patient encouraged to reach out if she has any questions or concerns. documented in this encounter [facility] 04-13-2024 Telephone encount er Note Called patient in regard to not receiving blood sugar logs in two or more weeks. No answer. Asked patient to send most recent logs to the office email. Call back number left and patient encouraged to reach out if she has any questions or concerns. [facility] History of Presen t illness Narrative [...] Isidro Ferraro DO documented in this encounter [facility] 03-21-2024 History of Presen t illness [...] of: BRENNAN Vora documented in this encounter [facility] 03-07-2024 History of Presen t illness [...] nursing note reviewed. Exam conducted with a assurance senior manager insurance present. Vitals: There is no height or [...] Isidro Ferraro DO documented in this encounter [facility] 02-23-2024 History of Presen t illness [...] nursing note reviewed. Exam conducted with a assurance senior manager insurance present. Vitals: There is no height or [...] is having follow up US scheduled at [facility]. Patient to start growth scans after next scan with [facility] every 4 weeks. Patient to start [...] Isidro Ferraro DO documented in this encounter [facility] 02-15-2024 Miscellaneous Notes Formattin g of this note might be different from the original. Garage Door Installer elizabeth for pt w/ appt info on for 03/14 at 3:00 and requested a return call if she could not make that work. documented in this encounter [facility] 02-15-2024 Telephone encount er Note Garage Door Installer elizabeth for pt w/ appt info on for 03/14 at 3:00 and requested a return call if she could not make that work. [facility] 02-15-2024 Miscellaneous Notes Formattin g of this note might be different from the original. Garage Door Installer laila ECHEVERRIA. Patient scheduled for a MyChart Visit @ 9:45 am. Garage Door Installer asked patient to get non profit director if available. Garage Door Installer left call back number [phone] #[phone] if patient needs to reschedule. documented in this encounter [facility] 02-15-2024 Telephone encount er Note Garage Door Installer left VM. Patient scheduled for a MyChart Visit @ 9:45 am. Garage Door Installer asked patient to get non profit director if available. Garage Door Installer left call back number [phone] #[phone] if patient needs to reschedule. [facility] 02-02-2024 Miscellaneous Notes Formattin g of this note might be different from the original. Called patient, no answer, left message to please send blood glucose logs to the diabetes email. documented in this encounter [facility] 02-02-2024 Telephone encount er Note Called patient, no answer, left message to please send blood glucose logs to the diabetes email. [facility] 01-25-2024 History of Presen t illness [...] of: BRENNAN Vora documented in this encounter [facility] 12-22-2023 History of Presen t illness Narrative [...] nursing note reviewed. Exam conducted with a assurance senior manager insurance present. Vitals: There is no height or [...] after delivery, elevated sugars and currently seeing [facility] for Diabetic Education. Patient has [...] , antepartum (CMS-HCC) documented in this encounter [facility] Diagnosis Insulin controlled gestational diabetes mellitus (GDM) in third trimester Severe obesity due to excess calories affecting , antepartum (CMS-HCC) documented in this encounter [facility] Diagnosis Insulin controlled gestational diabetes mellitus (GDM) in third trimester- Primary Severe obesity due to excess calories affecting , antepartum (CMS-HCC) Alpha thalassemia silent carrier documented in this encounter [facility]* Diagnosis 28 weeks [...] and content) DATE CREATED AUTHOR 12/02/2020 [facility] DATE CREATED AUTHOR AUTHOR'S ORGANIZ ATION 10/30/2023 [facility] DATE CREATED AUTHOR AUTHOR'S ORGANIZ ATION 11/02/2023 [facility] DATE CREATED AUTHOR AUTHOR'S ORGANIZ ATION 03/16/2024 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 Start Date End Date Joanna Allan MD [address] [place] [place], [place] [id number] PCP - General Family Medicine 09/07/22 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 Start Date End Date Joanna Allan MD [address] [place] [address] PCP - General Family Medicine 09/07/22 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 Start Date End Date Joanna Allan MD [address] [place] [address] PCP - General Family Medicine 09/07/22 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 Start Date End Date Joanna Allan MD [address] [place] [address] PCP - General Family Medicine 09/07/22 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 Start Date End Date Joanna Allan MD [address] [place] [address] PCP - General Family Medicine 09/07/22 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 [facility] [employer] [facility]. provides no warranty or guarantee of the accuracy or completeness of information in this document.
--- NOTE | 2024-04-30 10:13 | US_ITS ---
[address] [address] Patient Name: MONICA FERGUSON MRN: [facility]:[id number] date: 1995 Sex: F Assigned Patient Location: [facility] Current Patient Location: [facility] Accession/Order Number: [id number] Exam Date: 04/30/2024 10:15 Report Date: 04/30/2024 14:11 At the request of: TOYA SMITH Procedure: US OB BPP w non-stress EXAMINATION: US OB BPP w non-stress HISTORY:Insulin controlled gestational diabetes mellitus COMPARISON: Ultrasound OB biophysical 04/16/2024 TECHNIQUE: Ultrasound biophysical profile was performed in the radiology department. BREATHING MOVEMENTS: 2 GROSS BODY MOVEMENTS: 2 TONE: 2 QUALITATIVE AMNIOTIC FLUID VOLUME: 2 PRESENTATION: CEPHALIC HEART RATE: 143.62 bpm AMNIOTIC FLUID VOLUME: 13.07 cm GESTATIONAL AGE: 36 weeks 2 days US/US OB BPP w non-stress IMPRESSION: Total biophysical profile score: 8 Electronically authenticated by: HA SOUTH Date: 04/30/2024 14:11
[2024-04-30 10:34] VITALS: BP 128/82; PULSE 82
== END 2024-04-30 10:55 | disposition home or self-care (01) ==
LOC: FBCO 00:06 → FBC 10:08
PROVIDERS: Visit Provider Physician Assistant
DX: O24.414 Gestational diabetes mellitus in pregnancy, insulin controlled (principal); Z3A.36 36 weeks gestation of pregnancy
CPT/HCPCS: 76818

== ENCOUNTER 2024-05-08 19:28 | Outpatient (REF) | payer OTHER, SELFPAY ==
[2024-05-09 14:33] LABS: BOX Test Reference Lab FIRELANDS; BOX Test Sent Out GROUP B CULTURE
== END 2024-05-08 19:29 | disposition home or self-care (01) ==
LOC: LAB 19:28
PROVIDERS: Visit Provider Obstetrics & Gynecology
DX: Z34.93 Encounter for supervision of normal pregnancy, unspecified, third trimester (principal)
CPT/HCPCS: 36415; 87081

== ENCOUNTER 2024-05-11 05:20 | Inpatient (IN) | payer OTHER, SELFPAY ==
[2024-05-11] VITALS (43 sets, daily range): BP systolic 100–159; BP diastolic 52–106; PULSE 74–121; TEMP 36.8–37.2
--- OUTSIDE RECORDS SUMMARY | 2024-05-11 05:24 | XMS_ITS | CCD ---
Author Organization [facility] Care Team Providers Care Conditioner Tender Name Role Phone LAURA, DR TRAE Delaney Primary Care Unavailable NADERER, DR TRAE Delaney Admitting Unavailable NADERER, DR TRAE Delaney Attending Unavailable NADERER, DR TRAE Delaney Consulting Unavailable NADERER, DR TRAE Delaney Primary Care Unavailable KARASIK, DR OLMOS Attending Unavailable KARASIK, DR OLMOS Consulting Unavailable KARASIK, DR OLMOS Admitting Unavailable NADERER, DR TRAE Delaney Primary Care Unavailable CLAREMONT, DR JOSE Torres Consulting Unavailable JASMINE, DR [...] Unavailable Naderer , Trae Primary Care Provider [phone] Joanna Allan MD Primary Care Provider YASMINE [...] Monitoring Suppl (True Metrix Meter) w/Device kit (11 sources) Start: 10-21-2023 Blood Glucose Monitoring Suppl [...] Active doxylamine succinate 25 mg oral tablet (16 sources) Start: 10-04-2023 doxylamine (Unisom) 25 MG tablet Take 25 mg by mouth as needed at bedtime 10/04/2023 Active famotidine 20 mg oral tablet (16 sources) Histamine-2 Receptor Antagonist Start: 10-06-2023 take 1 tablet by mouth in the morning famotidine (Pepcid) 20 MG tablet Take 20 mg by mouth in the morning and 20 mg in the evening. 10/06/2023 Active 3 ml insulin glargine 100 unt/ml pen injector (20 sources) Insulin Analog Start: 01-17-2024 inject 10 [IU] by subcutaneous injection at bedtime Lantus SoloStar 100 UNIT/ML pen Inject 10 Units under the skin at bedtime 01/17/2024 Active Start: 01-17-2024 insulin glargi ne (LANTUS SOLOSTAR U-100 INSULIN) 100 unit/mL (3 mL) insulin pen Indications: Insulin controlled gestational diabetes mellitus (GDM) in third trimester , Severe obesity due to excess calories affecting , antepartum ([facility] , 21 weeks gestation of Inject 10U [...] 11-20-2020 Episodic Other and delivery including normal (19 sources) Encounter for test, result positive; Translations: [...] [34 weeks gestation of ] 04-18-2024 Episodic Residual codes; unclassified (2 sources) Gestation period, 37 weeks; Translations: [37 weeks gestation of ] 05-08-2024 Episodic Unclassified (1 source) Initial Visit Onset: 10-28-2023 Unclassified (2 sources) Rash Onset: 10-06-2023 Unclassified (20 sources) OB Reminders Onset: 12-22-2023 12-22-2023 Unclassified [...] Range Facility Urinalysis macro (dipstick) panel (U)on 05-08-2024 Bilirubin, UA Negative Negative - 4(70) +++ mg/dL [facility] Blood, UA Negative Negative - 50 Janes/mcL [facility] Clarity, UA Clear [facility] Color, UA Yellow [facility] Glucose, UA Positive Negative - 1999(110) ++++ mg/dL [facility] Comment on above: 250 Interpretation and review of laboratory results Abnormal [facility] Ketones, UA Negative Negative - 160(16) ++++ mg/dL [facility] Leukocytes, UA Positive Negative - 500+++ Too/mcL [facility] Comment on above: small Nitrite, UA Negative Negative - Positive [facility] pH, UA 6.5 5 - 9 [facility] Protein, UA Negative Negative - 1999(20) ++++ mg/dL [facility] Spec Grav, UA 1.02 1 - 1.03 [facility] Urobilinogen, UA 0.2 0.2 - 12 mg/dL [facility] Urinalysis macro (dipstick) panel (U)on 04-18-2024 Bilirubin, UA Negative Negative - 4(70) +++ mg/dL [facility] Blood, UA Negative Negative - 50 Janes/mcL [facility] Clarity, UA Cloudy [facility] Color, UA Misty [facility] Glucose, UA Positive Negative - 1999(110) ++++ mg/dL [facility] Comment on above: 250 Interpretation and review of laboratory results Abnormal [facility] Ketones, UA Negative Negative - 160(16) ++++ mg/dL [facility] Leukocytes, UA Moderate Negative - 500+++ Too/mcL [facility] Nitrite, UA Negative Negative - Positive [facility] pH, UA 6.5 5 - 9 [facility] Protein, UA Trace Negative - 1999(20) ++++ mg/dL [facility] Spec Grav, UA 1.02 1 - 1.03 [facility] Urobilinogen, UA 0.2 0.2 - 12 mg/dL [facility] Urinalysis macro (dipstick) panel (U)on 04-03-2024 Bilirubin, UA Negative Negative - 4(70) +++ mg/dL [facility] Blood, UA Negative Negative - 50 Janes/mcL [facility] Clarity, UA Clear [facility] Color, UA Yellow [facility] Glucose, UA Negative Negative - 1999(110) ++++ mg/dL [facility] Interpretation and review of laboratory results Abnormal [facility] Ketones, UA Positive Negative - 160(16) ++++ mg/dL [facility] Comment on above: 40 Leukocytes, UA Positive Negative - 500+++ Too/mcL [facility] Comment on above: small Nitrite, UA Negative Negative - Positive [facility] pH, UA 7 5 - 9 [facility] Protein, UA Trace Negative - 1999(20) ++++ mg/dL [facility] Spec Grav, UA 1.025 1 - 1.03 [facility] Urobilinogen, UA 0.2 0.2 - 12 mg/dL [facility] Urinalysis macro (dipstick) panel (U)on 03-21-2024 Bilirubin, UA Negative Negative - 4(70) +++ mg/dL [facility] Blood, UA Negative Negative - 50 Janes/mcL [facility] Clarity, UA Clear [facility] Color, UA Yellow [facility] Glucose, UA Negative Negative - 1999(110) ++++ mg/dL [facility] Interpretation and review of laboratory results Abnormal [facility] Ketones, UA Negative Negative - 160(16) ++++ mg/dL [facility] Leukocytes, UA Trace Negative - 500+++ Too/mcL [facility] Nitrite, UA Negative Negative - Positive [facility] pH, UA 6 5 - 9 [facility] Protein, UA Negative Negative - 1999(20) ++++ mg/dL [facility] Spec Grav, UA 1.03 1 - 1.03 [facility] Urobilinogen, UA 0.2 0.2 - 12 mg/dL [facility] Urinalysis macro (dipstick) panel (U)on 03-07-2024 Bilirubin, UA Positive Negative - 4(70) +++ mg/dL [facility] Comment on above: small Blood, UA Positive Negative - 50 Janes/mcL [facility] Comment on above: trace-intact Clarity, UA Clear [facility] Color, UA Yellow [facility] Glucose, UA Negative Negative - 1999(110) ++++ mg/dL [facility] Interpretation and review of laboratory results Abnormal [facility] Ketones, UA Positive Negative - 160(16) ++++ mg/dL [facility] Comment on above: trace Leukocytes, UA Positive Negative - 500+++ Too/mcL [facility] Comment on above: small Nitrite, UA Negative Negative - Positive [facility] pH, UA 5.5 5 - 9 [facility] Protein, UA Negative Negative - 1999(20) ++++ mg/dL [facility] Spec Grav, UA 1.03 1 - 1.03 [facility] Urobilinogen, UA 0.2 0.2 - 12 mg/dL [facility] Urinalysis macro (dipstick) panel (U)on 02-23-2024 Bilirubin, UA Negative Negative - 4(70) +++ mg/dL [facility] Blood, UA Positive Negative - 50 Janes/mcL [facility] Comment on above: trace-intact Clarity, UA Clear [facility] Color, UA Yellow [facility] Glucose, UA Negative Negative - 1999(110) ++++ mg/dL [facility] Interpretation and review of laboratory results Abnormal [facility] Ketones, UA Negative Negative - 160(16) ++++ mg/dL [facility] Leukocytes, UA Positive Negative - 500+++ Too/mcL [facility] Comment on above: small Nitrite, UA Negative Negative - Positive [facility] pH, UA 6 5 - 9 [facility] Protein, UA Negative Negative - 1999(20) ++++ mg/dL [facility] Spec Grav, UA 1.03 1 - 1.03 [facility] Urobilinogen, UA 0.2 0.2 - 12 mg/dL [facility] Urinalysis macro (dipstick) panel (U)on 01-25-2024 Bilirubin, UA Negative Negative - 4(70) +++ mg/dL [facility] Blood, UA Positive Negative - 50 Janes/mcL [facility] Comment on above: trace Clarity, UA Clear [facility] Color, UA Yellow [facility] Glucose, UA Negative Negative - 1999(110) ++++ mg/dL [facility] Interpretation and review of laboratory results Abnormal [facility] Ketones, UA Positive Negative - 160(16) ++++ mg/dL [facility] Comment on above: trace Leukocytes, UA Positive Negative - 500+++ Too/mcL [facility] Comment on above: small Nitrite, UA Negative Negative - Positive [facility] pH, UA 6.0 5 - 9 [facility] Protein, UA Negative Negative - 1999(20) ++++ mg/dL [facility] Spec Grav, UA 1.030 1 - 1.03 [facility] Urobilinogen, UA 0.2 0.2 - 12 mg/dL [facility] Urinalysis macro (dipstick) panel (U)on 12-22-2023 Bilirubin, UA Negative Negative - 4(70) +++ mg/dL [facility] Blood, UA Positive Negative - 50 Janes/mcL [facility] Comment on above: small Clarity, UA Clear [facility] Color, UA Yellow [facility] Glucose, UA Negative Negative - 1999(110) ++++ mg/dL [facility] Interpretation and review of laboratory results Abnormal [facility] Ketones, UA Negative Negative - 160(16) ++++ mg/dL [facility] Leukocytes, UA Positive Negative - 500+++ Too/mcL [facility] Comment on above: small Nitrite, UA Negative Negative - Positive [facility] pH, UA 5.5 5 - 9 [facility] Protein, UA Negative Negative - 2000(20) ++++ mg/dL [facility] Spec Grav, UA 1.030 1 - 1.03 [facility] Urobilinogen, UA 0.2 0.2 - 12 mg/dL [facility] CHLAMYDIA/GC PCR, FLon 10-27 CHLAMYDIA/GC PCR, [...] are dependent on adequate specimen collection. Normal [facility] Comment on above: Performed By: #### D MCCLOUD #### [facility] ([id number]) [address] [place] [address], [address] [place] [address] Cytology Cervical or vaginal smear or scraping studyon 10-28-2023 [facility] VAGINITIS PANEL PCRon 2023 VAGINITIS PANEL PCR [...] value) No Trichomonas vaginalis detected NOTE [facility] Vaginal Panel has not been evaluated for patients under 18 years old. Results for these patients should be reviewed and assessed in accordance with clinical presentation to determine patient diagnosis. Normal [facility] Comment on above: Performed By: #### V PPCR #### [facility] ([id number]) [address], [address] [place] [address] ACUTE HEPATITIS PANELon 10-01 ANTI HCV W/PCR REFLX Non-Reactive Normal NRCT Pr [facility] Comment on above: Result Comment: If recent infection suspected, recommend repeat testing (>2 months). Amubxq-mp-mrflky ratio is <0.80. Performed By: #### 1 504-0, 53922-8, CBC, AHP, 79207-6, 88578-8, 77733-4, 45099-5, 6864-3 #### [facility] ([id number]) [address], [address] [place] [address] HEPATITIS A IGM Non-Reactive Normal NRCT [facility] Comment on above: Performed By: #### 1 504-0, 30313-9, CBC, AHP, 28727-6, 08607- 5, 57877-0, 43313-7, 6864-3 #### [facility] ([id number]) [address], [address] [place] [address] HEPATITIS B CORE IGM Negative Normal NEG [facility] Comment on above: Performed By: #### 1 504-0, 57327-1, CBC, AHP, 28921-0, 18313- 5, 95914-9, 06015-9, 6864-3 #### [facility] ([id number]) [address], [address] [place] [address] HEPATITIS B SURF AG Negative Normal NEG [facility] Comment on above: Performed By: #### 1 504-0, 54528-1, CBC, AHP, 12543-7, 26552- 5, 42110-7, 64055-7, 6864-3 #### [facility] ([id number]) [address], [address] [place] [address] COMPLETE BLOOD COUNTon 10-19 Erythrocyte distribution width (RBC) [Ratio] 15.0 % Normal 11.5-15.0 [facility] Comment on above: Performed By: #### 1 504-0, 83644-1, CBC, AHP, 62895-9, 54550- 5, 98650-3, 19949-0, 6864-3 #### [facility] ([id number]) [address], [address] [place] [address] Hematocrit (Bld) [Volume fraction] 38.0 % Normal 35-47 [facility] Comment on above: Performed By: #### 1 504-0, 10297-9, CBC, AHP, 67336-1, 25448- 5, 33976-0, 51074-3, 6864-3 #### [facility] ([id number]) [address], [address] [place] [address] Hemoglobin (Bld) [Mass/Vol] 12.5 g/dL Normal 11.7-15.5 [facility] Comment on above: Performed By: #### 1 504-0, 64069-6, CBC, AHP, 69442-9, 34606- 5, 36858-3, 36973-9, 6864-3 #### [facility] ([id number]) [address], [address] [place] [address] MCH (RBC) [Entitic mass] 27.4 pg Normal 27-34 [facility] Comment on above: Performed By: #### 1 504-0, 77420-3, CBC, AHP, 83033-5, 57884- 5, 38170-0, 35102-2, 6864-3 #### [facility] ([id number]) [address], [address] [place] [address] MCHC (RBC) [Mass/Vol] 32.9 g/dL Normal 32-36 [facility] Comment on above: Performed By: #### 1 504-0, 59907-8, CBC, AHP, 38207-3, 21607- 5, 47511-8, 44515-0, 6864-3 #### [facility] ([id number]) [address], [address] [place] [address] MCV (RBC) [Entitic vol] 83 fL Normal 80-100 [facility] Comment on above: Performed By: #### 1 504-0, 38667-5, CBC, AHP, 67671-5, 48884- 5, 96085-8, 90123-8, 6864-3 #### [facility] ([id number]) [address], [facility] [address] [place] [address] Platelet mean volume (Bld) [Entitic vol] 8.6 fL Normal 7-12 [facility] Comment on above: Performed By: #### 1 504-0, 98860-5, CBC, AHP, 37110-4, 03263- 5, 53612-2, 57395-7, 6864-3 #### [facility] ([id number]) [address] [place] [address] Platelets (Bld) [#/Vol] 282 10*3/uL Normal 150-450 [facility] Comment on above: Performed By: #### 1 504-0, 79112-3, CBC, AHP, 71504-0, 43959- 5, 86686-7, 55891-3, 6864-3 #### [facility] ([id number]) [address], [address] [place] [address] RBC COUNT 4.55 X10E12/L Normal 3.80-5.20 [facility] Comment on above: Performed By: #### 1 504-0, 11709-1, CBC, AHP, 60098-2, 22334- 5, 31635-0, 65305-7, 6864-3 #### [facility] ([id number]) [address] [place] [address] WBC (Bld) [#/Vol] 7.3 10*3/uL Normal 4.0-11.0 [facility] Comment on above: Performed By: #### 1 504-0, 43665-9, CBC, AHP, 83973-2, 80026- 5, 00755-3, 61263-2, 6864-3 #### [facility] ([id number]) [address], [address] [place] [address] DRUG SCREEN, URINEon 024 AMPHETAMINE/METHAMP Negative Normal NEG [facility] Comment on above: Result Comment: AMPH /METH screening cut off = 1000 ng/mL Performed By: #### D MCCLOUD #### [facility] ([id number]) [address], [address] [place] [address] BARBITURATES Negative Normal NEG [facility] Comment on above: Result Comment: Dayana iturates screening cut off value = 200 ng/mL Performed By: #### D MCCLOUD #### [facility] ([id number]) [address], [address] [place] [address] BENZODIAZEPINES Negative Normal NEG [facility] Comment on above: Result Comment: Ki odiazepines screening cut off value = 200 ng/mL Performed By: #### D MCCLOUD #### [facility] ([id number]) [address], [address] [place] [address] CANNABINOIDS Negative Normal NEG [facility] Comment on above: Result Comment: Gaurang abinoids/THC screening cut off value = 50 ng/mL Performed By: #### D MCCLOUD #### [facility] ([id number]) [address], [address] [place] [address] COCAINE METABOLITE Negative Normal NEG [facility] Comment on above: Result Comment: Coca ine screening cut off value = 300 ng/mL Performed By: #### D MCCLOUD #### [facility] ([id number]) [address], [address] [place] [address] ECSTASY Negative Normal NEG [facility] Comment on above: Result Comment: Ecst asy screening cut off value = 500 ng/mL This report is intended for use in clinical monitoring or management of patients. Performed By: #### D MCCLOUD #### [facility] ([id number]) [address] [facility] [address], [address] [place] [address] METHADONE Negative Normal NEG [facility] Comment on above: Result Comment: Meth adone screening cut off value = 300 ng/mL. Performed By: #### D MCCLOUD #### [facility] ([id number]) [address] [facility] [facility] [address] [place] [address] OPIATES Negative Normal NEG [facility] Comment on above: Result Comment: Opia nasrin screening cut off value = 300 ng/mL NOTE: This test is used for the detection of codeine, hydrocodone (>1000 ng/mL), morphine and hydromorphone (>900 ng/mL) in urine. Performed By: #### D MCCLOUD #### [facility] ([id number]) [address] [place] [address] [address] [place] [address] OXYCODONE Negative Normal NEG [facility] Comment on above: Result Comment: Oxyc odone screening cut off value = 300 ng/mL NOTE: This test is used for the detection of oxycodone and oxymorphone in urine. Performed By: #### D MCCLOUD #### [facility] ([id number]) [address] [facility] [address], [address] [place] [address] PHENCYCLIDINE Negative Normal [facility] Comment on above: Result Comment: Phen cyclidine screening cut off value = 25 ng/mL Performed By: #### D MCCLOUD #### [facility] ([id number]) [address] [facility], [address] [place] [address] Glucose 1 Hr post 50 g gluco se PO [Mass/Vol]on 10-20-2023 GLU 1H POST 50G LOAD 207 mg/dL High 65-[address] [facility] Comment on above: Performed By: #### 1 504-0, 85288-8, CBC, AHP, 90878-1, 47561- 5, 81804-9, 31857-7, 6864-3 #### [facility] ([id number]) [address], [address] [place] [address] HCG.beta subunit IA 3rd IS Q non 10-20-2023 [place] [address] m[IU]/mL Normal P [facility] Comment on above: Result Comment: NEW [...] nontrophoblastic neoplasms. Performed By: #### 1 504-0, 85285-2, CBC, AHP, 13701-9, 20197-2, 46698-7, 14594-3, 6864-3 #### [facility] ([id number]) [address] [address], [address] [place] [address] HIV 1+2 Ab+HIV1 p24 Ag IA Ql on 10-20-2023 HIV 1 and 2 Ab/Ag Screen Non-Reactive Normal NRCT [facility] Comment on above: Result Comment: This information [...] or diagnoses. Performed By: #### 1 504-0, 04030-0, CBC, AHP, 59823-8, 57354-2, 09587-0, 18111-6, 6864-3 #### [facility] ([id number]) [address], [address] [place] [address] Hemoglobin S Solubility test Ql (Bld)on 10-20-2023 SICKLE SOLUBILITY Negative Normal NEG [facility] Comment on above: Performed By: #### D MCCLOUD #### [facility] ([id number]) [address], [address] [place] [address] Rubella virus Ab Ql (S)on RUBELLA IMMUNE IgG 4.3 AI Normal [facility] Comment on above: Result Comment: Interpretation-------- <0.8 NEGATIVE-considered Not Immune 0.8-0.9 EQUIVOCAL-consider retesting with new specimen >0.9 POSITIVE-considered Immune Performed By: #### 1 504-0, 61316-2, CBC, AHP, 55242-5, 91535-1, 94842-0, 34178-3, 6864-3 #### [facility] ([id number]) [address], [address] [place] [address] T. pallidum IgG+IgM IA Ql (S )on 10-20-2023 Syphilis Total <0.2 Normal 0.0-0.8 [facility] Comment on above: Result Comment: NON REACTIVE No serologic evidence of infection to Treponema pallidum (syphilis). Repeat testing may be considered in patients with suspected acute or primary syphilis in 2 to 4 weeks. Performed By: #### 1 504-0, 03953-1, CBC, AHP, 90844-6, 90001-2, 03670-3, 47329-5, 6864-3 #### [facility] ([id number]) [address], [address] [place] [address] URINALYSISon 10-20-2023 Bilirubin Ql (U) Negative Normal NEG [facility] Comment on above: Performed By: #### U A #### [facility] ([id number]) [address], [address] [place] [address] BLOOD/HGB Small Abnormal NEG [facility] Comment on above: Performed By: #### U A #### [facility] ([id number]) [address], [address] [place] [address] Color (U) YELLOW Normal YELLOW [facility] Comment on above: Performed By: #### U A #### [facility] ([id number]) [address], [address] [place] [address] Glucose Ql (U) Negative Normal NEG [facility] Comment on above: Performed By: #### U A #### [facility] ([id number]) [address], [address] [place] [address] Ketones Ql (U) Negative Normal NEG [facility] Comment on above: Performed By: #### U A #### [facility] ([id number]) [address], [address] [place] [address] Leukocyte esterase Test strip Ql (U) MODERATE Abnormal NEG [facility] Comment on above: Performed By: #### U A #### [facility] ([id number]) [address], [address] [place] [address] MUCOUS PRESENT Abnormal NONE [facility] Comment on above: Performed By: #### U A #### [facility] ([id number]) [address], [address] [place] [address] Nitrite Ql (U) Negative Normal NEG [facility] Comment on above: Performed By: #### U A #### [facility] ([id number]) [address], [address] [place] [address] pH (U) 6.0 [pH] Normal 5.0-8.5 [facility] Comment on above: Performed By: #### U A #### [facility] ([id number]) [address] [address] [place] [address] Protein Ql (U) Trace Abnormal NEG [facility] Comment on above: Performed By: #### U A #### [facility] ([id number]) [address], [address] [place] [address] R.B.CELLS 5 /hpf Normal 0-5 [facility] Comment on above: Performed By: #### U A #### [facility] ([id number]) [address], [address] [place] [address] Specific gravity (U) [Rel density] 1.024 Normal 1.003-1.035 [facility] Comment on above: Performed By: #### U A #### [facility] ([id number]) [address], [address] [place] [address] SQUAMOUS EPITHELIUM 14 /hpf High 0-5 [facility] Comment on above: Performed By: #### U A #### [facility] ([id number]) [address], [address] [place] [address] TURBIDITY HAZY Abnormal CLEAR [facility] Comment on above: Performed By: #### U A #### [facility] ([id number]) [address], [address] [place] [address] Urobilinogen (U) [Mass/Vol] mg/dL Normal <1.1 [facility] Comment on above: Performed By: #### U A #### [facility] ([id number]) [address], [address] [place] [address] W.B.CELLS 4 /hpf Normal 0-5 [facility] Comment on above: Performed By: #### U A #### [facility] ([id number]) [address], [address] [place] [address] URINE CULTUREon 10-20-2023 Bacteria identified Cx Nom (U) CULTURE RESULTS <10,000 ORGANISMS/ML NORMAL URO GENITAL DYLAN Normal [facility] Comment on above: Performed By: #### D MCCLOUD #### [facility] ([id number]) [address] [place] [address] US PREG LESS THAN 14 WKS WIT H TRANSVAGINALon 10-20-2023 US PREG LESS THAN 14 WKS WITH TRANSVAGINAL US PREG LESS THAN 14 WKS WITH TRANSVAGINAL CLINICAL HISTORY: Dates and viability Comparison: None FINDINGS: * Single live IUP at 8 weeks 4 days. La Liga-rump length 2.0 cm. Yolk sac visualized. Heart [...] Oviedo MD on 10/20/2023 1:[address] [facility] VZV IgG IA Ql (S)on 10-20-19 24 VARICELLA IgG 4.0 AI High <0.9 [facility] Comment on above: Result Comment: Interpretation-------- <0.9 Negative 0.9 - 1.0 Equivocal >1.0 Positive Performed By: #### D MCCLOUD #### [facility] ([id number]) [address] [facility] [address] [place] [address] 17-OH PROGESTERONE, LC/MSon 11-23-2020 17-OH Progesterone LCMS 46 ng/dL Normal [facility] Comment on above: Result Comment: Adul t Female Follicular 15 - 70 Luteal 35 - 290 Performed By: #### Brian QIU, FT4 #### [facility] [address], [place] [address] Yu Watts DHEA-SULFATEon 11-21-2020 DHEA-Sulfate 275.0 ug/dL Normal 110.0-431.7 [facility] Comment on above: Performed By: #### Brian QIU, FT4 #### [facility] [address] [place] [address] Yuteri Watts FSHon 11-21-2020 FSH 7.9 mIU/mL Normal [facility] Comment on above: Result Comment: Adul t Female: Follicular phase 3.5 - 12.5 Ovulation phase 4.7 - 21.5 Luteal phase 1.7 - 7.7 Postmenopausal 25.8 - 134.8 Performed By: #### L [facility] #### [facility] [address] [place] [address] Yu Watts LUTEINIZING HORMONE (LH)on 0 11-21-2020 LH 11.3 mIU/mL Normal [facility] Comment on above: Result Comment: Adul t Female: Follicular phase 2.4 - 12.6 Ovulation phase 14.0 - 95.6 Luteal phase 1.0 - 11.4 Postmenopausal 7.7 - 58.5 Performed By: #### Brian QIU, FT4 #### [facility] [address] [place] [address] Yu Stefanie PROLACTINon 11-21-2020 Prolactin 8.5 ng/mL Normal 4.8-23.3 [facility] Comment on above: Performed By: #### Brian QIU, FT4 #### [facility] [address] [place] [address] Yuteri Watts TESTOSTERONE, TOTALon 2020 Testosterone [Mass/Vol] 23 ng/dL Normal 13-71 [facility] Comment on above: Performed By: #### T ESTTOT #### [facility] [address] [place] [address] Yu Watts TSHon 11-20-2020 TSH 1.061 uIU/mL Normal 0.470-4.680 [facility] Comment on above: Performed By: #### T SH #### [facility] [address] [place] [address] Yu Watts TSH RANGE SEE BELOW Normal [facility] Comment on above: Result Comment: <0.3 4 UIU/ml HYPERTHYROID 0.34-5.60 UIU/ml EUTHYROID >5.60 UIU/ml HYPOTHYROID Performed By: #### T SH #### [facility] [address] [place] [address] Yu Watts US PELVIS AND TRANSVAGon US [...] by: JOSE DUARTE Date: 2020-11-20 11:38 Normal [facility] PAP ACOG PANEL 2: 23 to 29on 11-07-2020 . . Normal [facility] Comment on above: Performed By: #### [id number] #### [facility] [address] [place] [address] Yu Watts Age Gdln ACOG Testing 21-29 Normal [facility] Comment on above: Performed By: #### [id number] #### [facility] [address] [place] [address] Yu Baptisteen DIAGNOSIS: Comment Normal [facility] Comment on above: Result Comment: NEGA TIVE FOR INTRAEPITHELIAL LESION OR MALIGNANCY. Performed By: #### 4 [id number] #### [facility] [address] [place] [address] Yu Watts Methodology: Comment Normal [facility] Comment on above: Result Comment: This liquid based ThinPrep(R) pap test was screened with the use of an image guided system. Performed By: #### 4 [id number] #### [facility] [address] [place] [address] Yu Watts Note: Comment Normal [facility] Comment on above: Result Comment: The Pap smear is a screening test designed to aid in the detection of premalignant and malignant conditions of the uterine cervix. It is not a diagnostic procedure and should not be used as the sole means of detecting cervical cancer. Both false-positive and false-negative reports do occur. . Performed By: #### 4 [id number] #### [facility] [address] [place] [address] Yu Watts Performed by: Comment Normal [facility] [place] [facility] Comment on above: Result Comment: Travon Martinez, Curb Hop (ASCP) Performed By: #### [id number] #### [facility] [address] [place] [address] Yu Baptisteen Reflex Criteria: Comment Normal [facility] Comment on above: Result Comment: The HPV DNA reflex criteria were not met with this specimen result therefore, no HPV testing was performed. . Performed By: #### [id number] #### [facility] [address] [place] [address] Yu Stefanie Specimen adequacy: Comment Normal [facility] Comment on above: Result Comment: Sati sfactory for evaluation. Endocervical and/or squamous metaplastic cells (endocervical component) are present. Performed By: #### 4 [id number] #### [facility] [address] [place] [address] Yuteri Watts DHEA-SULFATEon 05-24-2020 DHEA-Sulfate 258.0 ug/dL Normal 110.0-431.7 [facility] Comment on above: Performed By: #### Brian QIU, FT4 #### [facility] [address] [place], [place] [id number] Yu Watts INSULINon 05-24-2020 Insulin 21.4 uIU/mL Normal 2.6-24.9 [facility] Comment on above: Performed By: #### I NSULIN #### [facility] [address] [place], [place] [id number] Yu Watts CBC AUTO DIFFon 05-22-2020 BASO # 0.0 103/ul Normal 0.0-0.1 [facility] Comment on above: Performed By: #### Brian QIU, FT4 #### [facility] [address] [place] [address] Yu Watts Basophils/100 WBC (Bld) 0.4 % Normal 0.2-2.0 [facility] Comment on above: Performed By: #### Brian QIU, FT4 #### [facility] [address] [place] [address] Yu Watts EO # 0.0 103/ul Normal 0.0-0.7 [facility] Comment on above: Performed By: #### Brian QIU, FT4 #### [facility] [address] [place] [address] Yu Watts Eosinophils/100 WBC (Bld) 0.7 % Critically low 0.9-7.0 [facility] Comment on above: Performed By: #### Brian QIU, FT4 #### [facility] [address] [place] [address] Yu Watts Erythrocyte distribution width (RBC) [Ratio] 13.9 % Normal 11.0-15.0 [facility] Comment on above: Performed By: #### Brian QIU, FT4 #### [facility] [address] [place] [address] Yu Watts Hematocrit (Bld) [Volume fraction] 39.0 % Normal 36.0-48.0 [facility] Comment on above: Performed By: #### Brian QIU, FT4 #### [facility] [address] [place], [place] [address] Yu Stefanie Hemoglobin (Bld) [Mass/Vol] 12.6 g/dL Normal 12.0-16.0 [facility] Comment on above: Performed By: #### V ITJODI, FT4 #### [facility] [address] [place] [address] Yu Stefanie IG # 0.01 10e3/ul Normal 0.00-0.03 [facility] Comment on above: Performed By: #### V ITJODI, FT4 #### [facility] [address] [place] [address] Yu Stefanie IG % 0.2 % Normal 0.0-0.5 [facility] Comment on above: Performed By: #### V UYEN, FT4 #### [facility] [address] [place] [address] Yu Stefanie LYMPH # 1.4 103/ul Normal 1.2-3.8 [facility] Comment on above: Performed By: #### V ITJODI, FT4 #### [facility] [address] [place] [address] Yu Stefanie Lymphocytes/100 WBC (Bld) 25.3 % Normal 20.5-60.0 [facility] Comment on above: Performed By: #### V ITJODI, FT4 #### [facility] [address] [place], [place] [address] Yu Stefanie MANUAL DIFF REQ NO Normal [facility] Comment on above: Performed By: #### V ITJODI, FT4 #### [facility] [address] [place], [place] [address] Yu Stefanie MCH (RBC) [Entitic mass] 27.2 pg Normal 26.7-34.0 [facility] Comment on above: Performed By: #### V ITJODI, FT4 #### [facility] [address] [place], [place] [address] Yu Stefanie MCHC (RBC) [Mass/Vol] 32.3 g/dL Normal 29.9-35.2 [facility] Comment on above: Performed By: #### V ITAD, FT4 #### [facility] [address] [place] [address] Yuteri Watts MCV (RBC) [Entitic vol] 84.1 fL Normal 81.0-99.0 [facility] Comment on above: Performed By: #### V ITAD, FT4 #### [facility] [address] [place], [place] [address] Yu Stefaine MONO # 0.4 103/ul Normal 0.3-0.8 [facility] Comment on above: Performed By: #### V ITAD, FT4 #### [facility] [address] [place], [place] [address] Yu Stefanie Monocytes/100 WBC (Bld) 7.1 % Normal 1.7-12.0 [facility] Comment on above: Performed By: #### V ITAD, FT4 #### [facility] [address] [place], [place] [address] Yu Stefanie NEUT # 3.6 103/ul Normal 1.4-6.5 [facility] Comment on above: Performed By: #### V ITAD, FT4 #### [facility] [address] [place], [place] [address] Yu Watts Neutrophils/100 WBC (Bld) 66.3 % Normal 43.0-75.0 [facility] Comment on above: Performed By: #### V ITAD, FT4 #### [facility] [address] [place], [place] [address] Yuteri Baptisteen Platelet mean volume (Bld) [Entitic vol] 10.9 fL Normal 9.5-13.5 [facility] Comment on above: Performed By: #### V ITAD, FT4 #### [facility] [address] [place], [place] [address] Yu Stefanie PLT 243 103/ul Normal 150-450 [facility] Comment on above: Performed By: #### V ITAD, FT4 #### [facility] [address] [place], [place] [address] Yu Stefanie RBC 4.64 106/ul Normal 4.20-5.40 [facility] Comment on above: Performed By: #### V ITJODI, FT4 #### [facility] [address] [place], [place] [address] Yu Stefanie WBC 5.4 103/ul Normal 4.0-11.0 [facility] Comment on above: Performed By: #### V UYEN, FT4 #### [facility] [address] [place], [place] [address] Yu Stefanie FREE T3on 05-22-2020 FREE T3 3.22 pg/mlL Normal 2.77-5.27 [facility] Comment on above: Performed By: #### V ITJODI, FT4 #### [facility] [address] [place], [place] [address] Yu Stefanie FREE T4on 05-22-2020 Free T4 [Mass/Vol] 1.10 ng/dL Normal 0.78-2.19 [facility] [place] Comment on above: Performed By: #### V UYEN, FT4 #### [facility] [address] [place], [place] [address] Yuteri Watts GLYCOHEMOGLOBIN A1Con 2020 Glucose [Mass/Vol] 120 mg/dL Normal [facility] [place] Comment on above: Performed By: #### V UYEN, FT4 #### [facility] [address] [place], [place] [address] Yu Watts HbA1c (Bld) [Mass fraction] 5.8 % Normal <=6.0 [facility] Comment on above: Performed By: #### V ITJODI, FT4 #### [facility] [address] [place], [place] [address] Yuteri Watts LIPID PROFILEon 05-22-2020 CHOL-HDL RATIO NORM SEE BELOW Normal [facility] Comment on above: Result Comment: 3.3 - 4.4 LOW RISK 4.4 - 7.1 AVERAGE RISK 7.1 - 11.0 MODERATE RISK >11.0 HIGH RISK Performed By: #### L IPID, FT3, BMP, TSH, LIVER #### [facility] [address] [place], [place] [address] Yu Stefanie Cholesterol [Mass/Vol] 199 mg/dL Normal <=200 [facility] Comment on above: Performed By: #### L IPID, FT3, BMP, TSH, LIVER #### [facility] [address] [place] [address] Yu Stefanie Cholesterol in HDL [Mass/Vol] 39 mg/dL Normal [facility] Comment on above: Performed By: #### L IPID, FT3, BMP, TSH, LIVER #### [facility] [address] [place] [address] Yu Stefanie Cholesterol in LDL [Mass/Vol] 131.8 mg/dL Normal [facility] Comment on above: Performed By: #### L IPID, FT3, BMP, TSH, LIVER #### [facility] [address] [place] [address] Yu Stefanie Cholesterol.total/Ch olesterol in HDL [Mass ratio] 5.1 {ratio} Normal [facility] Comment on above: Performed By: #### L IPID, FT3, BMP, TSH, LIVER #### [facility] [address] [place] [address] Yu Stefanie HDL NORMAL > or = 60 mg/dl - LO W CARDIOVASCULAR RISK <40 mg/dl - HIGH CARDIOVASCULAR RISK Normal [facility] Comment on above: Performed By: #### L IPID, FT3, BMP, TSH, LIVER #### [facility] [address] [place] [address] Yu Stefanie LDL CALC NORMAL SEE BELOW Normal [facility] Comment on above: Result Comment: <100 mg/dl OPTIMAL 100 - 129 mg/dl NEAR OR ABOVE OPTIMAL 130 - 159 mg/dl BORDERLINE HIGH 160 - 189 mg/dl HIGH >190 mg/dl VERY HIGH Performed By: #### L IPID, FT3, BMP, TSH, LIVER #### [facility] [address] [place] [address] Yu Stefanie Triglyceride [Mass/Vol] 141 mg/dL Normal <=150 [facility] Comment on above: Performed By: #### L IPID, FT3, BMP, TSH, LIVER #### [facility] [address] [place], [place] [address] Yu Stefanie VLDL CALC 28.2 mg/dL Normal [facility] Comment on above: Performed By: #### L IPID, FT3, BMP, TSH, LIVER #### [facility] [address] [place], [place] [address] Yuteri Watts LIVER PROFILEon 05-22-2020 Albumin [Mass/Vol] 4.0 g/dL Normal 3.5-5.0 [facility] Comment on above: Performed By: #### Brian QIU, FT4 #### [facility] [address] [place] [id number] Yu Stefanie Albumin/Globulin [Mass ratio] 1.0 {ratio} Normal [facility] Comment on above: Performed By: #### Brian QIU, FT4 #### [facility] [address] [place], [place] [address] Yu Stefanie ALP [Catalytic activity/Vol] 44 U/L Normal 38-126 [facility] Comment on above: Performed By: #### Brian QIU, FT4 #### [facility] [address] [place], [place] [address] Yu Stefanie ALT [Catalytic activity/Vol] 93 U/L Critically high 9-52 [facility] Comment on above: Performed By: #### Brian QIU, FT4 #### [facility] [address] [place], [place] [address] Yu Stefanie AST [Catalytic activity/Vol] 46 U/L Critically high 14-36 [facility] Comment on above: Performed By: #### Brian QIU, FT4 #### [facility] [address] [place], [place] [address] Yu Stefanie BILI, CONJUGATED 0.1 mg/dL Normal 0.0-0.3 [facility] [place] Comment on above: Performed By: #### Brian QIU, FT4 #### [facility] [address] [place] [id number] Yu Stefanie Bilirubin [Mass/Vol] 0.4 mg/dL Normal 0.2-1.3 [facility] Comment on above: Performed By: #### Brian QIU, FT4 #### [facility] [address] [place], [place] [address] Yu Stefanie Globulin (S) [Mass/Vol] 4.2 g/dL Normal [facility] Comment on above: Performed By: #### V UYEN, FT4 #### [facility] [address] [place] [address] Yu Stefanie Protein [Mass/Vol] 8.2 g/dL Normal 6.1-8.2 [facility] [place] Comment on above: Performed By: #### V UYEN, FT4 #### [facility] [address] [place] [address] Yu Stefanie PROF CHEM 8 (BAS METB)on Anion gap [Moles/Vol] 12.9 mmol/L Normal [facility] Comment on above: Performed By: #### L IPID, FT3, BMP, TSH, LIVER #### [facility] [address] [place], [place] [address] Yu Stefanie Calcium [Mass/Vol] 9.4 mg/dL Normal 8.4-10.2 [facility] [place] Comment on above: Performed By: #### L IPID, FT3, BMP, TSH, LIVER #### [facility] [address] [place], [place] [address] Yu Stefanie Chloride [Moles/Vol] 106 mmol/L Normal 98-107 [facility] Comment on above: Performed By: #### L IPID, FT3, BMP, TSH, LIVER #### [facility] [address] [place], [place] [address] Yu Stefanie CO2 [Moles/Vol] 25.7 mmol/L Normal 22.0-30.0 [facility] Comment on above: Performed By: #### L IPID, FT3, BMP, TSH, LIVER #### [facility] [address] [place], [place] [address] Yu Stefanie Creatinine [Mass/Vol] 0.78 mg/dL Normal 0.52-1.04 [facility] Comment on above: Performed By: #### L IPID, FT3, BMP, TSH, LIVER #### [facility] [address] [place] [id number] Yu Stefanie EGFR-AF INDONESIAN >60 Normal >=60 [facility] Comment on above: Performed By: #### L IPID, FT3, BMP, TSH, LIVER #### [facility] [address] [place] [address] Yu Stefanie EGFR-NON AF INDONESIAN >60 Normal >=60 [facility] Comment on above: Performed By: #### L IPID, FT3, BMP, TSH, LIVER #### [facility] [address] [place] [address] Yu Stefanie Glucose [Mass/Vol] 95 mg/dL Normal 74-106 [facility] [place] Comment on above: Performed By: #### L IPID, FT3, BMP, TSH, LIVER #### [facility] [address] [place] [address] Yu Stefanie Potassium [Moles/Vol] 3.6 mmol/L Normal 3.4-5.0 [facility] Comment on above: Performed By: #### L IPID, FT3, BMP, TSH, LIVER #### [facility] [address] [place] [address] Yu Stefanie Sodium [Moles/Vol] 141 mmol/L Normal 137-145 [facility] [place] Comment on above: Performed By: #### L IPID, FT3, BMP, TSH, LIVER #### [facility] [address] [place], [place] [address] Yu Stefanie Urea nitrogen [Mass/Vol] 10.0 mg/dL Normal 7.0-17.0 [facility] Comment on above: Performed By: #### L IPID, FT3, BMP, TSH, LIVER #### [facility] [address] [place] [id number] Yu Stefanie Urea nitrogen/Creatinine [Mass ratio] 12.8 mg/mg Normal [facility] Comment on above: Performed By: #### L IPID, FT3, BMP, TSH, LIVER #### [facility] [address] [place] [address] Yu Stefanie TSHon 01-21-2021 TSH 1.324 uIU/mL Normal 0.470-4.680 [facility] [place] [facility] Comment on above: Performed By: #### L IPID, FT3, BMP, TSH, LIVER #### [facility] [address] [place], [place] [address] Yuteri Watts TSH RANGE SEE BELOW Normal [facility] Comment on above: Result Comment: <0.3 4 UIU/ml HYPERTHYROID 0.34-5.60 UIU/ml EUTHYROID >5.60 UIU/ml HYPOTHYROID Performed By: #### L IPID, FT3, BMP, TSH, LIVER #### [facility] [address] [place], [place] [address] Yu Watts VITAMIN D 25 OHon 05-22-2020 VIT D 25-OH 18.0 ng/mL Normal [facility] Comment on above: Performed By: #### V ITAD, FT4 #### [facility] [address] [place], [place] [address] Yu Watts VIT D RANGES SEE BELOW Normal [facility] Comment on above: Result Comment: <20 ng/mL Vit D deficient 20 - <30 ng/mL Vit D insufficient 30 - 100 ng/mL Vit D sufficient >100 ng/mL Potential Toxicity Performed By: #### V ITAD, FT4 #### [facility] [address] [place] [address] Yu Watts Vital Signs Date Time Vital Sign Value Performing Clinician Rani juan 05-08-2024 [id number] Body weight 113.31 kg Isidro Jasmine DO Work Phone: [facility] 05-08-2024 10:28-0500 Diastolic blood pressure 74 mm[Hg] Isidro Jasmine DO Work Phone: [facility] 05-08-2024 10:28-0500 Systolic blood pressure 132 mm[Hg] Isidro Jasmine DO Work Phone: [facility] 04-18-2024 10:20-0500 Body weight 111.58 kg Maryann AMIN Work Phone: [facility] 04-18-2024 10:20-0500 Diastolic blood pressure 78 mm[Hg] Maryann AMIN Work Phone: [facility] 04-18-2024 10:20-0500 Systolic blood pressure 124 mm[Hg] Maryann AMIN Work Phone: [facility] 04-03-2024 10:58-0500 Body weight 109.23 kg Isidro Jasmine DO Work Phone: [facility] 04-03-2024 10:58-0500 Diastolic blood pressure 80 mm[Hg] Isidro Jasmine DO Work Phone: [facility] 04-03-2024 10:58-0500 Systolic blood pressure 120 mm[Hg] Isidro Jasmine DO Work Phone: [facility] 03-21-2024 13:54-0500 Body weight 109.32 kg Maryann AMIN Work Phone: [facility] 03-21-2024 13:54-0500 Diastolic blood pressure 74 mm[Hg] Maryann AMIN Work Phone: [facility] 03-21-2024 13:54-0500 Systolic blood pressure 118 mm[Hg] Maryann AMIN Work Phone: [facility] 03-07-2024 11:00-0500 Body weight 108.32 kg Isidro Jasmine DO Work Phone: [facility] 03-07-2024 11:00-0500 Diastolic blood pressure 70 mm[Hg] Isidro Jasmine DO Work Phone: [facility] 03-07-2024 11:00-0500 Systolic blood pressure 120 mm[Hg] Isidro Jasmine DO Work Phone: [facility] 02-23-2024 10:16-0400 Body weight 108.77 kg Isidro Jasmine DO Work Phone: [facility] 02-23-2024 10:16-0400 Diastolic blood pressure 76 mm[Hg] Isidro Jasmine DO Work Phone: [facility] 02-23-2024 10:16-0400 Systolic blood pressure 130 mm[Hg] Isidro Jasmine DO Work Phone: [facility] 01-25-2024 10:36-0400 Body weight 108.86 kg Maryann AMIN Work Phone: [facility] 01-25-2024 10:36-0400 Diastolic blood pressure 72 mm[Hg] Maryann AMIN Work Phone: [facility] 01-25-2024 10:36-0400 Systolic blood pressure 124 mm[Hg] Maryann AMIN Work Phone: [facility] 12-22-2023 09:10-0400 Body weight 108.41 kg Isidro Jasmine DO Work Phone: [facility] 12-22-2023 09:10-0400 Diastolic blood pressure 80 mm[Hg] Isidro Jasmine DO Work Phone: [facility] 12-22-2023 09:10-0400 Systolic blood pressure 120 mm[Hg] Isidro Jasmine DO Work Phone: [facility] Healthcare Encounters Encounter Date Encounter Type Care Provider Facility Start: 05-08-2024 End: 05-08-2024 Bamboo flowsheet Isidro Jasmine DO Work Phone: [facility] Start: 05-08-2024 End: 05-08-2024 Bamboo flowsheet Isidro Jasmine DO Work Phone: [facility] Start: 05-08-2024 End: 05-08-2024 Office outpatient visit 15 minutes Isidro Jasmine DO Work Phone: [facility] Comment on above: 37 weeks gestation o f ; Third trimester Start: 04-18-2024 End: 04-18-2024 Bamboo flowsheet Maryann AMIN Work Phone: [facility] Start: 04-18-2024 End: 04-18-2024 Bamboo flowsheet Maryann AMIN Work Phone: [facility] Start: 04-18-2024 End: 04-18-2024 ambulatory MARYANN SARAH Not Available Start: 04-18-2024 End: 04-18-2024 Office outpatient visit 15 minutes Maryann AMIN Work Phone: [facility] Comment on above: Third trimester preg harini; 34 weeks gestation of Start: 04-13-2024 End: 04-13-2024 Telephone encounter [facility] Start: 04-03-2024 End: 04-03-2024 Bamboo flowsheet Isidro Jasmine DO Work Phone: [facility] Start: 04-03-2024 End: 04-03-2024 Bamboo flowsheet Isidro Jasmine DO Work Phone: [facility] Start: 04-03-2024 End: 04-03-2024 ambulatory ISIDRO JASMINE Not Available Start: 04-03-2024 End: 04-03-2024 Office outpatient visit 15 minutes Isidro Jasmine DO Work Phone: [facility] Comment on above: 32 weeks gestation o f ; Third trimester ; Episodic lightheadedness; Heart palpitations Start: 03-21-2024 End: 03-21-2024 Bamboo flowsheet Maryann AMIN Work Phone: [facility] Start: 03-21-2024 End: 03-21-2024 Bamboo flowsheet Maryann AMIN Work Phone: [facility] Start: 03-21-2024 End: 03-21-2024 Office outpatient visit 15 minutes Maryann AMIN Work Phone: [facility] Comment on above: Third trimester preg harini; 30 weeks gestation of ; Insulin controlled gestational diabetes mellitus (GDM) in third trimester; BV (bacterial vaginosis) Start: 03-21-2024 End: 03-21-2024 ambulatory MARYANN SMITH Not Available Start: 03-14-2024 End: 03-14-2024 [facility] Start: 03-07-2024 End: 03-07-2024 Bamboo flowsheet [...] Pool RN Maternal- Medicine at [facility] Comment on above: Insulin controlled g estational diabetes mellitus (GDM) in third trimester (Primary Dx); Severe obesity due to excess calories affecting , antepartum (CMS-HCC); Alpha thalassemia silent carrier Start: 02-15-2024 End: 02-15-2024 Telephone encounter Kathie Sellers MD Work Phone: Maternal- Medicine at [facility] Start: 02-14-2024 End: 02-14-2024 ambulatory ISIDRO R JASMINE [facility] Start: 02-02-2024 End: 02-02-2024 Telephone encounter Mojgan Zeng RN M[facility]- Medicine at [facility] Start: 01-25-2024 End: 01-25-2024 Office outpatient visit 15 minutes Maryann Smith PA Work Phone: [facility] Comment on above: Second trimester pre gnancy Start: 01-25-2024 End: 01-25-2024 ambulatory MARYANN SMITH Not Available Start: 01-17-2024 End: 01-17-2024 ambulatory ISIDRO R JASMINE [facility] Start: 12-22-2023 End: 12-22-2023 Bamboo flowsheet [...] End: 12-12-2023 ambulatory ADELA SERGE [facility] Start: 10-28-2023 End: 10-28-2023 ambulatory [facility] Start: 10-28-2023 End: 10-28-2023 ambulatory [facility] Start: 10-28-2023 Encounter for gynecological examination (general) (routine) without abnormal findings [facility] Start: 10-28-2023 End: 10-28-2023 ambulatory [facility] Start: 10-28-2023 Encounter for gynecological examination (general) (routine) without abnormal findings [facility] Start: 10-20-2023 End: 10-20-2023 ambulatory [facility] Start: 10-06-2023 End: 10-06-2023 Emergency department patient visit [facility] Start: 10-04-2023 End: 10-04-2023 ambulatory YASMINE CORNEJO [facility] Start: 06-26-2023 End: 06-26-2023 Emergency department patient visit TRAE SANCHEZ [facility] Start: 11-20-2020 End: 11-21-[address] TRAE SANCHEZ Facility:H1 Start: 11-05-2020 End: 11-05-[address] TRAE SANCHEZ Facility:[facility]1 Start: 06-25-2020 Encounter for genera l adult medical examination without abnormal findings DR TRAE SANCHEZ [facility] Start: 05-22-2020 End: 05-23-[address] TRAE SANCHEZ Facility:[facility]1 Start: 05-22-2020 End: 05-23-2020 Encounter for general adult medical examination without abnormal findings DR TRAE SANCHEZ Facility:[facility]1 Procedures Date Procedure Procedure Detail Performing Clinician Start: 05-08-2024 Urnls dip stick/tabl et rgnt non-auto w/o micrscp Isidro Jasmine DO Work Phone: Start: 04-18-2024 Urnls dip stick/tabl et rgnt [...] stick/tabl et rgnt non-auto w/o micrscp Isidro Ferraro DO Work Phone: Start: 10-28-2023 Microscopic observat ion [Identifier] in Cervix by Cyto stain Mojgan Zeng RN Start: 10-28-2023 Cytp cerv/vag auto t hin layer prep mnl screen Maryann AMIN Work Phone: Start: 10-27-2023 Adult depression scr eening assessment Mojgan Zeng RN Plan of Treatment Date Care Activity Detail Author Start: 10-27-2026 Screening for malign ant neoplasm of cervix Pap Smear [facility] Start: 02-15-2025 End: 02-15-2025 US MFM with or without consult US MFM with or without consult Imaging Routine Insulin controlled gestational diabetes mellitus (GDM) in third trimester Severe obesity due to excess calories affecting , antepartum ([facility]) Alpha thalassemia silent carrier Expected: 02/15/2025 (Approximate), Expires: 02/15/2025 [facility] Work Phone: Comment on above: Expected: 02/15/2025 (Approximate), Expires: 02/15/2025 Start: 01-16-2025 Adult BMI Screening Adult BMI Screen ing [facility] Start: 01-16-2025 Tobacco Screening Tobacco Screening [facility] Start: 10-26-2024 Depression Screening Depression Scre ening [facility] Start: 05-08-2024 End: 05-08-2025 CULTURE, GROUP B STREP WITH SUSCEPTIBLITY CULTURE, GROUP B STREP WITH SUSCEPTIBLITY Lab Routine Third trimester Expected: 05/08/2024, Expires: 05/08/2025 [facility] Work Phone: Comment on above: Expected: 05/08/2024 , Expires: 05/08/2025 Start: 05-08-2024 End: 05-08-2024 Patient encounter procedure 05/08/2024 10:00 AM EST Routine [facility] [address] [place] [address] Isidro Ferraro, DO [address] [place] [address] [place] [address] [facility] Start: 04-18-2024 End: 04-18-2024 Patient encounter procedure 04/18/2024 9:50 AM EST Routine [facility] [address] [place] [phone] Maryann Smith PA [address] [place] [address] [facility] Start: 04-03-2024 End: 04-03-2025 12 [...] AM EST Routine [facility] [address] [place] [phone] Isidro Ferraro, DO [address] [place] [address] [place] [address] [facility] Start: 03-21-2024 End: 03-21-2025 US [...] Expected: 03/21/2024 (Approximate), Expires: 03/21/2025 [facility] Work Phone: Comment on above: Expected: 03/21/2024 (Approximate), Expires: 03/21/2025 Start: 03-21-2024 End: 03-21-2024 Patient encounter procedure [facility] Comment on above: Arrived Start: 03-14-2024 End: 03-14-2024 Patient encounter procedure 03/14/2024 3:00 PM EST Appointment [facility] [address] [place] [phone] [facility] Start: 03-07-2024 End: 03-07-2024 Patient encounter procedure 03/07/2024 11:10 AM EST Routine [facility] [address] [place] [address] Isidro Ferraro, [address] [place] [address] Arrived [facility] Comment on above: Arrived Start: 02-23-2024 End: 02-23-2024 Patient encounter procedure [facility] Comment on above: Arrived Start: 02-15-2024 End: 02-15-2024 Telemedicine consultation with patient 02/15/2024 9:45 AM EDT Telemedicine [facility]- [facility] at [facility] [address] [place] [phone] Kathie Sellers MD [address] [address] [facility] at [facility] Start: 02-14-2024 End: 02-14-2024 Patient encounter procedure 02/14/2024 2:00 PM EDT Appointment [facility] [address] [place] [phone] [facility] Start: 01-25-2024 End: 01-25-2024 Patient encounter procedure 01/25/2024 10:30 AM EDT Routine [facility] [address] [place] [phone] Maryann Smith PA [address] [place] [address] [facility] Start: 01-01-2024 Influenza vaccination [facility] Start: 12-22-2023 End: 12-22-2023 ambulatory 12/22/2023 8:50 AM EDT Initial [facility] [address] [place] [address] Isidro Ferraro DO [address] [place] [address] Arrived [facility] Comment on above: Arrived Start: 01-23-2020 DTaP,Tdap and Td Vaccines (7 - Td or Tdap) DTaP,Tdap and Td Vaccines (7 - Td or Tdap) [facility] Start: 10-10-2015 Adult BMI Follow Up Plan Adult BMI F ollow Up Plan [facility] CBC W Auto Different ial panel - Blood CBC and differential Lab Routine 32 weeks gestation of Third trimester Ordered: 04/03/2024 [facility] Work Phone: Comment on above: Ordered: 04/03/2024 Payers Date Payer Category Payer Medicaid [facility] [id number] 2019 Medicaid [id number] 2019 Private Health Insurance [facility] [id number] 2019 Medicaid [id number] 1997 Unknown [id number] 2.16840.1.388665.3.579.2. 593 1997 Unknown [id number] 2.16840.1.290217.3.579.2. 593 1997 Unknown [id number] 2.16840.1.806411.3.579.2. 593 1997 Unknown [id number] 2.16840.1.096693.3.579.2. 1286 1997 Unknown [id number] 2.16840.1.251848.3.579.2. 128 1997 Unknown [id number] 2.16840.1.681753.3.579.2. 1286 1997 Unknown [id number] 2.16840.1.734178.3.579.2. 1286 1997 Unknown [id number] 2.16.840.1.484936.3.579.2. 1285 1997 Unknown [id number] 2.16.840.1.404017.3.579.2. 1285 1997 Unknown [id number] 2.16.840.1.104765.3.579.2. 1285 1997 Unknown [id number] 2.16840.1.820587.3.579.2. 1285 1997 Unknown [id number] 2.16840.1.033705.3.579.2. 1285 1997 Unknown [id number] 2.16840.1.956177.3.579.2. 1285 1997 Unknown [id number] 2.16840.1.959668.3.579.2. 1285 1997 Unknown [id number] 2.840.1.978318.3.579.2. 1285 1997 Unknown [id number] 2.840.1.273689.3.579.2. 1285 1997 Unknown [id number] 2.840.1.548894.3.579.2. 1258 1997 Unknown [id number] 2.16840.1.432189.3.579.2. 1258 1997 Unknown [id number] 2.840.1.569610.3.579.2. 1258 1997 Unknown [id number] 2.16840.1.342023.3.579.2. 1258 1997 Unknown [id number] 2.16840.1.974003.3.579.2. 1258 1997 Unknown [id number] 2.16840.1.802427.3.579.2. 1258 1997 Unknown [id number] 2.16840.1.463756.3.579.2. 1258 1959 Unknown [id number] Social History Date Type Detail Facility Start: 06-26-2023 Tobacco smoking stat [facility] Never smoked tobacco [facility] Start: 06-26-2023 Tobacco use and exposure Smokeless tobacco non-user [facility] Start: 01-17-2024 Alcoholic beverage intake Ex-drinker (finding) [facility] Start: 06-12-2020 End: 01-17-2024 History of Social function [facility] Start: 06-12-2020 End: 01-17-2024 Tobacco use panel [facility] How hard is it for y ou to pay for the very basics like food, housing, medical care, and heating Not hard at all [facility] Start: 11-12-2021 Alcohol Comment rarely [facility] Start: 09-03-2023 [facility] Start: 1997 Sex assigned at Not on file [facility] Start: 12-05-2014 Sex Female (finding) [facility] Tobacco smoking stat [facility] Tobacco smoking consumption unknown [facility] Equipment Procedure Code Equipment Code Equipment Origin al Text Equipment Identifier Dates [id number] Start: 10-21-2023 Use to check fas ting blood sugar in the morning and one hour after first bite of each meal. Order supplies per insurance preference. [id number] Start: 10-21-2023 Test blood sugar 4 times a day [id number] Start: 12-13-2023 Use daily for insulin [id number] Start: 01-17-2024 Test blood sugar 4 times a day [id number] Start: 12-13-2023 Goals Date Patient Goal Desired Activity /State Personal health goal Clinical Notes 12-22-2023 to 05-08-2024 Stefanie Levy LPN - 05/08/2024 10:00 AM BRENNAN Omer - 04/18/2024 9:50 AM ESTTelephone Encounter - Bing Mccann CMA - 04/13/2024 10:21 AM [place] Levy LPN - 04/03/2024 10:30 AM EST Note Date & Type Note Facility 05-08-2024 History of Presen t illness Narrative Reason [...] Constitutional: Appearance: Normal appearance. She is well-developed. Genitourinary: Vulva normal. Cardiovascular: Rate and Rhythm: Normal rate and [...] nursing note reviewed. Exam conducted with a etl analyst developer present. Vitals: There is no height or weight on file to calculate BMI. BP: 132/74 Patient's last menstrual period was 08/20/2023. ASSESSMENT & PLAN ICD-10-CM 1. 37 weeks gestation of Z3A.37 POCT urinalysis dipstick manually resulted 2. Third trimester Z34.93 CULTURE, GROUP B STREP WITH SUSCEPTIBLITY CULTURE, GROUP B STREP WITH SUSCEPTIBLITY POCT urinalysis dipstick manually resulted Patient is doing well but has complaints of being tired and having maternal discomfort due to . Patient verbalized frequent movement and was instructed to perform kick counts three times per day. labor precautions were given, LARC consent was signed/declined, and GBS was obtained. Cervical check was performed and patient is 2cm dilated. Induction consents signed pt to report on Tuesday05/11/24 at 0500. Orders Placed This Encounter Procedures CULTURE, GROUP B STREP WITH SUSCEPTIBLITY POCT urinalysis dipstick manually resulted Follow Up: Patient is to return to office in 1 week for routine OB appointment Documented by Stefanie Levy LPN on behalf of: Isidro Ferraro DO documented in this encounter [facility] 04-18-2024 History of Presen t illness Narrative [...] of: BRENNAN Vora documented in this encounter [facility] 04-13-2024 Miscellaneous Notes Formattin g of this note might be different from the original. Called patient in regard to not receiving blood sugar logs in two or more weeks. No answer. Asked patient to send most recent logs to the office email. Call back number left and patient encouraged to reach out if she has any questions or concerns. [facility]24 Telephone encount er Note Called patient in regard to not receiving blood sugar logs in two or more weeks. No answer. Asked patient to send most recent logs to the office email. Call back number left and patient encouraged to reach out if she has any questions or concerns. [facility] 04-03-2024 History of Presen t illness Narrative [...] Isidro Ferraro DO documented in this encounter [facility] 03-21-2024 History of Presen t illness Narrative [...] of: BRENNAN Vora documented in this encounter [facility] 03-07-2024 History of Presen t illness Narrative [...] nursing note reviewed. Exam conducted with a etl analyst developer present. Vitals: There is no height or [...] Isidro Ferraro DO documented in this encounter [facility] 02-23-2024 History of Presen t illness Narrative [...] nursing note reviewed. Exam conducted with a etl analyst developer present. Vitals: There is no height or [...] is having follow up US scheduled at [facility]. Patient to start growth scans after next scan with [facility] every 4 weeks. Patient to start [...] Isidro Ferraro DO documented in this encounter [facility] 02-15-2024 Miscellaneous Notes Formattin g of this note might be different from the original. School Bus Mechanic elizabeth for pt w/ appt info on for 03/14 at 3:00 and requested a return call if she could not make that work. documented in this encounter [facility] 02-15-2024 Telephone encount er Note School Bus Mechanic elizabeth for pt w/ appt info on for 03/14 at 3:00 and requested a return call if she could not make that work. [facility] 02-15-2024 Miscellaneous Notes Formattin g of this note might be different from the original. School Bus Mechanic laila [place]. Patient scheduled for a MyChart Visit @ 9:45 am. School Bus Mechanic asked patient to get oncology registrar if available. School Bus Mechanic left call back number [phone] #[phone] if patient needs to reschedule. documented in this encounter [facility] 02-15-2024 Telephone encount er Note School Bus Mechanic left VM. Patient scheduled for a MyChart Visit @ 9:45 am. School Bus Mechanic asked patient to get oncology registrar if available. School Bus Mechanic left call back number [phone] #[phone] if patient needs to reschedule. [facility] 02-02-2024 Miscellaneous Notes Formattin g of this note might be different from the original. Called patient, no answer, left message to please send blood glucose logs to the diabetes email. documented in this encounter [facility] 02-02-2024 Telephone encount er Note Called patient, no answer, left message to please send blood glucose logs to the diabetes email. [facility] 01-25-2024 History of Presen t illness [...] of: BRENNAN Vora documented in this encounter [facility] 12-22-2023 History of Presen t illness Narrative [...] nursing note reviewed. Exam conducted with a etl analyst developer present. Vitals: There is no height or [...] after delivery, elevated sugars and currently seeing [facility] for Diabetic Education. Patient has [...] , antepartum (CMS-HCC) documented [facility] this encounter [facility] Diagnosis Insulin controlled gestational diabetes mellitus (GDM) in third trimester Severe obesity due to excess calories affecting , antepartum (CMS-HCC) documented in this encounter [facility] Diagnosis Insulin controlled gestational diabetes mellitus (GDM) in third trimester- Primary Severe obesity due to excess calories affecting , antepartum (CMS-HCC) Alpha thalassemia silent carrier documented in this encounter [facility]* Diagnosis 28 weeks gestation [...] [facility] Diagnosis 37 weeks gestation of Third trimester state, incidental documented in this encounter [facility] HealthcareInstructionsNot on filedocumented in this encounterProMedimi [facility] SystemInstructionsNot on filedocumented in this encounterProMedimi Health SystemInstructionsNot on filedocumented in this encounterProMedica [...] CREATED AUTHOR AUTHOR'S ORGANIZ ATION 11/02/2023 [facility] DATE CREATED AUTHOR AUTHOR'S ORGANIZ ATION 03/16/2024 [facility] DATE CREATED AUTHOR AUTHOR'S ORGANIZ ATION 04/21/2024 [facility] [employer] Care Teams (unrecognized sec tion and content) Conditioner Tender Relationship Specialty Start Date End Date Trae Sanchez MD PCP - General Family Medicine 04/28/20 Conditioner Tender Relationship Specialty Start Date End Date Trae Sanchez MD PCP - General Family Medicine 04/28/20 Conditioner Tender Relationship Specialty Start Date End Date Trae Sanchez MD PCP - General Family Medicine 04/28/20 Conditioner Tender Relationship Specialty Start Date End Date Joanna Allan MD [address] [place] [address] PCP - General Family Medicine 09/07/22 Conditioner Tender Relationship Specialty Start Date End Date Joanna Allan MD [address], [place] [id number] PCP - General Family Medicine 09/07/22 Conditioner Tender Relationship Specialty Start Date End Date Joanna Allan MD [address], [place] [id number] PCP - General Family Medicine 09/07/22 Conditioner Tender Relationship Specialty Start Date End Date Joanna Allan MD [address] [facility] [place] [address] PCP - General Family Medicine 09/07/22 Conditioner Tender Relationship Specialty Start Date End Date Joanna Allan MD [address] [facility] [place] [address] PCP - General Family Medicine 09/07/22 Conditioner Tender Relationship Specialty Start Date End Date Joanna Allan MD [address] [facility] [place] [address] PCP - General Family Medicine 09/07/22 Conditioner Tender Relationship Specialty Start Date End Date Joanna Allan MD [address] [facility] [place] [address] PCP - General Family Medicine 09/07/22 Conditioner Tender Relationship Specialty Start Date End Date Joanna Allan MD [address] [facility] [place] [address] PCP - General Family Medicine 09/07/22 Reason [...] BE BASED ON THE PRIMARY CLINICAL RECORDS. [facility] [employer] [facility]. provides no warranty or guarantee of the accuracy or completeness of information in this document.
[2024-05-11] MEDS: OXYTOCIN/0.9 % SODIUM CHLORIDE 10 UNITS/500 ML PLAST..BAG 6 UNIT IV (06:30)
[2024-05-11] MEDS: 0.9 % SODIUM CHLORIDE 1,000 ML 125 ML IV ×2 (06:34→12:43)
[2024-05-11] MEDS: CEFAZOLIN SODIUM/DEXTROSE,ISO 2 GM/50 ML PIGGYBACK IV ×2 (06:35→11:15)
[2024-05-11 06:41] LABS: Hemoglobin 10.2 g/dL (12.0-16.0); Mean Corpuscular HGB Conc 31.9 g/dL (29.9-35.2); Mean Corpuscular Hemoglobin 24.6 pg (26.7-34.0); Mean Corpuscular Volume 77.3 fL (81.0-99.0); Mean Platelet Volume 11.1 fL (9.5-13.5); Platelet Count 261 10^3/uL (150-450); Red Blood Count 4.14 10^6/uL (4.20-5.40); Red Cell Distribution Width 14.8 % (11.0-15.0); White Blood Count 7.6 10^3/uL (4.0-11.0)
[2024-05-11 07:08] LABS: Amphetamine Screen Urine NEGATIVE (NEGATIVE); Barbiturates Screen Urine NEGATIVE (NEGATIVE); Benzodiazepines Screen Urine NEGATIVE (NEGATIVE); Cannabinoid Screen Urine NEGATIVE (NEGATIVE); Cocaine Screen Urine NEGATIVE (NEGATIVE); Methadone Screen Urine NEGATIVE (NEGATIVE); Methamphetamines Screen Urine NEGATIVE (NEGATIVE); Opiate Screen Urine NEGATIVE (NEGATIVE); Oxycodone Screen Urine NEGATIVE (NEGATIVE); Phencyclidine Screen Urine NEGATIVE (NEGATIVE); Tricyclic Antidepressant Urine NEGATIVE (NEGATIVE)
[2024-05-11 07:09] LABS: Buprenorphine Screen Urine NEGATIVE (NEGATIVE)
[2024-05-11] MEDS: ROPIVACAINE HCL 0.2% PF 40 MG/20 ML VIAL EPIDURAL (08:37)
[2024-05-11] MEDS: 0.9 % SODIUM CHLORIDE 1,000 ML 1000 ML IV (08:37)
[2024-05-11] MEDS: ROPIVACAINE HCL/PF 400 MG/200 ML PREMIX 6 MG EPIDURAL (08:43)
[2024-05-11] MEDS: FENTANYL CITRATE/PF 100 MCG/2 ML VIAL EPIDURAL (08:43)
[2024-05-11] MEDS: OXYTOCIN/0.9 % SODIUM CHLORIDE 20 UNITS/1,000 ML PLAST..BAG 125 UNIT IV (13:33)
--- NOTE | 2024-05-11 13:42 | PM.OBPRCVD ---
Procedure Intrapartal events: None Induction method: per pitocin protocol Delivery augmentation: rupture of membranes and pitocin Delivery monitor: external FHT and external uterine Route of delivery: Episiotomy Description: none L&D Laceration Description: perineal - 1st degree Delivery repair: Vicryl Estimated blood loss (mL): 250 Anesthesia type: Epidural Disposition: floor Infant Delivery date: 05/11/24 Gender: female presentation: vertex Placental delivery description: Spontaneous cord description: 3 Vessels
[2024-05-11] MEDS: BENZOCAINE/MENTHOL 85 GRAM SPRAY BOTTLE 1 APPLIC TOPICAL (15:46)
[2024-05-11] MEDS: GLYCERIN/WITCH HAZEL PADS 1 PAD TOPICAL (15:47)
[2024-05-11] MEDS: IBUPROFEN 600 MG TABLET PO (17:02)
--- NOTE | 2024-05-11 19:08 | W.PC.ACHO ---
Registration Status: ADM IN Primary Language: French Preferred Language: French Report given to Abilio NICOLE at 1900. Care relinquished. Active Medications Generic Name Dose Route Start Last Admin Trade Name Joey PRN Reason Stop Dose Admin Acetaminophen 650 mg 05/11/24 13:43 Acetaminophen 325 Mg Tablet PO Q6H PRN Mild Pain Al Hydroxide/Mg Hydroxide 2,400 mg 05/11/24 13:43 Magnesium Hydroxide 2,400 Mg/10 Ml Oral.Susp PO Q6H PRN Dyspepsia Benzocaine/Menthol 1 applic 05/11/24 13:43 05/11/24 15:46 Benzocaine/Menthol 85 Gram [place] Bottle TOPICAL 1 applic Q2H PRN Administration Pain Carboprost Tromethamine 250 mcg 05/11/24 05:27 Carboprost Tromethamine 250 Mcg/Ml 1 Ml Vial IM 05/13/24 05:27 Q15M PRN Bleeding Diphenhydramine HCl 25 mg 05/11/24 07:26 Diphenhydramine Hcl 50 Mg/Ml Vial IV 05/12/24 07:27 Q6H PRN Itching Diphtheria/Pertussis/Tetanus Vacc 0.5 ml 05/13/24 09:00 Adacel Diph,Pertuss(Acell),Tet Vac/Pf 0.5 Ml Adult Syringe IM 05/13/24 09:01 .ONCE ONE Docusate Sodium 100 mg 05/12/24 09:00 Docusate Sodium 100 Mg Capsule PO BID UMM Ephedrine Sulfate 5 mg 05/11/24 07:26 Ephedrine Sulfate 50 Mg/Ml Vial IV 05/12/24 07:27 Q5M PRN Blood Pressure - Low Fentanyl Citrate 100 mcg 05/11/24 07:26 05/11/24 08:43 Fentanyl Citrate/Pf 100 Mcg/2 Ml Vial EPIDURAL 100 mcg ONCE PRN Administration epidural Fentanyl Citrate 100 mcg 05/11/24 07:26 Fentanyl Citrate/Pf 100 Mcg/2 Ml Vial EPIDURAL ONCE PRN epidural Tranexamic Acid 1,000 mg/ 110 mls @ 440 mls/hr 05/11/24 05:27 Sodium Chloride IV 05/13/24 05:27 ONCE PRN Uterine Bleeding Sodium Chloride 1,000 mls @ 125 mls/hr 05/11/24 05:30 05/11/24 13:33 Sodium Chloride 0.9% 1,000 Ml IV Infused .Q8H UMM Infusion Oxytocin/Sodium Chloride 10 units in 500 mls @ 6 mls/hr 05/11/24 05:30 05/11/24 13:33 Pitocin 10 Unit/500 Ml-Ns IV Infused TITR UMM Infusion Protocol 2 MILLIUNIT/MIN Ropivacaine/Sodium Chloride 400 mg in 200 mls @ 6 mls/hr 05/11/24 07:30 05/11/24 13:45 Naropin 0.2% 400 Mg/200 Ml Bag EPIDURAL Infused Q24H UMM Infusion Ibuprofen 600 mg 05/11/24 13:43 05/11/24 17:02 Ibuprofen 600 Mg Tablet PO 600 mg Q6H PRN Administration Moderate Pain Lidocaine 5 ml 05/11/24 05:27 Lidocaine Viscous 2% 15 Ml Solution TOPICAL 05/13/24 05:29 ONCE PRN Pain Lidocaine 1 ml 05/11/24 05:27 Lidocaine Hcl 1% 200 Mg/20 Ml Mdv INJ 05/13/24 05:29 ONCE PRN Pain Methylergonovine Maleate 0.2 mg 05/11/24 05:27 Methylergonovine Maleate 0.2 Mg/Ml Ampule IM 05/13/24 05:27 ONCE PRN Uterine Contractility/Contract Methylergonovine Maleate 0.2 mg 05/11/24 05:27 Methylergonovine Maleate 0.2 Mg Tablet PO 05/13/24 05:27 Q4H PRN Uterine Contractility/Contract Misoprostol 600 mcg 05/11/24 05:27 Misoprostol 100 Mcg Tablet PO 05/13/24 05:27 ONCE PRN Uterine Bleeding Misoprostol 800 mcg 05/11/24 05:27 Misoprostol 100 Mcg Tablet SL 05/13/24 05:27 ONCE PRN Uterine Bleeding Misoprostol 1,000 mcg 05/11/24 05:27 Misoprostol 100 Mcg Tablet IA 05/13/24 05:27 ONCE PRN Uterine Bleeding Nalbuphine HCl 10 mg 05/11/24 05:27 Nalbuphine Hcl 10 Mg/Ml Ampule IV Q3H PRN Pain Naloxone HCl 0.4 mg 05/11/24 07:26 Naloxone Hcl 0.4 Mg/Ml Vial IV 05/12/24 07:27 ONCE PRN Respiratory Distress Ondansetron HCl 4 mg 05/11/24 05:27 Ondansetron Pf 4 Mg/2 Ml Vial IV Q6H PRN Nausea And Vomiting Ondansetron HCl 4 mg 05/11/24 05:27 Ondansetron 4 Mg Rapdis Tablet SL Q6H PRN Nausea And Vomiting Oxytocin 10 unit 05/11/24 05:27 Oxytocin 10 Unit/Ml Vial IM 05/13/24 05:27 ONCE PRN Bleeding Senna 17.2 mg 05/11/24 20:00 Sennosides 8.6 Mg Tablet PO QHS PRN Constipation Simethicone 80 mg 05/11/24 13:43 Simethicone 80 Mg Tab.Chew PO QID PRN Abdominal Distention Temazepam 15 mg 05/11/24 20:00 Temazepam 15 Mg Capsule PO QHS PRN Sleep Witch Noa/Glycerin 1 pad 05/11/24 13:43 05/11/24 15:47 Glycerin/Witch Noa Pads TOPICAL 1 pad Q2H PRN Administration Pain Diet Category Date Time Status Regular Consistency Diet Diet 05/11/24 13:43 Active IV Insertion/Site Date of IV Line Insertion [ 05/11/24 Left Antecubital] IV Insertion Time [Left 06:00 Antecubital] Neurology Patient orientation (short person,place,time,situation list) Respiratory Oxygen Delivery Method Room Air Renal Bladder Pattern Continent Catheter Date Urinary Catheter Removed 05/11/24 [Urethral] Time Urinary Catheter 13:18 Discontinued [Urethral]
[2024-05-12 00:10] VITALS: BP 122/72; PULSE 79; TEMP 35.9
[2024-05-12 06:48] LABS: Basophils Percent Auto 0.2 % (0.2-2.0); Eosinophils Absolute Auto 0.1 10^3/uL (0.0-0.7); Eosinophils Percent Auto 0.7 % (0.9-7.0); Hematocrit 27.3 % (36.0-48.0); Hemoglobin 8.6 g/dL (12.0-16.0); Immature Granulocytes Abs Auto 0.02 10^3/uL (0.00-0.03); Immature Granulocytes Pct Auto 0.2 % (0.0-0.5); Lymphocytes Absolute Auto 1.8 10^3/uL (1.2-3.8); Lymphocytes Percent Auto 20.7 % (20.5-60.0); Mean Corpuscular HGB Conc 31.5 g/dL (29.9-35.2); Mean Corpuscular Hemoglobin 24.5 pg (26.7-34.0); Mean Corpuscular Volume 77.8 fL (81.0-99.0); Mean Platelet Volume 11.1 fL (9.5-13.5); Monocytes Absolute Auto 0.7 10^3/uL (0.3-0.8); Neutrophils Percent Auto 70.2 % (43.0-75.0); Platelet Count 235 10^3/uL (150-450); Red Blood Count 3.51 10^6/uL (4.20-5.40); Red Cell Distribution Width 15.2 % (11.0-15.0); White Blood Count 8.5 10^3/uL (4.0-11.0)
[2024-05-12 07:37] LABS: Glucometer 97 mg/dL (74-106)
[2024-05-12 07:48] VITALS: BP 124/71; PULSE 74
[2024-05-12 08:02] VITALS: TEMP 36.7
--- NOTE | 2024-05-12 14:41 | P.OBPN_ITS ---
OB - PN: Subj Subjective Patient comments: no complaints and pain well controlled [place] status: doing well Exam Constitutional Vital Signs, click to edit/add: Last Vital Signs Temp 98.1 F 05/12/24 08:02 Pulse 74 05/12/24 07:48 Resp 16 05/12/24 08:02 BP 124/71 05/12/24 07:48 O2 Del Method Room Air 05/12/24 00:10 Documenting provider has reviewed patient's vital signs: yes Common normals: no apparent distress Respiratory Common normals: normal respiratory effort and clear to auscultation bilaterally Cardio Common normals: regular rate and regular rhythm GI Common normals: Normal to inspection, nondistended, normoactive bowel sounds present Extremity Common normals: no clubbing, cyanosis or edema Results Labs Labs: Short CBC 05/12/24 Range/Units 06:27 WBC 8.5 (4.0-11.0) 10^3/uL Hgb 8.6 L (12.0-16.0) g/dL Hct 27.3 L (36.0-48.0) % Plt Count 235 (150-450) 10^3/uL Urinary Catheter Management Urinary Catheter Management Urethral: Cath placed during this visit: yes, but has since been removed by the nurse Removal date: 05/11/24 Removal time: 13:18 OB - PN: A/P Plan - Vaginal Delivery day: 1 Plan: routine care, discharge home and follow up 6 weeks Time Spent with Patient Time: Total time spent is greater than 50% in coordination of care (as documented) at patient's floor/unit and/or counseling patient: Total time spent with greater than 50% in coordination of care (as documented) at patient's floor/unit and/or counseling patient: less than 15 minutes
== END 2024-05-12 15:30 | disposition home or self-care (01) | DRG 560 ==
PROVIDERS: Admitting Provider Obstetrics & Gynecology; Visit Provider Obstetrics & Gynecology
DX: O24.424 Gestational diabetes mellitus in childbirth, insulin controlled (principal); O70.0 First degree perineal laceration during delivery; Z37.0 Single live birth; Z3A.37 37 weeks gestation of pregnancy
CPT/HCPCS: 36415; 59050; 59410; 80307; 82948; 85025; 85027; 86850; 86900; 86901; 87081; J0690; J2795; J3010

== ENCOUNTER 2024-05-15 08:09 | Outpatient (OUT) | payer OTHER, SELFPAY ==
--- NOTE | 2024-05-15 13:19 | PC.NURSE ---
Stephie and 4 day old Bekah arrive for follow up. Stephie notes that she is tired but feels like that is normal . She is more concerned with hard engorgement of breasts. Stephie is bottle feeding with little to no interest in pumping or latching infant at this time. Breasts are hard to palpation, edematous with orange peel appearance, slightly reddened. States stood under shower last night and felt great , then noticed increased discomfort and more knots/lumps than before. In depth discussion on engorgement, drying up milk supply, and breast care. Hand out to support information.VSS and assessment WNL for Stephie. Edema of feet and ankles noticed as well. Mehul signs negative. Daishalyne to room and breast massage to assist in relieving engorgement demo's and pt states will be able to do for herself at home. Milk leaks minimally, but breasts do soften and pt states pain is decreased, I feel like I can take a deep breath without them busting open Breasts softer after massage to drain extra fluid and milk. Pt voices ways to care for self during engorgement, confident in ability to do so. Baby Bekah with VSS and assessment WNL. feeding well, 2-2.5 oz each feed, 3 hours apart. 8+ wets and 7 yellow green stools in last 24 hours. Mom has no concerns for or care. Leaves ambulatory with baby, aware to call if engorgement continues or worsens past 2 days. Verbalized understanding.
[2024-05-15 13:20] VITALS: BP 128/89; PULSE 90; TEMP 36.7; O2SAT 98
== END 2024-05-15 13:24 | disposition home or self-care (01) ==
LOC: FBCO 08:10
PROVIDERS: Visit Provider Obstetrics & Gynecology
DX: Z39.1 Encounter for care and examination of lactating mother (principal)